=== PATIENT | male | born 1980 | race Caucasian/White ===

== ENCOUNTER → 2016-05-15 | Outpatient (CLI) | payer MEDICAID, OTHER ==
--- NOTE | 2016-05-15 17:08 | REP ---
Chest two views HISTORY: Cough Comparison: 06/27/2015 The lungs are clear. The heart is normal in size. The pulmonary vasculature is normal in appearance. The bony structure is intact. IMPRESSION: No acute disease. Signed by Bari Hogan MD 05/15/2016 04:59 P
== END ==
LOC: M WUC 16:43
PROVIDERS: ATTEND Physician Assistant Medical
DX: J06.9 Acute upper respiratory infection, unspecified (principal); E78.2 Mixed hyperlipidemia

== ENCOUNTER 2016-05-26 23:08 | Emergency (ER) | payer MEDICAID ==
[~2016-05-26] VITALS: Ht 177.8 cm; Wt 97.5 kg
[2016-05-27] MEDS ORDERED: ONDANSETRON 4MG/2ML VIAL (J2405) IV ONE (00:30)
[2016-05-27] MEDS ORDERED: NS 1,000 ML IV ONE (00:30)
[2016-05-27] MEDS: MORPHINE 4 MG/ML 1ML SYRINGE IV PRN ×2 (00:32→03:03)
[2016-05-27 00:37] LABS: BASO # 0.1 K/mm3 (0.0-0.2); BASO % 0.7 % (0.0-1.0); EOS # 0.3 K/mm3 (0.0-0.50); LARGE UNSTAINED CELL # 0.2 K/mm3 (0.0-0.4); LARGE UNSTAINED CELL % 1.1 % (0.0-4.0); LYMPH # 2.5 K/mm3 (1.5-4.5); LYMPH % 17.1 % (24.0-44.0); MEAN CORPUSCULAR HEMOGLOBIN 30.6 pg (27.0-33.0); MEAN CORPUSCULAR HGB CONC 33.4 g/dl (32.0-36.5); MEAN CORPUSCULAR VOLUME 91.5 fl (80.0-96.0); MONO # 0.7 K/mm3 (0.0-0.8); MONO % 5.1 % (0.0-5.0); NEUTROPHILS % 74.1 % (36.0-66.0); PLATELET COUNT, AUTOMATED 177 k/mm3 (150-450); RED CELL DISTRIBUTION WIDTH 12.7 % (11.5-14.5); WHITE BLOOD COUNT 13.5 K/mm3 (4.0-10.0)
[2016-05-27 00:49] LABS: ALBUMIN 3.6 GM/DL (3.2-5.2); ALBUMIN/GLOBULIN RATIO 1.16 (1.00-1.93); ALKALINE PHOSPHATASE 93 U/L (45-117); ALT/SGPT 35 U/L (12-78); ANION GAP 10 MEQ/L (8-16); AST/SGOT 17 U/L (15-37); BILIRUBIN,DIRECT 0.1 MG/DL (0.0-0.2); BILIRUBIN,TOTAL 0.7 MG/DL (0.2-1.0); BLOOD UREA NITROGEN 15 MG/DL (7-18); CALCIUM LEVEL 8.1 MG/DL (8.5-10.1); CARBON DIOXIDE LEVEL 24 MEQ/L (21-32); CHLORIDE LEVEL 108 MEQ/L (98-107); GLOMERULAR FILTRATION RATE > 60.0 (>60); GLUCOSE, FASTING 120 MG/DL (70-105); POTASSIUM SERUM 4.1 MEQ/L (3.5-5.1); SODIUM LEVEL 142 MEQ/L (136-145); TOTAL PROTEIN 6.7 GM/DL (6.4-8.2)
[2016-05-27] MEDS ORDERED: ISOVUE-370 76% 100ML VIAL (Q9967) As Ordered ONE (00:52)
[2016-05-27 03:38] VITALS: BP 131/61
--- NOTE | 2016-05-27 04:40 | REPUSA ---
CLINICAL HISTORY: Abdominal pain. TECHNIQUE: Multiple axial, sagittal and coronal CT images were obtained through the abdomen and pelvi s after administration of oral and intravenous contrast material. COMMENTS: The liver is of uniform decreased attenuation without mass or defect compatibl with fatty infiltratio n. There is no intra or extrahepatic biliary ductal dilatation. The spleen is normal. The gallbladder is within normal limits. The pancreas is of normal contour and attenuation characteristics. There is no evidence of adrenal mass. Both kidneys demonstrate prompt and equal nephrograms. The kidneys are normal in size, shape and conf iguration. There is no evidence of renal or ureteral mass. No renal or ureteral calculi are identifie d. There is no hydroureter or hydronephrosis. No evidence for appendicitis. There is diffuse descending and sigmoid diverticulosis note. Marked in flammatory stranding is seen adjacen to distal descending colon compatibl with acute divertiulitis No abscess or free air. No evidence for small or large bowel obstruction. There is no evidence of abdom inal ascites or lymphadenopathy. There is no evidence of intrinsic or extrinsic bladder mass. There is no pelvic ascites or lymphadeno liz. Images of the lung bases show no evidence of pleural or parenchymal mass. There are no pleural effusi ons. The bony structures are free of lytic or blastic lesions. IMPRESSION: Acute distal descending diverticulitis. Fatty liver. Thank you for your kind referral of this patient.
[2016-05-27] MEDS ORDERED: metroNIDAZOLE (FLAGYL) 500 MG TAB PO ONE (04:45)
[2016-05-27] MEDS ORDERED: OXYCODONE/APAP 5MG/325MG(BULK) 1 TAB TAB PO ONE (04:45)
[2016-05-27] MEDS ORDERED: CIPROFLOXACIN 500 MG TAB PO ONE (04:45)
[2016-05-27] MEDS ORDERED: FLAG500T PO ×2 (04:46→22:52)
[2016-05-27] MEDS ORDERED: PERC5TAB6 PO ×2 (04:46→22:52)
[2016-05-27] MEDS ORDERED: CIPR500T89 PO ×2 (04:46→22:52)
--- NOTE | 2016-05-27 19:47 | ECGEPIP ---
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
[2016-05-27] MEDS ORDERED: BREO1INH INH (22:56)
[2016-05-27] MEDS ORDERED: PROA1AER INH (22:56)
== END 2016-05-27 05:05 | disposition home or self-care (01) ==
LOC: M ED 05-27 01:30
DX: K57.32 Diverticulitis of large intestine without perforation or abscess without bleeding (principal); J44.9 Chronic obstructive pulmonary disease, unspecified; F17.210 Nicotine dependence, cigarettes, uncomplicated

== ENCOUNTER 2016-05-27 21:25 | Inpatient (IN) | payer MEDICAID ==
[~2016-05-27] VITALS: Ht 177.8 cm; Wt 101.5 kg
[~2016-05-27 21:25] MED LIST: CIPR500T89 PO; FLAG500T PO; PERC5TAB6 PO
[2016-05-27] MEDS ORDERED: diphenhydrAMINE INJ 50MG/ML VIAL (J1200) IV ONE (22:15)
[2016-05-27] MEDS ORDERED: methylPREDNISolone INJ 125 MG/2 ML VIAL (J2930) IV ONE (22:15)
[2016-05-27] MEDS ORDERED: PIPERACILLIN/TAZOBACTAM SOD 3.375 GM in D5W MINI-BAG PLUS 50 ML IV ONE (22:15)
[2016-05-27] MEDS ORDERED: MORPHINE 4 MG/ML 1ML SYRINGE IV PRN (22:15)
[2016-05-27] MEDS ORDERED: ONDANSETRON 4MG/2ML VIAL (J2405) IV ONE (22:15)
[2016-05-27] MEDS ORDERED: NS 1,000 ML IV ONE (22:15)
[2016-05-27 22:37] LABS: BASO # 0.1 K/mm3 (0.0-0.2); BASO % 0.5 % (0.0-1.0); EOS # 0.2 K/mm3 (0.0-0.50); LARGE UNSTAINED CELL # 0.1 K/mm3 (0.0-0.4); LARGE UNSTAINED CELL % 0.4 % (0.0-4.0); LYMPH # 1.6 K/mm3 (1.5-4.5); LYMPH % 12.5 % (24.0-44.0); MEAN CORPUSCULAR HEMOGLOBIN 31.2 pg (27.0-33.0); MEAN CORPUSCULAR HGB CONC 34.2 g/dl (32.0-36.5); MEAN CORPUSCULAR VOLUME 91.4 fl (80.0-96.0); MONO # 0.6 K/mm3 (0.0-0.8); MONO % 5.2 % (0.0-5.0); NEUTROPHILS # 9.6 K/mm3 (1.8-7.7); NEUTROPHILS % 79.4 % (36.0-66.0); PLATELET COUNT, AUTOMATED 165 k/mm3 (150-450); RED CELL DISTRIBUTION WIDTH 12.6 % (11.5-14.5); WHITE BLOOD COUNT 12.1 K/mm3 (4.0-10.0)
[2016-05-27] MEDS ORDERED: CIPR500T89 PO (22:52)
[2016-05-27] MEDS ORDERED: PERC5TAB6 PO (22:52)
[2016-05-27] MEDS ORDERED: FLAG500T PO (22:52)
[2016-05-27 22:55] LABS: ALBUMIN 3.3 GM/DL (3.2-5.2); ALBUMIN/GLOBULIN RATIO 0.94 (1.00-1.93); ALKALINE PHOSPHATASE 82 U/L (45-117); ALT/SGPT 31 U/L (12-78); ANION GAP 12 MEQ/L (8-16); AST/SGOT 10 U/L (15-37); BILIRUBIN,DIRECT 0.1 MG/DL (0.0-0.2); BILIRUBIN,TOTAL 0.7 MG/DL (0.2-1.0); BLOOD UREA NITROGEN 12 MG/DL (7-18); CALCIUM LEVEL 8.4 MG/DL (8.5-10.1); CARBON DIOXIDE LEVEL 25 MEQ/L (21-32); CHLORIDE LEVEL 104 MEQ/L (98-107); CREATININE FOR GFR 0.95 MG/DL (0.70-1.30); GLOMERULAR FILTRATION RATE > 60.0 (>60); GLUCOSE, FASTING 128 MG/DL (70-105); POTASSIUM SERUM 3.7 MEQ/L (3.5-5.1); SODIUM LEVEL 141 MEQ/L (136-145); TOTAL PROTEIN 6.8 GM/DL (6.4-8.2)
[2016-05-27] MEDS ORDERED: BREO1INH INH (22:56)
[2016-05-27] MEDS ORDERED: PROA1AER INH (22:56)
[2016-05-27] MEDS ORDERED: ONDANSETRON 4MG/2ML VIAL (J2405) IV PRN (23:00)
[2016-05-27] MEDS ORDERED: NORCO, ANEXSIA 5/325MG TABLET (HYDROcodone/ACETAMINOPHEN) PO PRN (23:00)
[2016-05-27] MEDS ORDERED: ALBUTEROL 90 MCG/ACT 8GM HFA INHALER INH PRN (23:00)
[2016-05-27] MEDS ORDERED: NICOTINE 21MG/24HR 1 EA TRANSDERMAL TD ONE (23:00)
[2016-05-27 23:55] VITALS: BP 139/83
[2016-05-28] MEDS: NS 1,000 ML IV SCH ×2 (00:36→12:51)
[2016-05-28] MEDS: PANTOPRAZOLE 40MG INJ (PROTONIX) (C9113) IV SCH ×2 (00:37→20:38)
[2016-05-28] MEDS: MORPHINE 2 MG/ML 1ML SYRINGE IV PRN ×3 (00:44→22:43)
--- NOTE | 2016-05-28 04:10 | HPE ---
DATE OF ADMISSION: 05/27/2016 PRIMARY CARE PROVIDER: NAKUL Chan CHIEF COMPLAINT: Abdominal pain. HISTORY OF PRESENT ILLNESS: The patient is a 35-year-old man who presented to the emergency room actually yesterday for the first time. At that time, he had lower quadrant abdominal pain associated with nausea and vomiting. At that time, he was diagnosed with diverticulitis by CT scan. He was discharged home on Percocet, Cipro, and Flagyl. However, the patient has had persistent nausea and vomiting, unable to keep the oral medications down as well as continued pain without any increase in pain. The patient also developed a maculopapular rash on his anterior chest and back prompting him to return the emergency room today. At the present time, the patient tells me that has been experiencing fevers and chills over the last several days. His pain is not any worse than it was yesterday. He is not able to keep any medication or food down. He tried eating mashed potatoes and gravy earlier today without any success. REVIEW OF SYSTEMS: Negative other than history of present illness (HPI). ALLERGIES: NOVOCAIN. SOCIAL HISTORY: He is an active smoker. No alcohol abuse. He lives with his . He denies any illicit substances. SURGICAL HISTORY: 1. Left elbow surgery. 2. Right wrist tendon surgery. 3. Tonsillectomy and adenoidectomy as a child. 4. Jaw fracture. 5. Numerous tattoos, some do not appear professional. PAST MEDICAL HISTORY: 1. Fatty liver. 2. Idiopathic urticaria. 3. Angioedema. 4. Chronic obstructive pulmonary disease (COPD). HOME MEDICATIONS: The patient says he uses an inhaler although very infrequently. He uses an occasional inhaler, but he does not know what it is called, other than that he denies. FAMILY HISTORY: Noncontributory. PHYSICAL EXAMINATION: Temperature 99, pulse 105, respiratory rate 16, blood pressure 164/92, oxygen saturation 98% on room air. GENERAL: He is an obese, middle-aged, man with numerous tattoos, some do not appear professional. He appears to be tired, but not in acute distress. HEENT: Cranial nerves II-XII are grossly intact. He has dry mucous membranes. CARDIOVASCULAR: S1, S2, regular. RESPIRATORY EXAM: Fairly clear. ABDOMEN: Obese, bowel sounds are present but diminished. There is tenderness to palpation. EXTREMITIES: No clubbing, cyanosis, or edema. LABORATORY STUDIES: WBC 12.1, hemoglobin 15.5, hematocrit 45.4, platelet count 165. Chemistry panel: Sodium 141, potassium 3.7, chloride 104, bicarbonate 25, BUN 12, creatinine 0.9. UA yesterday was essentially unremarkable. Blood cultures from yesterday are currently pending. Influenza swab yesterday was negative. Urine culture and blood cultures from today are currently pending. No new imaging. ASSESSMENT AND PLAN: This is a 35-year-old man with acute diverticulitis. 1. Acute diverticulitis. The patient was tried on oral antibiotics at home but did not tolerate it; had nausea and vomiting, and has returned once again. At this time, we will admit him to the medical-surgical floor to Dr. Senior's service who will continue to follow him at 7 a.m. Patient will be nothing by mouth. I will provide him with IV pain medication. We will switch his antibiotics as his maculopapular rash does appear to be a drug rash; however, it is unclear if it is secondary to his chronic history of urticaria versus true allergic reaction. He did receive Solu-Medrol and Benadryl in the emergency room. At this time, we will place him on Zosyn. Should the patient fail to improve with these measures, will consider surgical consultation. I will also provide him with Zofran IV and gentle IV fluids. 2. Urticaria. He received Solu-Medrol and Benadryl in the emergency room. We will simply monitor his maculopapular rash which is fairly diffuse on his chest and back at this time. 3. Chronic obstructive pulmonary disease (COPD). Continue with Ventolin as needed. 4. Deep vein thrombosis (DVT) prophylaxis. Patient is on Lovenox. 5. Tobacco use. Cessation counseling offered. Nicotine patch provided. DISPOSITION: The patient is admitted to the medical-surgical floor to Dr. Senior's service who will continue to follow the patient at 7 a.m.
[2016-05-28] MEDS: PIPERACILLIN/TAZOBACTAM SOD 3.375 GM in D5W MINI-BAG PLUS 50 ML IV SCH ×4 (05:34→22:43)
[2016-05-28 06:38] LABS: MEAN CORPUSCULAR HEMOGLOBIN 30.8 pg (27.0-33.0); MEAN CORPUSCULAR HGB CONC 33.4 g/dl (32.0-36.5); MEAN CORPUSCULAR VOLUME 92.1 fl (80.0-96.0); RED CELL DISTRIBUTION WIDTH 12.4 % (11.5-14.5); WHITE BLOOD COUNT 10.6 K/mm3 (4.0-10.0)
[2016-05-28 06:56] LABS: ANION GAP 6 MEQ/L (8-16); BLOOD UREA NITROGEN 11 MG/DL (7-18); CALCIUM LEVEL 8.2 MG/DL (8.5-10.1); CARBON DIOXIDE LEVEL 27 MEQ/L (21-32); CHLORIDE LEVEL 108 MEQ/L (98-107); CREATININE FOR GFR 0.91 MG/DL (0.70-1.30); GLOMERULAR FILTRATION RATE > 60.0 (>60); GLUCOSE, FASTING 177 MG/DL (70-105); POTASSIUM SERUM 4.6 MEQ/L (3.5-5.1); SODIUM LEVEL 141 MEQ/L (136-145)
[2016-05-28 08:00] VITALS: BP 143/82
[2016-05-28] MEDS: ENOXAPARIN 40 MG/0.4 ML SYRINGE (J1650) SC SCH (08:43)
[2016-05-28] MEDS: NORCO, ANEXSIA 5/325MG TABLET (HYDROcodone/ACETAMINOPHEN) PO PRN ×3 (09:24→20:38)
[2016-05-28] MEDS ORDERED: diphenhydrAMINE INJ 50MG/ML VIAL (J1200) IM PRN (12:00)
[2016-05-28] MEDS: methylPREDNISolone INJ 125 MG/2 ML VIAL (J2930) IV SCH ×2 (12:51→20:38)
[2016-05-28] MEDS: NICOTINE 14 MG/24 HR TRANSDERMAL TD SCH (13:20)
--- NOTE | 2016-05-28 15:47 | IPNPDOC ---
Text Note Date of Service The patient was seen on 05/28/16. NOTE Subjective: Pt still has LLQ pain. Still has the rash. Objective: Vitals: (see below) General: No acute distress, laying comfortably in bed. HEENT: Moist mucous membranes. Neck: No JVD or lymphadenopathy Cardiac: RRR, No murmurs Pulm: Clear to auscultation b/l. No wheezing, rhonchi Abd: TTP LLQ. No rebound/guarding/rigidity. ND + BS Ext: No edema or cyanosis Labs (see below) Images: CT abd/pelvis 05/27/16 COMMENTS: The liver is of uniform decreased attenuation without mass or defect compatibl with fatty infiltration. There is no intra or extrahepatic biliary ductal dilatation. The spleen is normal. The gallbladder is within normal limits. The pancreas is of normal contour and attenuation characteristics. There is no evidence of adrenal mass. Both kidneys demonstrate prompt and equal nephrograms. The kidneys are normal in size, shape and configuration. There is no evidence of renal or ureteral mass. No renal or ureteral calculi are identified. There is no hydroureter or hydronephrosis. No evidence for appendicitis. There is diffuse descending and sigmoid diverticulosis note. Marked inflammatory stranding is seen adjacent to distal descending colon compatibl with acute divertiulitis No abscess or free air. No evidence for small or large bowel obstruction. There is no evidence of abdominal ascites or lymphadenopathy. There is no evidence of intrinsic or extrinsic bladder mass. There is no pelvic ascites or lymphadenopathy. Images of the lung bases show no evidence of pleural or parenchymal mass. There are no pleural effusions. The bony structures are free of lytic or blastic lesions. IMPRESSION: Acute distal descending diverticulitis. Fatty liver. Assessment/Plan 1. Acute Diverticulitis - on IVF, Zosyn. NPO. Zofran PRN. Pain control. Advance diet once abd pain has resolved. 2. Urticaria - likely 2/2 oxycodone. On Benadryl and steroids. 3. ? H/o COPD - followed up with Dr. Kerr in the past. Ventolin as needed. 4. Tobacco abuse - on nicotine patch. DVT prophy- Lovenox. VS,Fishbone, I+O VS, Fishbone, I+O Laboratory Tests 05/27/16 22:21 Red Blood Count 4.97, Mean Corpuscular Volume 91.4, Mean Corpuscular Hemoglobin 31.2, Mean Corpuscular Hemoglobin Concent 34.2, Red Cell Distribution Width 12.6 , Neutrophils (%) (Auto) 79.4 H, Lymphocytes (%) (Auto) 12.5 L, Monocytes (%) ( Auto) 5.2 H, Eosinophils (%) (Auto) 2.0, Basophils (%) (Auto) 0.5, Neutrophils # (Auto) 9.6 H, Lymphocytes # (Auto) 1.6, Monocytes # (Auto) 0.6, Eosinophils # (Auto) 0.2, Basophils # (Auto) 0.1 05/28/16 06:26 Calcium Level 8.2 L 05/28/16 06:27 Red Blood Count 4.81, Mean Corpuscular Volume 92.1, Mean Corpuscular Hemoglobin 30.8, Mean Corpuscular Hemoglobin Concent 33.4, Red Cell Distribution Width 12.4 Vital Signs Date Time Temp Pulse Resp B/P Pulse Ox O2 Delivery O2 Flow Rate FiO2 05/28/16 13:21 18 05/28/16 08:00 97.0 80 143/82 92 Room Air I&O- Last 24 Hours up to 6 AM 05/28/16 06:00 Output Total 500 ml Balance -500 ml ZOYA JAMES MD May 28, 2016 15:46
[2016-05-28 16:00] VITALS: BP 143/83
[2016-05-28 20:00] VITALS: BP 131/70
[2016-05-29 04:00] VITALS: BP 163/79
[2016-05-29] MEDS: methylPREDNISolone INJ 125 MG/2 ML VIAL (J2930) IV SCH ×2 (04:59→16:31)
[2016-05-29] MEDS: NS 1,000 ML IV SCH (05:00)
[2016-05-29] MEDS: PIPERACILLIN/TAZOBACTAM SOD 3.375 GM in D5W MINI-BAG PLUS 50 ML IV SCH ×4 (05:00→23:29)
[2016-05-29 07:03] LABS: MEAN CORPUSCULAR HEMOGLOBIN 30.7 pg (27.0-33.0); MEAN CORPUSCULAR HGB CONC 33.5 g/dl (32.0-36.5); MEAN CORPUSCULAR VOLUME 91.7 fl (80.0-96.0); RED CELL DISTRIBUTION WIDTH 12.2 % (11.5-14.5); WHITE BLOOD COUNT 11.6 K/mm3 (4.0-10.0)
[2016-05-29 07:19] LABS: ANION GAP 11 MEQ/L (8-16); BLOOD UREA NITROGEN 15 MG/DL (7-18); CALCIUM LEVEL 8.5 MG/DL (8.5-10.1); CARBON DIOXIDE LEVEL 25 MEQ/L (21-32); CHLORIDE LEVEL 107 MEQ/L (98-107); CREATININE FOR GFR 0.81 MG/DL (0.70-1.30); GLOMERULAR FILTRATION RATE > 60.0 (>60); GLUCOSE, FASTING 157 MG/DL (70-105); POTASSIUM SERUM 4.4 MEQ/L (3.5-5.1); SODIUM LEVEL 143 MEQ/L (136-145)
[2016-05-29 08:00] VITALS: BP 137/83
[2016-05-29] MEDS: ENOXAPARIN 40 MG/0.4 ML SYRINGE (J1650) SC SCH (08:54)
[2016-05-29] MEDS: SENOKOT S TAB PO SCH ×2 (08:54→21:13)
[2016-05-29] MEDS: NICOTINE 14 MG/24 HR TRANSDERMAL TD SCH (08:55)
[2016-05-29] MEDS: ADVAIR DISKUS 500/50 INH PWD INH SCH ×2 (09:00→19:41)
--- NOTE | 2016-05-29 13:14 | IPN ---
DATE OF SERVICE: 05/29/2016 The patient seen and examined. No acute events overnight. Reported abdominal pain mildly improved but still present. Last bowel movement was 2 or 3 days ago. Denies any nausea or vomiting. Reported hungry. Denies any fevers, chills, chest pain, pressure, or discomfort. VITAL SIGNS: Temperature 96.9, pulse 81, respiration 18, blood pressure 163/79, pulse oximetry 92% on room air. LABORATORY: WBC 11.6, hemoglobin and hematocrit 14.4/43.1, platelets 175. Chemistry: Sodium 143, potassium 4.4, chloride 107, bicarbonate 25, BUN 15, creatinine 0.81. PHYSICAL EXAMINATION: GENERAL: The patient alert and oriented times three. No acute distress. obese. HEENT: Normocephalic, atraumatic. Moist mucous membranes. Neck supple. CARDIAC: Regular rate and rhythm, normal S1, S2. PULMONARY: Bilaterally clear to auscultation. No wheezes, rales, or rhonchi. ABDOMEN: Left lower quadrant mildly tender. No rebound. No guarding. Hypoactive bowel sounds. EXTREMITIES: No edema in bilateral lower extremities. ASSESSMENT AND PLAN: This is a 35-year-old male patient with underlying medical history of chronic obstructive pulmonary disease (COPD), smoker, presented with acute diverticulitis, failure of outpatient therapy. PROBLEMS: 1. Acute diverticulitis. Advance diet to clear-liquid diet and advance diet as tolerated. Stopping intravenous (IV) fluids. Continue Zosyn. Will continue to follow. Bowel regimen as ordered. 2 . Urticaria, possibly secondary to oxycodone. Benadryl and steroid given. Continue to follow. 3. Chronic obstructive pulmonary disease. The patient follows with Dr. Kerr. Smoking cessation. Ventolin. Breo has been substituted by Advair. Smoking cessation. Nicotine patch. Steroid dose has been decreased and will consider stopping steroids tomorrow. 4. Smoking. Nicotine patch. Counseling provided. 5. Deep vein thrombosis (DVT) prophylaxis. Lovenox subcutaneously. DISPOSITION PLANNING: Likely discharge tomorrow if the patient tolerates regular diet.
[2016-05-29 16:00] VITALS: BP 157/83
[2016-05-29] MEDS ORDERED: methylPREDNISolone INJ 125 MG/2 ML VIAL (J2930) IV SCH (16:00)
[2016-05-29 20:00] VITALS: BP 140/72
[2016-05-29] MEDS: PANTOPRAZOLE 40MG INJ (PROTONIX) (C9113) IV SCH (21:13)
[2016-05-30] VITALS: BP 121/62
[2016-05-30] MEDS: methylPREDNISolone INJ 125 MG/2 ML VIAL (J2930) IV SCH (04:59)
[2016-05-30] MEDS: PIPERACILLIN/TAZOBACTAM SOD 3.375 GM in D5W MINI-BAG PLUS 50 ML IV SCH (04:59)
[2016-05-30 07:44] LABS: MEAN CORPUSCULAR HEMOGLOBIN 29.9 pg (27.0-33.0); MEAN CORPUSCULAR HGB CONC 32.8 g/dl (32.0-36.5); MEAN CORPUSCULAR VOLUME 91.2 fl (80.0-96.0); RED CELL DISTRIBUTION WIDTH 12.4 % (11.5-14.5); WHITE BLOOD COUNT 10.6 K/mm3 (4.0-10.0)
[2016-05-30 08:00] VITALS: BP 127/69
[2016-05-30 08:03] LABS: ANION GAP 9 MEQ/L (8-16); BLOOD UREA NITROGEN 14 MG/DL (7-18); CALCIUM LEVEL 7.9 MG/DL (8.5-10.1); CARBON DIOXIDE LEVEL 26 MEQ/L (21-32); CHLORIDE LEVEL 110 MEQ/L (98-107); CREATININE FOR GFR 0.93 MG/DL (0.70-1.30); GLOMERULAR FILTRATION RATE > 60.0 (>60); GLUCOSE, FASTING 126 MG/DL (70-105); POTASSIUM SERUM 4.1 MEQ/L (3.5-5.1); SODIUM LEVEL 145 MEQ/L (136-145)
[2016-05-30] MEDS ORDERED: FLAG500T PO (08:17)
[2016-05-30] MEDS ORDERED: NICO14PA TD (08:17)
[2016-05-30] MEDS ORDERED: SENN1TAB2 PO (08:17)
[2016-05-30] MEDS ORDERED: CIPR500T89 PO (08:17)
[2016-05-30] MEDS: NICOTINE 14 MG/24 HR TRANSDERMAL TD SCH (08:19)
[2016-05-30] MEDS: ENOXAPARIN 40 MG/0.4 ML SYRINGE (J1650) SC SCH (08:20)
[2016-05-30] MEDS: SENOKOT S TAB PO SCH (08:20)
[2016-05-30] MEDS: ADVAIR DISKUS 500/50 INH PWD INH SCH (08:37)
--- NOTE | 2016-05-30 19:31 | DSES ---
DATE OF ADMISSION: 05/27/2016 DATE OF DISCHARGE: 05/30/2016 PRIMARY CARE PROVIDER: Bell Perez. FINAL DIAGNOSES: 1. Acute diverticulitis. 2. Urticaria. 3. History of chronic obstructive pulmonary disease (COPD), smoking. HISTORY OF PRESENT ILLNESS: This is a 35-year-old male patient, obese, with underlying medical history of COPD, who presented to the emergency room initially the day prior to admission for the first time with lower quadrant abdominal pain associated with nausea and vomiting. The patient was diagnosed with diverticulitis on CT scan, and was discharged home on Percocet, Cipro and Flagyl. However, the patient reported persistent nausea and vomiting, unable to take the oral medication, continued to have increased pain. Also developed maculopapular rash on the patient's anterior chest and back, likely from Percocet. The patient returned to the emergency room with subjective fevers and chills and was subsequently admitted. HOSPITAL COURSE: The patient was admitted to the hospital, initially made nothing by mouth. Antibiotics were switched to Zosyn. Steroids and Benadryl were given for urticaria which has resolved. The patient's home inhaler was given. Smoking cessation counseling was provided. Nicotine patch was provided. Intravenous (IV) fluids were provided. The patient's condition progressively improved. Diet was advanced. The patient's pain continued to improve. The patient is currently tolerating diet, comfortable, ready to be discharged. As per patient, the patient's primary care provider has already arranged for the patient to have a followup colonoscopy. VITAL SIGNS: Temperature 97.4, pulse 63, respirations 18, blood pressure 127/69, pulse oximetry 97% on room air. LABORATORY DATA: WBC 10.6, hemoglobin and hematocrit 14.2 over 43.4, platelets 194. Chemistry: Sodium 145, potassium 4.1, chloride 110, bicarbonate 28, BUN 14, creatinine 0.93. DISCHARGE MEDICATIONS: - nicotine patch 14 mg transdermal daily - senna 8.6/50 mg combination one tablet by mouth twice a day - the patient's home medication, ProAir inhalation every four hours as needed - Cipro 500 mg by mouth twice a day for five more days, along with Flagyl 500 mg by mouth every eight hours for five more days - Breo inhalation daily is continued DISCHARGE INSTRUCTIONS: The patient is instructed to followup with primary care provider in seven days. Observe a low-fat, high-fiber diet. Return to the hospital if symptoms worsen.
== END 2016-05-30 10:55 | disposition home or self-care (01) | DRG 244 ==
LOC: M ED 22:27 → M ED INP 22:54 → M PED 05-28 00:06
PROVIDERS: ADMIT Internal Medicine; ATTEND Hospitalist
DX: K57.32 Diverticulitis of large intestine without perforation or abscess without bleeding (principal); K76.0 Fatty (change of) liver, not elsewhere classified; J44.9 Chronic obstructive pulmonary disease, unspecified; E66.9 Obesity, unspecified; L50.0 Allergic urticaria; F17.210 Nicotine dependence, cigarettes, uncomplicated; T40.2X5A Adverse effect of other opioids, initial encounter

== ENCOUNTER 2016-06-01 15:47 | Observation (INO) | payer MEDICAID ==
[~2016-06-01] VITALS: Ht 177.8 cm; Wt 95.8 kg
[~2016-06-01 15:47] MED LIST changes: +BREO1INH INH; +NICO14PA TD; +PROA1AER INH; +SENN1TAB2 PO
[2016-06-01 20:30] LABS: BASO # 0.1 K/mm3 (0.0-0.2); BASO % 0.6 % (0.0-1.0); EOS # 0.4 K/mm3 (0.0-0.50); EOS % 3.8 % (0.0-3.0); LARGE UNSTAINED CELL # 0.1 K/mm3 (0.0-0.4); LARGE UNSTAINED CELL % 1.2 % (0.0-4.0); LYMPH # 2.1 K/mm3 (1.5-4.5); LYMPH % 21.6 % (24.0-44.0); MEAN CORPUSCULAR HEMOGLOBIN 30.3 pg (27.0-33.0); MEAN CORPUSCULAR HGB CONC 33.7 g/dl (32.0-36.5); MEAN CORPUSCULAR VOLUME 90.1 fl (80.0-96.0); MONO # 0.5 K/mm3 (0.0-0.8); MONO % 4.9 % (0.0-5.0); NEUTROPHILS # 6.8 K/mm3 (1.8-7.7); PLATELET COUNT, AUTOMATED 217 k/mm3 (150-450); RED CELL DISTRIBUTION WIDTH 12.5 % (11.5-14.5); WHITE BLOOD COUNT 9.9 K/mm3 (4.0-10.0)
[2016-06-01 21:02] LABS: ALBUMIN 3.4 GM/DL (3.2-5.2); ALBUMIN/GLOBULIN RATIO 1.17 (1.00-1.93); ALKALINE PHOSPHATASE 81 U/L (45-117); ALT/SGPT 59 U/L (12-78); ANION GAP 7 MEQ/L (8-16); AST/SGOT 22 U/L (15-37); BILIRUBIN,TOTAL 0.5 MG/DL (0.2-1.0); BLOOD UREA NITROGEN 15 MG/DL (7-18); CARBON DIOXIDE LEVEL 31 MEQ/L (21-32); CHLORIDE LEVEL 105 MEQ/L (98-107); GLOMERULAR FILTRATION RATE > 60.0 (>60); GLUCOSE, FASTING 94 MG/DL (70-105); POTASSIUM SERUM 4.2 MEQ/L (3.5-5.1); SODIUM LEVEL 143 MEQ/L (136-145); TOTAL PROTEIN 6.3 GM/DL (6.4-8.2)
[2016-06-01] MEDS ORDERED: ISOVUE-370 76% 100ML VIAL (Q9967) As Ordered ONE (21:11)
[2016-06-01] MEDS ORDERED: GASTROGRAFIN SOLUTION 30ML (Q9963) As Ordered ONE (21:16)
[2016-06-01] MEDS ORDERED: GASTROGRAFIN SOLUTION 30ML (Q9963) PO ONE ×2 (21:30)
--- NOTE | 2016-06-01 23:40 | REPUSA ---
CLINICAL HISTORY: Diverticulitis last week, rule out repeat. TECHNIQUE: Multiple axial CT images were obtained through the abdomen and pelvis after administratio n of oral and intravenous contrast material. COMMENTS: There is hepatic hypoattenuation compatible with fatty infiltration. Small hiatal hernia is present. There is no intra or extrahepatic biliary ductal dilatation. Multiple calcified splenic granulomas are present. The gallbladder is within normal limits. The pancreas is of normal contour and attenu ation characteristics. There is no evidence of adrenal mass. Both kidneys demonstrate prompt and equal nephrograms. The kidneys are normal in size, shape and con figuration. There is no evidence of renal or ureteral mass. No renal or ureteral calculi are identi fied. There is no hydroureter or hydronephrosis. No evidence for appendicitis. There is no bowel wall thickening. Scattered descending and sigmoid d iverticula are present. No evidence of diverticulitis. There is evidence of inflammatory stranding adjacent to the distal descending colon compatible with acute diverticulitis. No evidence for small or large bowel obstruction. There is no evidence of abdominal ascites or lymphadenopathy. There is no evidence of intrinsic or extrinsic bladder mass. There is no pelvic ascites or lymphaden opathy. Prostate gland is normal in size containing small calcifications. Images of the lung bases show no evidence of pleural or parenchymal mass. There are no pleural effus ions. The bony structures are free of lytic or blastic lesions. IMPRESSION: 1. Acute distal descending diverticulitis. 2. Fatty liver. 3. Small hiatal hernia. Thank you for your kind referral of this patient. We appreciate the opportunity to participate in th is patient's care.
[2016-06-02] MEDS ORDERED: LR 1,000 ML IV SCH (01:00)
[2016-06-02] MEDS ORDERED: ACETAMINOPHEN TAB 650MG DOSE (2X325MG) PO PRN (01:30)
[2016-06-02] MEDS ORDERED: ONDANSETRON 4MG/2ML VIAL (J2405) IV PRN (01:30)
[2016-06-02] MEDS ORDERED: CIPR500T89 PO (01:44)
[2016-06-02] MEDS ORDERED: NICO14DI TD (01:44)
[2016-06-02] MEDS ORDERED: FLAG500T PO (01:44)
[2016-06-02] MEDS ORDERED: SENN1TAB2 PO (01:45)
[2016-06-02 02:38] VITALS: BP 138/84
[2016-06-02] MEDS ORDERED: NS 1,000 ML IV SCH (02:59)
[2016-06-02] MEDS: MORPHINE 2 MG/ML 1ML SYRINGE IV PRN ×3 (03:08→18:37)
[2016-06-02] MEDS: PIPERACILLIN/TAZOBACTAM SOD 3.375 GM in D5W MINI-BAG PLUS 50 ML IV SCH ×3 (03:09→19:52)
--- NOTE | 2016-06-02 03:20 | HPEPDOC ---
General Date of Admission Jun 02, 2016 at 01:30 Chief Complaint The patient is a 35-year-old male Presented to the hospital with complaints of left lower abdominal pain. History of Present Illness Patient is a 35 year old male with a PMHx Fatty Liver, Idiopathic urticarial, Angioedema, and COPD (not on home O2) who presented to the hospital because of left lower abdominal pain. Patient was recently at the [facility] for acute diverticulitis from 05/27-05/30. He had similar symptoms upon admission then and had resolution of his white count and pain. He was subsequently discharged with Ciprofloxacin and Flagyl. He has been outside the hospital for 2-3 days and did not have any issues. He was told to have a high fiber diet and has been compliant. He noted that his pain today has recurred at the left lower quadrant. He rated it at a max of 10/10, currently a 7/10, continuous, stabbing pain, non-radiating , no alleviating factors and aggravated by movement. Patient denies any vomiting , but reports some nausea. He has had a history of diarrhea that has been present chronically. He denies any fevers at home. He denies any cough, shortness of breath, chest pain, palpitations, or dysuria. Home Medications Scheduled (Senna Plus 8.6-50 mg) 1 Tab Tab 1 TAB PO BID (Reported) Ciprofloxacin HCl (Cipro) 500 Mg Tab 500 MG PO BID (Reported) For 10 days; Started 05/30/16 Fluticasone/Vilanterol (Breo Ellipta 100-25 Mcg/INH) 1 Inh Inh 1 PUFF INH DAILY (Reported) Metronidazole (Flagyl) 500 Mg Tab 500 MG PO Q8H (Reported) For 10 days; Started 05/30/16 Nicotine (Nicotine) 14 Mg/24 Hr Dis 14 MG TD DAILY (Reported) Applied to Left Arm Scheduled PRN Albuterol Sulfate (Proair Hfa) 108 Mcg/Act Aer 1 PUFF INH Q4H PRN PRN SHORTNESS OF BREATH (Reported) Allergies Coded Allergies: Oxycodone (Verified Allergy, Intermediate, HIVES WITHOUT ITCHING, 05/28/16) Past Medical History Medical History Fatty Liver, Idiopathic urticarial, Angioedema, and COPD (not on home O2) Surgical History Left elbow surgery Right wrist tendon surgery Tonsillectomy Adenoidectomy Jaw fracture Numerous tattoos doesnt appear professionally done Family History - Mother unknown history - Father with DM2 Social History - Denies the use of illicit drugs; Social alcohol use, Smoker of 10 years at 1ppd - Denies recent travel or sick contacts - Lives with - 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; [employer]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 Other systems Constitutional: Denies weight loss, change in appetite, or recent trauma Eyes: No visual changes or eye pain Ears, Nose, Throat: Denies nose bleeds, or difficulty swallowing Cardiovascular: Denies chest pain, sweating, or orthopnea Respiratory: Denies cough, wheezing, or shortness of breath GI: Positive nausea, No vomiting, Positive abdominal pain, Positive diarrhea, No constipation : Denies pain with urination or frequency Musculoskeletal: Denies joint pain or swelling Neuro / Psych: Denies muscle weakness or sensory loss Skin: No skin rashes noted All other review of systems negative; otherwise stated in history of present illness Screening: - Colonoscopy never done Vital Signs - Vitals: BP 138/84, HR 66, RR 19, Sat 95%RA, Temp 97.9F - General: Lying in bed, No acute distress, Speaking in full sentences, AAOx3 - HEENT: NC, AT, PERRLA, EOMI - CVS: RRR, +S1S2, - Murmurs / rubs / gallops - Lungs: Fair air entry bilaterally, Clear to auscultation, No wheezing / rales / rhonchi - Abdomen: Soft, Non-distended, Tenderness at left lower quadrant, + Bowel sounds x 4, No guarding / rigidity / rebound - Extremities: + PPx4, No lower extremity edema, No calf tenderness - Neuro: No focal motor or sensory deficit - Skin: No visible rashes Laboratory Data Labs 24H Laboratory Tests 2 06/01/16 20:20: Blood Urea Nitrogen 15, Creatinine 1.00, Sodium Level 143, Potassium Level 4.2, Chloride Level 105, Carbon Dioxide Level 31, Calcium Level 8.0L, Aspartate Amino Transf (AST/SGOT) 22, Alanine Aminotransferase (ALT/SGPT) 59, Alkaline Phosphatase 81, Total Bilirubin 0.5, Total Protein 6.3L, Albumin 3.4, Albumin/ Globulin Ratio 1.17, Anion Gap 7L, White Blood Count 9.9, Red Blood Count 5.56, Hemoglobin 16.9, Hematocrit 50.1, Mean Corpuscular Volume 90.1, Mean Corpuscular Hemoglobin 30.3, Mean Corpuscular Hemoglobin Concent 33.7, Red Cell Distribution Width 12.5, Platelet Count 217, Neutrophils (%) (Auto) 68.0H, Lymphocytes (%) (Auto) 21.6L, Monocytes (%) (Auto) 4.9, Eosinophils (%) (Auto) 3.8H, Basophils (%) (Auto) 0.6, Neutrophils # (Auto) 6.8, Lymphocytes # (Auto) 2.1, Monocytes # (Auto) 0.5, Eosinophils # (Auto) 0.4, Basophils # (Auto) 0.1, Glomerular Filtration Rate > 60.0, Large Unclassified Cells # 0.1, Large Unclassified Cells % 1.2 06/02/16 01:52: Urine Amorphous Sediment , Urine Appearance CLEAR, Urine Color YELLOW, Urine pH 6.0, Urine Specific [place] 1.027, Urine Protein NEGATIVE, Urine Glucose (UA) NEGATIVE, Urine Ketones NEGATIVE, Urine Urobilinogen 0.2, Urine Bilirubin NEGATIVE, Urine Leukocyte Esterase NEGATIVE, Urine Bacteria (Auto) NEGATIVE, Urine Blood NEGATIVE, Urine Calcium Carbonate Cryst(Auto) , Urine Calcium Oxalate Cryst (Auto) , Urine Calcium Phosphate Zaira (Auto) , Urine Cellular Casts , Urine Cystine Crystals , Urine Granular Casts (Auto) , Urine Hyaline Casts (Auto) 0, Urine Leucine Crystals , Urine Mucus (Auto) SMALL, Urine Nitrite NEGATIVE, Urine Oval Fat Bodies (Auto) , Urine RBC (Auto) 2, Urine Renal Epithelial Cells , Urine Sperm (Auto) , Urine Squamous Epithelial Cells 0 , Urine Transitional Epithelial Cells , Urine Trichomonas (Auto) , Urine Triple Phosphate Cryst (Auto) , Urine Tyrosine Crystals , Urine Uric Acid Crystals ( Auto) , Urine WBC (Auto) 3, Urine Waxy Casts (Auto) , Urine Yeast-Like Cells ( Auto) 06/02/16 02:25: Lactic Acid (Sepsis) 1.2 CBC/BMP Laboratory Tests 06/01/16 20:20 Calcium Level 8.0 L, Aspartate Amino Transf (AST/SGOT) 22, Alanine Aminotransferase (ALT/SGPT) 59, Alkaline Phosphatase 81, Total Bilirubin 0.5, Total Protein 6.3 L, Albumin 3.4, Red Blood Count 5.56, Mean Corpuscular Volume 90.1, Mean Corpuscular Hemoglobin 30.3, Mean Corpuscular Hemoglobin Concent 33.7 , Red Cell Distribution Width 12.5, Neutrophils (%) (Auto) 68.0 H, Lymphocytes ( %) (Auto) 21.6 L, Monocytes (%) (Auto) 4.9, Eosinophils (%) (Auto) 3.8 H, Basophils (%) (Auto) 0.6, Neutrophils # (Auto) 6.8, Lymphocytes # (Auto) 2.1, Monocytes # (Auto) 0.5, Eosinophils # (Auto) 0.4, Basophils # (Auto) 0.1 Microbiology Microbiology 06/02/16 Blood Culture, Received Pending 06/02/16 Urine Culture, Received Pending Plan / VTE VTE Prophylaxis Ordered?: Yes Plan Plan Left lower quadrant abdominal pain likely 2/2 acute diverticulitis - Recent admission for acute diverticulitis - Failed to improve with outpatient regimen; had worsening pain - Physical reveals LLQ tenderness - No leukocytosis, fever or lactic acidosis - CT abdomen 06/01: acute diverticulitis - Will discontinue outpatient Flagyl and Ciprofloxacin and start Zosyn for broad coverage - Will give pain control with Morphine Fatty Liver Idiopathic urticarial and history of angioedema - reported that it was not secondary to medications - received solumedrol and Benadryl on prior admission - no evidence of this on physical exam today - will monitor for now COPD (not on home O2) - no evidence of exacerbation - will c/w home medications Smoking dependence - will c/w nicotine patch DVT prophylaxis - Will start Lovenox GERARDO MCCLAIN MD Jun 02, 2016 03:20
[2016-06-02] MEDS ORDERED: ALBUTEROL 90 MCG/ACT 8GM HFA INHALER INH PRN (03:30)
[2016-06-02 06:00] VITALS: BP 128/72
[2016-06-02] MEDS: ADVAIR DISKUS 250/50 INH PWD INH SCH ×2 (07:34→19:40)
[2016-06-02] MEDS: SENOKOT S TAB PO SCH ×2 (08:33→19:53)
[2016-06-02] MEDS: NICOTINE 14 MG/24 HR TRANSDERMAL TD SCH (08:33)
[2016-06-02] MEDS: ENOXAPARIN 40 MG/0.4 ML SYRINGE (J1650) SC SCH (08:34)
[2016-06-02 14:00] VITALS: BP 134/73
--- NOTE | 2016-06-02 14:12 | IPN ---
DATE: 06/02/2016 SUBJECTIVE: Patient is seen and examined in the room today. Patient stated his pain shows some improvement with pain medications. Per patient, on the last day of his hospitalization, which was 05/30/2016, patient's pain had been adequately controlled and patient did not take any pain medication that day. After discharge his left lower abdominal pain continued to get worse and Tylenol has not been helping him for the past 3 days. OBJECTIVE: VITAL SIGNS: Temperature 97.4, pulse 67, respirations 18, blood pressure 128/72, pulse oximetry 92% in room air. GENERAL: No sign of acute distress, alert and oriented times three. HEENT: Normocephalic, atraumatic. Extraocular motors grossly intact. CARDIOVASCULAR: Positive S1, S2, regular rate. LUNGS: Clear to auscultation bilaterally. ABDOMEN: Tenderness to palpation, especially in the left lower quadrant. Bowel sounds present. Abdomen is soft, nondistended. No rebound. EXTREMITIES: No edema, no cyanosis. LABORATORY DATA: Labs obtained on 06/01/2016 at 8 p.m.: WBC 9.9, hemoglobin 16.9, hematocrit 43.1, platelet count 217. Sodium 143, potassium 4.2, chloride 101, carbon dioxide 31, BUN 15, creatinine 1, GFR greater than 60, fasting glucose 94, lactic acid 1.2, calcium 8, total bilirubin 0.5, AST 22, ALT 59, alkaline phosphatase 81, total protein 6.3. ASSESSMENT AND PLAN: 1. Diverticulitis. Repeat CT of the abdomen and pelvis was reviewed, imaging evidenced diverticulitis. Before admission patient was on Cipro and Flagyl. Currently patient's antibiotic is switched back to Zosyn. Will continue with morphine for pain control. At this moment patient does not have any fever or chills and patient does not have any lactic acid elevation and there is no elevated white blood cells (WBC). Will continue to monitor patient. 2. Fatty liver. 3. Idiopathic urticaria and history of angioedema. Patient received Solu-Medrol and Benadryl. 4. Chronic obstructive pulmonary disease (COPD). Patient is not on any oxygen at home. There is no evidence of chronic obstructive pulmonary disease (COPD) exacerbation at this moment. Continue home medications. 5. History of smoking. Patient on nicotine patch. 6. Deep venous thrombosis (DVT) prophylaxis, on Lovenox.
[2016-06-02 22:00] VITALS: BP 137/79
[2016-06-03] MEDS: PIPERACILLIN/TAZOBACTAM SOD 3.375 GM in D5W MINI-BAG PLUS 50 ML IV SCH (04:06)
[2016-06-03 06:00] VITALS: BP 131/75
[2016-06-03 06:25] LABS: BASO % 0.4 % (0.0-1.0); EOS # 0.4 K/mm3 (0.0-0.50); LARGE UNSTAINED CELL # 0.1 K/mm3 (0.0-0.4); LARGE UNSTAINED CELL % 1.3 % (0.0-4.0); LYMPH # 1.8 K/mm3 (1.5-4.5); LYMPH % 20.6 % (24.0-44.0); MEAN CORPUSCULAR HEMOGLOBIN 30.6 pg (27.0-33.0); MEAN CORPUSCULAR HGB CONC 33.4 g/dl (32.0-36.5); MEAN CORPUSCULAR VOLUME 91.5 fl (80.0-96.0); MONO # 0.4 K/mm3 (0.0-0.8); MONO % 5.4 % (0.0-5.0); NEUTROPHILS # 5.4 K/mm3 (1.8-7.7); NEUTROPHILS % 67.3 % (36.0-66.0); PLATELET COUNT, AUTOMATED 199 k/mm3 (150-450); RED CELL DISTRIBUTION WIDTH 12.6 % (11.5-14.5)
[2016-06-03 06:40] LABS: ALBUMIN 2.9 GM/DL (3.2-5.2); ALBUMIN/GLOBULIN RATIO 0.97 (1.00-1.93); ALKALINE PHOSPHATASE 67 U/L (45-117); ALT/SGPT 52 U/L (12-78); ANION GAP 8 MEQ/L (8-16); AST/SGOT 19 U/L (15-37); BILIRUBIN,TOTAL 0.8 MG/DL (0.2-1.0); BLOOD UREA NITROGEN 12 MG/DL (7-18); CALCIUM LEVEL 8.2 MG/DL (8.5-10.1); CARBON DIOXIDE LEVEL 27 MEQ/L (21-32); CHLORIDE LEVEL 108 MEQ/L (98-107); CREATININE FOR GFR 0.87 MG/DL (0.70-1.30); GLOMERULAR FILTRATION RATE > 60.0 (>60); GLUCOSE, FASTING 87 MG/DL (70-105); MAGNESIUM LEVEL 2.4 MG/DL (1.8-2.4); POTASSIUM SERUM 3.7 MEQ/L (3.5-5.1); SODIUM LEVEL 143 MEQ/L (136-145); TOTAL PROTEIN 5.9 GM/DL (6.4-8.2)
[2016-06-03] MEDS: ADVAIR DISKUS 250/50 INH PWD INH SCH (08:16)
[2016-06-03] MEDS: SENOKOT S TAB PO SCH (09:22)
[2016-06-03] MEDS: ENOXAPARIN 40 MG/0.4 ML SYRINGE (J1650) SC SCH (09:22)
[2016-06-03] MEDS: NICOTINE 14 MG/24 HR TRANSDERMAL TD SCH (09:22)
--- NOTE | 2016-06-03 13:49 | DSES ---
DATE OF ADMISSION: 06/02/2016 DATE OF DISCHARGE: 06/03/2016 PRIMARY CARE PROVIDER: NAKUL Scott CONSULTANTS: None. PROCEDURE: None. COMPLICATION: None. ADMISSION/DISCHARGE DIAGNOSES: 1. Diverticulitis. 2. Fatty liver. 3. Idiopathic urticaria and history of angioedema. 4. Chronic obstructive pulmonary disease (COPD). 5. History of tobacco abuse. HOSPITALIZATION COURSE: Patient is a 35-year-old male with a recent hospitalization from 05/27/2016 through 05/30/2016 for acute diverticulitis. After patient was discharged, patient had a fatty diet resulting in worsening of his left lower abdominal pain. Then, patient came to [facility] on 06/02/2016 for severe left lower abdominal pain. After patient arrived, CT imaging was performed, which showed acute distal descending diverticulitis. Patient does not have any white count or fever. Patient was admitted, was nothing by mouth and patient started on intravenous (IV) pain medication and patient is switched to Zosyn. With observation, medical management, patient showed improvement of abdominal pain and patient was advanced to a liquid diet, and patient tolerated oral intake well. On 06/03/2016, patient determined to be medically stable for discharge with recommendation to continue with liquid diet and advance only if tolerated. Patient should continue taking Cipro and Flagyl in the outpatient setting for his diverticulitis. OBJECTIVE: VITAL SIGNS: Temperature is 98.5, pulse is 75, respirations 16, blood pressure is 131/75, pulse oximetry 94% in room air. LABORATORY DATA: WBC 8, hemoglobin 15.3, hematocrit is 91.5, platelet count is 199. Sodium is 143, potassium 3.7, chloride is 108, carbon dioxide 27, BUN 12, creatinine 0.87, GFR greater than 60, fasting glucose 87, calcium is 8.2, magnesium 2.4, total bilirubin 0.8, AST 19, ALT 52, alkaline phosphatase 67, total protein is 5.9, albumin 2.9. UA is negative. Microbiology: Urine culture is negative. Blood cultures negative. IMAGING STUDIES: CT of abdomen and pelvis with contrast show acute distending diverticulitis. Fatty liver. Small hiatal hernia. DISCHARGE MEDICATION: - ProAir one puff inhalation every 4 hours as needed - ciprofloxacin 500 mg by mouth twice a day (so far was given since last admission, recommend patient finishes the treatment) - Flagyl 500 mg by mouth every 8 hours (this antibiotic was also given in the last admission, recommend completing the oral antibiotic regimen) - Breo one puff inhalation daily - nicotine patch 14 mg transdermal daily - senna S one tablet by mouth twice a day DISCHARGE INSTRUCTION: Discharge home. Activity as tolerated. Start with a liquid diet and advance as tolerated. Recommendation is to stay with a low fat, high fiber diet. Patient should followup with primary care provider, NAKUL Scott within 1 week. Discharge condition stable. Discharge time greater than 30 minutes.
== END 2016-06-03 12:48 | disposition home or self-care (01) ==
LOC: M ED 17:27 → M ED INP 06-02 01:30 → M PED 06-02 02:45 → M MSPAV 06-02 02:45
PROVIDERS: ADMIT Internal Medicine; ATTEND Internal Medicine
DX: K57.32 Diverticulitis of large intestine without perforation or abscess without bleeding (principal); K76.0 Fatty (change of) liver, not elsewhere classified; L50.1 Idiopathic urticaria; J44.9 Chronic obstructive pulmonary disease, unspecified; Z79.899 Other long term (current) drug therapy; F17.210 Nicotine dependence, cigarettes, uncomplicated; Z88.8 Allergy status to other drugs, medicaments and biological substances
CPT/HCPCS: 36415; 74160; 80053; 81001; 83036; 83605; 83735; 85025; 87040; 87086; 94640; 94664; 96372; 96375; 96376; 99284; J1650; J2543; Q9963; Q9967

== ENCOUNTER 2016-07-11 22:26 | Emergency (ER) | payer MEDICAID ==
[~2016-07-11] VITALS: Ht 177.8 cm; Wt 113.4 kg
[~2016-07-11 22:26] MED LIST changes: +NICO14DI TD
[2016-07-12] MEDS ORDERED: NS 1,000 ML IV ONE (05:45)
[2016-07-12 06:19] LABS: BASO # 0.1 K/mm3 (0.0-0.2); BASO % 0.9 % (0.0-1.0); EOS # 0.3 K/mm3 (0.0-0.50); EOS % 4.1 % (0.0-3.0); LARGE UNSTAINED CELL # 0.2 K/mm3 (0.0-0.4); LARGE UNSTAINED CELL % 2.2 % (0.0-4.0); LYMPH # 1.8 K/mm3 (1.5-4.5); MEAN CORPUSCULAR HEMOGLOBIN 30.2 pg (27.0-33.0); MEAN CORPUSCULAR HGB CONC 33.7 g/dl (32.0-36.5); MEAN CORPUSCULAR VOLUME 89.7 fl (80.0-96.0); MONO # 0.5 K/mm3 (0.0-0.8); MONO % 6.5 % (0.0-5.0); NEUTROPHILS # 4.5 K/mm3 (1.8-7.7); NEUTROPHILS % 63.3 % (36.0-66.0); PLATELET COUNT, AUTOMATED 178 k/mm3 (150-450); RED CELL DISTRIBUTION WIDTH 12.8 % (11.5-14.5); WHITE BLOOD COUNT 7.1 K/mm3 (4.0-10.0)
[2016-07-12] MEDS ORDERED: ONDANSETRON 4MG/2ML VIAL (J2405) IV ONE (06:30)
[2016-07-12] MEDS: MORPHINE 4 MG/ML 1ML SYRINGE IV PRN ×2 (06:31→09:37)
[2016-07-12 06:40] LABS: ALBUMIN 3.8 GM/DL (3.2-5.2); ALBUMIN/GLOBULIN RATIO 1.09 (1.00-1.93); ALKALINE PHOSPHATASE 93 U/L (45-117); ALT/SGPT 71 U/L (12-78); ANION GAP 8 MEQ/L (8-16); AST/SGOT 31 U/L (15-37); BILIRUBIN,DIRECT 0.2 MG/DL (0.0-0.2); BILIRUBIN,TOTAL 0.7 MG/DL (0.2-1.0); BLOOD UREA NITROGEN 15 MG/DL (7-18); CALCIUM LEVEL 8.6 MG/DL (8.5-10.1); CARBON DIOXIDE LEVEL 29 MEQ/L (21-32); CHLORIDE LEVEL 105 MEQ/L (98-107); CREATININE FOR GFR 0.95 MG/DL (0.70-1.30); GLOMERULAR FILTRATION RATE > 60.0 (>60); GLUCOSE, FASTING 104 MG/DL (70-105); POTASSIUM SERUM 4.5 MEQ/L (3.5-5.1); SODIUM LEVEL 142 MEQ/L (136-145); TOTAL PROTEIN 7.3 GM/DL (6.4-8.2)
[2016-07-12] MEDS ORDERED: ISOVUE-370 76% 100ML VIAL (Q9967) As Ordered ONE (06:55)
--- NOTE | 2016-07-12 07:30 | REPUSA ---
CLINICAL HISTORY: Abdominal pain. TECHNIQUE: Multiple axial, sagittal and coronal CT images were obtained through the abdomen and pelvi s after administration of intravenous contrast material. COMMENTS: Comparison to the prior exam on 06/01/2016. There is acute diverticulitis at the lower aspect of the left descending colon at its junction with t he proximal sigmoid colon. Surrounding inflammatory changes are noted without perforation or abscess formation. The liver is moderately enlarged with decreased attenuation without mass or defect. There is no intra or extrahepatic biliary ductal dilatation. The spleen is normal. The gallbladder is within normal li mits. The pancreas is of normal contour and attenuation characteristics. There is no evidence of adre nal mass. Both kidneys demonstrate prompt and equal nephrograms. The kidneys are normal in size, shape and conf iguration. There is no evidence of renal or ureteral mass. No renal or ureteral calculi are identifie d. There is no hydroureter or hydronephrosis. No evidence for appendicitis. No evidence for small or large bowel obstruction. There is no evidence of abdominal ascites or lymphadenopathy. There is no evidence of intrinsic or extrinsic bladder mass. There is no pelvic ascites or lymphadeno liz. Images of the lung bases show no evidence of pleural or parenchymal mass. There are no pleural effusi ons. The bony structures are free of lytic or blastic lesions. Multilevel degenerative changes are seen in volving the thoracolumbar spine. Scattered calcifications are seen involving the aorta and major bran ches compatible with atherosclerosis. IMPRESSION: Acute diverticulitis at the lower aspect of the descending colon now with its junction of the sigmoid colon. This is a recurrent finding. No associated perforation or abscess formation. Thank you for your kind referral of this patient.
[2016-07-12] MEDS ORDERED: cefTRIAXone SOD 1 GM in D5W MINI-BAG PLUS 50 ML IV ONE (09:00)
[2016-07-12] MEDS ORDERED: metroNIDAZOLE (FLAGYL) 500 MG TAB PO ONE (09:00)
[2016-07-12] MEDS ORDERED: CIPROFLOXACIN 500 MG TAB PO ONE (09:00)
[2016-07-12] MEDS ORDERED: TRAM50TA2 PO (10:13)
[2016-07-12] MEDS ORDERED: CIPR500T89 PO (10:13)
[2016-07-12] MEDS ORDERED: FLAG500T PO (10:13)
[2016-07-12 10:27] VITALS: BP 160/98
== END 2016-07-12 10:37 | disposition home or self-care (01) ==
LOC: M ED 23:31
DX: K57.32 Diverticulitis of large intestine without perforation or abscess without bleeding (principal); Z88.5 Allergy status to narcotic agent; Z87.891 Personal history of nicotine dependence
CPT/HCPCS: 74177; 80048; 80076; 83690; 85025; 93041; 96374; 96375; 99284; J0696; J2405; Q9967

== ENCOUNTER 2016-07-23 17:29 | Emergency (ER) | payer MEDICAID ==
[~2016-07-23] VITALS: Ht 177.8 cm; Wt 113.4 kg
[~2016-07-23 17:29] MED LIST changes: +TRAM50TA2 PO
[2016-07-23] MEDS ORDERED: ONDANSETRON 4MG/2ML VIAL (J2405) IV ONE (19:30)
[2016-07-23] MEDS ORDERED: MORPHINE 4 MG/ML 1ML SYRINGE IV ONE (19:30)
[2016-07-23] MEDS ORDERED: NS 1,000 ML IV ONE (19:30)
[2016-07-23] MEDS ORDERED: GASTROGRAFIN SOLUTION 30ML (Q9963) PO ONE ×2 (19:45→20:15)
[2016-07-23 19:58] LABS: BASO # 0.1 K/mm3 (0.0-0.2); BASO % 1.2 % (0.0-1.0); EOS # 0.2 K/mm3 (0.0-0.50); EOS % 2.8 % (0.0-3.0); LARGE UNSTAINED CELL # 0.2 K/mm3 (0.0-0.4); LYMPH # 2.7 K/mm3 (1.5-4.5); LYMPH % 31.4 % (24.0-44.0); MEAN CORPUSCULAR HGB CONC 34.4 g/dl (32.0-36.5); MEAN CORPUSCULAR VOLUME 92.9 fl (80.0-96.0); MONO # 0.5 K/mm3 (0.0-0.8); NEUTROPHILS # 4.8 K/mm3 (1.8-7.7); NEUTROPHILS % 56.7 % (36.0-66.0); PLATELET COUNT, AUTOMATED 244 k/mm3 (150-450); RED CELL DISTRIBUTION WIDTH 12.8 % (11.5-14.5); WHITE BLOOD COUNT 8.5 K/mm3 (4.0-10.0)
[2016-07-23 20:20] LABS: ALBUMIN 3.9 GM/DL (3.2-5.2); ALKALINE PHOSPHATASE 87 U/L (45-117); ALT/SGPT 66 U/L (12-78); ANION GAP 5 MEQ/L (8-16); AST/SGOT 35 U/L (15-37); BILIRUBIN,DIRECT 0.1 MG/DL (0.0-0.2); BILIRUBIN,TOTAL 0.5 MG/DL (0.2-1.0); BLOOD UREA NITROGEN 15 MG/DL (7-18); CALCIUM LEVEL 8.2 MG/DL (8.5-10.1); CARBON DIOXIDE LEVEL 32 MEQ/L (21-32); CHLORIDE LEVEL 103 MEQ/L (98-107); CREATININE FOR GFR 1.04 MG/DL (0.70-1.30); GLOMERULAR FILTRATION RATE > 60.0 (>60); GLUCOSE, FASTING 102 MG/DL (70-105); POTASSIUM SERUM 4.6 MEQ/L (3.5-5.1); SODIUM LEVEL 140 MEQ/L (136-145); TOTAL PROTEIN 6.9 GM/DL (6.4-8.2)
[2016-07-23] MEDS ORDERED: ISOVUE-370 76% 100ML VIAL (Q9967) As Ordered ONE (21:29)
--- NOTE | 2016-07-23 22:10 | REPUSA ---
CT of the abdomen and pelvis with contrast Clinical statement: Pain. Technique: Multiple axial CT images were obtained from the base of the lungs through the floor of the pelvis utilizing 5 mm axial slices after administration of oral and nonionic intravenous contrast. C oronal and sagittal reconstructions were also obtained. Comparison: 07/12/2016. Findings: Chest: The visualized lung bases are clear. Abdomen: The spleen, pancreas, kidneys, gallbladder, and adrenal glands are unremarkable. There is di ffuse low attenuation of the liver. The aorta is within normal limits. There is no evidence of abdomi nal lymphadenopathy or ascites. Pelvis: The appendix is normal. Moderate sigmoid diverticulosis is noted without evidence of divertic ulitis. The bowel is otherwise unremarkable, with no obstructive or inflammatory changes. The appendi x is normal. The urinary bladder is within normal limits. The other pelvic structures appear grossly intact. There is no evidence of pelvic lymphadenopathy or ascites. Bones: There are no suspicious osseous abnormalities seen. Impression: 1. No obstructive or inflammatory bowel changes. Sigmoid diverticulosis without evidence of diverticu litis. The appendix is unremarkable. 2. No evidence of hydronephrosis or nephrolithiasis. 3. Stable fatty infiltration of the liver.
[2016-07-23 23:00] VITALS: BP 144/79
== END 2016-07-23 23:03 | disposition home or self-care (01) ==
LOC: M ED 18:43
DX: K57.90 Diverticulosis of intestine, part unspecified, without perforation or abscess without bleeding (principal); G47.33 Obstructive sleep apnea (adult) (pediatric); Z87.442 Personal history of urinary calculi; Z87.19 Personal history of other diseases of the digestive system; Z79.899 Other long term (current) drug therapy; Z88.5 Allergy status to narcotic agent; Z87.891 Personal history of nicotine dependence
CPT/HCPCS: 74177; 80048; 80076; 81001; 83690; 85025; 96374; 96375; 99282; J2405; Q9963; Q9967

== ENCOUNTER 2016-08-14 11:53 | Emergency (ER) | payer MEDICAID ==
[~2016-08-14] VITALS: Ht 177.8 cm; Wt 99.8 kg
[2016-08-14] MEDS ORDERED: CEPH500T PO (12:15)
[2016-08-14] MEDS ORDERED: NS 500 ML IV ONE (13:30)
[2016-08-14] MEDS ORDERED: KETOROLAC 30 MG/ML VIAL (J1885) IV ONE (13:30)
[2016-08-14] MEDS ORDERED: ONDANSETRON 4MG/2ML VIAL (J2405) IV ONE (13:30)
[2016-08-14] MEDS ORDERED: NS 1,000 ML IV ONE (14:15)
[2016-08-14 14:28] LABS: ALBUMIN 3.9 GM/DL (3.2-5.2); ALBUMIN/GLOBULIN RATIO 1.18 (1.00-1.93); ALKALINE PHOSPHATASE 92 U/L (45-117); ALT/SGPT 80 U/L (12-78); AMYLASE 19 U/L (25-115); ANION GAP 5 MEQ/L (8-16); AST/SGOT 35 U/L (15-37); BILIRUBIN,DIRECT 0.1 MG/DL (0.0-0.2); BILIRUBIN,TOTAL 0.8 MG/DL (0.2-1.0); BLOOD UREA NITROGEN 12 MG/DL (7-18); CALCIUM LEVEL 8.8 MG/DL (8.5-10.1); CARBON DIOXIDE LEVEL 28 MEQ/L (21-32); CHLORIDE LEVEL 106 MEQ/L (98-107); CREATININE FOR GFR 0.93 MG/DL (0.70-1.30); GLOMERULAR FILTRATION RATE > 60.0 (>60); GLUCOSE, FASTING 89 MG/DL (70-105); POTASSIUM SERUM 4.3 MEQ/L (3.5-5.1); SODIUM LEVEL 139 MEQ/L (136-145); TOTAL PROTEIN 7.2 GM/DL (6.4-8.2)
[2016-08-14 14:32] LABS: BASO # 0.1 K/mm3 (0.0-0.2); BASO % 0.9 % (0.0-1.0); EOS # 0.2 K/mm3 (0.0-0.50); EOS % 3.3 % (0.0-3.0); LARGE UNSTAINED CELL # 0.2 K/mm3 (0.0-0.4); LARGE UNSTAINED CELL % 2.3 % (0.0-4.0); LYMPH # 1.9 K/mm3 (1.5-4.5); LYMPH % 26.5 % (24.0-44.0); MEAN CORPUSCULAR HEMOGLOBIN 31.5 pg (27.0-33.0); MEAN CORPUSCULAR HGB CONC 34.9 g/dl (32.0-36.5); MEAN CORPUSCULAR VOLUME 90.3 fl (80.0-96.0); MONO # 0.4 K/mm3 (0.0-0.8); MONO % 5.6 % (0.0-5.0); NEUTROPHILS # 4.4 K/mm3 (1.8-7.7); NEUTROPHILS % 61.4 % (36.0-66.0); PLATELET COUNT, AUTOMATED 179 k/mm3 (150-450); RED CELL DISTRIBUTION WIDTH 12.8 % (11.5-14.5); WHITE BLOOD COUNT 7.2 K/mm3 (4.0-10.0)
[2016-08-14] MEDS ORDERED: ISOVUE-370 76% 100ML VIAL (Q9967) As Ordered ONE (14:43)
--- NOTE | 2016-08-14 15:29 | REP ---
CT ABDOMEN AND PELVIS WITH IV CONTRAST: TECHNIQUE: Axial contrast enhanced images from the lung bases to the pubic symphysis using 100 mL Isovue 370 intravenous contrast material with multiplanar reformations. The visualized lung bases demonstrate no infiltrate. The liver demonstrates diffuse fatty infiltration. This has been seen on prior studies. Tiny calcified granulomas are seen in the spleen. Adrenals, pancreas, and kidneys appear unremarkable. There are mild atherosclerotic calcifications of the abdominal aorta without aneurysm. There is no adenopathy. There is no free air or free fluid. The appendix is normal. There is extensive sigmoid and left colonic diverticulosis without definite acute diverticulitis. No abscess is seen. No pelvic mass is seen. The urinary bladder is mildly distended and grossly unremarkable. IMPRESSION: Diffuse fatty infiltration of the liver. Left colonic and sigmoid diverticulosis without definite acute diverticulitis. No free air, free fluid or adenopathy. Normal appendix. Signed by Anson Jaquez MD 08/16/2016 06:58 P
[2016-08-14 15:32] VITALS: BP 140/80
[2016-08-14] MEDS ORDERED: NORC1TAB4 PO (15:34)
== END 2016-08-14 15:44 | disposition home or self-care (01) ==
LOC: M ED 14:02
DX: K57.30 Diverticulosis of large intestine without perforation or abscess without bleeding (principal); Z87.442 Personal history of urinary calculi; Z79.899 Other long term (current) drug therapy; Z88.5 Allergy status to narcotic agent; Z87.891 Personal history of nicotine dependence
CPT/HCPCS: 74177; 80048; 80076; 81001; 82150; 83605; 83690; 85025; 85652; 86140; 87086; 96374; 96375; 99283; J1885; J2405; Q9967

== ENCOUNTER → 2016-08-15 | Outpatient (REF) | payer MEDICAID ==
[~2016-08-15] MED LIST changes: +CEPH500T PO; +NORC1TAB4 PO
== END ==
LOC: M LAB REF 15:30
PROVIDERS: ATTEND Student in an Organized Health Care Education/Training Program
DX: K57.92 Diverticulitis of intestine, part unspecified, without perforation or abscess without bleeding (principal)

== ENCOUNTER → 2016-08-24 | Outpatient (CLI) | payer MEDICAID ==
[~2016-08-24] MED LIST changes: +LIQUID POLIBAR PLUS 105% w/v 1900ML BTL As Ordered ONE
--- NOTE | 2016-08-24 16:46 | REP ---
BARIUM ENEMA, AIR CONTRAST: The procedure was performed under the direct supervision of Dr. Jimenez. The images were reviewed with Dr. Jimenez. The fabric worker foreman film shows no organomegaly or pathological masses. The intestinal gas pattern is nonspecific. Liquid barium and air were instilled into the colon in a retrograde flow of the barium and air mixture. The colon is normal in position and contour. Haustration is unremarkable throughout. There is free flow of contrast to the cecum. The appendix is visualized. There is reflux to the terminal ileum. There are multiple diverticula seen in the sigmoid and descending colon. There are no annular constricting lesions identified. There are a few mobile filling defects seen throughout the examination consistent with small stool particles. There is no definite polyp identified. IMPRESSION: There is diverticulosis without evidence of diverticulitis. There is adherent stool identified. There is no definite polyp identified. 2 minutes and 38 seconds of fluoroscopic time was utilized for this procedure. Reviewed by LISSET Heller 08/27/2016 05:00 PEdited and Signed by Jaziel Jimenez MD 08/27/2016 06:53 P
== END ==
LOC: M RAD 09:06
PROVIDERS: ATTEND Internal Medicine Gastroenterology
DX: K62.5 Hemorrhage of anus and rectum (principal); K57.30 Diverticulosis of large intestine without perforation or abscess without bleeding

== ENCOUNTER → 2016-09-03 | Outpatient (CLI) | payer MEDICAID ==
[~2016-09-03] MED LIST changes: +GASTROGRAFIN SOLUTION 30ML (Q9963) As Ordered ONE; +ISOVUE-370 76% 100ML VIAL (Q9967) As Ordered ONE; -LIQUID POLIBAR PLUS 105% w/v 1900ML BTL As Ordered ONE
--- NOTE | 2016-09-03 18:35 | REP ---
CT ABDOMEN AND PELVIS WITH AND WITHOUT CONTRAST: TECHNIQUE: Axial noncontrast images through the abdomen followed by contrast-enhanced images through the abdomen and pelvis using 100 mL Isovue 370 intravenous contrast material, with coronal and sagittal reformations. Calcified granuloma is again seen in the left lung base. There is diffuse fatty infiltration of the liver again noted. There are calcified granulomas in the spleen. Adrenals, pancreas and kidneys are again unremarkable. There is no hydronephrosis. There is mild atherosclerotic calcification of the abdominal aorta without aneurysm. There is no adenopathy. There is no free air or free fluid. There are scattered colonic diverticula without evidence of acute diverticulitis. The appendix is normal. There is no pelvic mass. Urinary bladder is unremarkable. IMPRESSION: Once again there is colonic diverticulosis without evidence of acute diverticulitis. Diffuse fatty infiltration of the liver. Prior granulomatous disease. Signed by Anson Jaquez MD 09/03/2016 08:23 P
== END ==
LOC: M RAD 14:40
PROVIDERS: ATTEND Internal Medicine Gastroenterology
DX: K57.32 Diverticulitis of large intestine without perforation or abscess without bleeding (principal); K76.0 Fatty (change of) liver, not elsewhere classified
CPT/HCPCS: 74178; Q9963; Q9967

== ENCOUNTER → 2016-09-27 | Outpatient (CLI) | payer MEDICAID ==
[~2016-09-27] VITALS: Ht 177.8 cm; Wt 97.5 kg
[~2016-09-27] MED LIST changes: +BACT800T5 PO; +CIPR-249 PO; -CIPR500T89 PO; -GASTROGRAFIN SOLUTION 30ML (Q9963) As Ordered ONE; -ISOVUE-370 76% 100ML VIAL (Q9967) As Ordered ONE; +LIDOCAINE 2% INJ 100 MG/5 ML SDV (FOR ANES.) As Ordered ONE; +LISI-538 PO; +NS 1,000 ML IV ONE; +PERC5TAB12 PO; -PERC5TAB6 PO; -PROA1AER INH; +PROAAER10 INH; +PROPOFOL 200 MG/20 ML VIAL As Ordered ONE
--- NOTE | 2016-09-27 16:33 | ROOR ---
Patient Name: Jeff Wilder Procedure Date: 09/27/2016 4:04 PM Date of : 1980 Age: 35 Room: TAMMS02 Gender: Male Note Status: Finalized Procedure: Colonoscopy Indications: Abdominal pain in the left lower quadrant, Follow-up of diverticulitis, Pt with persistent pain despite now negative repeat CT and Barium enema. Providers: Mello LAWTON MD Referring MD: NAKUL THEODORE Requesting Provider: Medicines: Monitored Anesthesia Care Complications: No immediate complications. Procedure: Pre-Anesthesia Assessment: - The heart rate, respiratory rate, oxygen saturations, blood pressure, adequacy of pulmonary ventilation, and response to care were monitored throughout the procedure. The Colonoscope was introduced through the anus and advanced to 5 cm into the ileum. The colonoscopy was performed without difficulty. The patient tolerated the procedure well. The quality of the bowel preparation was good. Findings: The perianal and digital rectal examinations were normal. A few small-mouthed diverticula were found in the sigmoid colon and descending colon. Two sessile polyps were found in the sigmoid colon. The polyps were diminutive in size. These polyps were removed with a cold snare. Resection and retrieval were complete. The exam was otherwise without abnormality. Impression: - Mild diverticulosis (without diverticulitis) in the sigmoid colon and in the descending colon. - Two diminutive polyps in the sigmoid colon, removed with a cold snare. Resected and retrieved. - The examination was otherwise normal. - No significant mucosal abnormalities were seen. I do not appreciate any significant spasm or any other abnormality. Recommendation: - Use fiber, for example Citrucel, Fibercon, Konsyl or Metamucil. - Miralax 1 capful (17 grams) in 8 ounces of water PO daily. - Use Bentyl (dicyclomine) 20 mg every 6-8 hrs as needed for abdominal pain - (the script was sent to your pharmacy on file) - Telephone endoscopist for pathology results in 2 weeks. Mello Lawton MD Mello LAWTON MD 09/27/2016 4:32:29 PM This report has been signed electronically. Number of Addenda: 0 Note Initiated On: 09/27/2016 4:04 PM Estimated Blood Loss: Estimated blood loss: none.
[2016-09-27 16:55] VITALS: BP 150/90
== END | disposition home or self-care (01) ==
LOC: M OPP 12:51
PROVIDERS: ATTEND Internal Medicine Gastroenterology
DX: R10.32 Left lower quadrant pain (principal); K57.92 Diverticulitis of intestine, part unspecified, without perforation or abscess without bleeding; K57.30 Diverticulosis of large intestine without perforation or abscess without bleeding; D12.5 Benign neoplasm of sigmoid colon; I10 Essential (primary) hypertension; R12 Heartburn; Z86.14 Personal history of Methicillin resistant Staphylococcus aureus infection; G47.30 Sleep apnea, unspecified; R06.83 Snoring; Z88.5 Allergy status to narcotic agent; Z88.8 Allergy status to other drugs, medicaments and biological substances; Z79.899 Other long term (current) drug therapy

== ENCOUNTER 2016-11-11 21:44 | Emergency (ER) | payer MEDICAID ==
[~2016-11-11] VITALS: Ht 177.8 cm; Wt 101.2 kg
[~2016-11-11 21:44] MED LIST changes: -BACT800T5 PO; -LIDOCAINE 2% INJ 100 MG/5 ML SDV (FOR ANES.) As Ordered ONE; -NS 1,000 ML IV ONE; -PROPOFOL 200 MG/20 ML VIAL As Ordered ONE
[2016-11-11] MEDS ORDERED: BACT800T5 PO (22:26)
[2016-11-11] MEDS ORDERED: BACTRIM 160MG/800MG DS TAB PO ONE (22:30)
[2016-11-11 22:35] VITALS: BP 156/94
[2016-11-11] MEDS ORDERED: NORCO 5/325MG TABLET (BULK FOR ED) PO ONE (22:45)
== END 2016-11-11 22:53 | disposition home or self-care (01) ==
LOC: M ED 21:44
DX: L02.214 Cutaneous abscess of groin (principal); L03.314 Cellulitis of groin; Z79.899 Other long term (current) drug therapy; Z88.5 Allergy status to narcotic agent; I10 Essential (primary) hypertension; G47.30 Sleep apnea, unspecified; Z86.14 Personal history of Methicillin resistant Staphylococcus aureus infection; Z87.19 Personal history of other diseases of the digestive system

== ENCOUNTER → 2016-11-15 | Outpatient (REF) | payer MEDICAID ==
[~2016-11-15] MED LIST changes: +BACT800T5 PO
== END ==
LOC: M LAB REF 18:30
PROVIDERS: ATTEND Physician Assistant Medical
DX: L50.1 Idiopathic urticaria (principal)

== ENCOUNTER → 2017-01-01 | Outpatient (CLI) | payer MEDICAID ==
[2017-01-01 09:48] LABS: BASO # 0.1 10^3/uL (0.0-0.2); BASO % 1.1 % (0.0-1.0); EOS # 0.2 10^3/uL (0.0-0.50); EOS % 3.2 % (0.0-3.0); IMMATURE GRANULOCYTE % 2.7 % (0-0); LYMPH # 1.9 10^3/uL (1.5-4.5); LYMPH % 28.8 % (24.0-44.0); MEAN CORPUSCULAR HEMOGLOBIN 30.3 pg (27.0-33.0); MEAN CORPUSCULAR HGB CONC 33.6 g/dl (32.0-36.5); MONO # 0.5 10^3/uL (0.0-0.8); MONO % 7.6 % (0.0-5.0); NEUTROPHILS # 3.7 10^3/uL (1.8-7.7); NEUTROPHILS % 56.6 % (36.0-66.0); RED CELL DISTRIBUTION WIDTH 12.1 % (11.5-14.5); WHITE BLOOD COUNT 6.6 10^3/uL (4.0-10.0)
[2017-01-01 10:13] LABS: ALBUMIN 3.8 GM/DL (3.2-5.2); ALBUMIN/GLOBULIN RATIO 1.15 (1.00-1.93); ALKALINE PHOSPHATASE 91 U/L (45-117); ALT/SGPT 98 U/L (12-78); ANION GAP 6 MEQ/L (8-16); AST/SGOT 47 U/L (15-37); BILIRUBIN,TOTAL 0.5 MG/DL (0.2-1.0); BLOOD UREA NITROGEN 12 MG/DL (7-18); CALCIUM LEVEL 8.7 MG/DL (8.5-10.1); CARBON DIOXIDE LEVEL 28 MEQ/L (21-32); CHLORIDE LEVEL 107 MEQ/L (98-107); CHOLESTEROL LEVEL 175 MG/DL (<200); CREATININE FOR GFR 0.89 MG/DL (0.70-1.30); GLOMERULAR FILTRATION RATE > 60.0 (>60); GLUCOSE, FASTING 109 MG/DL (70-105); POTASSIUM SERUM 4.8 MEQ/L (3.5-5.1); SODIUM LEVEL 141 MEQ/L (136-145); TOTAL PROTEIN 7.1 GM/DL (6.4-8.2); TRIGLYCERIDES LEVEL 306 MG/DL (<150)
== END ==
LOC: M WUC 08:11
PROVIDERS: ATTEND Physician Assistant Medical
DX: I10 Essential (primary) hypertension (principal)

== ENCOUNTER 2017-08-01 14:12 | Emergency (ER) | payer OTHER, MEDICAID ==
[2017-08-01] MEDS: KETOROLAC 30 MG/ML VIAL (J1885) IM (17:15)
== END 2017-08-01 18:48 | disposition short-term general hospital (02) ==
LOC: M ED 14:12
DX: S69.92XA Unspecified injury of left wrist, hand and finger(s), initial encounter (principal); X58.XXXA Exposure to other specified factors, initial encounter; Y92.9 Unspecified place or not applicable; Y93.89 Activity, other specified; Y99.9 Unspecified external cause status; F17.200 Nicotine dependence, unspecified, uncomplicated; Z88.5 Allergy status to narcotic agent
CPT/HCPCS: J1885

== ENCOUNTER → 2017-09-12 | Outpatient (REF) | payer OTHER ==
[2017-09-12 18:38] LABS: APPEARANCE, URINE CLEAR (CLEAR); BACTERIA, URINE AUTO NEGATIVE (NEGATIVE); BILIRUBIN, URINE AUTO NEGATIVE (NEGATIVE); BLOOD, URINE BLOOD 3+ (NEGATIVE); COLOR, URINE YELLOW (YELLOW); GLUCOSE, URINE (UA) AUTO NEGATIVE (NEGATIVE); KETONE, URINE AUTO NEGATIVE (NEGATIVE); LEUKOCYTE ESTERASE, URINE AUTO NEGATIVE (NEGATIVE); MUCUS, URINE SMALL (NEGATIVE); NITRITE, URINE AUTO NEGATIVE (NEGATIVE); PROTEIN, URINE AUTO NEGATIVE (NEGATIVE); RBC, URINE AUTO TNTC /HPF (0-3); SPECIFIC GRAVITY URINE AUTO 1.014 (1.002-1.035); SQUAMOUS EPITHELIAL CELL UR AU 0 /HPF (0-6); WBC, URINE AUTO 2 /HPF (0-3)
[2017-09-12 19:23] LABS: ALBUMIN 3.8 GM/DL (3.2-5.2); ALBUMIN/GLOBULIN RATIO 1.19 (1.00-1.93); ALKALINE PHOSPHATASE 107 U/L (45-117); ALT/SGPT 24 U/L (12-78); ANION GAP 6 MEQ/L (8-16); AST/SGOT 9 U/L (7-37); BILIRUBIN,TOTAL 0.8 MG/DL (0.2-1.0); BLOOD UREA NITROGEN 10 MG/DL (7-18); C REACTIVE PROTEIN QUANTITATIV 0.84 MG/DL (0.00-0.30); CALCIUM LEVEL 8.3 MG/DL (8.5-10.1); CARBON DIOXIDE LEVEL 28 MEQ/L (21-32); CHLORIDE LEVEL 109 MEQ/L (98-107); CPK CREATINE PHOSPHOKINASE 121 U/L (39-308); CREATININE FOR GFR 0.96 MG/DL (0.70-1.30); GLOMERULAR FILTRATION RATE > 60.0 (>60); GLUCOSE, FASTING 81 MG/DL (70-100); POTASSIUM SERUM 4.3 MEQ/L (3.5-5.1); SODIUM LEVEL 143 MEQ/L (136-145)
[2017-09-12 19:45] LABS: ERYTHROCYTE SEDIMENTATION RATE 1 mm/hr (0-15)
[2017-09-13 09:28] LABS: HIV 1&2 SCREEN CENTAUR NEGATIVE (NEGATIVE)
[2017-09-14 17:33] LABS: Lyme Disease IgG/IgM Antibodie <0.91 ISR (0.00-0.90); Lyme Disease IgM Ab Quantitati <0.80 index (0.00-0.79)
== END ==
LOC: M LAB REF 16:25
DX: N20.0 Calculus of kidney (principal); M25.50 Pain in unspecified joint
CPT/HCPCS: 82550

== ENCOUNTER → 2017-09-26 | Outpatient (REF) | payer OTHER ==
[2017-09-26 20:10] LABS: APPEARANCE, URINE CLEAR (CLEAR); BACTERIA, URINE AUTO NEGATIVE (NEGATIVE); BILIRUBIN, URINE AUTO NEGATIVE (NEGATIVE); BLOOD, URINE BLOOD NEGATIVE (NEGATIVE); CALCIUM OXALATE CRYSTALS SMALL; COLOR, URINE AMBER (YELLOW); GLUCOSE, URINE (UA) AUTO NEGATIVE (NEGATIVE); KETONE, URINE AUTO NEGATIVE (NEGATIVE); LEUKOCYTE ESTERASE, URINE AUTO NEGATIVE (NEGATIVE); MUCUS, URINE SMALL (NEGATIVE); NITRITE, URINE AUTO NEGATIVE (NEGATIVE); PROTEIN, URINE AUTO NEGATIVE (NEGATIVE); RBC, URINE AUTO 0 /HPF (0-3); SPECIFIC GRAVITY URINE AUTO 1.024 (1.002-1.035); SQUAMOUS EPITHELIAL CELL UR AU 0 /HPF (0-6); WBC, URINE AUTO 1 /HPF (0-3)
== END ==
LOC: M LAB REF 18:37
DX: R31.29 Other microscopic hematuria (principal)
CPT/HCPCS: 81001

== ENCOUNTER → 2017-10-04 | Outpatient (REF) | payer OTHER ==
[2017-10-04 17:55] LABS: AMORPHOUS SEDIMENT LARGE (NEGATIVE); APPEARANCE, URINE TURBID (CLEAR); BACTERIA, URINE AUTO NEGATIVE (NEGATIVE); BILIRUBIN, URINE AUTO NEGATIVE (NEGATIVE); BLOOD, URINE BLOOD NEGATIVE (NEGATIVE); CALCIUM OXALATE CRYSTALS SMALL; COLOR, URINE AMBER (YELLOW); GLUCOSE, URINE (UA) AUTO NEGATIVE (NEGATIVE); KETONE, URINE AUTO NEGATIVE (NEGATIVE); LEUKOCYTE ESTERASE, URINE AUTO NEGATIVE (NEGATIVE); MUCUS, URINE SMALL (NEGATIVE); NITRITE, URINE AUTO NEGATIVE (NEGATIVE); PROTEIN, URINE AUTO NEGATIVE (NEGATIVE); RBC, URINE AUTO 0 /HPF (0-3); SPECIFIC GRAVITY URINE AUTO 1.023 (1.002-1.035); SQUAMOUS EPITHELIAL CELL UR AU 0 /HPF (0-6); WBC, URINE AUTO 1 /HPF (0-3)
== END ==
LOC: M SMT 17:03
DX: R31.29 Other microscopic hematuria (principal)
CPT/HCPCS: 81001

== ENCOUNTER → 2017-10-04 | Outpatient (CLI) | payer OTHER | LOC: M CARPUL 09:25 | DX: R55 Syncope and collapse (principal) | CPT/HCPCS: 93306 ==

== ENCOUNTER → 2017-10-22 | Outpatient (REF) | payer OTHER, MEDICAID ==
[2017-10-22 13:44] LABS: BASO # 0.1 10^3/uL (0.0-0.2); BASO % 1.1 % (0.0-1.0); EOS # 0.2 10^3/uL (0.0-0.50); EOS % 1.9 % (0.0-3.0); HEMATOCRIT 56.4 % (42.0-52.0); HEMOGLOBIN 18.5 g/dl (13.5-17.5); IMMATURE GRANULOCYTE % 1.1 % (0-3.0); LYMPH % 20.7 % (24.0-44.0); MEAN CORPUSCULAR HEMOGLOBIN 30.1 pg (27.0-33.0); MEAN CORPUSCULAR HGB CONC 32.8 g/dl (32.0-36.5); MEAN CORPUSCULAR VOLUME 91.7 fl (80.0-96.0); MONO # 0.6 10^3/uL (0.0-0.8); MONO % 6.2 % (0.0-5.0); NEUTROPHILS # 6.5 10^3/uL (1.8-7.7); PLATELET COUNT, AUTOMATED 208 10^3/uL (150-450); RED BLOOD COUNT 6.15 10^6/uL (4.30-6.10); RED CELL DISTRIBUTION WIDTH 13.2 % (11.5-14.5); WHITE BLOOD COUNT 9.5 10^3/uL (4.0-10.0)
[2017-10-22 14:04] LABS: ALBUMIN/GLOBULIN RATIO 1.18 (1.00-1.93); ALKALINE PHOSPHATASE 108 U/L (45-117); ALT/SGPT 20 U/L (12-78); ANION GAP 4 MEQ/L (8-16); AST/SGOT 11 U/L (7-37); BILIRUBIN,TOTAL 0.5 MG/DL (0.2-1.0); BLOOD UREA NITROGEN 15 MG/DL (7-18); C REACTIVE PROTEIN QUANTITATIV 0.79 MG/DL (0.00-0.30); CALCIUM LEVEL 9.2 MG/DL (8.5-10.1); CARBON DIOXIDE LEVEL 30 MEQ/L (21-32); CHLORIDE LEVEL 106 MEQ/L (98-107); CREATININE FOR GFR 1.03 MG/DL (0.70-1.30); GLOMERULAR FILTRATION RATE > 60.0 (>60); GLUCOSE, FASTING 97 MG/DL (70-100); SODIUM LEVEL 140 MEQ/L (136-145); TOTAL PROTEIN 7.4 GM/DL (6.4-8.2)
[2017-10-22 14:38] LABS: ERYTHROCYTE SEDIMENTATION RATE 1 mm/hr (0-15)
== END ==
LOC: M LAB REF 13:15
DX: R55 Syncope and collapse (principal); M25.50 Pain in unspecified joint; L92.9 Granulomatous disorder of the skin and subcutaneous tissue, unspecified; R63.4 Abnormal weight loss

== ENCOUNTER → 2017-11-06 | Outpatient (CLI) | payer OTHER ==
[~2017-11-06] MED LIST changes: -BACT800T5 PO; -BREO1INH INH; -CEPH500T PO; -CIPR-249 PO; -FLAG500T PO; +ISOVUE-370 76% 100ML VIAL (Q9967) As Ordered; -LISI-538 PO; -NICO14DI TD; -NICO14PA TD; -NORC1TAB4 PO; -PERC5TAB12 PO; -PROAAER10 INH; -SENN1TAB2 PO; -TRAM50TA2 PO
== END ==
LOC: M RAD 16:17
DX: R63.4 Abnormal weight loss (principal)
CPT/HCPCS: Q9967

== ENCOUNTER 2018-03-12 08:10 | Observation (INO) | payer OTHER ==
[2018-03-12 08:40] LABS: BASO # 0.1 10^3/uL (0.0-0.2); BASO % 0.5 % (0.0-1.0); EOS # 0.1 10^3/uL (0.0-0.50); EOS % 1.1 % (0.0-3.0); HEMATOCRIT 53.5 % (42.0-52.0); HEMOGLOBIN 17.8 g/dl (13.5-17.5); IMMATURE GRANULOCYTE % 0.8 % (0-3.0); LYMPH # 1.9 10^3/uL (1.5-4.5); LYMPH % 16.1 % (24.0-44.0); MEAN CORPUSCULAR HEMOGLOBIN 30.5 pg (27.0-33.0); MEAN CORPUSCULAR HGB CONC 33.3 g/dl (32.0-36.5); MEAN CORPUSCULAR VOLUME 91.6 fl (80.0-96.0); MONO # 0.8 10^3/uL (0.0-0.8); MONO % 6.3 % (0.0-5.0); NEUTROPHILS % 75.2 % (36.0-66.0); PLATELET COUNT, AUTOMATED 196 10^3/uL (150-450); RED BLOOD COUNT 5.84 10^6/uL (4.30-6.10); RED CELL DISTRIBUTION WIDTH 12.9 % (11.5-14.5)
[2018-03-12] MEDS: KETOROLAC 30 MG/ML VIAL (J1885) IV (08:50)
[2018-03-12 09:03] LABS: ANION GAP 6 MEQ/L (8-16); BLOOD UREA NITROGEN 10 MG/DL (7-18); CALCIUM LEVEL 8.7 MG/DL (8.5-10.1); CARBON DIOXIDE LEVEL 29 MEQ/L (21-32); CHLORIDE LEVEL 106 MEQ/L (98-107); CREATININE FOR GFR 1.13 MG/DL (0.70-1.30); GLOMERULAR FILTRATION RATE > 60.0 (>60); GLUCOSE, FASTING 124 MG/DL (70-100); POTASSIUM SERUM 4.1 MEQ/L (3.5-5.1); SODIUM LEVEL 141 MEQ/L (136-145)
[2018-03-12 09:20] LABS: KETONE, URINE AUTO RFX NEGATIVE (NEGATIVE); LEUKOCYTE ESTERASE UR AUTO RFX NEGATIVE (NEGATIVE); MUCUS, URINE RFX SMALL (NEGATIVE); NITRITE, URINE AUTO RFX NEGATIVE (NEGATIVE); RBC, URINE AUTO RFX 0 /HPF (0-3); SPECIFIC GRAVITY UR AUTO RFX 1.025 (1.002-1.035); SQUAM EPITHELIAL CELL UR AURFX 0 /HPF (0-6); WBC, URINE AUTO RFX 1 /HPF (0-3)
[2018-03-12] MEDS: GASTROGRAFIN SOLUTION 30ML PO ×2 (11:03→11:30)
[2018-03-12] MEDS ORDERED: ISOVUE-370 76% 100ML VIAL (Q9967) As Ordered (12:08)
[2018-03-12] MEDS: ONDANSETRON 4MG/2ML VIAL (J2405) IV (13:21)
[2018-03-12] MEDS: MORPHINE 4 MG/ML 1ML VIAL/SYRINGE (J2270) IV ×2 (13:21→16:21)
[2018-03-12] MEDS: CIPROFLOXACIN 400 MG in APPROPRIATE DILUENT 1 EA IV (13:24)
[2018-03-12] MEDS: metroNIDAZOLE 500 MG in APPROPRIATE DILUENT 1 EA IV (14:22)
[2018-03-12] MEDS ORDERED: MORPHINE 4 MG/ML 1ML VIAL/SYRINGE (J2270) IV (16:00)
[2018-03-12] MEDS ORDERED: OMEPRAZOLE 20 MG CAP PO (21:00)
[2018-03-12] MEDS ORDERED: amLODIPine 5 MG TAB PO (21:00)
[2018-03-12] MEDS ORDERED: LISINOPRIL 40 MG TAB PO (21:00)
[2018-03-12] MEDS ORDERED: metroNIDAZOLE 500 MG in APPROPRIATE DILUENT 1 EA IV (22:00)
[2018-03-13] MEDS ORDERED: CIPROFLOXACIN 400 MG in APPROPRIATE DILUENT 1 EA IV
== END 2018-03-12 16:50 | disposition left against medical advice (07) ==
LOC: M ED 08:10 → M ED INP 15:54
DX: K57.32 Diverticulitis of large intestine without perforation or abscess without bleeding (principal); I10 Essential (primary) hypertension; J44.9 Chronic obstructive pulmonary disease, unspecified; K21.9 Gastro-esophageal reflux disease without esophagitis; G47.30 Sleep apnea, unspecified; Z88.8 Allergy status to other drugs, medicaments and biological substances
CPT/HCPCS: J2270

== ENCOUNTER 2018-03-13 17:33 | Emergency (ER) | payer OTHER ==
[~2018-03-13] VITALS: Ht 175.3 cm; Wt 95.5 kg
[~2018-03-13 17:33] MED LIST changes: +AMLO5TAB4 PO; +BACT800T5 PO; +BREO1INH INH; +CEPH500T PO; +CIPR-249 PO; +FLAG500T PO; -ISOVUE-370 76% 100ML VIAL (Q9967) As Ordered; +LISI-538 PO; +LISI40TAB PO; +MED REC COMMENT; +NICO14DI TD; +NICO14PA TD; +NORC1TAB4 PO; +OMEP40CA2 PO; +PERC5TAB12 PO; +PROAAER10 INH; +SENN1TAB2 PO; +TRAM50TA2 PO
[2018-03-13 17:34] VITALS: BP 142/81
[2018-03-13] MEDS ORDERED: CIPR-249 PO (18:43)
[2018-03-13] MEDS ORDERED: FLAG500T PO (18:43)
[2018-03-13] MEDS ORDERED: NORCOTAB PO (18:43)
[2018-03-14] MEDS ORDERED: PRED20TA PO (15:01)
[2018-03-14] MEDS ORDERED: BENA25CA4 PO (15:01)
== END 2018-03-13 18:59 | disposition home or self-care (01) ==
LOC: M ED 17:33
DX: K57.32 Diverticulitis of large intestine without perforation or abscess without bleeding (principal); Z87.442 Personal history of urinary calculi; F17.200 Nicotine dependence, unspecified, uncomplicated; Z88.5 Allergy status to narcotic agent; Z79.899 Other long term (current) drug therapy

== ENCOUNTER 2018-03-14 11:04 | Emergency (ER) | payer OTHER ==
[~2018-03-14] VITALS: Ht 175.3 cm; Wt 95.5 kg
[~2018-03-14 11:04] MED LIST changes: -AMLO5TAB4 PO; +AMLO5TAB6 PO; +LISI40TA PO; -LISI40TAB PO; +NORCOTAB PO
[2018-03-14] MEDS ORDERED: diphenhydrAMINE INJ 50MG/ML VIAL (J1200) IV STA (12:26)
[2018-03-14] MEDS ORDERED: NS 1,000 ML IV ONE (12:30)
[2018-03-14] MEDS ORDERED: methylPREDNISolone INJ 125 MG/2 ML VIAL (J2930) IV ONE (12:30)
[2018-03-14] MEDS ORDERED: BENA25CA4 PO (15:01)
[2018-03-14] MEDS ORDERED: PRED20TA PO (15:01)
[2018-03-14 15:26] VITALS: BP 136/75
== END 2018-03-14 15:30 | disposition home or self-care (01) ==
LOC: M ED 11:04
DX: R22.0 Localized swelling, mass and lump, head (principal); T50.995A Adverse effect of other drugs, medicaments and biological substances, initial encounter; X58.XXXA Exposure to other specified factors, initial encounter; Y92.89 Other specified places as the place of occurrence of the external cause; I10 Essential (primary) hypertension; I25.10 Atherosclerotic heart disease of native coronary artery without angina pectoris; Z79.899 Other long term (current) drug therapy; Z88.5 Allergy status to narcotic agent; F17.210 Nicotine dependence, cigarettes, uncomplicated
CPT/HCPCS: 96361; 96374; 96375; 99284; J1200; J2930

== ENCOUNTER 2018-04-02 11:45 | Emergency (ER) | payer OTHER ==
[~2018-04-02] VITALS: Ht 177.8 cm; Wt 93.2 kg
[2018-04-02 11:45] VITALS: BP 166/94
[~2018-04-02 11:45] MED LIST changes: +BENA25CA4 PO; +PRED20TA PO
[2018-04-02] MEDS ORDERED: BACT800T5 PO (12:16)
== END 2018-04-02 12:25 | disposition home or self-care (01) ==
LOC: M ED 11:45
DX: L02.214 Cutaneous abscess of groin (principal)

== ENCOUNTER → 2018-04-10 | Outpatient (REF) | payer OTHER ==
[~2018-04-10] MED LIST changes: +BENZ200C70 PO; +FLON1SPR NARES; +MUCI600T37 PO
[2018-04-10 18:20] LABS: BASO # 0.1 10^3/uL (0.0-0.2); BASO % 0.9 % (0.0-1.0); EOS # 0.3 10^3/uL (0.0-0.50); EOS % 2.8 % (0.0-3.0); HEMOGLOBIN 16.8 g/dl (13.5-17.5); LYMPH # 2.4 10^3/uL (1.5-4.5); MEAN CORPUSCULAR HEMOGLOBIN 30.3 pg (27.0-33.0); MEAN CORPUSCULAR HGB CONC 32.9 g/dl (32.0-36.5); MEAN CORPUSCULAR VOLUME 91.9 fl (80.0-96.0); MONO # 0.5 10^3/uL (0.0-0.8); MONO % 5.9 % (0.0-5.0); NEUTROPHILS # 5.5 10^3/uL (1.8-7.7); NEUTROPHILS % 62.5 % (36.0-66.0); PLATELET COUNT, AUTOMATED 206 10^3/uL (150-450); RED BLOOD COUNT 5.55 10^6/uL (4.30-6.10); WHITE BLOOD COUNT 8.9 10^3/uL (4.0-10.0)
[2018-04-10 18:26] LABS: ALBUMIN 4.2 GM/DL (3.2-5.2); ALT/SGPT 25 U/L (12-78); BILIRUBIN,TOTAL 0.6 MG/DL (0.2-1.0); BLOOD UREA NITROGEN 11 MG/DL (7-18); CALCIUM LEVEL 8.6 MG/DL (8.5-10.1); CARBON DIOXIDE LEVEL 29 MEQ/L (21-32); CHLORIDE LEVEL 105 MEQ/L (98-107); CREATININE FOR GFR 1.08 MG/DL (0.70-1.30); GLOMERULAR FILTRATION RATE > 60.0 (>60); GLUCOSE, FASTING 93 MG/DL (70-100); POTASSIUM SERUM 4.4 MEQ/L (3.5-5.1); SODIUM LEVEL 140 MEQ/L (136-145); THYROID STIMULATING HORMONE 0.398 uIU/ML (0.358-3.740); TOTAL PROTEIN 7.2 GM/DL (6.4-8.2)
== END ==
LOC: M LAB REF 16:33
PROVIDERS: ATTEND Family Medicine Addiction Medicine
DX: D86.0 Sarcoidosis of lung (principal); R63.4 Abnormal weight loss; L28.2 Other prurigo

== ENCOUNTER 2018-05-08 07:52 | Emergency (ER) | payer OTHER ==
[~2018-05-08] VITALS: Ht 177.8 cm; Wt 90.9 kg
[~2018-05-08 07:52] MED LIST changes: -BENZ200C70 PO; -FLON1SPR NARES; -MUCI600T37 PO
[2018-05-08] MEDS ORDERED: ACETAMINOPHEN 325 MG TAB PO ONE (08:15)
[2018-05-08 08:56] LABS: INFLUENZA A AMPLIFICATION NEGATIVE (NEGATIVE); INFLUENZA B AMPLIFICATION NEGATIVE (NEGATIVE)
--- NOTE | 2018-05-08 08:59 | REP ---
CHEST PA AND LATERAL: 05/08/2018. Comparison: 06/27/2015, CT chest 11/06/2017. Clinical history: Cough. Findings: The two views show the lung gonzales well inflated. There is no pleural effusion, lateral pleural thickening, visible nodule or parenchymal mass. The heart is not enlarged. There is no vascular redistribution. A few cuffed bronchi are seen in the perihilar regions on the lateral view that may reflect some bronchitis. No mediastinal or hilar mass suggested. The fabián are symmetric. The aorta is normal. Airway is intact. Bony thorax shows no focal lesion. Impression: 1. Some minor perihilar changes that may reflect bronchitis or reactive airway disease. I do not see mass, consolidation, pleural effusion or other acute finding. 2. In smokers with chronic cough, CT may be helpful for endobronchial lesion or central disease. Electronically Signed by Marco Loja MD 05/08/2018 07:23 P
[2018-05-08] MEDS ORDERED: FLON1SPR NARES (09:39)
[2018-05-08] MEDS ORDERED: BENZ200C70 PO (09:39)
[2018-05-08] MEDS ORDERED: MUCI600T37 PO (09:39)
[2018-05-08 09:46] VITALS: BP 140/82
== END 2018-05-08 09:50 | disposition home or self-care (01) ==
LOC: M ED 07:52
DX: J06.9 Acute upper respiratory infection, unspecified (principal); I10 Essential (primary) hypertension; K21.9 Gastro-esophageal reflux disease without esophagitis; Z72.0 Tobacco use; Z79.899 Other long term (current) drug therapy; Z88.5 Allergy status to narcotic agent

== ENCOUNTER 2018-07-07 10:28 | Emergency (ER) | payer OTHER ==
[~2018-07-07] VITALS: Ht 177.8 cm; Wt 80.9 kg
[~2018-07-07 10:28] MED LIST changes: +BENZ200C70 PO; +FLON1SPR NARES; +HYDR-3715 PO; +MUCI600T37 PO; -NORC1TAB4 PO; +NORC1TAB7 PO; -NORCOTAB PO; -SENN1TAB2 PO; +SENN1TAB40 PO
--- NOTE | 2018-07-07 11:20 | REP ---
CT Head without contrast HISTORY: Infarction COMPARISON: None There is no intraparenchymal hemorrhage, acute infarct, mass or midline shift. The ventricular system is normal in appearance. The cortical sulci to vertex are consistent with minimal volume loss. There is no extra cerebral collection. There is no fracture. Mucosal thickening is present in the left sphenoid sinus. IMPRESSION: Minimal volume loss. Electronically Signed by Bari Hogan MD 07/07/2018 11:11 A
[2018-07-07 11:32] LABS: BASO # 0.1 10^3/uL (0.0-0.2); BASO % 1.3 % (0.0-1.0); EOS # 0.2 10^3/uL (0.0-0.50); EOS % 2.9 % (0.0-3.0); HEMATOCRIT 48.7 % (42.0-52.0); HEMOGLOBIN 16.3 g/dl (13.5-17.5); LYMPH % 28.7 % (24.0-44.0); MEAN CORPUSCULAR HEMOGLOBIN 30.8 pg (27.0-33.0); MEAN CORPUSCULAR HGB CONC 33.5 g/dl (32.0-36.5); MEAN CORPUSCULAR VOLUME 91.9 fl (80.0-96.0); MONO # 0.5 10^3/uL (0.0-0.8); MONO % 6.6 % (0.0-5.0); NEUTROPHILS # 4.1 10^3/uL (1.8-7.7); NEUTROPHILS % 59.3 % (36.0-66.0); PLATELET COUNT, AUTOMATED 186 10^3/uL (150-450); WHITE BLOOD COUNT 6.9 10^3/uL (4.0-10.0)
--- NOTE | 2018-07-07 11:37 | REP ---
Portable chest: Single view. History: CVA. Comparison study: May 08, 2018 Findings: EKG monitoring electrodes overlie the chest. The lungs are well inflated and clear. The pleural angles are sharp. Heart size is normal. Pulmonary vasculature is not increased. No significant bony abnormality. Impression: Negative portable chest x-ray. Electronically Signed by Jaziel Jimenez MD 07/07/2018 11:29 A
[2018-07-07 11:47] LABS: INR 0.95; PROTHROMBIN TIME 12.8 SECONDS (12.1-14.4)
[2018-07-07 11:48] LABS: PARTIAL THROMBOPLASTIN TIME 30.9 SECONDS (25.4-37.6)
[2018-07-07 12:03] LABS: BLOOD UREA NITROGEN 10 MG/DL (7-18); CALCIUM LEVEL 8.7 MG/DL (8.5-10.1); CARBON DIOXIDE LEVEL 30 MEQ/L (21-32); CHLORIDE LEVEL 107 MEQ/L (98-107); CK-MB VALUE MASS < 1.0 NG/ML (<3.6); CPK CREATINE PHOSPHOKINASE 83 U/L (39-308); CREATININE FOR GFR 0.87 MG/DL (0.70-1.30); GLOMERULAR FILTRATION RATE > 60.0 (>60); GLUCOSE, FASTING 90 MG/DL (70-100); POTASSIUM SERUM 4.6 MEQ/L (3.5-5.1); SODIUM LEVEL 141 MEQ/L (136-145); TROPONIN I < 0.02 NG/ML (< 0.10)
[2018-07-07] MEDS ORDERED: levETIRAcetam INJection 1,000 MG in D5W 100 ML IV ONE (13:00)
[2018-07-07] MEDS ORDERED: ISOVUE-370 76% 100ML VIAL (Q9967) As Ordered ONE (13:21)
--- NOTE | 2018-07-07 13:50 | REP ---
MRA BRAIN WITHOUT CONTRAST: HISTORY: Syncope. 3D [id number] MR angiography was performed at the level of the [place]. There is no aneurysm, arteriovenous malformation, or atherosclerotic lesion. Major intracranial vessels are patent. The vertebral arteries are equal in size. IMPRESSION: Normal MRA brain. Electronically Signed by Bari Hogan MD 07/07/2018 01:51 P
--- NOTE | 2018-07-07 13:52 | REP ---
MR BRAIN WITHOUT CONTRAST: HISTORY: Syncope. COMPARISON: CT 07/07/2018. There are no areas of abnormal signal intensity in the brain. There is no intraparenchymal hemorrhage, infarct, mass, or midline shift. The ventricular system is normal in appearance. The cortical sulci at the vertex are dilated, consistent with minimal volume loss. There is no extracerebral collection. Mucosal thickening is present in the maxillary and left sphenoid sinuses. IMPRESSION: Minimal volume loss. Electronically Signed by Bari Hogan MD 07/07/2018 01:54 P
[2018-07-07] MEDS ORDERED: CIPR-249 PO (14:22)
[2018-07-07] MEDS ORDERED: FLAG500T PO (14:23)
[2018-07-07] MEDS ORDERED: KEPP1TAB2 PO (14:23)
[2018-07-07] MEDS ORDERED: metroNIDAZOLE (FLAGYL) 500 MG TAB PO ONE (14:30)
[2018-07-07] MEDS ORDERED: CIPROFLOXACIN 500 MG TAB PO ONE (14:30)
--- NOTE | 2018-07-07 14:32 | REP ---
CT ABDOMEN PELVIS WITH IV BUT WITHOUT ORAL CONTRAST: HISTORY: Rule out obstruction. CT CONTRAST DOSE: 100 mL of intravenous Isovue 370. Comparison CT study March 12, 2018 and August 14, 2016. CT FINDINGS: Digital preliminary sustainability analyst radiograph is unremarkable. There is no evidence of pleural effusion. The lung bases are clear. There is fatty infiltration of the liver. There is a small focal low density liver lesion 1.1 cm in the left lobe and another in the right lobe measuring 0.7 cm. These are unchanged from June 04, [address] studies and are compatible with small cysts. No new focal liver lesion is seen. The gallbladder is unremarkable. There are two to three granulomatous calcifications in the spleen, which is otherwise normal. No adrenal lesion is seen. No pancreatic abnormality is observed. The kidneys enhance symmetrically and are morphologically intact. No retroperitoneal mass or adenopathy is observed. Normal appendix is seen in the right lower quadrant. Small and large bowel loops are normal in caliber. No obstructive lesion is seen. Urinary bladder is unremarkable. There are one or two dystrophic calcifications in the prostate. Seminal vesicles are normal in appearance. There is left colonic diverticulosis. There is mural thickening along the superior wall of the sigmoid colon with some pericolonic streaking consistent with mild diverticulitis of the sigmoid colon. Previous studies have shown similar findings. IMPRESSION: 1. Findings consistent with acute diverticulitis of the sigmoid colon. No abscess or free air. 2. Fatty infiltration of the liver. 3. Granulomatous calcifications in the spleen. And some dystrophic calcifications in the prostate. Electronically Signed by Jaziel Jimenez MD 07/07/2018 03:18 P
[2018-07-07 14:36] VITALS: BP 129/76
--- NOTE | 2018-07-08 01:11 | ECGEPIP ---
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
== END 2018-07-07 14:45 | disposition home or self-care (01) ==
LOC: M ED 10:28
DX: G40.209 Localization-related (focal) (partial) symptomatic epilepsy and epileptic syndromes with complex partial seizures, not intractable, without status epilepticus (principal); K57.32 Diverticulitis of large intestine without perforation or abscess without bleeding; I10 Essential (primary) hypertension; J44.9 Chronic obstructive pulmonary disease, unspecified; G47.30 Sleep apnea, unspecified; K21.9 Gastro-esophageal reflux disease without esophagitis; Z86.14 Personal history of Methicillin resistant Staphylococcus aureus infection; Z87.442 Personal history of urinary calculi; F17.200 Nicotine dependence, unspecified, uncomplicated; Z88.5 Allergy status to narcotic agent; Z79.899 Other long term (current) drug therapy
CPT/HCPCS: 70450; 70544; 70551; 71045; 74177; 80048; 82550; 82553; 85025; 85610; 85730; 86850; 86900; 86901; 93005; 93041; 94760; 96365; 99285; J1953; Q9967

== ENCOUNTER 2018-08-18 12:45 | Inpatient (IN) | payer OTHER ==
[~2018-08-18] VITALS: Ht 175.3 cm; Wt 74.7 kg
[~2018-08-18 12:45] MED LIST changes: +KEPP1TAB2 PO; -OMEP40CA2 PO; +OMEP40CA97 PO; +SENN-53 PO; -SENN1TAB40 PO
[2018-11-25] MEDS ORDERED: CIPR-249 PO (03:10)
[2018-11-25] MEDS ORDERED: FLAG500T PO (03:10)
[2018-11-30] MEDS ORDERED: METR-265 PO (22:06)
[2018-11-30] MEDS ORDERED: CIPR-249 PO (22:06)
[2019-01-08] MEDS ORDERED: DICY1CAP8 PO (07:50)
[2019-01-08] MEDS ORDERED: TIZA2CAP PO (07:50)
[2019-01-08] MEDS ORDERED: SENN-50 PO (07:50)
--- NOTE | 2019-01-15 14:37 | HPE ---
DATE OF ANTICIPATED ADMISSION: 01/19/2019 CHIEF COMPLAINT: Abdominal pain. HISTORY OF PRESENT ILLNESS: The patient is a 38-year-old male, known to me. He is scheduled for robotic sigmoidectomy on 01/19/2019. All of his questions were answered in the office. He was IV antibiotics the last time I saw him because he had another episode around 12/02/2018. Since then, he has not had any new issues. PAST MEDICAL HISTORY: Syncope. Chronic obstructive pulmonary disease (COPD). Diverticulosis. Diverticulitis. Fibromyalgia. PAST SURGICAL HISTORY: Loop recorder placement. SOCIAL HISTORY: Smokes a pack a day. Denies drug or alcohol abuse. ALLERGIES: OXYCODONE, DULOXETINE. HOME MEDICATIONS: Please see med rec. REVIEW OF SYSTEMS: Pertinent positives and negatives as stated in the HPI. PHYSICAL EXAMINATION: General: Alert and oriented times three. No acute stress. Vitals were stable, afebrile. HEENT: Pupils equal, round, regular and react to light and accommodation. Heart: S1, S2, regular rate and rhythm. Lungs: Clear to auscultation bilaterally. Abdomen: Soft, tender to palpation in the left lower quadrant, localized. No guarding or rigidity. No peritonitis. Extremities: No clubbing, cyanosis or edema. ASSESSMENT/PLAN: The patient is a 38-year-old male with chronic diverticulitis. Recommendation was to proceed with robotic sigmoid resection. Risks and benefits of the procedure not limited to but including bleeding, infection, hernia formation, damage to surrounding structure, need for further surgery, and an anastomotic leak were discussed in detail with the patient. Informed consent was obtained and procedure is planned for this coming Saturday.
[2019-01-19] VITALS (8 sets, daily range): BP systolic 130–141; BP diastolic 65–83; O2SAT 99
[2019-01-19] MEDS ORDERED: LIDOCAINE 1% MDV 20ML VIAL SQ PRN (06:00)
[2019-01-19] MEDS ORDERED: ERTAPENEM SODIUM 1 GM in NS MINI-BAG PLUS 50 ML IV ONE (07:00)
[2019-01-19] MEDS ORDERED: LR 1,000 ML IV ONE (07:00)
[2019-01-19] MEDS ORDERED: fentaNYL 100 MCG/2 ML INJECTION (J3010) As Ordered ONE ×3 (07:08→11:01)
[2019-01-19] MEDS ORDERED: ROCURONIUM BROMIDE 50 MG/5 ML VIAL As Ordered ONE ×2 (07:09→08:38)
[2019-01-19] MEDS ORDERED: LIDOCAINE 2% INJ 100 MG/5 ML SDV (FOR ANES.) As Ordered ONE ×2 (07:09→09:05)
[2019-01-19] MEDS ORDERED: PROPOFOL 200 MG/20 ML VIAL As Ordered ONE (07:09)
[2019-01-19] MEDS ORDERED: ONDANSETRON 4MG/2ML VIAL (J2405) As Ordered ONE (07:09)
[2019-01-19] MEDS ORDERED: MIDAZOLAM INJ 2 MG/2 ML VIAL (J2250) As Ordered ONE (07:09)
[2019-01-19] MEDS ORDERED: BUPIVACAINE/EPIN 0.25% 30 ML VIAL As Ordered ONE (07:11)
[2019-01-19] MEDS ORDERED: KETOROLAC 60 MG/2 ML VIAL (J1885) As Ordered ONE (07:13)
[2019-01-19] MEDS ORDERED: dexameTHASONE 4 MG/ML 1ML VIAL (J1100) As Ordered ONE (07:15)
[2019-01-19] MEDS ORDERED: KETAMINE HCL 200 MG/20 ML VIAL As Ordered ONE (07:17)
[2019-01-19] MEDS ORDERED: ACETAMINOPHEN 1000MG 100ML IV BTL (OFIRMEV) (J0131 PER 10MG) As Ordered ONE (08:42)
[2019-01-19] MEDS ORDERED: SUGAMMADEX SODIUM 500 MG/5 ML VIAL (BRIDION) As Ordered ONE (09:06)
[2019-01-19] MEDS ORDERED: GLUCAGON FOR INJ 1 MG VIAL (J1610) As Ordered ONE (09:17)
[2019-01-19] MEDS: LR 1,000 ML IV SCH ×2 (10:33→16:26)
[2019-01-19] MEDS ORDERED: ONDANSETRON 4MG/2ML VIAL (J2405) IV PRN ×2 (10:45→11:00)
[2019-01-19] MEDS ORDERED: ACETAMINOPHEN TAB 650MG DOSE (2X325MG) PO PRN (10:45)
[2019-01-19] MEDS ORDERED: LR 1,000 ML IV SCH (11:00)
[2019-01-19] MEDS ORDERED: NORCO, ANEXSIA 5/325MG TABLET (HYDROcodone/ACETAMINOPHEN) PO PRN (11:00)
[2019-01-19] MEDS ORDERED: LACRILUBE (AKWA TEARS) OPHTH OINT 3.5 GM As Ordered ONE (11:02)
[2019-01-19] MEDS: fentaNYL 100 MCG/2 ML INJECTION (J3010) IV PRN ×2 (11:02→11:07)
[2019-01-19] MEDS: MORPHINE 2 MG/ML 1ML VIAL (J2270) IV PRN (11:33)
[2019-01-19] MEDS: PANTOPRAZOLE 40MG TAB (PROTONIX) PO SCH (11:49)
[2019-01-19] MEDS: KETOROLAC 30 MG/ML VIAL (J1885) IV PRN ×2 (12:56→21:11)
--- NOTE | 2019-01-19 13:40 | RO ---
DATE OF PROCEDURE: 01/19/2019 PREOPERATIVE DIAGNOSIS: Diverticulitis. POSTOPERATIVE DIAGNOSIS: Diverticulitis. PROCEDURE: Robotic sigmoidectomy. SURGEON: Dr. Anson Burnette BLOCK SAWYER: Dr. Johnston (assisted with mobilization and creation of the anastomosis). ANESTHESIA: ESTIMATED BLOOD LOSS: 10. COMPLICATIONS: None. INDICATIONS FOR PROCEDURE: The patient is a 38-year-old male who presents with multiple episodes of sigmoid diverticulitis in the past 3 years. Recommendation was to proceed with robotic sigmoidectomy. Risks and benefits of the procedure not limited to, but including bleeding, infection, hernia formation, damage to surrounding structures, anastomotic leak and need for further surgery were discussed in detail with the patient. Informed consent was obtained and the procedure was planned. OPERATIVE PROCEDURE: The patient was brought back to operating room seven. After sufficient sedation the abdomen was sterilely prepped and draped. Next a time out was done to confirm proper patient and proper procedure. Following that, an 8 mm incision was made in the left lower quadrant, Veress needle inserted and the abdomen was insufflated to 15 mmHg. Next, the Veress needle was removed and an 8 mm OptiVu robotic port was placed. Once inside, three more robotic ports were placed, one in left upper abdomen and two in the right lower quadrant spaced evenly apart. The right lower port was a 12 mm port. Once these ports were placed, the robot was docked and the patient was placed in Trendelenburg position. Next, from the console the sigmoid colon was carefully taken down from the adhesions to the left lower quadrant. Very minimal scarring and adhesions in that area. Once that was completed, the small bowel loops that were adhered down into the pelvis were carefully dissected free and the small bowel was reduced up towards the right upper quadrant. Once that was completed, the sigmoid was mobilized medial and superiorly and the lateral peritoneal reflection was carefully taken down from the rectosigmoid junction proximally all way up to descending colon. Once that was completed, the colon was elevated up towards the abdominal wall and at the rectosigmoid junction starting on the medial side the peritoneum was incised. The mesocolon was carefully dissected through using sharp dissection. Once it was completed, I was able to circumferentially get around the rectosigmoid junction and then staple across that using a 45 mm stapler and a green load. Once that was completed, the dissection was carried proximally for about 20 cm. After doing so, I replaced the colon back down inside the pelvis and made sure that I had enough length to reach without it being under any tension. Once I figured out the point where the anastomosis was going to be recreated, I dissected through the mesentery up towards the bowel wall proximally. Once that was completed, the robot was undocked. A 5 cm incision was made inferior to the umbilicus in the midline. The colon was brought out through the skin protector. The anastomosis site was identified. A small colotomy was made. A 25 mm sizer was then used and was unable to pass inside of the colon, it was too small, so then we took an EEA 21 stapler and passed the anvil inside, stapled across the colon using a YVES 75 blue load stapler, and then brought out the anvil through the staple line. Once that was completed, I used a couple #3-0 Vicryl sutures to approximate the colon around the end of the anvil and placed the colon back inside of the abdomen. The fascia was closed with #1 PDS interrupted sutures. The abdomen was reinsufflated. The robot was redocked. The anastomosis was created distally using the EEA stapler. Once that was completed, it was pressure tested and there were no signs of any air leak. The pelvis was then irrigated out. A 19-Jamaican Taurus drain was placed in the pelvis next to the anastomosis and brought out through the right lower quadrant port site. The abdomen was then desufflated. The skin incisions were closed with nate. The drain was sutured place with a #2-0 silk suture. The abdomen was cleaned and dried and 4x4s and tape were applied thus ending the procedure.
[2019-01-19] MEDS: DICYCLOMINE 10 MG CAP PO SCH ×2 (16:25→21:07)
[2019-01-19] MEDS: tiZANidine 4 MG TAB PO SCH ×2 (16:26→21:08)
[2019-01-19] MEDS: NORCO, ANEXSIA 5/325MG TABLET (HYDROcodone/ACETAMINOPHEN) PO PRN (16:26)
[2019-01-19] MEDS: SENOKOT S TAB PO SCH (21:10)
[2019-01-20] MEDS: LR 1,000 ML IV SCH ×2 (00:27→10:44)
[2019-01-20 02:00] VITALS: BP 134/72
[2019-01-20] MEDS: MORPHINE 2 MG/ML 1ML VIAL (J2270) IV PRN (02:04)
[2019-01-20 06:00] VITALS: BP 120/76
[2019-01-20 07:06] LABS: HEMATOCRIT 45.3 % (42.0-52.0); HEMOGLOBIN 14.7 g/dl (13.5-17.5); MEAN CORPUSCULAR HEMOGLOBIN 30.6 pg (27.0-33.0); MEAN CORPUSCULAR HGB CONC 32.5 g/dl (32.0-36.5); MEAN CORPUSCULAR VOLUME 94.4 fl (80.0-96.0); PLATELET COUNT, AUTOMATED 136 10^3/uL (150-450); WHITE BLOOD COUNT 12.3 10^3/uL (4.0-10.0)
[2019-01-20 07:35] LABS: BLOOD UREA NITROGEN 9 MG/DL (7-18); CALCIUM LEVEL 8.8 MG/DL (8.5-10.1); CARBON DIOXIDE LEVEL 28 MEQ/L (21-32); CHLORIDE LEVEL 107 MEQ/L (98-107); CREATININE FOR GFR 0.72 MG/DL (0.70-1.30); GLOMERULAR FILTRATION RATE > 60.0 (>60); GLUCOSE, FASTING 83 MG/DL (70-100); POTASSIUM SERUM 4.2 MEQ/L (3.5-5.1); SODIUM LEVEL 140 MEQ/L (136-145)
[2019-01-20] MEDS ORDERED: ERTAPENEM SODIUM 1 GM in NS MINI-BAG PLUS 50 ML IV SCH ×4 (08:00)
[2019-01-20] MEDS: PANTOPRAZOLE 40MG TAB (PROTONIX) PO SCH (08:16)
[2019-01-20] MEDS: DICYCLOMINE 10 MG CAP PO SCH ×4 (08:16→20:25)
[2019-01-20] MEDS: SENOKOT S TAB PO SCH ×2 (08:16→20:24)
[2019-01-20] MEDS: tiZANidine 4 MG TAB PO SCH ×3 (08:17→20:25)
[2019-01-20] MEDS: ENOXAPARIN 40 MG/0.4 ML SYRINGE (J1650) SC SCH (08:17)
[2019-01-20] MEDS: NORCO, ANEXSIA 5/325MG TABLET (HYDROcodone/ACETAMINOPHEN) PO PRN ×2 (08:32→17:03)
[2019-01-20 09:00] VITALS: O2SAT 98
[2019-01-20] MEDS: KETOROLAC 30 MG/ML VIAL (J1885) IV PRN (10:45)
--- NOTE | 2019-01-20 13:06 | IPNPDOC ---
Text Note Date of Service The patient was seen on 01/20/19. NOTE No acute events overnight. Tolerating clq diet and ambulating in the halls wi thout any problems. Pain is controlled, and he is passing flatus. VSSAF NAD abd - soft, TTP diffuse appropriate, non distended, drain is serosanguinous labs - below A) 38y/o male POD#1 s/p RA sigmoidectomy P) flq diet PO and IV pain control ambulate dc IVF monitor labs wean pain meds amb in interiano Navid Burnette DO VS,Fishbone, I+O VS, Fishbone, I+O Laboratory Tests 01/20/19 05:44 Vital Signs Date Time Temp Pulse Resp B/P (MAP) Pulse Ox O2 Delivery O2 Flow Rate FiO2 01/20/19 09:02 19 Room Air 01/20/19 09:00 98 01/20/19 06:00 97.8 53 120/76 (91) 1.0 I&O- Last 24 Hours up to 6 AM 01/20/19 06:00 Intake Total 5380 ml Output Total 815 ml Balance 4565 ml NATALIO BURNETTE DO Jan 20, 2019 13:06
[2019-01-20 14:00] VITALS: BP 137/69
[2019-01-20 21:00] VITALS: O2SAT 97
[2019-01-20 22:00] VITALS: BP 120/70
[2019-01-21 01:12] VITALS: BP 139/85
[2019-01-21] MEDS: MORPHINE 2 MG/ML 1ML VIAL (J2270) IV PRN (01:12)
[2019-01-21 05:26] VITALS: BP 138/76
[2019-01-21 07:44] LABS: HEMATOCRIT 48.8 % (42.0-52.0); HEMOGLOBIN 15.8 g/dl (13.5-17.5); MEAN CORPUSCULAR HEMOGLOBIN 30.9 pg (27.0-33.0); MEAN CORPUSCULAR HGB CONC 32.4 g/dl (32.0-36.5); MEAN CORPUSCULAR VOLUME 95.5 fl (80.0-96.0); PLATELET COUNT, AUTOMATED 155 10^3/uL (150-450); RED BLOOD COUNT 5.11 10^6/uL (4.30-6.10); WHITE BLOOD COUNT 9.6 10^3/uL (4.0-10.0)
[2019-01-21 08:08] LABS: BLOOD UREA NITROGEN 7 MG/DL (7-18); CALCIUM LEVEL 9.1 MG/DL (8.5-10.1); CARBON DIOXIDE LEVEL 31 MEQ/L (21-32); CHLORIDE LEVEL 106 MEQ/L (98-107); CREATININE FOR GFR 0.87 MG/DL (0.70-1.30); GLOMERULAR FILTRATION RATE > 60.0 (>60); GLUCOSE, FASTING 85 MG/DL (70-100); POTASSIUM SERUM 3.8 MEQ/L (3.5-5.1); SODIUM LEVEL 142 MEQ/L (136-145)
[2019-01-21] MEDS: tiZANidine 4 MG TAB PO SCH (08:11)
[2019-01-21] MEDS: DICYCLOMINE 10 MG CAP PO SCH (08:11)
[2019-01-21] MEDS: SENOKOT S TAB PO SCH (08:11)
[2019-01-21] MEDS: PANTOPRAZOLE 40MG TAB (PROTONIX) PO SCH (08:11)
[2019-01-21] MEDS ORDERED: HYDR-4571 PO (08:13)
[2019-01-21] MEDS: ENOXAPARIN 40 MG/0.4 ML SYRINGE (J1650) SC SCH (08:13)
--- NOTE | 2019-01-21 09:40 | DSES ---
DATE OF ADMISSION: 01/19/2019 DATE OF DISCHARGE: 01/21/2019 ADMISSION DIAGNOSIS: Diverticulitis. DISCHARGE DIAGNOSIS: Diverticulitis. HOSPITAL COURSE: The patient is a 38-year-old male who came in for elective sigmoidectomy due to recurrent diverticulitis. He underwent robotic sigmoidectomy on 01/22/2019. Postoperatively he did well. By postop day #1 he was already ambulating multiple times in the interiano, urinating appropriately. Labs were good. Pain was minimal and he was already passing flatus. His diet was advanced to full liquid diet. This morning postop day #2, he is continuing to do well. His abdomen is soft, minimal tenderness. No even using any pain medications and he is ambulating, tolerating diet and he has had a couple small bowel movements. PLAN: Plan is to discharge home this morning. He can shower. No baths for 5 days. No lifting more 20 pounds for 2 weeks and he will followup with me in the office in 2 weeks to get his nate out. All of his questions are answered and he will followup in the office.
== END 2019-01-21 10:18 | disposition home or self-care (01) | DRG 221 ==
LOC: M OR 01-19 05:53 → EEVIPCON 01-19 07:30 → M MSPAV 01-19 11:16 → M MS4PR 01-21 00:30
PROVIDERS: ADMIT Surgery; ATTEND Surgery
PROC: 8E0W4CZ Robotic Assisted Procedure of Trunk Region, Percutaneous Endoscopic Approach (ICD-10-PCS; 2019-01-19)
PROC: 0DTN4ZZ Resection of Sigmoid Colon, Percutaneous Endoscopic Approach (ICD-10-PCS; principal; 2019-01-19 07:30)
DX: K57.32 Diverticulitis of large intestine without perforation or abscess without bleeding (principal); J44.9 Chronic obstructive pulmonary disease, unspecified; M79.7 Fibromyalgia; F17.210 Nicotine dependence, cigarettes, uncomplicated; I11.9 Hypertensive heart disease without heart failure; F32.9 Major depressive disorder, single episode, unspecified; K21.9 Gastro-esophageal reflux disease without esophagitis; J32.9 Chronic sinusitis, unspecified; G47.33 Obstructive sleep apnea (adult) (pediatric); Z88.8 Allergy status to other drugs, medicaments and biological substances; Z88.5 Allergy status to narcotic agent; Z79.899 Other long term (current) drug therapy; Z87.442 Personal history of urinary calculi

== ENCOUNTER 2018-10-22 12:53 | Day surgery (SDC) | payer OTHER ==
[~2018-10-22] VITALS: Ht 175.3 cm; Wt 77.9 kg
[~2018-10-22 12:53] MED LIST changes: +LR 1,000 ML IV ONE; +OMEP40CA2 PO; -OMEP40CA97 PO; -SENN-53 PO; +SENN1TAB40 PO; +ceFAZolin SOD 1 GM in D5W MINI-BAG PLUS 50 ML IV ONE
[2018-10-22] MEDS ORDERED: PROPOFOL 200 MG/20 ML VIAL As Ordered ONE ×2 (14:33→15:07)
[2018-10-22] MEDS ORDERED: dexameTHASONE 4 MG/ML 1ML VIAL (J1100) As Ordered ONE (14:34)
[2018-10-22] MEDS ORDERED: ONDANSETRON 4MG/2ML VIAL (J2405) As Ordered ONE (14:34)
[2018-10-22] MEDS ORDERED: MIDAZOLAM INJ 2 MG/2 ML VIAL (J2250) As Ordered ONE (14:34)
[2018-10-22] MEDS ORDERED: LIDOCAINE 2% INJ 100 MG/5 ML SDV (FOR ANES.) As Ordered ONE (14:34)
[2018-10-22] MEDS ORDERED: LIDOCAINE 1% SDV INJ 30 ML VIAL As Ordered ONE (14:35)
[2018-10-22] MEDS ORDERED: fentaNYL 100 MCG/2 ML INJECTION (J3010) As Ordered ONE (14:35)
[2018-10-22 16:00] VITALS: BP 117/78
[2018-10-22] MEDS ORDERED: ONDANSETRON 4MG/2ML VIAL (J2405) IV PRN (16:00)
[2018-10-22] MEDS ORDERED: LR 1,000 ML IV SCH (16:00)
[2018-10-22] MEDS ORDERED: PERCOCET 5MG/325MG TAB PO PRN (16:00)
--- NOTE | 2018-10-23 06:44 | RO ---
DATE OF PROCEDURE: 10/22/2018 PREOPERATIVE DIAGNOSIS: Unexplained syncope. POSTOPERATIVE DIAGNOSIS: Unexplained syncope. FINDINGS: Same. PROCEDURE PERFORMED: Implantation of a [employer] implantable loop recorder. SURGEON: Mello Bernal MD BASEBALL UMPIRE FOR LITTLE LEAGUE: None. ANESTHESIA: Lidocaine 1% local, monitored anesthetic care. SPECIMENS: None. ESTIMATED BLOOD LOSS: Less than 2 mL. BLOOD PRODUCTS: None. DRAINS: None. COMPLICATIONS: None. PROCEDURE DESCRIPTION: The patient was prepped and draped over the left anterior chest and sternum. Lidocaine 1% was used for local anesthetic. An incision approximately 1 cm in length was made with a #15 blade through the skin at the fourth interspace one inch lateral to the left parasternal border. The guide on the insertion tool was placed into the incision and directed in subcutaneous fat parallel to the skin and chest wall in a caudal direction. The insertion tool was rotated 180 degees. The production pattern maker was then used to advance the implantable recorder into the subcutaneous fat. The punch was removed and then the loop recorder was removed. The initial R wave amplitude was 0.89 mV. The incision was then approximated temporarily with the assistance of a subcuticular placed Biosyn #4-0 suture with the free ends protruding one inch lateral to the ends of the incision on either side. Next, layers of Dermabond was applied. The Biosyn suture was then pulled through the skin and removed entirely. The patient tolerated the procedure well without any immediate complications. The implantable recorder implanted was a [employer] Reveal LINQ, Model LNQ11 with Serial number [id number].
== END 2018-10-22 16:16 | disposition home or self-care (01) ==
LOC: M SDC 12:53
PROVIDERS: ATTEND Internal Medicine Cardiovascular Disease
DX: R55 Syncope and collapse (principal); R00.2 Palpitations; K21.9 Gastro-esophageal reflux disease without esophagitis; M79.7 Fibromyalgia; G40.919 Epilepsy, unspecified, intractable, without status epilepticus; Z79.899 Other long term (current) drug therapy; G47.30 Sleep apnea, unspecified
CPT/HCPCS: 33285; C1764; J0690; J1100; J2250; J2405; J3010

== ENCOUNTER → 2018-11-11 | Outpatient (CLI) | payer OTHER ==
[~2018-11-11] MED LIST changes: -LR 1,000 ML IV ONE; -ceFAZolin SOD 1 GM in D5W MINI-BAG PLUS 50 ML IV ONE
--- NOTE | 2018-11-21 15:08 | SLEEPHOME ---
DATE OF PROCEDURE: 11/11/2018 INTERPRETATION Diagnostic home sleep testing was performed due to concern for sleep apnea syndrome symptoms in this patient who previously had obstructive sleep apnea, who has lost significant weight. This is for reevaluation of sleep apnea. Portable home monitoring was performed using NOX-T3 respiratory monitoring device. Continuous record was made of impulse, oxygen saturation, airflow, chest and abdominal strain. There were 394.9 minutes of data analyzed of presumed sleep. During this sleep interval, there were 59 events identified of 10 seconds in duration or longer for a respiratory event index of 9.0. The events were predominantly obstructive or mixed apneic events so there were some central events present. There was a significant period of time when pulse and SPO2 monitoring was not captured. The patient's baseline saturation was 93% with a minimum recorded value of likely in the high 80s. 75% is listed on the record but that is clearly artifact. The patient's average pulse was 56 beats per minute. Testing was performed both supine and lateral position with a majority of time spent in the lateral position. IMPRESSION Abnormal home sleep test with repetitive respiratory events. Respiratory event index of at least 9 his consistent with mild obstructive sleep apnea. Many events were likely not seen because a loss of pulse and SPO2 monitoring meaning that no hypopneas could be scored and the index is likely higher. RECOMMENDATIONS Recommend the patient be sent to the sleep disorder center for formal determination of pressure therapy. MTDD
== END ==
LOC: M SLEEP HO 12:15
PROVIDERS: ATTEND Internal Medicine Pulmonary Disease
DX: G47.33 Obstructive sleep apnea (adult) (pediatric) (principal)

== ENCOUNTER 2018-11-24 22:18 | Emergency (ER) | payer OTHER ==
[~2018-11-24] VITALS: Ht 175.3 cm; Wt 76.8 kg
[2018-11-24 22:39] LABS: BASO # 0.1 10^3/uL (0.0-0.2); BASO % 0.8 % (0.0-1.0); EOS # 0.2 10^3/uL (0.0-0.5); HEMOGLOBIN 16.7 g/dl (13.5-17.5); LYMPH # 2.7 10^3/uL (1.5-5.0); LYMPH % 27.2 % (24.0-44.0); MEAN CORPUSCULAR HEMOGLOBIN 31.6 pg (27.0-33.0); MEAN CORPUSCULAR HGB CONC 33.4 g/dl (32.0-36.5); MEAN CORPUSCULAR VOLUME 94.7 fl (80.0-96.0); MONO # 0.6 10^3/uL (0.0-0.8); MONO % 5.7 % (0.0-5.0); NEUTROPHILS # 6.3 10^3/uL (1.5-8.5); PLATELET COUNT, AUTOMATED 169 10^3/uL (150-450); RED BLOOD COUNT 5.28 10^6/uL (4.30-6.10); WHITE BLOOD COUNT 9.9 10^3/uL (4.0-10.0)
[2018-11-24 23:07] LABS: ALBUMIN 3.8 GM/DL (3.2-5.2); ALT/SGPT 16 U/L (12-78); BILIRUBIN,DIRECT 0.2 MG/DL (0.0-0.2); BILIRUBIN,TOTAL 0.7 MG/DL (0.2-1.0); BLOOD UREA NITROGEN 14 MG/DL (7-18); CALCIUM LEVEL 8.6 MG/DL (8.5-10.1); CARBON DIOXIDE LEVEL 30 MEQ/L (21-32); CHLORIDE LEVEL 107 MEQ/L (98-107); CREATININE FOR GFR 1.08 MG/DL (0.70-1.30); GLOMERULAR FILTRATION RATE > 60.0 (>60); GLUCOSE, FASTING 102 MG/DL (70-100); LIPASE 60 U/L (73-393); POTASSIUM SERUM 3.9 MEQ/L (3.5-5.1); SODIUM LEVEL 143 MEQ/L (136-145); TOTAL PROTEIN 6.7 GM/DL (6.4-8.2)
[2018-11-24] MEDS ORDERED: MORPHINE 4 MG/ML 1ML VIAL/SYRINGE (J2270) IV ONE (23:15)
[2018-11-25] MEDS ORDERED: CIPROFLOXACIN 400 MG in IV 1 EA IV ONE (01:00)
[2018-11-25] MEDS ORDERED: metroNIDAZOLE 500 MG in IV 1 EA IV ONE (01:00)
[2018-11-25 02:00] VITALS: BP 98/54
[2018-11-25] MEDS ORDERED: FLAG500T PO (03:10)
[2018-11-25] MEDS ORDERED: CIPR-249 PO (03:10)
[2018-11-25] MEDS ORDERED: MORPHINE 10 MG/ML 1ML VIAL (J2270) IV ONE (03:15)
[2018-11-25] MEDS ORDERED: NORCO 5/325MG TABLET (BULK FOR ED) PO ONE (03:15)
--- NOTE | 2018-11-25 09:04 | REP ---
ABDOMEN SERIES: THREE VIEWS. HISTORY: Evaluate for perforation. COMPARISON CHEST X-RAY: July 07, 2018 FINDINGS: Upright chest radiograph is normal other than for the presence of a loop recorder superimposed on the heart. Pleural angles are sharp. There is no evidence of infiltrate or free subdiaphragmatic air. The heart size is normal. Supine and erect views of the abdomen demonstrate a normal bowel gas pattern with air and stool in a nondistended colon. Flank stripes and psoas margins are intact and symmetric. No mass, organomegaly, or pathologic calcification is seen. No air-fluid level is seen. There is no evidence of obstruction. IMPRESSION: Negative abdominal series. Electronically Signed by Jaziel Jimenez MD 11/25/2018 09:13 A
== END 2018-11-25 03:26 | disposition home or self-care (01) ==
LOC: M ED 22:18
DX: K57.32 Diverticulitis of large intestine without perforation or abscess without bleeding (principal); K21.9 Gastro-esophageal reflux disease without esophagitis; Z79.899 Other long term (current) drug therapy; Z88.5 Allergy status to narcotic agent; Z88.8 Allergy status to other drugs, medicaments and biological substances
CPT/HCPCS: 74021; 80048; 80076; 81001; 83690; 85025; 96365; 96366; 96367; 96375; 96376; 99284; J0744; J2270

== ENCOUNTER 2018-11-30 18:32 | Inpatient (IN) | payer OTHER ==
[~2018-11-30] VITALS: Ht 175.3 cm; Wt 77.2 kg
[2018-11-30 19:13] LABS: BASO # 0.1 10^3/uL (0.0-0.2); BASO % 0.9 % (0.0-1.0); EOS # 0.3 10^3/uL (0.0-0.5); EOS % 2.6 % (0.0-3.0); HEMATOCRIT 48.3 % (42.0-52.0); HEMOGLOBIN 16.1 g/dl (13.5-17.5); LYMPH # 1.4 10^3/uL (1.5-5.0); LYMPH % 14.3 % (24.0-44.0); MEAN CORPUSCULAR HGB CONC 33.3 g/dl (32.0-36.5); MEAN CORPUSCULAR VOLUME 93.1 fl (80.0-96.0); MONO # 0.7 10^3/uL (0.0-0.8); MONO % 6.5 % (0.0-5.0); NEUTROPHILS # 7.5 10^3/uL (1.5-8.5); NEUTROPHILS % 75.3 % (36.0-66.0); PLATELET COUNT, AUTOMATED 174 10^3/uL (150-450); RED BLOOD COUNT 5.19 10^6/uL (4.30-6.10)
[2018-11-30 19:37] LABS: ALBUMIN 3.6 GM/DL (3.2-5.2); ALT/SGPT 14 U/L (12-78); BILIRUBIN,TOTAL 0.5 MG/DL (0.2-1.0); BLOOD UREA NITROGEN 10 MG/DL (7-18); CALCIUM LEVEL 8.8 MG/DL (8.5-10.1); CARBON DIOXIDE LEVEL 28 MEQ/L (21-32); CHLORIDE LEVEL 108 MEQ/L (98-107); CREATININE FOR GFR 0.95 MG/DL (0.70-1.30); GLOMERULAR FILTRATION RATE > 60.0 (>60); GLUCOSE, FASTING 101 MG/DL (70-100); POTASSIUM SERUM 3.9 MEQ/L (3.5-5.1); SODIUM LEVEL 143 MEQ/L (136-145); TOTAL PROTEIN 6.3 GM/DL (6.4-8.2)
[2018-11-30] MEDS ORDERED: ISOVUE-370 76% 100ML VIAL (Q9967) As Ordered ONE (19:44)
[2018-11-30] MEDS ORDERED: ONDANSETRON 4MG/2ML VIAL (J2405) IV ONE (19:45)
[2018-11-30] MEDS ORDERED: MORPHINE 4 MG/ML 1ML VIAL/SYRINGE (J2270) IV PRN ×2 (19:45→22:30)
--- NOTE | 2018-11-30 21:25 | REPVR ---
EXAM: CT Abdomen and Pelvis With Contrast EXAM DATE/TIME: 11/30/2018 8:09 PM CLINICAL HISTORY: 38 years old, male; Abdominal pain; Localized; Left lower quadrant (llq); Additional info: Llq pain TECHNIQUE: Imaging protocol: Computed tomography of the abdomen and pelvis with intravenous contrast. Radiation optimization: All CT scans at this facility use at least one of these dose optimization techniques: automated exposure control; mA and/or kV adjustment per patient size (includes targeted exams where dose is matched to clinical indication); or iterative reconstruction. Contrast material: ISOVUE 370; Contrast volume: 100 ml; Contrast route: IV; COMPARISON: CT ABD/PEL W/IV CONTRAST ONLY 07/07/2018 1:18 PM FINDINGS: Liver: The liver attenuation is 76 Hounsfield units and the spleen is 115 Hounsfield units. Gallbladder and bile ducts: Normal. No calcified stones. No ductal dilation. Pancreas: Normal. No ductal dilation. Spleen: Splenic calcifications. Adrenals: Normal. No mass. Kidneys and ureters: There are bilateral renal cysts measuring up to 16 mm on the left. Stomach and bowel: There is colonic diverticulosis, greatest in the sigmoid with decreased stranding of the supplying mesentery since the prior study. There is some wall thickening which may reflect muscle hypertrophy or minimal chronic inflammation. Appendix: A normal appendix is seen. Intraperitoneal space: Unremarkable. No free air. No significant fluid collection. Vasculature: There is minimal atherosclerotic calcification of the abdominal aorta. Lymph nodes: Unremarkable. No enlarged lymph nodes. Bladder: Unremarkable as visualized. Reproductive: Unremarkable as visualized. Bones/joints: Unremarkable. No acute fracture. IMPRESSION: 1. Resolution of focal diverticulitis or inflammation of a singular sigmoid diverticulum since 07/07/2018 with decreased induration of the supplying mesentery to the proximal to mid sigmoid. There is slight residual mesenteric stranding and slight wall thickening which may reflect muscular hypertrophy or minimal chronic residual inflammation which persists 2. Old granulomatous disease of the spleen. 3. Mild fatty infiltration of the liver. Electronically signed by: Naveed Bowie On 11/30/2018 21:24:30 PM
[2018-11-30] MEDS ORDERED: PIPERACILLIN/TAZOBACTAM SOD 3.375 GM in D5W MINI-BAG PLUS 50 ML IV ONE (22:00)
[2018-11-30] MEDS ORDERED: METR-265 PO (22:06)
[2018-11-30] MEDS ORDERED: CIPR-249 PO (22:06)
[2018-11-30] MEDS: NS 1,000 ML IV SCH (22:37)
--- NOTE | 2018-11-30 22:47 | HPEPDOC ---
General Date of Admission 11/30/18 Date of Service: Nov 30, 2018 Attending Physician: GENE NEGRO DO Chief Complaint The patient is a 38-year-old male admitted with a reason for visit of Abdominal Pain. Source: Patient Exam Limitations: No limitations Timing/Duration: Day(s) (7-8 days), Constant Severity: Moderate Associated Symptoms: Loss of appetite History of Present Illness Patient is 38 years old male with past medical history of syncope, diverticuliti s, diverticulosis, COPD presents to the emergency room with left lower quadrant abdominal pain that started around 10 days ago and has been persistent. 6 days ago patient came to emergency room, he was prescribed Cipro and Flagyl by mouth. Patient took antibiotics but antibiotic therapy did not alleviate his pain. No associated diarrhea or nausea or vomiting. No subjective feeling of fever, ache s, or chills. Came to the emergency room (ER). CT scan of the abdomen and pelvis showed Resolution of focal diverticulitis or inflammation of a singular sigmoid diverticulum since 07/07/2018 with decreased induration of the supplying mesentery to the proximal to mid sigmoid. There is slight residual mesenteric stranding and slight wall thickening which may reflect muscular hypertrophy or minimal chronic residual inflammation which persists. He will be admitted for further management. Dr. Lawton his GI doctor Home Medications Scheduled Ciprofloxacin HCl (Cipro) 500 Mg Tablet, 500 MG PO BID, (Reported) PRESCRIBED 11/25/18 FOR 7 DAYS Metronidazole (Metronidazole) 500 Mg Tablet, 500 MG PO TID, (Reported) PRESCRIBED 11/25/18 FOR 10 DAYS Allergies Coded Allergies: oxycodone (Verified Allergy, Intermediate, HIVES WITHOUT ITCHING, 10/22/18) duloxetine (Verified Adverse Reaction, Intermediate, anxiety, severe depression, 10/22/18) Past Medical History Medical History Syncope, patient has implanted loop recorder, COPD, diverticulosis and diverticulitis, fibromyalgia Surgical History Implanted loop recorder Family History Mother has diverticulosis and diverticulitis Social History * Smoker: current smoker Alcohol: Denies Drugs: marijuana A-FIB/CHADSVASC A-FIB History Current/History of A-Fib/PAF?: No Current PO Anticoag Therapy: No Review of Systems Constitutional: Denies: Chills, Fever Eyes: Denies: Pain, Vision change ENT: Denies: Head Aches, Ear Pain Skin: Denies: Rash, Lesions Pulmonary: Denies: Dyspnea, Cough Cardiovascular: Denies: Chest Pain, Palpitations Gastrointestinal: Reports: Abdominal Pain (left lower quadrant); Denies: Nausea, Vomiting Genitourinary: Denies: Dysuria, Frequency Hematologic: Denies: Bruising, Bleeding Excessively Endocrine: Denies: Polydipsia, Polyphagia Musculoskeletal: Denies: Neck Pain, Back Pain Neurological: Denies: Weakness, Numbness Psych: Reports: Mood Normal Physical Examination General Exam: Positive: Alert Eye Exam: Positive: PERRLA, Conjunctiva & lids normal Neck Exam: Positive: Supple; Negative: JVD Chest Exam: Positive: Clear to auscultation Heart Exam: Positive: Rate Normal Telemetry: Positive: No significant arrhythmia Abdomen Exam: Positive: BS Hypoactive, Tenderness (left lower quadrant) Extremity Exam: Negative: Clubbing, Cyanosis Skin Exam: Positive: Nl turgor and temperature Neuro Exam: Positive: Strength at 5/5 X4 ext, Cranial Nerves 3-12 NL Psych Exam: Positive: Mental status NL Vital Signs Vital Signs Date Time Temp Pulse Resp B/P (MAP) Pulse Ox O2 Delivery O2 Flow Rate FiO2 11/30/18 22:15 69 20 143/73 (96) 98 Room Air 11/30/18 18:33 98.6 Laboratory Data Labs 24H Laboratory Tests 2 11/30/18 18:55: Immature Granulocyte % (Auto) 0.4, White Blood Count 10.0, Red Blood Count 5.19, Hemoglobin 16.1, Hematocrit 48.3, Mean Corpuscular Volume 93.1, Mean Corpuscular Hemoglobin 31.0, Mean Corpuscular Hemoglobin Concent 33.3, Red Cell Distribution Width 13.1, Platelet Count 174, Neutrophils (%) (Auto) 75.3H, Lymphocytes (%) (Auto) 14.3L, Monocytes (%) (Auto) 6.5H, Eosinophils (%) (Auto) 2.6, Basophils (%) (Auto) 0.9, Neutrophils # (Auto) 7.5, Lymphocytes # (Auto) 1.4L, Monocytes # (Auto) 0.7, Eosinophils # (Auto) 0.3, Basophils # (Auto) 0.1, Nucleated Red Blood Cells % (auto) 0.0, Anion Gap 7L, Glomerular Filtration Rate > 60.0, Blood Urea Nitrogen 10, Creatinine 0.95, Sodium Level 143, Potassium Level 3.9, Chloride Level 108H, Carbon Dioxide Level 28, Calcium Level 8.8, Aspartate Amino Transf (AST/SGOT) 13, Alanine Aminotransferase (ALT/SGPT) 14, Alkaline Phosp hatase 78, Total Bilirubin 0.5, Total Protein 6.3L, Albumin 3.6, Albumin/Globulin Ratio 1.33 CBC/BMP Laboratory Tests 11/30/18 18:55 Red Blood Count 5.19, Mean Corpuscular Volume 93.1, Mean Corpuscular Hemoglobin 31.0, Mean Corpuscular Hemoglobin Concent 33.3, Red Cell Distribution Width 13.1, Neutrophils (%) (Auto) 75.3 H, Lymphocytes (%) (Auto) 14.3 L, Monocytes (%) (Auto) 6.5 H, Eosinophils (%) (Auto) 2.6, Basophils (%) (Auto) 0.9, Neutrophils # (Auto) 7.5, Lymphocytes # (Auto) 1.4 L, Monocytes # (Auto) 0.7, Eosinophils # (Auto) 0.3, Basophils # (Auto) 0.1, Calcium Level 8.8, Aspartate Amino Transf (AST/SGOT) 13, Alanine Aminotransferase (ALT/SGPT) 14, Alkaline Phosphatase 78, Total Bilirubin 0.5, Total Protein 6.3 L, Albumin 3.6 Microbiology Microbiology 11/30/18 Blood Culture, Received Pending 11/30/18 Blood Culture, Received Pending Assessment/Plan 38-year-old male with past medical history of hypertension, non-oxygen dependent chronic obstructive pulmonary disease (COPD), and also history of diverticulosis with diverticulitis presents to the emergency room with left lower quadrant abdominal pain Problems (1) Acute diverticulitis Status: Acute Problem Text: Clear liquid diet for now Patient failed outpatient treatment with Flagyl and Cipro by mouth Zosyn IV IV fluid Pain management (2) LLQ abdominal pain Status: Acute Problem Text: see above Plan / VTE VTE Prophylaxis Ordered?: Yes GENE NEGRO DO Nov 30, 2018 22:47
[2018-11-30] MEDS: KETOROLAC 30 MG/ML VIAL (J1885) IV PRN (23:24)
[2018-12-01 00:30] VITALS: BP 135/81
[2018-12-01] MEDS ORDERED: NS 500 ML IV ONE (04:15)
[2018-12-01 04:16] VITALS: BP 116/79
[2018-12-01 04:37] LABS: BASO # 0.1 10^3/uL (0.0-0.2); BASO % 0.8 % (0.0-1.0); EOS # 0.3 10^3/uL (0.0-0.5); HEMATOCRIT 48.1 % (42.0-52.0); HEMOGLOBIN 15.6 g/dl (13.5-17.5); LYMPH # 1.8 10^3/uL (1.5-5.0); LYMPH % 25.6 % (24.0-44.0); MEAN CORPUSCULAR HEMOGLOBIN 30.8 pg (27.0-33.0); MEAN CORPUSCULAR HGB CONC 32.4 g/dl (32.0-36.5); MEAN CORPUSCULAR VOLUME 94.9 fl (80.0-96.0); MONO # 0.6 10^3/uL (0.0-0.8); MONO % 7.8 % (0.0-5.0); NEUTROPHILS # 4.4 10^3/uL (1.5-8.5); NEUTROPHILS % 61.5 % (36.0-66.0); PLATELET COUNT, AUTOMATED 148 10^3/uL (150-450); RED BLOOD COUNT 5.07 10^6/uL (4.30-6.10); WHITE BLOOD COUNT 7.1 10^3/uL (4.0-10.0)
[2018-12-01 04:49] LABS: APPEARANCE, URINE CLEAR (CLEAR); BACTERIA, URINE AUTO NEGATIVE (NEGATIVE); BILIRUBIN, URINE AUTO NEGATIVE (NEGATIVE); BLOOD, URINE BLOOD NEGATIVE (NEGATIVE); COLOR, URINE YELLOW (YELLOW); GLUCOSE, URINE (UA) AUTO NEGATIVE (NEGATIVE); KETONE, URINE AUTO NEGATIVE (NEGATIVE); LEUKOCYTE ESTERASE, URINE AUTO NEGATIVE (NEGATIVE); NITRITE, URINE AUTO NEGATIVE (NEGATIVE); PROTEIN, URINE AUTO NEGATIVE (NEGATIVE); RBC, URINE AUTO 2 /HPF (0-3); SQUAMOUS EPITHELIAL CELL UR AU 0 /HPF (0-6); UROBILINOGEN, URINE AUTO 0.2 mg/dL (0.0-2.0); WBC, URINE AUTO 2 /HPF (0-3)
[2018-12-01 04:54] LABS: SPECIFIC GRAVITY URINE AUTO >1.060 (1.002-1.035)
[2018-12-01 05:04] LABS: ALT/SGPT 13 U/L (12-78); BILIRUBIN,TOTAL 0.6 MG/DL (0.2-1.0); BLOOD UREA NITROGEN 9 MG/DL (7-18); CALCIUM LEVEL 8.1 MG/DL (8.5-10.1); CARBON DIOXIDE LEVEL 27 MEQ/L (21-32); CHLORIDE LEVEL 111 MEQ/L (98-107); CK-MB VALUE MASS < 1.0 NG/ML (<3.6); CPK CREATINE PHOSPHOKINASE 42 U/L (39-308); CREATININE FOR GFR 0.83 MG/DL (0.70-1.30); GLOMERULAR FILTRATION RATE > 60.0 (>60); GLUCOSE, FASTING 87 MG/DL (70-100); MAGNESIUM LEVEL 1.8 MG/DL (1.8-2.4); MB/CK RELATIVE INDEX 2.38 (< OR =4); PHOSPHORUS LEVEL 3.7 MG/DL (2.5-4.9); POTASSIUM SERUM 4.1 MEQ/L (3.5-5.1); SODIUM LEVEL 140 MEQ/L (136-145); TOTAL PROTEIN 5.9 GM/DL (6.4-8.2); TROPONIN I < 0.02 NG/ML (< 0.10)
[2018-12-01] MEDS: PIPERACILLIN/TAZOBACTAM SOD 4.5 GM in D5W MINI-BAG PLUS 50 ML IV SCH ×3 (05:27→21:51)
[2018-12-01] MEDS ORDERED: MORPHINE 4 MG/ML 1ML VIAL/SYRINGE (J2270) IV PRN (05:45)
[2018-12-01 06:00] VITALS: BP 117/64
[2018-12-01] MEDS: NS 1,000 ML IV SCH ×3 (06:30→20:56)
[2018-12-01] MEDS ORDERED: ONDANSETRON 4MG/2ML VIAL (J2405) IV PRN (08:15)
[2018-12-01] MEDS: ENOXAPARIN 30 MG/0.3 ML SYR (J1650) SC SCH (08:43)
[2018-12-01] MEDS: KETOROLAC 30 MG/ML VIAL (J1885) IV PRN ×2 (08:44→16:48)
[2018-12-01 14:00] VITALS: BP 120/63
--- NOTE | 2018-12-01 14:06 | IPNPDOC ---
Subjective Date Seen The patient was seen on 12/01/18. Subjective Chief Complaint/HPI continues to have left lower quadrant pain , no nausea or vomiting , no diarrhea. Has not had bowel movement for 2 days. Objective Physical Examination General Exam: Positive: Alert, Cooperative, No Acute Distress Eye Exam: Positive: PERRLA, Conjunctiva & lids normal; Negative: Sclera icteric ENT Exam: Positive: Atraumatic, Mucous membr. moist/pink, Pharynx Normal Neck Exam: Positive: Supple; Negative: JVD Chest Exam: Positive: Clear to auscultation Heart Exam: Positive: Rate Normal, Regular Rhythm, Normal S1, Normal S2; Negative: Murmurs, Rubs Telemetry: Positive: No significant arrhythmia Abdomen Exam: Positive: BS Hypoactive, Tenderness (left lower quadrant) Extremity Exam: Negative: Clubbing, Cyanosis, Edema Skin Exam: Positive: Nl turgor and temperature; Negative: Rash, Breakdown Neuro Exam: Positive: Strength at 5/5 X4 ext, Cranial Nerves 3-12 NL Psych Exam: Positive: Mental status NL Assessment /Plan Assessment Patient is 38 years old male with past medical history of syncope, , hypertension, diverticulitis, diverticulosis, COPD presents to the emergency room with left lower quadrant abdominal pain that started around 10 days ago and has been persistent. 6 days ago patient came to emergency room, he was prescribed Cipro and Flagyl by mouth. Patient took antibiotics but antibiotic therapy did not alleviate his pain. No associated diarrhea or nausea or vomiting. No subjective feeling of fever, aches, or chills. Came to the emergency room (ER). CT scan of the abdomen and pelvis showed Resolution of focal diverticulitis or inflammation of a singular sigmoid diverticulum since 07/07/2018 with decreased induration of the supplying mesentery to the proximal to mid sigmoid. There is slight residual mesenteric stranding and slight wall thickening which may reflect muscular hypertrophy or minimal chronic residual inflammation which persists. He was admitted for Acute on chronic diverticulitis. Acute on chronic diverticulitis Clear liquid diet Patient failed outpatient treatment with Flagyl and Cipro by mouth Zosyn IV IV fluid Pain management consulted Vas[facility] . He had been planned for outpatient surgery on 12/08/[address] looks better than before. COPD not on any meds will give albutrol prn Plan/VTE VTE Prophylaxis Ordered?: Yes VS, I&O, 24H, Fishbone Vital Signs/I&O Vital Signs Date Time Temp Pulse Resp B/P (MAP) Pulse Ox O2 Delivery O2 Flow Rate FiO2 12/01/18 06:00 96.6 64 18 117/64 (81) 100 11/30/18 23:24 Room Air I&O- Last 24 Hours up to 6 AM 12/01/18 06:00 Intake Total 1848 ml Output Total 275 ml Balance 1573 ml Laboratory Data 24H LABS Laboratory Tests 2 11/30/18 18:55: Immature Granulocyte % (Auto) 0.4, White Blood Count 10.0, Red Blood Count 5.19, Hemoglobin 16.1, Hematocrit 48.3, Mean Corpuscular Volume 93.1, Mean Corpuscular Hemoglobin 31.0, Mean Corpuscular Hemoglobin Concent 33.3, Red Cell Distribution Width 13.1, Platelet Count 174, Neutrophils (%) (Auto) 75.3H, Lymphocytes (%) (Auto) 14.3L, Monocytes (%) (Auto) 6.5H, Eosinophils (%) (Auto) 2.6, Basophils (%) (Auto) 0.9, Neutrophils # (Auto) 7.5, Lymphocytes # (Auto) 1.4L, Monocytes # (Auto) 0.7, Eosinophils # (Auto) 0.3, Basophils # (Auto) 0.1, Nucleated Red Blood Cells % (auto) 0.0, Anion Gap 7L, Glomerular Filtration Rate > 60.0, Blood Urea Nitrogen 10, Creatinine 0.95, Sodium Level 143, Potassium Level 3.9, Chloride Level 108H, Carbon Dioxide Level 28, Calcium Level 8.8, Aspartate Amino Transf (AST/SGOT) 13, Alanine Aminotransferase (ALT/SGPT) 14, Alkaline Phosph atase 78, Total Bilirubin 0.5, Total Protein 6.3L, Albumin 3.6, Albumin/Globulin Ratio 1.33 12/01/18 04:31: Immature Granulocyte % (Auto) 0.3, White Blood Count 7.1, Red Blood Count 5.07, Hemoglobin 15.6, Hematocrit 48.1, Mean Corpuscular Volume 94.9, Mean Corpuscular Hemoglobin 30.8, Mean Corpuscular Hemoglobin Concent 32.4, Red Cell Distribution Width 13.2, Platelet Count 148L, Neutrophils (%) (Auto) 61.5, Lymphocytes (%) (Auto) 25.6, Monocytes (%) (Auto) 7.8H, Eosinophils (%) (Auto) 4.0H, Basophils (%) (Auto) 0.8, Neutrophils # (Auto) 4.4, Lymphocytes # (Auto) 1.8, Monocytes # (Auto) 0.6, Eosinophils # (Auto) 0.3, Basophils # (Auto) 0.1, Nucleated Red Blood Cells % (auto) 0.0, Anion Gap 2L, Glomerular Filtration Rate > 60.0, Blood Urea Nitrogen 9, Creatinine 0.83, Sodium Level 140, Potassium Level 4.1, Chloride Level 111H, Carbon Dioxide Level 27, Calcium Level 8.1L, Aspartate Amino Transf (AST/SGOT) 10, Alanine Aminotransferase (ALT/SGPT) 13, Alkaline Phosphatase 68, Total Bilirubin 0.6, Total Protein 5.9L, Albumin 3.0L, Albumin/Globulin Ratio 1.03, Lactic Acid Level 0.9, Phosphorus Level 3.7, Total Creatine Kinase 42, Magnesium Level 1.8, Creatine Kinase MB < 1.0, Creatine Kinase MB Relative Index 2.38, Troponin I < 0.02 12/01/18 04:37: Urine Appearance CLEAR, Urine Color YELLOW, Urine pH 6.0, Urine Specific Banks >1.060H, Urine Protein NEGATIVE, Urine Glucose (UA) NEGATIVE, Urine Ketones NEGATIVE, Urine Urobilinogen 0.2, Urine Bilirubin NEGATIVE, Urine Leukocyte Esterase NEGATIVE, Urine Blood NEGATIVE, Urine Nitrite NEGATIVE, Urine WBC (Auto) 2, Urine RBC (Auto) 2, Urine Hyaline Casts (Auto) 0, Urine Bacteria (Auto) NEGATIVE, Urine Squamous Epithelial Cells 0, Urine Sperm (Auto) CBC/BMP Laboratory Tests 11/30/18 18:55 Red Blood Count 5.19, Mean Corpuscular Volume 93.1, Mean Corpuscular Hemoglobin 31.0, Mean Corpuscular Hemoglobin Concent 33.3, Red Cell Distribution Width 13.1, Neutrophils (%) (Auto) 75.3 H, Lymphocytes (%) (Auto) 14.3 L, Monocytes (%) (Auto) 6.5 H, Eosinophils (%) (Auto) 2.6, Basophils (%) (Auto) 0.9, Neutrophils # (Auto) 7.5, Lymphocytes # (Auto) 1.4 L, Monocytes # (Auto) 0.7, Eosinophils # (Auto) 0.3, Basophils # (Auto) 0.1, Calcium Level 8.8, Aspartate Amino Transf (AST/SGOT) 13, Alanine Aminotransferase (ALT/SGPT) 14, Alkaline Phosphatase 78, Total Bilirubin 0.5, Total Protein 6.3 L, Albumin 3.6 12/01/18 04:31 Red Blood Count 5.07, Mean Corpuscular Volume 94.9, Mean Corpuscular Hemoglobin 30.8, Mean Corpuscular Hemoglobin Concent 32.4, Red Cell Distribution Width 13.2, Neutrophils (%) (Auto) 61.5, Lymphocytes (%) (Auto) 25.6, Monocytes (%) (Auto) 7.8 H, Eosinophils (%) (Auto) 4.0 H, Basophils (%) (Auto) 0.8, Neutrophils # (Auto) 4.4, Lymphocytes # (Auto) 1.8, Monocytes # (Auto) 0.6, Eosinophils # (Auto) 0.3, Basophils # (Auto) 0.1, Calcium Level 8.1 L, Aspartate Amino Transf (AST/SGOT) 10, Alanine Aminotransferase (ALT/SGPT) 13, Alkaline Phosphatase 68, Total Bilirubin 0.6, Total Protein 5.9 L, Albumin 3.0 L, Phosphorus Level 3.7, Total Creatine Kinase 42 Microbiology Microbiology 11/30/18 Blood Culture, Received Pending 11/30/18 Blood Culture, Received Pending VERONICA NAYLOR MD Dec 01, 2018 08:06
[2018-12-01] MEDS ORDERED: diphenhydrAMINE INJ 50MG/ML VIAL (J1200) IV ONE (17:15)
[2018-12-01 22:00] VITALS: BP 132/69
[2018-12-02] MEDS: PIPERACILLIN/TAZOBACTAM SOD 4.5 GM in D5W MINI-BAG PLUS 50 ML IV SCH (05:10)
[2018-12-02 06:00] VITALS: BP 137/85
[2018-12-02 06:46] LABS: BASO # 0.1 10^3/uL (0.0-0.2); BASO % 0.7 % (0.0-1.0); EOS # 0.2 10^3/uL (0.0-0.5); EOS % 2.7 % (0.0-3.0); HEMOGLOBIN 15.8 g/dl (13.5-17.5); LYMPH # 1.2 10^3/uL (1.5-5.0); LYMPH % 16.5 % (24.0-44.0); MEAN CORPUSCULAR HEMOGLOBIN 30.4 pg (27.0-33.0); MEAN CORPUSCULAR HGB CONC 32.9 g/dl (32.0-36.5); MEAN CORPUSCULAR VOLUME 92.3 fl (80.0-96.0); MONO # 0.5 10^3/uL (0.0-0.8); MONO % 6.2 % (0.0-5.0); NEUTROPHILS # 5.5 10^3/uL (1.5-8.5); NEUTROPHILS % 73.5 % (36.0-66.0); PLATELET COUNT, AUTOMATED 152 10^3/uL (150-450); WHITE BLOOD COUNT 7.5 10^3/uL (4.0-10.0)
[2018-12-02 07:05] LABS: BLOOD UREA NITROGEN 7 MG/DL (7-18); CALCIUM LEVEL 8.4 MG/DL (8.5-10.1); CARBON DIOXIDE LEVEL 26 MEQ/L (21-32); CHLORIDE LEVEL 108 MEQ/L (98-107); CREATININE FOR GFR 0.82 MG/DL (0.70-1.30); GLOMERULAR FILTRATION RATE > 60.0 (>60); GLUCOSE, FASTING 76 MG/DL (70-100); POTASSIUM SERUM 3.9 MEQ/L (3.5-5.1); SODIUM LEVEL 141 MEQ/L (136-145)
[2018-12-02] MEDS: ENOXAPARIN 30 MG/0.3 ML SYR (J1650) SC SCH (08:01)
--- NOTE | 2018-12-02 08:33 | ECGEPIP ---
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
--- NOTE | 2018-12-02 19:56 | DS.PDOC ---
Discharge Summary General Date of Admission Nov 30, 2018 at 22:30 Date of Discharge 12/02/18 Discharge Summary PATIENT LEFT AMA PROCEDURES PERFORMED DURING STAY: [None]. ADMITTING DIAGNOSES: 1. Diverticulitis 2. Diverticulosis 3. COPD DISCHARGE DIAGNOSES: 1. Diverticulitis 2. Diverticulosis 3. COPD COMPLICATIONS/CHIEF COMPLAINT: Abdominal Pain,Acute Diverticulitis. HISTORY OF PRESENT ILLNESS: "Patient is 38 years old male with past medical history of syncope, diverticulitis, diverticulosis, COPD presents to the emergency room with left lower quadrant abdominal pain that started around 10 days ago and has been persistent. 6 days ago patient came to emergency room, he was prescribed Cipro and Flagyl by mouth. Patient took antibiotics but antibiotic therapy did not alleviate his pain. No associated diarrhea or nausea or vomiting. No subjective feeling of fever, aches, or chills. Came to the emergency room (ER). CT scan of the abdomen and pelvis showed Resolution of focal diverticulitis or inflammation of a singular sigmoid diverticulum since 07/07/2018 with decreased induration of the supplying mesentery to the proximal to mid sigmoid. There is slight residual mesenteric stranding and slight wall thickening which may reflect muscular hypertrophy or minimal chronic residual inflammation which persists. He will be admitted for further management. Dr. Lawton his GI doctor" HOSPITAL COURSE: Patient symptoms improved after treatment. Patient initially scheduled for librado roxana on Saturday, but was cancelled after evaluated by surgery due to persistent pain. Surgery initially recommended staying one more night for IV abx as patient's symptoms improved on it. Patient stated that he always has the pain and is back to his baseline for the past several weeks and does not want to stay anymore as he has antibiotics at home he can continue to take and does not think that he will benefit from staying in the hospital if surgery does not occur. He noted that he will leave regardless of whether we recommend staying overnight or not. Patient notified that he left AMA. DISCHARGE MEDICATIONS: Please see below. ALLERGIES: Please see below. PHYSICAL EXAMINATION ON DISCHARGE: VITAL SIGNS: Please see below. General: No acute distress unless abdomen is palpated, Alert Eyes: Normal sclera, EOMI, GAGAN HENT: Atraumatic, neck supple, moist mucous membranes Cardiovascular: Normal rate, normal rhythm. No murmurs appreciated. Pulmonary: Clear to auscultation b/l, no wheezing GI: Soft, mild to moderate generalized tenderness worst over the RLQ. Skin: Warm and dry Neuro: CN grossly intact. No focal deficits. Strengths equal b/l. Psych: oriented x 3 LABORATORY DATA, IMAGING STUDIES, MICROBIOLOGY: Please see below. IMAGING: CT Abdomen/pelvis- IMPRESSION: 1. Resolution of focal diverticulitis or inflammation of a singular sigmoid diverticulum since 07/07/2018 with decreased induration of the supplying mesentery to the proximal to mid sigmoid. There is slight residual mesenteric stranding and slight wall thickening which may reflect muscular hypertrophy or minimal chronic residual inflammation which persists 2. Old granulomatous disease of the spleen. 3. Mild fatty infiltration of the liver. ACTIVITY: [As tolerated]. DIET: Regular DISCHARGE PLAN: need to f/u with surgery to reschedule procedure f/u PMD (Patient left AMA before anything is arranged or discussed) DISPOSITION: 07 Against Medical Advice. DISCHARGE INSTRUCTIONS: need to f/u with surgery to reschedule procedure f/u PMD (Patient left AMA before anything is arranged or discussed) ITEMS TO FOLLOWUP ON ON OUTPATIENT: None DISCHARGE CONDITION: [Stable]. Vital Signs/I&Os Vital Signs Date Time Temp Pulse Resp B/P (MAP) Pulse Ox O2 Delivery O2 Flow Rate FiO2 12/02/18 06:00 97.5 78 18 137/85 (102) 99 11/30/18 23:24 Room Air I&O- Last 24 Hours up to 6 AM 12/02/18 06:00 Intake Total 2140 ml Output Total 950 ml Balance 1190 ml Laboratory Data Labs 24H Laboratory Tests 2 12/02/18 05:47: Immature Granulocyte % (Auto) 0.4, White Blood Count 7.5, Red Blood Count 5.20, Hemoglobin 15.8, Hematocrit 48.0, Mean Corpuscular Volume 92.3, Mean Corpuscular Hemoglobin 30.4, Mean Corpuscular Hemoglobin Concent 32.9, Red Cell Distribution Width 12.9, Platelet Count 152, Neutrophils (%) (Auto) 73.5H, Lymphocytes (%) (Auto) 16.5L, Monocytes (%) (Auto) 6.2H, Eosinophils (%) (Auto) 2.7, Basophils (%) (Auto) 0.7, Neutrophils # (Auto) 5.5, Lymphocytes # (Auto) 1.2L, Monocytes # (Auto) 0.5, Eosinophils # (Auto) 0.2, Basophils # (Auto) 0.1, Nucleated Red Blood Cells % (auto) 0.0, Anion Gap 7L, Glomerular Filtration Rate > 60.0, Blood Urea Nitrogen 7, Creatinine 0.82, Sodium Level 141, Potassium Level 3.9, Chloride Level 108H, Carbon Dioxide Level 26, Calcium Level 8.4L 12/02/18 08:00: Methicillin-Resist S.aureus DNA PCR NOT DETECTED CBC/BMP Laboratory Tests 12/02/18 05:47 Red Blood Count 5.20, Mean Corpuscular Volume 92.3, Mean Corpuscular Hemoglobin 30.4, Mean Corpuscular Hemoglobin Concent 32.9, Red Cell Distribution Width 12.9, Neutrophils (%) (Auto) 73.5 H, Lymphocytes (%) (Auto) 16.5 L, Monocytes (%) (Auto) 6.2 H, Eosinophils (%) (Auto) 2.7, Basophils (%) (Auto) 0.7, Neutrophils # (Auto) 5.5, Lymphocytes # (Auto) 1.2 L, Monocytes # (Auto) 0.5, Eosinophils # (Auto) 0.2, Basophils # (Auto) 0.1, Calcium Level 8.4 L Microbiology Microbiology 11/30/18 Blood Culture - Preliminary, Resulted No growth after 24 hours . All specim... 11/30/18 Blood Culture - Preliminary, Resulted No growth after 24 hours . All specim... Discharge Medications Scheduled Ciprofloxacin HCl (Cipro) 500 Mg Tablet, 500 MG PO BID, (Reported) PRESCRIBED 11/25/18 FOR 7 DAYS Metronidazole (Metronidazole) 500 Mg Tablet, 500 MG PO TID, (Reported) PRESCRIBED 11/25/18 FOR 10 DAYS Allergies Coded Allergies: oxycodone (Verified Allergy, Intermediate, HIVES WITHOUT ITCHING, 10/22/18) duloxetine (Verified Adverse Reaction, Intermediate, anxiety, severe depression, 10/22/18) ROSALEE MOFFETT MD Dec 02, 2018 19:56
--- NOTE | 2018-12-03 02:31 | CR ---
DATE OF CONSULTATION: 12/02/2018 REASON FOR CONSULTATION: Diverticulitis. HISTORY OF PRESENT ILLNESS: Patient is a 38-year-old male, well-known to me, who is scheduled for a sigmoid resection for recurrent diverticulitis this coming Saturday. I was called a week ago by the emergency room (ER) complaining about abdominal pain. Labs were relatively normal and he had a known history of diverticulitis, so I had them avoid the CT and just put him on Cipro and Flagyl. He was then scheduled to see me in the office today. However, over this weekend, he had persistent pains that were not being controlled by the oral Cipro and Flagyl, so he came back into emergency room to be started on some IV antibiotics. In the ER, his white count was only 10. CT showed no signs of diverticulitis, just some persistent thickening in a small section of the sigmoid colon. He was admitted to medicine service for pain control and IV antibiotics, and I was asked to see him today since he was going to be missing his appointment. He denies any other symptoms. No fevers or chills. No diarrhea. He had some constipation for a couple of days that has now resolved. His pain is improving with the IV antibiotics, but it is still present. He is tolerating clear liquid diet, and his white count is continuing to improve as well. PAST MEDICAL HISTORY: Syncope, chronic obstructive pulmonary disease (COPD), diverticulosis, diverticulitis, fibromyalgia. PAST SURGICAL HISTORY: A loop recorder. ALLERGIES: OXYCODONE, DULOXETINE. HOME MEDICATIONS: Please see medical record. SOCIAL HISTORY: Smokes a pack a day. Denies drug or alcohol abuse. FAMILY HISTORY: Noncontributory. REVIEW OF SYSTEMS: Pertinent positives and negative as stated in the history of present illness (HPI). PHYSICAL EXAMINATION: GENERAL: Alert and oriented times three, in no acute distress. VITAL SIGNS: Temperature 97.5, pulse 78, respirations 18, blood pressure 137/85, pulse oximetry 99% on room air. HEENT: Pupils equally round and reactive to light and accommodation. HEART: S1, S2, regular rate and rhythm. LUNGS: Clear to auscultation bilaterally. ABDOMEN: Soft. Tender to palpation in left lower quadrant, localized. There is slight guarding. No signs of peritonitis. EXTREMITIES: No clubbing, cyanosis, or edema. LABS: White count 7.5, hemoglobin 15.8, platelets 152. Potassium 3.9. IMAGING: CT abdomen and pelvis from 11/30/2018 shows resolution of focal diverticulitis from 07/07/2018 with decreased induration of the mesentery. There is slight residual mesenteric stranding and slight wall thickening, which may reflect hypertrophy or minimal chronic inflammation. ASSESSMENT AND PLAN: Patient is a 38-year-old male with chronic diverticulitis in left lower quadrant. Recommendation is to proceed with his robotic resection in the future. At this point, we will keep him on IV fluids, clear liquid diet, and IV antibiotics for at least one more day until his pain is improving. He can then be discharged on a clear liquid diet and hold off on advancing his diet until his pain has completely subsided. I will see him in the office next week to reschedule his surgery. We will plan for another 4-6 weeks from now as long as he remains feeling better.
== END 2018-12-02 11:57 | disposition left against medical advice (07) | DRG 244 ==
LOC: M ED 18:32 → M ED INP 22:30 → M MSPAV 12-01 00:32
PROVIDERS: ADMIT Internal Medicine; ATTEND Student in an Organized Health Care Education/Training Program
DX: K57.92 Diverticulitis of intestine, part unspecified, without perforation or abscess without bleeding (principal); J44.9 Chronic obstructive pulmonary disease, unspecified; Z88.5 Allergy status to narcotic agent; Z88.8 Allergy status to other drugs, medicaments and biological substances

== ENCOUNTER → 2018-12-24 | Outpatient (CLI) | payer OTHER ==
[~2018-12-24] MED LIST changes: +METR-265 PO; -OMEP40CA2 PO; +OMEP40CA97 PO; +SENN-53 PO; -SENN1TAB40 PO
--- NOTE | 2018-12-24 13:43 | REP ---
THORACIC SPINE, AP AND LATERAL: Three AP and lateral views of the thoracic spine performed. There is no compression fracture. There is normal alignment and thoracic kyphosis. There is mild diffuse spurring of the thoracic vertebral bodies. Disc spaces are relatively well preserved. The posterior elements are intact. There is mild curvature toward the right. IMPRESSION: Mild diffuse spurring. Mild curvature toward the right. Otherwise unremarkable. No compression fracture. Electronically Signed by Anson Jaquez MD 12/24/2018 06:29 P
--- NOTE | 2018-12-24 13:45 | REP ---
CERVICAL SPINE SERIES: Full cervical spine series performed including flexion, extension, and oblique views. There is no fracture or dislocation. Vertebral bodies are normal in height and are well aligned with normal cervical lordosis. There is no prevertebral soft tissue swelling. There is very mild disc space narrowing and subchondral sclerosis at C5-6. There is no radiographic evidence of neural foraminal narrowing. IMPRESSION: Mild degenerative changes at C5-6 without evidence of fracture or dislocation. Electronically Signed by Anson Jaquez MD 12/24/2018 06:29 P
--- NOTE | 2018-12-30 11:13 | REP ---
LUMBOSACRAL SPINE: Five views of the lumbosacral spine are performed. There is no compression fracture or malalignment. There is no spondylolysis or spondylolisthesis. There is minor spurring of L4. Disc spaces are well preserved. There is mild sclerosis of the facets of L5-S1. IMPRESSION: No fracture or dislocation. Tiny spur of L4 and mild sclerosis of the facets of L5-S1. Unreviewed
== END ==
LOC: M RAD 11:45
PROVIDERS: ATTEND Family Medicine
DX: M54.9 Dorsalgia, unspecified (principal)

== ENCOUNTER 2019-01-26 08:41 | Inpatient (IN) | payer OTHER ==
[~2019-01-26] VITALS: Ht 175.3 cm; Wt 70.3 kg
[2019-01-26] VITALS (7 sets, daily range): BP systolic 133–146; BP diastolic 80–89
[~2019-01-26 08:41] MED LIST changes: +DICY1CAP8 PO; +HYDR-4571 PO; +SENN-50 PO; +TIZA2CAP PO
[2019-01-26] MEDS ORDERED: NS 1,000 ML IV SCH (08:49)
[2019-01-26 09:05] LABS: BASO # 0.1 10^3/uL (0.0-0.2); BASO % 0.3 % (0.0-1.0); EOS # 0.1 10^3/uL (0.0-0.5); EOS % 0.7 % (0.0-3.0); HEMATOCRIT 54.8 % (42.0-52.0); HEMOGLOBIN 17.7 g/dl (13.5-17.5); LYMPH # 1.1 10^3/uL (1.5-5.0); LYMPH % 7.1 % (24.0-44.0); MEAN CORPUSCULAR HEMOGLOBIN 30.8 pg (27.0-33.0); MEAN CORPUSCULAR HGB CONC 32.3 g/dl (32.0-36.5); MEAN CORPUSCULAR VOLUME 95.5 fl (80.0-96.0); MONO # 0.5 10^3/uL (0.0-0.8); MONO % 3.5 % (0.0-5.0); PLATELET COUNT, AUTOMATED 202 10^3/uL (150-450); RED BLOOD COUNT 5.74 10^6/uL (4.30-6.10); WHITE BLOOD COUNT 14.7 10^3/uL (4.0-10.0)
[2019-01-26 09:26] LABS: ALBUMIN 3.8 GM/DL (3.2-5.2); ALT/SGPT 18 U/L (12-78); BILIRUBIN,DIRECT 0.2 MG/DL (0.0-0.2); BILIRUBIN,TOTAL 0.6 MG/DL (0.2-1.0); LIPASE 61 U/L (73-393); TOTAL PROTEIN 6.9 GM/DL (6.4-8.2)
[2019-01-26] MEDS ORDERED: ONDANSETRON 4MG/2ML VIAL (J2405) IV ONE (09:30)
[2019-01-26] MEDS: MORPHINE 4 MG/ML 1ML VIAL/SYRINGE (J2270) IV PRN ×2 (09:31→10:08)
[2019-01-26 10:24] LABS: BLOOD UREA NITROGEN 7 MG/DL (7-18); CARBON DIOXIDE LEVEL 28 MEQ/L (21-32); CHLORIDE LEVEL 109 MEQ/L (98-107); GLOMERULAR FILTRATION RATE > 60.0 (>60); GLUCOSE, FASTING 100 MG/DL (70-100); POTASSIUM SERUM 4.1 MEQ/L (3.5-5.1); SODIUM LEVEL 143 MEQ/L (136-145)
[2019-01-26] MEDS ORDERED: ISOVUE-370 76% 100ML VIAL (Q9967) As Ordered ONE (10:38)
[2019-01-26 11:00] LABS: INR 1.22; PROTHROMBIN TIME 15.1 SECONDS (11.8-14.0)
--- NOTE | 2019-01-26 11:21 | REP ---
CT abdomen and pelvis with IV but without oral contrast: History: Abdomen pain. Seventh postoperative day status post left colectomy and reanastomosis. Comparison study: November 30, 2018. CT contrast dose: 100 mL of intravenous Isovue 370. CT findings: In the interval since November 30, 2018, the patient has undergone left colectomy and reanastomosis for diverticulitis. There is stranding and edema in the pericolonic fat in the region of the left colonic anastomosis. There are two or three small bubbles of extraluminal gas in the pericolonic fat just proximal to the anastomosis. There is mild pelvic fluid in the pelvic recesses. There is some diverticulosis of the left colon just above the anastomosis as well. There is no visible abscess cavity. There are scattered bubbles of free intraperitoneal air throughout the anterior abdomen and pelvis and there are one or two air bubbles of abdominal wall gas adjacent to skin nate. These may be expected postoperative findings with residual postoperative gas. Normal appendix is seen. Study is otherwise unremarkable. Impression: There is some inflammation and some extraluminal gas adjacent to the left colonic anastomosis. There is a fluid in the pelvic reflections. No zackary abscess. There is scattered amounts of residual postoperative free intraperitoneal air. Some left colonic diverticulosis persists. Electronically Signed by Jaziel Jimenez MD 01/26/2019 01:46 P
[2019-01-26] MEDS ORDERED: PIPERACILLIN/TAZOBACTAM SOD 4.5 GM in D5W MINI-BAG PLUS 50 ML IV ONE (11:45)
[2019-01-26] MEDS ORDERED: TIZA2TAB4 PO (12:13)
[2019-01-26] MEDS ORDERED: MORPHINE 4 MG/ML 1ML VIAL/SYRINGE (J2270) IV PRN (13:15)
[2019-01-26] MEDS ORDERED: LIDOCAINE 2% INJ 100 MG/5 ML SDV (FOR ANES.) As Ordered ONE (13:28)
[2019-01-26] MEDS ORDERED: PROPOFOL 200 MG/20 ML VIAL As Ordered ONE (13:28)
[2019-01-26] MEDS ORDERED: ROCURONIUM BROMIDE 50 MG/5 ML VIAL As Ordered ONE ×2 (13:28→15:28)
[2019-01-26] MEDS ORDERED: fentaNYL 250 MCG/5 ML INJECTION (J3010) As Ordered ONE (13:29)
[2019-01-26] MEDS ORDERED: MIDAZOLAM INJ 2 MG/2 ML VIAL (J2250) As Ordered ONE (13:29)
[2019-01-26] MEDS ORDERED: tiZANidine 4 MG TAB PO PRN (13:45)
[2019-01-26] MEDS ORDERED: ONDANSETRON 4MG/2ML VIAL (J2405) IV PRN ×2 (13:45→16:45)
[2019-01-26] MEDS ORDERED: ACETAMINOPHEN TAB 650MG DOSE (2X325MG) PO PRN (13:45)
[2019-01-26] MEDS ORDERED: BUPIVACAINE/EPIN 0.25% 30 ML VIAL As Ordered ONE (14:00)
[2019-01-26] MEDS ORDERED: PILL CUTTER 1 EACH XX PRN (14:30)
[2019-01-26] MEDS ORDERED: HYDROmorphone HCL 2 MG/ML 1ML VIAL (J1170) As Ordered ONE (14:52)
[2019-01-26] MEDS ORDERED: ACETAMINOPHEN 1000MG 100ML IV BTL (OFIRMEV) (J0131 PER 10MG) As Ordered ONE (15:28)
[2019-01-26] MEDS ORDERED: KETOROLAC 60 MG/2 ML VIAL (J1885) As Ordered ONE (15:28)
[2019-01-26] MEDS ORDERED: ONDANSETRON 4MG/2ML VIAL (J2405) As Ordered ONE (15:28)
[2019-01-26] MEDS ORDERED: dexameTHASONE 4 MG/ML 1ML VIAL (J1100) As Ordered ONE (15:28)
[2019-01-26] MEDS ORDERED: SUGAMMADEX SODIUM 500 MG/5 ML VIAL (BRIDION) As Ordered ONE (15:54)
[2019-01-26] MEDS ORDERED: HYDROMORPHONE HCL 0.5 MG/ 0.5 ML SYRINGE (J1170 PER 1) As Ordered ONE ×2 (16:42→17:06)
[2019-01-26] MEDS ORDERED: METOCLOPRAMIDE INJ 10MG/2ML VIAL (J2765) IV PRN (16:45)
[2019-01-26] MEDS ORDERED: KETOROLAC 30 MG/ML VIAL (J1885) IV PRN (16:45)
[2019-01-26] MEDS ORDERED: LR 1,000 ML IV SCH (16:45)
[2019-01-26] MEDS ORDERED: NORCO, ANEXSIA 5/325MG TABLET (HYDROcodone/ACETAMINOPHEN) PO PRN (16:45)
[2019-01-26] MEDS ORDERED: fentaNYL 100 MCG/2 ML INJECTION (J3010) IV PRN (16:45)
[2019-01-26] MEDS ORDERED: HYDROMORPHONE HCL 0.5 MG/ 0.5 ML SYRINGE (J1170 PER 1) IV PRN ×2 (16:45→17:10)
[2019-01-26] MEDS ORDERED: LABETALOL HCL 100 MG/20 ML VIAL As Ordered ONE (16:53)
[2019-01-26] MEDS: LABETALOL HCL 100 MG/20 ML VIAL IV SCH ×5 (17:00→17:20)
[2019-01-26] MEDS: NORCO, ANEXSIA 5/325MG TABLET (HYDROcodone/ACETAMINOPHEN) PO PRN (18:14)
[2019-01-26] MEDS: KCL 20MEQ IN D5/0.45NS 1000ML 1,000 ML IV SCH (18:14)
[2019-01-26] MEDS: PIPERACILLIN/TAZOBACTAM SOD 3.375 GM in D5W MINI-BAG PLUS 50 ML IV SCH (18:15)
[2019-01-26] MEDS: KETOROLAC 30 MG/ML VIAL (J1885) IV PRN (19:49)
[2019-01-26] MEDS: SENOKOT S TAB PO SCH (20:50)
[2019-01-27] MEDS: PIPERACILLIN/TAZOBACTAM SOD 3.375 GM in D5W MINI-BAG PLUS 50 ML IV SCH ×4 (00:10→17:15)
[2019-01-27] MEDS: MORPHINE 2 MG/ML 1ML VIAL (J2270) IV PRN ×3 (00:10→17:27)
[2019-01-27 02:00] VITALS: BP 129/79
[2019-01-27 02:06] VITALS: O2SAT 99
[2019-01-27] MEDS: KCL 20MEQ IN D5/0.45NS 1000ML 1,000 ML IV SCH ×2 (05:39→06:13)
[2019-01-27 06:00] VITALS: BP 134/78
[2019-01-27] MEDS: KETOROLAC 30 MG/ML VIAL (J1885) IV PRN ×2 (06:18→18:33)
[2019-01-27 06:57] LABS: HEMATOCRIT 44.7 % (42.0-52.0); MEAN CORPUSCULAR HEMOGLOBIN 30.2 pg (27.0-33.0); MEAN CORPUSCULAR HGB CONC 31.5 g/dl (32.0-36.5); MEAN CORPUSCULAR VOLUME 95.7 fl (80.0-96.0); PLATELET COUNT, AUTOMATED 154 10^3/uL (150-450); RED BLOOD COUNT 4.67 10^6/uL (4.30-6.10); WHITE BLOOD COUNT 11.1 10^3/uL (4.0-10.0)
[2019-01-27 06:58] LABS: HEMOGLOBIN 14.1 g/dl (13.5-17.5)
[2019-01-27 07:19] LABS: BLOOD UREA NITROGEN 8 MG/DL (7-18); CALCIUM LEVEL 8.7 MG/DL (8.5-10.1); CARBON DIOXIDE LEVEL 29 MEQ/L (21-32); CHLORIDE LEVEL 107 MEQ/L (98-107); CREATININE FOR GFR 0.81 MG/DL (0.70-1.30); GLOMERULAR FILTRATION RATE > 60.0 (>60); GLUCOSE, FASTING 129 MG/DL (70-100); POTASSIUM SERUM 4.5 MEQ/L (3.5-5.1); SODIUM LEVEL 139 MEQ/L (136-145)
[2019-01-27] MEDS: PANTOPRAZOLE 40MG TAB (PROTONIX) PO SCH (08:50)
[2019-01-27] MEDS: SENOKOT S TAB PO SCH ×2 (08:50→21:35)
[2019-01-27] MEDS: ENOXAPARIN 40 MG/0.4 ML SYRINGE (J1650) SC SCH (08:50)
--- NOTE | 2019-01-27 10:17 | RO ---
DATE OF PROCEDURE: 01/26/2019 PREOPERATIVE DIAGNOSIS: Anastomotic leak. POSTOPERATIVE DIAGNOSIS: Anastomotic leak. PROCEDURE: Exploration with oversewing of rectosigmoid anastomosis, abdominal washout, drain placement and diverting ileostomy. SURGEON: Dr. Burnette ASSIST: Dr. Salazar who assisted with visualization of the anastomosis and creation of the ileostomy. ANESTHESIA: General. ESTIMATED BLOOD LOSS: 5 mL. COMPLICATIONS: None. INDICATIONS FOR PROCEDURE: The patient is a 38-year-old male one week postop from a robotic sigmoidectomy who presented with signs of a potential sigmoid anastomotic leak. Recommendation was to proceed with diagnostic robotic surgery with possible diverting ileostomy. Risks and benefits of the procedure not limited to but including bleeding, infection, hernia formation, damage to surrounding structures, need for further surgery were discussed in detail with the patient. Informed consent was obtained and procedure was planned. PROCEDURE: Patient brought back to operating room 7. After sufficient sedation the abdomen was sterilely prepped and draped and a Loyd catheter was placed. Next, a time out was done to confirm proper patient and proper procedure. Following that, an 8 mm port was placed in left upper quadrant through his previous robotic port site. The camera was inserted and the abdomen was insufflated to 50 mmHg. All of his previous port sites were examined from the inside. No signs of any herniation or irritation of any kind. There was no obvious signs of any leak inside the abdomen at this point. Three more 8 mm ports were placed through the previous incision sites. The robot was then docked. The patient was placed in Trendelenburg position and the pelvis was examined. There was fluid in the pelvis but it was all serosanguineous. This was aspirated out. There was no signs of any purulent fluid or fecal material of any kind. The anastomosis was then examined. There was no signs of any obvious holes or leaks. The fat that was laying on top of the anastomotic line was gently peeled away, again revealing no obvious leaks of any kind. Next, a rigid sigmoidoscope was placed in through the rectum and air was insufflated while saline was placed inside the pelvis. Once air was insufflated it did reveal that there was a small hole on the lateral side of the anastomosis. After doing so I took a #2-0 Vicryl suture and robotically and placed two interrupted sutures over this area to help reapproximate it and then placed some TISSEEL over top of the anastomosis. A 19-Greek Taurus drain was then placed inside the pelvis and brought out through the right lower quadrant port site, and sutured in place with #2-0 silk suture. The terminal ileum was then identified. The small bowel was traced backwards approximately 20 cm, brought up to the skin through the third port site through a grasper. The robot was then undocked, this port site was widened and the small bowel was brought out through a fascial defect. A diverting loop ileostomy was then created, matured in place using interrupted #2-0 silk sutures. Once that was completed, the abdomen was cleaned and dried, an ostomy appliance was applied. The rest of the skin incisions were closed with nate. The dressings were then placed, thus ending procedure.
--- NOTE | 2019-01-27 10:17 | HPE ---
DATE OF ADMISSION: 01/26/2019 CHIEF COMPLAINT: Abdominal pain. HISTORY OF PRESENT ILLNESS: The patient is 38-year-old male well-known to me. He had a recent robotic sigmoidectomy done on 01/19/2019. He went home postop day #2 with minimal pain, normal bowel movements, no complaints. Over the past week, he has been doing well up until early the morning on the . He started to have sudden onset left lower side of pain. This occurred after having a hard bowel movement. No fevers or chills. No nausea or vomiting. No blood in the stool but because of the sudden onset and increasing pain that would not go away, he came into the ER for evaluation. In the emergency room, he had an elevated white count, as well as CT findings that were suspicious for potential perforation and because of that, I was called to evaluate. After further review of his CT, there are some small pockets of air next to the anastomosis and behind the sigmoid colon, as well as in the anterior abdominal wall. This could potentially be postoperative; however, since we cannot rule out of leak, I recommended to him that we proceed with diagnostic surgery at minimal. PAST MEDICAL HISTORY: Syncope, chronic obstructive pulmonary disease (COPD), diverticulosis, diverticulitis, fibromyalgia. PAST SURGICAL HISTORY: Loop recorder placement and a robotic sigmoidectomy. SOCIAL HISTORY: He smokes pack a day. Denies drug or alcohol abuse. ALLERGIES: OXYCODONE, DULOXETINE. HOME MEDICATIONS: Please see medical record. REVIEW OF SYSTEMS: Pertinent positives and negatives as stated in the history of present illness. PHYSICAL EXAMINATION: GENERAL: Alert and oriented times three. No acute distress. Vitals: Temperature was 97.6, pulse 80, respirations 18, blood pressure 128/75, pulse ox 97% room air. HEENT: Pupils equal, round and react to light and accommodation. Heart: S1, S2 regular rhythm. Lungs: Clear to auscultation bilaterally. Abdomen: Soft, slight tenderness to palpation infraumbilically in the midline. There is a slight bulge underneath his midline incision, likely secondary to small seroma or hematoma. No signs of erythema or fluctuance. There is also some pain in the left lower quadrant, light guarding. No rebounding or rigidity. Extremities: No clubbing, cyanosis or edema. LABORATORY DATA: White count 14.7, hemoglobin 17.7, platelets 202, potassium 4.1, creatinine 0.9, albumin 3.8. IMAGING STUDIES: CT abdomen and pelvis shows inflammation with some extraluminal gas adjacent to the left colonic anastomosis. There fluid in the pelvic reflections. No zackary abscess. Scattered amounts of residual postoperative free intraperitoneal air. Some left colonic diverticulosis persists. ASSESSMENT/PLAN: The patient is a 38-year-old male with signs and symptoms suspicious for small perforation near the rectosigmoid anastomosis versus postoperative changes. At this point, recommendation is to proceed with robotic evaluation of the anastomosis, possible washout, possible diverting ileostomy. Risks and benefits of procedure, not limited to but including bleeding, infection, hernia formation, damage to surrounding structures, need for further surgery were discussed in detail with the patient, informed consent was obtained and the procedure was planned.
[2019-01-27] MEDS: NORCO, ANEXSIA 5/325MG TABLET (HYDROcodone/ACETAMINOPHEN) PO PRN ×2 (14:06→21:35)
[2019-01-27 18:23] VITALS: BP 144/90
[2019-01-27 22:30] VITALS: BP 143/90
[2019-01-28] VITALS: BP 138/83
[2019-01-28] MEDS: PIPERACILLIN/TAZOBACTAM SOD 3.375 GM in D5W MINI-BAG PLUS 50 ML IV SCH ×4 (00:34→17:29)
[2019-01-28 06:00] VITALS: BP 160/86
[2019-01-28] MEDS: MORPHINE 2 MG/ML 1ML VIAL (J2270) IV PRN (06:22)
[2019-01-28 06:33] LABS: MEAN CORPUSCULAR HEMOGLOBIN 30.4 pg (27.0-33.0); MEAN CORPUSCULAR HGB CONC 32.6 g/dl (32.0-36.5); MEAN CORPUSCULAR VOLUME 93.3 fl (80.0-96.0); PLATELET COUNT, AUTOMATED 152 10^3/uL (150-450); RED BLOOD COUNT 4.93 10^6/uL (4.30-6.10)
[2019-01-28 06:55] LABS: BLOOD UREA NITROGEN 9 MG/DL (7-18); CALCIUM LEVEL 8.6 MG/DL (8.5-10.1); CARBON DIOXIDE LEVEL 29 MEQ/L (21-32); CHLORIDE LEVEL 108 MEQ/L (98-107); CREATININE FOR GFR 0.86 MG/DL (0.70-1.30); GLOMERULAR FILTRATION RATE > 60.0 (>60); GLUCOSE, FASTING 96 MG/DL (70-100); SODIUM LEVEL 141 MEQ/L (136-145)
[2019-01-28] MEDS: SENOKOT S TAB PO SCH (08:35)
[2019-01-28] MEDS: ENOXAPARIN 40 MG/0.4 ML SYRINGE (J1650) SC SCH (08:35)
[2019-01-28] MEDS: PANTOPRAZOLE 40MG TAB (PROTONIX) PO SCH (08:35)
[2019-01-28] MEDS: KETOROLAC 30 MG/ML VIAL (J1885) IV PRN (08:49)
[2019-01-28] MEDS: NORCO, ANEXSIA 5/325MG TABLET (HYDROcodone/ACETAMINOPHEN) PO PRN (13:17)
--- NOTE | 2019-01-29 11:37 | DSES ---
DATE OF ADMISSION: 01/26/2019 DATE OF DISCHARGE: 01/28/2019 ADMISSION DIAGNOSIS: Leaking anastomosis. DISCHARGE DIAGNOSIS: Leaking anastomosis. HOSPITAL COURSE: The patient 38-year-old male who on January 19 underwent robotic sigmoidectomy. One week postop on January 26 he came into the hospital with sudden onset of pain in the left lower quadrant. After evaluation of laboratory data, physical exam and CT scan, there was high suspicion for possible anastomotic leak. He was brought back to operating room for robotic diagnostic procedure to evaluate anastomosis. He did have a tiny leak. This was oversewn and repaired and diverting ileostomy was created. Postop day #1 on the he was tolerating clear liquid diet. Ostomy was already working. Pain was improved. No nausea, vomiting or fevers and his white count had returned down to almost normal. Advance to a regular diet and stopped IV fluids, waited another 24 hours. Today he is doing significantly better. He is not having any pain. He is already changing the ostomy bag himself. The plan is to have him get training on changing the entire appliance today and then he will be able to be discharged home. He go home and follow up me in the office in about a week to get his drain pulled.
== END 2019-01-28 19:45 | disposition left against medical advice (07) | DRG 221 ==
LOC: M ED 08:41 → M SDC 08:42 → M ED INP 13:39 → M MS5PR 17:30
PROVIDERS: ADMIT Surgery; ATTEND Surgery
PROC: 0DQP4ZZ Repair Rectum, Percutaneous Endoscopic Approach (ICD-10-PCS; 2019-01-26)
PROC: 8E0W4CZ Robotic Assisted Procedure of Trunk Region, Percutaneous Endoscopic Approach (ICD-10-PCS; 2019-01-26)
PROC: 0D1B4Z4 Bypass Ileum to Cutaneous, Percutaneous Endoscopic Approach (ICD-10-PCS; principal; 2019-01-26 13:30)
DX: K91.89 Other postprocedural complications and disorders of digestive system (principal); J44.9 Chronic obstructive pulmonary disease, unspecified; Y83.6 Removal of other organ (partial) (total) as the cause of abnormal reaction of the patient, or of later complication, without mention of misadventure at the time of the procedure; M79.7 Fibromyalgia; F17.200 Nicotine dependence, unspecified, uncomplicated

== ENCOUNTER → 2019-03-19 | Outpatient (CLI) | payer OTHER ==
[~2019-03-19] MED LIST changes: +LIQUID POLIBAR PLUS 105% w/v 1900ML BTL As Ordered ONE; +TIZA2TAB4 PO
--- NOTE | 2019-03-19 18:20 | REP ---
Examination Requested: Barium and Air contrast Reason For Exam: Ileostomy, diverticulosis, question anastomotic leak The procedure was performed by LISSET Joseph, under the direct supervision of Dr. Jimenez. The images were reviewed with Dr. Jimenez. The sales ledger clerk film shows no organomegaly, or pathological masses. The intestinal gas pattern is unremarkable. This is a limited single contrast barium enema to visualize for anastomotic leak. Liquid barium was instilled into the colon and retrograde flow. There is diverticulosis. No extravasation of contrast is visualized. Postradiation bulla is unremarkable throughout. Impression: 1. Diverticulosis. 2. No extravasation of contrast. 0.2 minutes of fluoroscopy time was utilized for this procedure. Some fluoroscopic images are performed with last image hold technology. These images require no additional radiation. Reviewed by LISSET Olea 03/19/2019 04:43 P Electronically Signed by Jaziel Jimenez MD 03/19/2019 06:12 P
== END ==
LOC: M RAD 08:30
PROVIDERS: ATTEND Surgery
DX: K57.32 Diverticulitis of large intestine without perforation or abscess without bleeding (principal); Z48.815 Encounter for surgical aftercare following surgery on the digestive system

== ENCOUNTER → 2019-03-26 | Outpatient (CLI) | payer OTHER ==
[~2019-03-26] MED LIST changes: -LIQUID POLIBAR PLUS 105% w/v 1900ML BTL As Ordered ONE
--- NOTE | 2019-03-26 19:44 | REP ---
Chest x-ray: Two views. History: Nicotine dependence. Comparison chest x-ray: November 24, 2018. Findings: A loop recorder is visualized in the left precordial soft tissues. The lungs are well inflated and clear. The heart is not enlarged. Pulmonary vasculature is not increased. The pleural angles are sharp. No bony abnormality is appreciated. Impression: Loop recorder visible. Otherwise no acute disease. Electronically Signed by Jaziel Jimenez MD 03/26/2019 07:37 P
== END ==
LOC: M LAB 10:06
PROVIDERS: ATTEND Family Medicine
DX: F17.210 Nicotine dependence, cigarettes, uncomplicated (principal); Z95.818 Presence of other cardiac implants and grafts

== ENCOUNTER → 2019-03-27 | Outpatient (CLI) | payer OTHER ==
[~2019-03-27] MED LIST changes: +GASTROGRAFIN SOLUTION 30ML (Q9963) As Ordered ONE; +ISOVUE-370 76% 100ML VIAL (Q9967) As Ordered ONE
--- NOTE | 2019-03-27 14:29 | REP ---
CT ABDOMEN/PELVIS WITH IV AND ORAL CONTRAST: HISTORY: Abnormal weight loss. COMPARISON: CT study January 26, 2019. CT CONTRAST DOSE: 100 mL of intravenous Isovue-370. CT FINDINGS: Preliminary digital mobile therapist radiograph demonstrates an enterostomy ring in the right lower abdomen and some retained colonic barium in the right mid abdomen. The bowel gas pattern is otherwise unremarkable. The lung bases are clear on axial CT images. The liver and the spleen are normal in size, homogeneous in texture. 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 There is a tiny cyst in the right lobe as well, unchanged. No abnormalities noted in the gallbladder or the pancreas. No adrenal abnormality is observed on either side. Kidneys enhance symmetrically and are morphologically intact. The patient is status post left colon resection and reanastomosis. There is a right lower quadrant ileostomy. A normal appendix is seen in the right lower quadrant. Seminal vesicles, prostate, and urinary bladder are unremarkable. No abdominal wall defect is appreciated other than the enterostomy. No bony destructive lesion is seen. IMPRESSION: Status post right lower quadrant enterostomy and left colonic resection and reanastomosis. Somewhat prominent size prostate. Small cyst in the left lobe of the liver. Granulomatous calcifications are seen in the spleen. Normal appendix. No acute intra-abdominal abnormality. Electronically Signed by Jaziel Jimenez MD 03/28/2019 05:18 A
== END ==
LOC: M RAD 11:31
PROVIDERS: ATTEND Family Medicine
DX: R63.4 Abnormal weight loss (principal); Z90.49 Acquired absence of other specified parts of digestive tract; Z98.0 Intestinal bypass and anastomosis status; K76.89 Other specified diseases of liver; Z93.4 Other artificial openings of gastrointestinal tract status; D73.89 Other diseases of spleen
CPT/HCPCS: 74177; Q9963; Q9967

== ENCOUNTER 2019-04-05 20:04 | Emergency (ER) | payer OTHER ==
[~2019-04-05] VITALS: Ht 177.8 cm; Wt 68.2 kg
[~2019-04-05 20:04] MED LIST changes: -GASTROGRAFIN SOLUTION 30ML (Q9963) As Ordered ONE; -ISOVUE-370 76% 100ML VIAL (Q9967) As Ordered ONE
[2019-04-05] MEDS ORDERED: TIZA2TA (20:11)
[2019-04-05] MEDS ORDERED: OMEP-221 (20:11)
[2019-04-05 22:48] VITALS: BP 149/88
== END 2019-04-05 22:51 | disposition home or self-care (01) ==
LOC: M ED 20:04
DX: K94.09 Other complications of colostomy (principal); M79.7 Fibromyalgia; F17.200 Nicotine dependence, unspecified, uncomplicated; Z79.899 Other long term (current) drug therapy; Z87.19 Personal history of other diseases of the digestive system; Z88.8 Allergy status to other drugs, medicaments and biological substances; Z88.5 Allergy status to narcotic agent

== ENCOUNTER 2019-04-22 08:17 | Inpatient (IN) | payer OTHER ==
[~2019-04-22] VITALS: Ht 170.2 cm; Wt 68.5 kg
[2019-04-22] VITALS (8 sets, daily range): BP systolic 117–135; BP diastolic 71–97; O2SAT 95
[~2019-04-22 08:17] MED LIST changes: +ERTAPENEM SODIUM 1 GM in NS MINI-BAG PLUS 50 ML IV ONE; +LR 1,000 ML IV ONE; +OMEP-221; +TIZA2TA
[2019-04-22] MEDS ORDERED: ERTAPENEM 1 GM INJ (INVanz) (J1335) As Ordered ONE (08:40)
[2019-04-22] MEDS ORDERED: DEPA1TAB3 PO (08:56)
[2019-04-22] MEDS ORDERED: HYDR-3363 PO (08:58)
[2019-04-22] MEDS ORDERED: FLUO10CA15 PO (08:58)
[2019-04-22] MEDS ORDERED: ACETAMINOPHEN TAB 650MG DOSE (2X325MG) PO PRN (09:30)
[2019-04-22] MEDS ORDERED: ONDANSETRON 4MG/2ML VIAL (J2405) IV PRN ×2 (09:30→12:00)
[2019-04-22] MEDS ORDERED: BUPIVACAINE/EPIN 0.25% 30 ML VIAL As Ordered ONE (09:39)
[2019-04-22] MEDS ORDERED: fentaNYL 100 MCG/2 ML INJECTION (J3010) IV PRN (12:00)
[2019-04-22] MEDS ORDERED: LR 1,000 ML IV SCH (12:00)
[2019-04-22] MEDS ORDERED: NORCO, ANEXSIA 5/325MG TABLET (HYDROcodone/ACETAMINOPHEN) PO PRN (12:00)
[2019-04-22] MEDS: LR 1,000 ML IV SCH ×2 (12:13→20:43)
[2019-04-22] MEDS: HYDROMORPHONE HCL 0.5 MG/ 0.5 ML SYRINGE (J1170 PER 1) IV PRN ×4 (12:33→12:48)
[2019-04-22] MEDS: NORCO, ANEXSIA 5/325MG TABLET (HYDROcodone/ACETAMINOPHEN) PO PRN ×2 (13:29→20:41)
--- NOTE | 2019-04-22 13:59 | RO ---
DATE OF PROCEDURE: 04/22/2019 PREOPERATIVE DIAGNOSIS: Diverticulitis status post diverting ileostomy. POSTOPERATIVE DIAGNOSIS: Diverticulitis status post diverting ileostomy. PROCEDURE: Ileostomy reversal. SURGEON: Dr. Burnette BALLOON SELLER: Dr. Johnston who assisted with mobilization of the ostomy, as well as creation the anastomosis. ESTIMATED BLOOD LOSS: 50. ANESTHESIA: General. COMPLICATIONS: None. INDICATION FOR PROCEDURE: The patient 38-year-old male who is had multiple episodes diverticulitis. He was here for elective robotic sigmoidectomy. Eleven days postoperatively, he developed an anastomotic leak. He was brought back to the operating room for a diverting ileostomy. Since then, he has been doing well, healing appropriately. No problems or questions. Barium enema has also shown that the leak has sealed itself off and there are no signs of any fistulas or recurrent leak. Recommendation was to proceed with reversal of the loop ileostomy. Risks and benefits of the procedure not limited but including bleeding, infection, hernia formation, damage to surrounding structures, need for further surgery were discussed in detail with the patient, informed consent was obtained, and procedure was planned. DESCRIPTION OF PROCEDURE: The patient was brought back to operating room 7. After sufficient sedation, the ostomy was closed with a silk suture. The abdomen was then sterilely prepped and draped with Betadine. Following that, a time out was done to confirm proper patient and proper procedure. Following that, an elliptical incision made around the ostomy using a 15 blade scalpel. Incision was then carried down circumferentially to the level of the fascia adhesions were taken down around the fascia onto the small intestine. Once that was completed, the proximal and distal loops of small bowel were gently pulled out enough to create an anastomosis, [id number] anastomosis was then done using a YVES 75 blue load stapler. Once that was completed, the mesentery was transected using an Enseal. The hold in the mesentery was then closed with 0 Vicryl suture. Tisseel was placed over top of the incision. The anastomoses placed back inside of the abdomen. The anterior and posterior fascial layers were closed with 0 Vicryl sutures. Subcutaneous tissues were reapproximated also with 0 Vicryl sutures. The wound bed was irrigated with saline. Skin was closed with nate. The area was then cleaned and dried, 4x4 and tape were applied, thus ending procedure.
[2019-04-22] MEDS: MORPHINE 2 MG/ML 1ML VIAL (J2270) IV PRN ×2 (14:48→23:58)
[2019-04-22] MEDS: KETOROLAC 30 MG/ML VIAL (J1885) IV PRN (16:23)
[2019-04-22] MEDS: SENOKOT S TAB PO SCH (20:41)
[2019-04-23] VITALS (7 sets, daily range): BP systolic 114–150; BP diastolic 70–90; O2SAT 96
[2019-04-23] MEDS: LR 1,000 ML IV SCH ×2 (04:32→07:59)
[2019-04-23 06:45] LABS: HEMATOCRIT 43.2 % (42.0-52.0); HEMOGLOBIN 13.5 g/dl (13.5-17.5); MEAN CORPUSCULAR HEMOGLOBIN 30.1 pg (27.0-33.0); MEAN CORPUSCULAR HGB CONC 31.3 g/dl (32.0-36.5); MEAN CORPUSCULAR VOLUME 96.2 fl (80.0-96.0); PLATELET COUNT, AUTOMATED 171 10^3/uL (150-450); RED BLOOD COUNT 4.49 10^6/uL (4.30-6.10); WHITE BLOOD COUNT 12.4 10^3/uL (4.0-10.0)
[2019-04-23 07:17] LABS: BLOOD UREA NITROGEN 10 MG/DL (7-18); CALCIUM LEVEL 8.8 MG/DL (8.5-10.1); CARBON DIOXIDE LEVEL 30 MEQ/L (21-32); CHLORIDE LEVEL 106 MEQ/L (98-107); GLOMERULAR FILTRATION RATE > 60.0 (>60); GLUCOSE, FASTING 107 MG/DL (70-100); POTASSIUM SERUM 4.6 MEQ/L (3.5-5.1); SODIUM LEVEL 140 MEQ/L (136-145)
[2019-04-23] MEDS: SENOKOT S TAB PO SCH ×2 (07:57→20:58)
[2019-04-23] MEDS: PANTOPRAZOLE 40MG TAB (PROTONIX) PO SCH (07:58)
[2019-04-23] MEDS: NORCO, ANEXSIA 5/325MG TABLET (HYDROcodone/ACETAMINOPHEN) PO PRN ×2 (07:58→16:41)
[2019-04-23] MEDS: MORPHINE 2 MG/ML 1ML VIAL (J2270) IV PRN ×3 (07:58→20:59)
[2019-04-23] MEDS: ENOXAPARIN 40 MG/0.4 ML SYRINGE (J1650) SC SCH (07:59)
[2019-04-23] MEDS: KETOROLAC 30 MG/ML VIAL (J1885) IV PRN ×2 (07:59→16:41)
--- NOTE | 2019-04-23 11:59 | IPNPDOC ---
Text Note Date of Service The patient was seen on 04/23/19. NOTE No acute events overnight. Tolerating the clq diet without any nausea or emesis. He did have one bloody BM this am, but no more since. No problems or complaints. VSSAF NAD abd - soft, slight TTP RLQ only, no rebound or guarding, dressing c/d/i labs - below A) 38y/o male POD#1 s/p ileostomy reversal P) reg diet ambulate in halls d/c IVF monitor labs IS lovenox for DVT prophylaxis wait on return of bowel function. Navid Burnette DO VS,Fishsaee, I+O VS, Fishbone, I+O Laboratory Tests 04/23/19 06:20 Vital Signs Date Time Temp Pulse Resp B/P (MAP) Pulse Ox O2 Delivery O2 Flow Rate FiO2 04/23/19 10:00 98.5 70 20 114/71 (85) 94 Room Air 04/22/19 12:30 2 I&O- Last 24 Hours up to 6 AM 04/23/19 06:00 Intake Total 5175 ml Output Total 800 ml Balance 4375 ml NATALIO BURNETTE DO Apr 23, 2019 11:59
[2019-04-24] MEDS: KETOROLAC 30 MG/ML VIAL (J1885) IV PRN ×2 (01:14→08:28)
[2019-04-24 02:00] VITALS: BP 127/75
[2019-04-24 06:00] VITALS: BP 129/89
[2019-04-24 06:59] LABS: HEMATOCRIT 40.5 % (42.0-52.0); HEMOGLOBIN 12.9 g/dl (13.5-17.5); MEAN CORPUSCULAR HEMOGLOBIN 30.8 pg (27.0-33.0); MEAN CORPUSCULAR HGB CONC 31.9 g/dl (32.0-36.5); MEAN CORPUSCULAR VOLUME 96.7 fl (80.0-96.0); PLATELET COUNT, AUTOMATED 154 10^3/uL (150-450); RED BLOOD COUNT 4.19 10^6/uL (4.30-6.10); WHITE BLOOD COUNT 8.8 10^3/uL (4.0-10.0)
[2019-04-24 07:26] LABS: BLOOD UREA NITROGEN 12 MG/DL (7-18); CARBON DIOXIDE LEVEL 31 MEQ/L (21-32); CHLORIDE LEVEL 107 MEQ/L (98-107); CREATININE FOR GFR 0.74 MG/DL (0.70-1.30); GLOMERULAR FILTRATION RATE > 60.0 (>60); GLUCOSE, FASTING 89 MG/DL (70-100); SODIUM LEVEL 142 MEQ/L (136-145)
[2019-04-24] MEDS ORDERED: HYDR-3715 PO (07:37)
[2019-04-24] MEDS: SENOKOT S TAB PO SCH (08:26)
[2019-04-24] MEDS: PANTOPRAZOLE 40MG TAB (PROTONIX) PO SCH (08:26)
[2019-04-24] MEDS: NORCO, ANEXSIA 5/325MG TABLET (HYDROcodone/ACETAMINOPHEN) PO PRN (08:27)
[2019-04-24] MEDS: ENOXAPARIN 40 MG/0.4 ML SYRINGE (J1650) SC SCH (08:28)
[2019-04-24] MEDS ORDERED: FLUoxetine 10 MG CAP PO SCH (09:00)
[2019-04-24 10:00] VITALS: BP 136/78
--- NOTE | 2019-04-24 10:54 | DSES ---
DATE OF ADMISSION: 04/22/2019 DATE OF DISCHARGE: 04/24/2019 ADMISSION DIAGNOSIS: Diverticulitis and history diverting ileostomy. DISCHARGE DIAGNOSIS: Diverticulitis and history diverting ileostomy. HOSPITAL COURSE: The patient is a 38-year-old male who presented for elective reversal of diverting loop ileostomy. Postoperatively he did well. He was tolerating clear liquid diet, ambulating and had one bloody bowel movement overnight the first day. Labs were all stable. He was advanced to regular diet and recommended he continue ambulation in the halls. During the second day he had four more bowel movements with less blood in each one. Labs today postop day 2 were continuing to be stable, white count is 8.8, hemoglobin is 12.9 and platelets 154. He is tolerating diet. No nausea or vomiting. No fevers or chills. He has already had a shower and his incision looks good. PLAN: Is discharge home today. He will followup with me in the office in 2 weeks. He can shower. No baths for 5 days. No lifting more than 20 pounds for 2 weeks. All of his questions are answered and a pain pill was sent to his pharmacy. He will call me with any questions.
== END 2019-04-24 12:40 | disposition home or self-care (01) | DRG 223 ==
LOC: M OR 08:17 → M MS5PR 13:10
PROVIDERS: ADMIT Surgery; ATTEND Surgery
PROC: 0DBB0ZZ Excision of Ileum, Open Approach (ICD-10-PCS; principal; 2019-04-22 10:40)
DX: Z43.2 Encounter for attention to ileostomy (principal); I10 Essential (primary) hypertension; F17.200 Nicotine dependence, unspecified, uncomplicated; F12.90 Cannabis use, unspecified, uncomplicated; K21.9 Gastro-esophageal reflux disease without esophagitis; G47.33 Obstructive sleep apnea (adult) (pediatric); F32.9 Major depressive disorder, single episode, unspecified; J44.9 Chronic obstructive pulmonary disease, unspecified; Z87.442 Personal history of urinary calculi; Z79.899 Other long term (current) drug therapy; Z88.5 Allergy status to narcotic agent; Z88.8 Allergy status to other drugs, medicaments and biological substances

== ENCOUNTER → 2019-11-06 | Outpatient (CLI) | payer OTHER ==
[~2019-11-06] MED LIST changes: +AMLO1TAB24 PO; -AMLO5TAB6 PO; +DEPA1TAB3 PO; -ERTAPENEM SODIUM 1 GM in NS MINI-BAG PLUS 50 ML IV ONE; +FLUO10CA16 PO; +HYDR-3363 PO; -LR 1,000 ML IV ONE; -TIZA2TAB4 PO; +TIZA2TAB6 PO
--- NOTE | 2019-12-10 11:44 | REP ---
ABDOMINAL WALL ULTRASOUND Delay in reporting results from [employer] system malfunction from malware/ ransomware. REASON FOR EXAM: Hernia. Patient has a history of multiple surgeries, the last being on 04/2019 and now complains of abdominal pain. The study is performed to evaluate for anterior abdominal wall hernia. FINDINGS: There is a surgical scar in the right lower quadrant in the location of a previous colostomy. Ultrasonography is performed without and with Valsalva. There is no hernia. There is focal thinning of the abdominal wall musculature compatible with surgical scarring. There is a similar area inferior to the umbilicus. There is again focal thinning of the abdominal wall musculature compatible with surgical scarring. There is no hernia on images performed without and with Valsalva. IMPRESSION: No anterior abdominal wall hernias are identified. There are focal areas of abdominal wall muscle scarring as described. [facility]
== END ==
LOC: M RAD 11:04
PROVIDERS: ATTEND Surgery
DX: K43.9 Ventral hernia without obstruction or gangrene (principal)

== ENCOUNTER → 2020-05-04 | Outpatient (CLI) | payer OTHER ==
[~2020-05-04] MED LIST changes: +GLUCAGON INJ 1MG VIAL As Ordered ONE; +ISOVUE-370 76% 100ML VIAL As Ordered ONE; -LISI-538 PO; +LISI20TA33 PO; -LISI40TA PO; +LISI40TA4 PO; +MILKSUS3; +PEGPOW; +TIZA1TAB12 PO; -TIZA2TAB6 PO; +VoLumen 0.1% SUSPENSION 450ML BOTTLE As Ordered ONE
--- NOTE | 2020-05-05 07:44 | REP ---
INDICATION: ABN WT LOSS W/ PARTIAL INSTINAL OBST COMPARISON: 03/27/2019 TECHNIQUE: Axial contrast-enhanced images from the lung bases to the pubic symphysis with images obtained in arterial and portal venous phases of enhancement. Low-dose oral contrast material was administered prior to imaging. Coronal and sagittal reformations were obtained. FINDINGS: Patient appears to be status post resection and anastomosis in the right lower quadrant and the level of the mid sigmoid colon without adjacent acute inflammatory stranding or abnormality. The visualized small and large bowel including terminal ileum, cecum and appendix appear normal. There is no evidence for bowel obstruction or acute/chronic inflammatory process. No obvious stricture/stenosis or enteric fistula. Few scattered sigmoid diverticula noted without acute diverticulitis. Liver, spleen, pancreas, gallbladder, bilateral adrenal glands and kidneys are essentially stable and within normal limits. Subcentimeter hepatic hypodensities and bilateral renal hypodensities are again noted and compatible with benign cystic changes. Splenic calcifications consistent with prior granulomatous disease. Pelvis demonstrates normal bladder and relatively age-appropriate prostate/seminal vesicles. No ascites. No free air. No obvious adenopathy. Abdominal aorta without aneurysm or dissection. Surrounding musculoskeletal structures are intact. Lung bases are clear. IMPRESSION: 1. Evidence for prior resection and anastomosis in the right lower quadrant and mid sigmoid colon. No acute enteric process identified. No chronic enteric process appreciated. 2. Stable hepatic and renal hypodensities compatible with benign cystic changes. 3. No acute abdominopelvic pathology appreciated. <Electronically signed by Pascual Bains > 05/05/20 0741
== END ==
LOC: M RAD 13:43
PROVIDERS: ATTEND Internal Medicine Gastroenterology
DX: R63.4 Abnormal weight loss (principal); K56.690 Other partial intestinal obstruction; Z98.0 Intestinal bypass and anastomosis status; K76.89 Other specified diseases of liver
CPT/HCPCS: 74177; J1610; Q9967

== ENCOUNTER 2020-05-05 18:24 | Emergency (ER) | payer OTHER ==
[~2020-05-05] VITALS: Ht 175.3 cm; Wt 74.4 kg
[~2020-05-05 18:24] MED LIST changes: -GLUCAGON INJ 1MG VIAL As Ordered ONE; -ISOVUE-370 76% 100ML VIAL As Ordered ONE; -MILKSUS3; -PEGPOW; -VoLumen 0.1% SUSPENSION 450ML BOTTLE As Ordered ONE
[2020-05-05] MEDS ORDERED: PEGPOW (18:32)
[2020-05-05] MEDS ORDERED: MILKSUS3 (18:32)
--- OUTSIDE RECORDS SUMMARY | 2020-05-05 18:32 | CCD | Continuity of Care Document ---
Author Organization Unknown Address Unknown Phone Unavailable Care Team Providers Care Ceo And President Name Role Phone Oksana Espinoza MARIBETH AUTM [phone] Enoc Lew MD [facility] [phone] Anson Burnette DO [facility] [phone] Brian Gutierrez MD [facility] [phone] Problems Active Problems Provider Date Presence of other cardiac implants and grafts NAKUL Segundo Onset: 10/27/2018 Essential hypertension NAKUL Jones Onset: 9 Tobacco user NAKUL Jones Onset: 03/13/2019 Social History Type Date Description Comments Sex Unknown ETOH Use Rarely consumes alcohol Tobacco Use Start: Unknown Patient is a current smoker, smo kes every day started at age 14, at most 1/5 ppd Recreational Drug Use 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 [place] [facility] 07/2018, uses multiple times daily Smoking Status Reviewed: 03/13/19 Patient is a current smoker, smokes every day started at age 14, at most 1/5 ppd Exercise Type/Frequency Walks daily Exercise Type/Frequency Does housework sporadica lly Exercise Type/Frequency Does yardwork twice a we ek Exercise Limitations None Allergies, Adverse Reactions, Alerts Active Allergies Reaction Severity Comments Date Oxycodone Hives 10/03/2018 Cymbalta Mental status changes 2018 Medications Description No Active Medications Immunizations Description No Information Available Vital Signs Date Vital Result Comment 03/13/2019 8:43am Weight 152.00 lb Home Weight 154lb Height 69 inches 5'9" BMI (Body Mass Index) 22.4 kg/m2 Heart Rate 82 /min BP Systolic Sitting 110 mmHg adult cuff, Ra BP Diastolic Sitting 70 mmHg adult cuff, Ra 10/03/2018 10:41am Weight 172.00 lb Home Weight 173lb home weight Height 69 inches 5'9" BMI (Body Mass Index) 25.4 kg/m2 Heart Rate 78 /min BP Systolic Sitting 121 mmHg Omron, adult cuff/Ra BP Diastolic Sitting 82 mmHg Omron, adult cuff/R a Results Test Acquired Date Facility Test Result H/L Range Note CBC without Differential 02/01/2020 [facility] - White Blood Count 9.8 4.2-11.0 Red Blood Count 5.30 4.50-6.30 Platelets 204 150-450 Hemoglobin 16.5 High 14.0-16.0 Hematocrit 48.3 41.0-51.0 CMP 02/01/2020 [facility] ([facility])- - Albumin Serum/Plasma 4.6 Alt - SGPT 8 Calcium Ser/Plasma Mass/Vol 9.3 Carbon Dioxide Ser/Plasm 30 Chloride Serum/Plasma 103 Alkaline Phosphatase 79 Potassium 3.9 Protein Total 6.4 Sodium 142 Ast - Sgot 12 BUN - Urea Nitrogen 6 Glucose 97 65-110 Creatinine For GFR 0.4 Procedures Date Code Description Status 01/11/2020 08588 Implantable Loop Recorder System , Review And Report Completed 12/10/2019 42285 Implantable Loop Recorder System , Review And Report Completed 11/09/2019 52543 Implantable Loop Recorder System , Review And Report Completed 10/07/2019 91490 Implantable Loop Recorder System , Review And Report Completed Medical Devices Description No Information Available Encounters Description No Information Available Assessments Date Code Description Provider 01/11/2020 Z95.818 Presence of other cardiac implan ts and grafts [facility] 12/10/2019 Z95.818 Presence of other cardiac implan ts and grafts [facility] 11/09/2019 Z95.818 Presence of other cardiac implan ts and grafts [facility] 10/07/2019 Z95.818 Presence of other cardiac implan ts and grafts [facility] Plan of Treatment 03/13/2019 - NAKUL Jones* Z95.818 Presence of other cardiac implants and grafts* Recommendations:* We will be in touch regarding ILR reports. * I10 Essential (primary) hypertension* Recommendations:* No medication changes were made today. * F17.210 Nicotine dependence, cigarettes, uncomplicated* Recommendations:* Educated the patient on the importance of complete cessation of tobacco use for optimal cardiovascular health. Patient demonstrated understanding. * All * Follow up:* Follow up in 12 months. Functional Status Functional Condition Comment Date Status Independent with all ADL's Activ e Mental Status Description No Information Available Referrals Description No Information Available
--- OUTSIDE RECORDS SUMMARY | 2020-05-05 18:32 | CCD | Continuity of Care Document ---
Author Author Jeff GUTIERREZ M.D. Organization Unknown Address [address] [place] [address] Phone [phone] Care Team Providers Care Yardage Tufting Machine Operator Name Role Phone Brian Gutierrez M.D. AUTM [phone] Mello Bernal AUTM [phone] Enoc Lew MD AUTM Unavailable Christina Kerr AUTM Unavailable G[facility]ology [facility] Hepat[facility] AUTM Anson Burnette AUTM Unavailable [facility] Behavioral Health AUTM [phone] [facility] AUTM [employer] AUTM [phone] [facility] AUTM [phone] [facility] Gastroenterology AUTM [phone] Problems Active Problems Provider Date Anxiety state Selene Husaindhruv [facility] Onset: 03/30/2019 Cannabis abuse Selene Husaindhruv [facility] Onset: 03/30/2019 Major depression, single episode Selene Husaindhruv [facility] Onset: 03/30/2019 Borderline personality disorder Selene Husaindhruv [facility] Onset: 07/28/2019 Social History Type Date Description Comments Sex Unknown Tobacco Use Start: Unknown Heavy tobacco smoker (more than 10 cigarettes/day) Tobacco Use Start: Unknown Never Smoked Cigars Tobacco Use Start: Unknown Never Smoked A Pipe Tobacco Use Start: Unknown Never Used Smokeless Tobacco ETOH Use Rarely consumes alcohol Tobacco Use Start: Unknown Heavy tobacco smoker (more than 10 cigarettes/day) Recreational Drug Use Current Drug User rare or occasionally Allergies, Adverse Reactions, Alerts Active Allergies Reaction Severity Comments Date Oxycodone Hives Moderate 11/19/2018 Cymbalta Anxiety, mood changes Moderate 2018 NKFA 11/19/2018 [employer]A 11/19/2018 Keppra Anger/Rage 12/15/2018 Medications Active Medications SIG Qnty Indications Ordering Provide r Date Omeprazole 40mg Capsules DR 1 tab by mouth twice a day 60caps K21.9 Brian Gutierrez MD 02/02/2020 Naproxen Sodium 220mg Tablets 2 tabs by mouth twice daily as needed for pain 120tabs Gloria galaviz MD 01/26/2020 History Medications Naproxen Sodium 550mg Tablets 1 by mouth twice daily as needed for pain 60tabs Gloria Rowland MD 01/22/2020 - 01/26/2020 No Active Medications Unknown - 01/22/2020 Medications Administered in Office Medication SIG Qnty Indications Ordering Provider Date Ketorolac (Toradol) Inj 30MG/ML Injection Brian Gutierrez MD 12/30/19 19 Immunizations Description No Information Available Vital Signs Date Vital Result Comment 03/30/2020 8:10am BP Systolic 132 mmHg BP Diastolic 70 mmHg Heart Rate 88 /min Body Temperature 97.1 F Respiratory Rate 16 /min O2 % BldC Oximetry 97 % Weight 168.00 lb Weight 76.205 kg Height 70 inches 5'10" BMI (Body Mass Index) 24.1 kg/m2 BSA (Body Surface Area) 1.94 m2 02/08/2020 9:14am BP Systolic 132 mmHg BP Diastolic 80 mmHg Heart Rate 78 /min Body Temperature 97.3 F Respiratory Rate 18 /min O2 % BldC Oximetry 96 % Weight 162.00 lb Weight 73.483 kg Height 70 inches 5'10" BMI (Body Mass Index) 23.2 kg/m2 BSA (Body Surface Area) 1.91 m2 Results Test Acquired Date Facility Test Result H/L Range Note Laboratory test finding 02/08/[facility] Hgba1c <pending> Laboratory test finding 02/08/2020 [facility] PSA - Diagnostic 1.35 ng/mL 0.00 - 4.00 1 Hgba1c 5.7 % 4.4 - 6.1 2 HCV Fibrosure 02/08/2020 [facility] Fibrosis Score 0.09 NA 0.00-0.21 Fibrosis Stage COMMENT 3 Necroinflammat ActivityScore 0.02 NA 0.00-0.17 Necroinflammat ActivityGrade A0-No activity Alpha 2-Macroglobulins,Qn 184 mg/dL 110-276 Haptoglobin 221 mg/dL 23-355 Apolipoprotein A-1 125 mg/dL 101-178 Bilirubin, Total 0.3 mg/dL 0.0-1.2 GGT 19 IU/L 0-65 Alt (SGPT) P5P 9 IU/L 0-55 Interpretations: COMMENT 4 Fibrosis Scoring: COMMENT 5 Necroinflamm ActivityScoring: COMMENT 6 Limitations: COMMENT 7 Comment: WILL FOLLOW HIV Panel 02/08/2020 [facility] HIV Screen 4thGeneration wRfx Non Reactive Non Reacti ve Urine Pain Willie 13 Drug 02/08/2020 [facility] Amphetamines Screen,Urine Negative ng/mL Jiwrvp=2060 Barbiturates Screen,Urine Negative ng/mL Ynthcn=117 Benzodiazepines Screen,Urine Negative ng/mL Cffhja=019 Cannabinoid Screen, Urine See Final Result <SEE NOTE> ng/mL Cutoff=20 8 Cocaine (Metab.) Screen,Urine Negative ng/mL Cutoff=30 0 Opiate Screen, Urine Negative ng/mL Lxycsc=414 9 Oxycodone/Oxymorphone,Urine Negative ng/mL Cbwkjs=996 10 Phencyclidine Screen,Urine Negative ng/mL Cutoff=25 Methadone Screen, Urine Negative ng/mL Byvczk=055 Propoxyphene Screen,Urine Negative ng/mL Yltjkx=654 Meperidine Screen, Urine Negative ng/mL Bpwoaa=749 1 1 Fentanyl, Urine Negative pg/mL Sefado=1274 12 Tramadol Screen, Urine Negative ng/mL Vkatym=669 Creatinine, Urine 210.7 mg/dL 20.0-300.0 Specific [place] 1.017 NA Please Note: COMMENT 13 pH, Urine 7.2 NA 4.5-8.9 Cannabinoid Positive Abnormal Cutoff=20 Carboxy THC (GC/MS) >300 ng/mL Cutoff=10 CBC W/Automated Diff 02/01/2020 [facility] CBC W/Automated Diff (SEE NOTE) 14, 15 WBC 9.8 10^3/uL 4.2 - 11.0 RBC 5.30 10^6/uL 4.50 - 6.30 Hemoglobin 16.5 g/dL High 14.0 - 16.0 Hematocrit 48.3 % 41.0 - 51.0 MCV 91.1 fL 80.0 - 94.0 MCH 31.1 pg 27.0 - 34.0 MCHC 34.2 g/dL 31.0 - 36.0 RDW 13.3 % 11.5 - 14.8 Platelets 204 10^3/uL 150 - 450 MPV 10.6 fL High 7.4 - 10.4 Neut 73.2 % 37.0 - 80.0 Lymph 19.1 % Low 25.0 - 40.0 [place] 5.3 % 3.0 - 8.0 Eos 1.2 % 0.0 - 7.0 Baso 0.9 % 0.0 - 2.0 %Ig 0.3 % High 0.0 - 0.0 %NRBC 0.0 % 0.0 - 0.0 #Neut 7.18 10^3/uL High 2.00 - 6.90 #Lymph 1.87 10^3/uL 0.60 - 3.40 #[place] 0.52 10^3/uL 0.00 - 0.90 #Eos 0.12 10^3/uL 0.00 - 0.70 #Baso 0.09 10^3/uL 0.00 - 0.20 #Ig 0.03 10^3/uL 0.00 - 0.10 #NRBC 0.00 10^3/uL 0.00 - 0.00 Manual Diff NOT INDICATED RBC Morph NOT INDICATED Comprehensive Metabolic Panel 02/01/2020 [facility] Comprehensive Metabo (SEE NOTE) 16 Sodium 142 mEq/L 134 - 153 Potassium 3.9 mEq/L 3.6 - 5.0 Chloride 103 mEq/L 98 - 107 Co2 30 mEq/L 22 - 30 Glucose 97 mg/dL 65 - 110 BUN 6 mg/dL Low 7 - 21 Creatinine 0.4 mg/dL Low 0.7 - 1.5 BUN/Creat 15 8 - 27 Total Protein 6.4 g/dL 6.3 - 8.2 Albumin 4.6 g/dL 3.9 - 5.0 Globulin 1.8 GM/DL Low 2.4 - 3.2 A/G Ratio 2.6 High 0.8 - 2.0 Calcium 9.3 mg/dL 8.4 - 10.2 Total Bili 0.8 mg/dL 0.2 - 1.3 Alkaline Phos 79 U/L 38 - 126 Sgot/Ast 12 U/L 5 - 40 SGPT/Alt 8 U/L 7 - 56 Anion Gap 9.0 mmol/L 8.0 - 16.0 Age 39 yrs Non-Aa GFR >60 mL/min Afr Amer GFR >60 mL/min 17 Laboratory test finding 02/01/2020 [facility] l Helicobacter Pyl Breath Test Negative Negative Urinalysis 02/01/2020 [facility] Urinalysis (SEE NOTE) 18 Source R Color Yellow Normal: Yellow Clarity Hazy Normal: Clear Spec [place] 1.015 1.001 - 1.030 pH 7 5 - 9 Glucose NORM Normal: Negative Bilirubin NEG Normal: Negative Ketone 5 Abnormal Normal: Negative Protein NEG Normal: Negative Nitrite NEG Normal: Negative Blood NEG Normal: Negative Leuk Est 25 Normal: Negative Urobilinogen 4 less than 1.0 mg/dL Microscopic See Below WBC 1 - 3 Normal: None Seen RBC 1 - 3 Normal: None Seen Bacteria 2+ MOD Abnormal Normal: None Seen Amorph Sed 3+ Normal: None Seen Cuture Urine 02/01/2020 [facility] Culture Urine (SEE NOTE) 19 Order 01/06/2020 In Office Inhouse Visual Acuity Lt20/30RT20/50 w/o n 1 \\BLDo\\PSA INTERPRETATION\\BLD x\\ The PSA assay should not be used alone for a screening test or diagnosis for presence or absence of malignant disease. Predictions of disease recurrence should not be based solely on values obtained from serial patient serum values. The PSA result was determined by "[employer]", on the [employer] CARLITOS 6000. Values obtained with different assay methods or kits cannot be used interchangeably. 2 {A1] {HB] 3 F0 - No fibrosis 4 Quantitative results of 6 bi ochemical tests are analyzed using a computational algorithm to provide a quantitative surrogate marker (0.0-1.0) for liver fibrosis (METAVIR F0-F4) and for necroinflammatory activity (METAVIR A0-A3). 5 <0.21 = Stage F0 - No fibros is 0.21 - 0.27 = Stage F0 - F1 0.27 - 0.31 = Stage F1 - Portal fibrosis 0.31 - 0.48 = Stage F1 - F2 0.48 - 0.58 = Stage F2 - Bridging fibros is with few septa 0.58 - 0.72 = Stage F3 - Bridging fibros is with many septa 0.72 - 0.74 = Stage F3 - F4 >0.74 = Stage F4 - Cirrhosis 6 <0.17 = Grade A0 - No Activi ty 0.17 - 0.29 = Grade A0 - A1 0.29 - 0.36 = Grade A1 - Minimal activit y 0.36 - 0.52 = Grade A1 - A2 0.52 - 0.60 = Grade A2 - Moderate activi ty 0.60 - 0.62 = Grade A2 - A3 >0.62 = Grade A3 - Severe activity 7 The negative predictive valu e of a Fibrotest score <0.31 (absence of clinically significant fibrosis) was 85% when compared to liver biopsy in 1,270 HCV infected patients with a 38% prevalence of significant liver fibrosis (F2, 3 or 4). The positive predictive value of a Fibro- test score >0.48 (F2, 3, 4) was 61% in that same patient cohort. HCV FibroSURE is not recommended in patients with Gilbert Disease, acute hemolysis (e.g. HCV ribavirin therapy mediated hemolysis) acute hepa- titis of the liver, extra-hepatic cholestasis, transplant patients, and/or renal insufficiency patients. Any of these clinical situations may lead to inaccurate quantitative predictions of fibrosis and necroinflammatory activity in the liver. 8 See Final Results 9 Opiate test includes Codeine , Morphine, Hydromorphone, Hydrocodone. 10 Test includes Oxycodone and Oxymorphone 11 This test was developed and its performance characteristics determined by [employer]. It has not been cleared or approved by the Food and Drug Administration. 12 Test includes Fentanyl and N orfentanyl This test was developed and its performance characteristics determined by [employer]. It has not been cleared or approved by the Food and Drug Administration. 13 Drug-test results should be interpreted in the context of clinical information. Patient metabolic variables, specific drug chemistry, and specimen characteristics can affect test outcome. Technical consultation is available if a test result is inconsistent with an expected outcome. (email-[email or web address] or call toll-free [phone]) Drug brands, if listed herein, are trademarks of their respective owners. 14 {SOURCE: Random Void~NURSE COLLECTED? N Is patient fasting? N 15 COMPLETE BLOOD COUNT 16 COMPREHENSIVE METABOLIC PANE L 17 Male GFR Interprentation 20-49 yrs >60 mL/min Normal 50-59 yrs >56 mL/min Normal 60-69 yrs >49 mL/min Normal 70-79yrs >42 mL/min Normal 80 and above >35 mL/min Normal Female GFR Interpretation 20-39 yrs >60 mL/min Normal 40-49 yrs >58 mL/min Normal 50-59 yrs >51 mL/min Normal 60-69 yrs >45 mL/min Normal 70-79 yrs >39 mL/min Normal 80 and above >32 mL/min Normal 18 URINALYSIS 19 _CULTURE URINE_ ^$[id number] ^^[id number] $$767346 ^^906588 $$933562 $$699225 $$484603 $$755025 $$509073 $$795823 $$284587 $$624596 $$924354 $$716281 $$423975 $$859442 $$611310 $$550300 $$836329 $$075796 $$755147 $$536636 $$898407 $$733732 $$207798 $$726882 $$852532 ^^960383 $$510795 $$949858 $$045513 -- Continued on next page -- Patient: ROBERTDhruv WOODS C Order: Page 2 Culture: CULTURE URINE Status: Final -- Continued on next page -- Patient: JAKOB WOODS C Order: [id number] Page 2 Culture: CULTURE URINE Status: Prelim $$[id number] $$[id number] REPORTED DATE/TIME: 02/05/2020 14:07 Culture: CULTURE URINE Status: Final Urine Culture,Comprehensive: P1 No growth in 36 - 48 hours. Previous result entered on 02/04/2020 01:58 ET Specimen has been received and testing has been initiated. P1 Test performed by: [facility] CLIA #: [id number] [address] [id number] [facility] [address] Tool Grinder Operator : Dedrick Purdy MD NPI #: Thermite Welder : 02/04/[email or web address].SENT REF 02/05/[id number].XMT.SENT REF Procedures Date Code Description Status 01/06/2020 50515 Visual Screening Elaine t Of Visual Acuity, Quantitative, Bilateral Completed 01/06/2020 85837 Admin Patient Focused Health Ris k Assessment Instrument Completed 01/06/2020 20066 Brief Emotional/Beha v Assessment W/ Scoring Doc Per Standard Inst Completed Medical Devices Description No Information Available Encounters Type Date Location Provider Dx Diagnosis Office Visit 03/30/2020 8:00a Family Practice Brian Gutierrez MD R6 3.4 Abnormal weight loss M54.9 Dorsalgia, unspecified F17.210 Nicotine dependence, cigaret elaine, uncomplicated Assessments Date Code Description Provider 03/30/2020 R63.4 Abnormal weight loss Brian benson MD 03/30/2020 M54.9 Dorsalgia, unspecified Brian Gutierrez MD 03/30/2020 F17.210 Nicotine dependence, cigarettes, uncomplicated Brian Gutierrez MD 02/08/2020 F60.3 Borderline personality disorder Brian Gutierrez MD 02/08/2020 F32.9 Major depressive disorder, singl e episode, unspecified Brian Gutierrez MD 02/08/2020 R10.9 Unspecified abdominal pain Viky Gutierrez MD 02/08/2020 R63.4 Abnormal weight loss Brian benson MD 02/08/2020 F17.210 Nicotine dependence, cigarettes, uncomplicated Brian Gutierrez MD 02/01/2020 R10.816 Epigastric abdominal tenderness Brian Gutierrez MD 02/01/2020 G40.89 Other seizures Brian Gutierrez MD 02/01/2020 M54.9 Dorsalgia, unspecified Brian Gutierrez MD 01/06/2020 H53.8 Other visual disturbances Gloria allen MD 01/06/2020 F41.9 Anxiety disorder, unspecified An zita Rowland MD 01/06/2020 F32.9 Major depressive disorder, singl e episode, unspecified Gloria Rowland MD Plan of Treatment Future Appointment(s):* 04/27/2020 10:00 am - Brian Gutierrez MD at [facility] 03/30/2020 - Brian Gutierrez MD* R63.4 Abnormal weight loss* Follow up:* 4weeks * M54.9 Dorsalgia, unspecified* New Xrays:* CT Cerv Spine W/O Contras, Ordered: 03/30/20 * CT Thoracic SP W/O Contr, Ordered: 03/30/20 * F17.210 Nicotine dependence, cigarettes, uncomplicated Functional Status Description No Information Available Mental Status Description No Information Available Referrals Refer to Reason for Referral Status Appt Date [facility] Behavioral Health 39 y/o M with hx of borderli ne personality disorder and major depression. Pls eval and treat. Sent [address] [place] [address] [phone] [facility] Gastroenterology 39 y/o M with hx of divertic ulitis and chronic abdominal pain, pls eval and treat. Sent [address] [place] [address] [phone] Enoc Lew MD 39 y/o M with hx of seizure and upper back pain, pls eval and treat. Sent [address] [place] [address] [phone] [place] [facility] [place] 39-year-old male with diminished vision and feeling of blood clot/mass in his right eye. On examination, no mass noted externally. Please evaluate and treat. Thank you. Sent [address] [place] [address] [phone]
--- OUTSIDE RECORDS SUMMARY | 2020-05-05 18:32 | CCD | Continuity of Care Document ---
Author Organization Unknown Address Unknown Phone Unavailable Care Team Providers Care Assistant Offset Press Operator Name Role Phone Oksana Espinoza MARIBETH AUTM [phone] Enoc Lew MD AUTM [phone] Anson Burnette DO AUTM [phone] Brian Gutierrez MD AUTM [phone] Problems Active Problems Provider Date Presence of [...] Date Facility Test Result H/L Range Note Hemoglobin A1c 02/08/2020 [facility])- - Hemoglobin A1c 5.7 CBC without Differential 02/01/2020 [facility] [...] 0.4 Procedures Date Code Description Status 01/11/2020 65265 Implantable Loop Recorder System , Review And Report Completed 12/10/2019 28686 Implantable Loop Recorder System , Review And Report Completed 11/09/2019 55501 Implantable Loop Recorder System , Review And [...] and grafts [facility] Plan of Treatment Future Appointment(s):* 04/15/2020 8:15 am - NAKUL Gibson at Main Office 03/13/2019 - NAKUL Jones* Z95.818 Presence of [...]
--- OUTSIDE RECORDS SUMMARY | 2020-05-05 18:32 | CCD | Continuity of Care Document ---
Author Author Jeff LAWTON MD Organization Unknown Address [address] [place] [address] Phone [phone] Care Team Providers Care Veneer Drier Feeder Name Role Phone Wade Díaz M.D. AUTM [phone] Enoc Lew MD AUTM [phone] Brian Gutierrez M.D. AUTM [phone] Problems Active Problems Provider Date Obstructive sleep apnea syndrome Dre Corrales Onset: 04/26/2010 Pulmonary function studies abnormal Christina Kerr M.D. Onset: 04/26/2010 Tobacco user Christina Kerr M.D. Onset: 11/2010 Disturbance of consciousness Christina Kerr M.D. O nset: 04/26/2010 Chronic sinusitis Christina Kerr M.D. Onset: 11/2010 Gastroesophageal reflux disease Debora Corrales Onset: 04/26/2010 Essential hypertension Christina Kerr M.D. Onset: 04/26/2010 Social History Type Date Description Comments Sex Unknown ETOH Use Occasionally consumes alcohol Tobacco Use Start: 03/18/94 Patient is a current smoker, smo kes every day 1 ppd x 20 years Recreational Drug Use Current Drug User MARIJUAN A 3-4 TIMES A DAY Smoking Status Reviewed: 11/24/18 Patient is a current smoker, smokes every day 1 ppd x 20 years Allergies, Adverse Reactions, Alerts Active Allergies Reaction Severity Comments Date Oxycodone 05/13/2017 Cymbalta ALTERED STATE 07/10/2018 Keppra MOOD CHANGES 02/26/2019 Medications Active Medications SIG Qnty Indications Ordering Provide r Date Miralax 17GM/Scoop Powder 17 gm once a day 510gm R10.11 Mello Lawton MD 04/26/2020 Milk Of Magnesia 7.75% Suspension take 60 milliliters by mouth about 2-3 days before colonoscopy prep 355ml R10.11 Mello Lawton MD 04/26/2020 Trilyte 420gm Solution Rec use as directed on dr boateng prep 4000units R10.11 Mello Lawton MD 04/26/2020 Dicyclomine HCL 10mg Capsules 1 to 2 by mouth every 6 hours as needed abdominal cramping 90caps R10.11 Mello Lawton MD 04/26/2020 History Medications No Active Medications Unknown 11/2020 - 04/26/2020 Immunizations Description No Information Available Vital Signs Date Vital Result Comment 04/26/2020 3:24pm BP Systolic 139 mmHg BP Diastolic 82 mmHg Height 70 inches 5'10" Weight 164.00 lb BMI (Body Mass Index) 23.5 kg/m2 North Powder Body Weight 166 lb Weight 74.390 kg BSA (Body Surface Area) 1.92 m2 11/26/2019 11:17am BP Systolic 150 mmHg BP Diastolic 88 mmHg Height 70 inches 5'10" Weight 162.12 lb BMI (Body Mass Index) 23.3 kg/m2 [place] Powder Body Weight 166 lb Weight 73.540 kg BSA (Body Surface Area) 1.91 m2 Results Description No Information Available Procedures Description No Information Available Medical Devices Description No Information Available Encounters Type Date Location Provider Dx Diagnosis Office Visit 04/26/2020 3:30p [facility] Mello cam MD R10.11 Right upper quadrant pain R63.4 Abnormal weight loss K57.30 Dvrtclos of lg int w/o perfo ration or abscess w/o bleeding K59.00 Constipation, unspecified K66.0 Peritoneal adhesions (postpr ocedural) (postinfection) Office Visit 11/26/2019 11:30a [facility] Surgery [facility] Anson uBrnette DO R10.31 Right lower quadrant pain Assessments Date Code Description Provider 04/26/2020 R10.11 Right upper quadrant pain Mello Lawton MD 04/26/2020 R63.4 Abnormal weight loss Mello duque MD 04/26/2020 K57.30 Diverticulosis of la rge intestine without perforation or abscess without bleeding Mello Lawton MD 04/26/2020 K59.00 Constipation, unspecified Mello Lawton MD 04/26/2020 K66.0 Peritoneal adhesions (postproced ural) (postinfection) Mello Lawton MD 11/26/2019 R10.31 Right lower quadrant pain Anson Burnette, DO Plan of Treatment 04/26/2020 - Mello Lawton MD* R10.11 Right upper quadrant pain * R63.4 Abnormal weight loss * K57.30 Diverticulosis of large intestine without perforation or abscess without bleeding * K59.00 Constipation, unspecified * K66.0 Peritoneal adhesions (postprocedural) (postinfection) * * New Medication:* Miralax 17 GM/Scoop * Milk Of Magnesia 7.75 % * Trilyte 420 gm * Dicyclomine HCL 10 mg * New Orders:* EGD, Ordered: 04/26/20 * Colonoscopy, Ordered: 04/26/20 * Comments:* abdominal pain/previous ileostomy scar pain/paresthesias: ddx includes local neuropathy/nerve entrqapment and possibly adhesions. he is also constipated at times worsening the discomfort.His weight loss seems to go along with his complicated post op course, bujt he has not been able to regain. * Recommendations:* Miralax 17 gm daily for constipation/decompression PRN Dicyclomine Colonoscopy (Will do EGD also due to weight loss) Ct enterography (unfortunately his CT at [place] was without contrast) --will repoeat as enterography protocol. Consider trial on amitriptyline 25 mg q HS--dep on results of above Functional Status Description No Information Available Mental Status Description No Information Available Referrals Description No Information Available
--- OUTSIDE RECORDS SUMMARY | 2020-05-05 18:32 | CCD | Continuity of Care Document ---
Author Author Jeff GUTIERREZ M.D. Organization Unknown Address [address] [place] [address] Phone [phone] Care Team Providers Care International Student Advisor Name Role Phone Brian Gutierrez M.D. AUTM [phone] Mello Bernal AUTM [phone] Enoc Lew MD AUTM Unavailable Christina Kerr AUTM Unavailable Gastroenterology & Hepatology [facility] AUTM Anson Burnette AUTM Unavailable [facility] Behavioral Health AUTM [phone] [facility] AUTM [employer] AUTM [phone] [facility] AUTM [phone] [facility] Gastroenterology AUTM [phone] Problems Active Problems Provider Date Anxiety state Selene Tejada [facility] Onset: 03/30/2019 Cannabis abuse Selene Tejada [facility] Onset: 03/30/2019 Major depression, single episode Selene Tejada [facility] Onset: 03/30/2019 Borderline personality disorder Selene Tejada [facility] Onset: 07/28/2019 Social History Type Date Description [...] Available Vital Signs Date Vital Result Comment 02/08/2020 9:14am BP Systolic 132 mmHg BP Diastolic 80 mmHg Heart Rate 78 /min Body Temperature 97.3 F Respiratory Rate 18 /min O2 % BldC Oximetry 96 % Weight 162.00 lb Weight 73.483 kg Height 70 inches 5'10" BMI (Body Mass Index) 23.2 kg/m2 BSA (Body Surface Area) 1.91 m2 02/01/2020 8:19am BP Systolic 156 mmHg states due to pain BP Diastolic 80 mmHg states due to pain BP Systolic Recheck 132 mmHg recheck after 15 min BP Diastolic Recheck 89 mmHg recheck after 15 mi n Heart Rate 100 /min Body Temperature 97.7 F Respiratory Rate 18 /min O2 % BldC Oximetry 98 % Weight 163.00 lb Weight 73.937 kg Height 70 inches 5'10" BMI (Body Mass Index) 23.4 kg/m2 BSA (Body Surface Area) 1.91 m2 Results Test Acquired Date Facility Test Result H/L Range Note Laboratory test finding 02/08/2020 [facility] Hgba1c <pending> Laboratory test finding 02/08/2020 [facility] PSA - Diagnostic 1.35 ng/mL 0.00 - 4.00 1 Hgba1c 5.7 % 4.4 - 6.1 2 HCV Fibrosure 02/08/2020 [facility] Fibrosis Score 0.09 NA 0.00-0.21 Fibrosis Stage [...] 7 Comment: WILL FOLLOW HIV Panel 02/08/2020 [facility] HIV Screen 4thGeneration wRfx Non Reactive Non Reacti ve Urine Pain Willie 13 Drug 02/08/2020 [facility] Amphetamines Screen,Urine Negative ng/mL Dqsqpt=9710 Barbiturates Screen,Urine Negative ng/mL Myxcwv=382 Benzodiazepines Screen,Urine Negative ng/mL Utknxj=851 Cannabinoid Screen, Urine See Final Result <SEE NOTE> ng/mL Cutoff=20 8 Cocaine (Metab.) Screen,Urine Negative ng/mL Cutoff=30 0 Opiate Screen, Urine Negative ng/mL Jxrkcq=235 9 Oxycodone/Oxymorphone,Urine Negative ng/mL Aacfud=293 10 Phencyclidine Screen,Urine Negative ng/mL Cutoff=25 Methadone Screen, Urine Negative ng/mL Aobjhg=279 Propoxyphene Screen,Urine Negative ng/mL Ahgwgc=859 Meperidine Screen, Urine Negative ng/mL Ayllfg=569 1 1 Fentanyl, Urine Negative pg/mL Ucvmip=8150 12 Tramadol Screen, Urine Negative ng/mL Ysfnit=573 Creatinine, Urine 210.7 mg/dL 20.0-300.0 Specific [place] 1.017 NA Please Note: COMMENT 13 pH, Urine 7.2 NA 4.5-8.9 Cannabinoid Positive Abnormal Cutoff=20 Carboxy THC (GC/MS) >300 ng/mL Cutoff=10 Xray 02/08/2020 [facility] [address] [place] [address] [phone] Chest Xray 2 Views <pending> CT Abd & Pelv W/O Oral W/O IV <pending> CBC W/Automated Diff 02/01/2020 [facility] CBC W/Automated Diff (SEE NOTE) 14, 15 [...] Lymph 19.1 % Low 25.0 - 40.0 [place] 5.3 % 3.0 - 8.0 Eos 1.2 % 0.0 - 7.0 Baso 0.9 % 0.0 - 2.0 %Ig 0.3 % High 0.0 - 0.0 %NRBC 0.0 % 0.0 - 0.0 #Neut 7.18 10^3/uL High 2.00 - 6.90 #Lymph 1.87 10^3/uL 0.60 - 3.40 #Harmon 0.52 10^3/uL 0.00 - 0.90 #Eos 0.12 10^3/uL 0.00 - 0.70 #Baso 0.09 10^3/uL 0.00 - 0.20 #Ig 0.03 10^3/uL 0.00 - 0.10 #NRBC 0.00 10^3/uL 0.00 - 0.00 Manual Diff NOT INDICATED RBC Morph NOT INDICATED Comprehensive Metabolic Panel 02/01/2020 [facility] Comprehensive Metabo (SEE NOTE) 16 Sodium 142 [...] >60 mL/min 17 Laboratory test finding 02/01/2020 [facility] Helicobacter Pyl Breath Test Negative Negative Urinalysis 02/01/2020 [facility] Urinalysis (SEE NOTE) 18 Source R Color Yellow Normal: Yellow Clarity Hazy Normal: Clear Spec [place] 1.015 1.001 - 1.030 pH 7 5 [...] 3+ Normal: None Seen Cuture Urine 02/01/2020 [facility] Culture Urine (SEE NOTE) 19 Order 01/06/2020 [...] developed and its performance characteristics determined by [facility]. It has not been cleared or approved by the Food and Drug Administration. 12 Test includes Fentanyl and N orfentanyl This test was developed and its performance characteristics determined by [facility]. It has not been cleared or approved by the Food and Drug Administration. 13 Drug-test results should be interpreted in the context of clinical information. Patient metabolic variables, specific drug chemistry, and specimen characteristics can affect test outcome. Technical consultation is available if a test result is inconsistent with an expected outcome. ([email or web address] or call toll-free [phone]) Drug brands, if listed herein, are trademarks [...] mL/min Normal 18 URINALYSIS 19 _CULTURE URINE_ ^$003509 ^^555882 $$878975 ^^347169 $$172633 $$683499 $$207533 $$581154 $$087320 $$625055 $$997656 $$312439 $$754727 $$255524 $$909501 $$913647 $$523093 $$715312 $$350442 $$242484 $$359768 $$439117 $$120012 $$358219 $$796985 $$103581 $$297612 ^^596865 $$260161 $$451087 $$035683 -- Continued on next page -- Patient: JAKOB Mcdonald Order: Page 2 Culture: CULTURE URINE Status: Final -- Continued on next page -- Patient: JAKOB Mcdonald Order: Page 2 Culture: CULTURE URINE Status: Prelim $$[id number] $$[id number] REPORTED DATE/TIME: 02/05/2020 14:07 Culture: CULTURE URINE Status: Final Urine Culture,Comprehensive: P1 No growth in 36 - 48 hours. Previous result entered on 02/04/2020 01:58 ET Specimen has been received and testing has been initiated. P1 Test performed [id number] [address] [id number] [facility] [address] Specification Writer : Dedrick Purdy MD NPI #: Rn Clinical Coordinator : 02/04/20.0706.XMT.SENT REF 02/05/20.1435.XMT.SENT REF Procedures Date Code Description Status 01/06/2020 87947 Visual Screening Dina t Of Visual Acuity, Quantitative, Bilateral Completed 01/06/2020 40724 Admin Patient Focused Health Ris k Assessment Instrument Completed 01/06/2020 26851 Brief Emotional/Beha v Assessment W/ Scoring Doc Per Standard Inst Completed Medical Devices Description No Information Available Encounters Description No Information Available Assessments Date Code Description Provider 02/08/2020 F60.3 Borderline personality disorder Brian Gutierrez [...] Gutierrez MD 01/06/2020 H53.8 Other visual disturbances lGoria allen MD 01/06/2020 F41.9 Anxiety disorder, unspecified An zita Rowland MD 01/06/2020 F32.9 Major depressive disorder, singl e episode, unspecified Gloria MD Kashif 08/25/2019 F41.9 Anxiety disorder, unspecified Me tello Tejada, [facility] 08/25/2019 F41.9 Anxiety disorder, unspecified Ca erika Damon PA-C 08/25/2019 F60.3 Borderline personality disorder Selene Tejada, [facility] 08/25/2019 F60.3 Borderline personality disorder Tk Damon PA-C 08/25/2019 F32.9 Major depressive disorder, singl e episode, unspecified Selene Tejada, [facility] 08/25/2019 F12.90 Cannabis use, unspecified, uncom plicated Tk Damon PA-C 08/25/2019 F12.90 Cannabis use, unspecified, uncom plicated Selene Jamesaftab, [facility] Plan of Treatment Future Appointment(s):* 03/02/2020 11:00 am - Brian [facility] at [facility] 02/08/2020 - Brian Gutierrez MD* F60.3 Borderline personality disorder* Comments:* We will refer him back to Behavioral Health. * Referral:* [facility] Behavioral Health, * Follow up:* 2-4 weeks. * F32.9 Major depressive disorder, single episode, unspecified* Comments:* Treatment plan as above. * R10.9 Unspecified abdominal pain* Comments:* He was advised to follow up with GI for further evaluation of his diverticulitis and chronic pain. We will refer him to GI. He was seen by Dr. Roland in the past for same issues. * Referral:* [facility] Gastroenterology, * R63.4 Abnormal weight loss* New Xrays:* CT Thorax W/O Contrast, Ordered: 02/08/20 * Comments:* He claims to be eating more but states he is loosing weight. His weight fluctuates between 150's to 160's. Repeat CT scan of the abdomen and pelvis. We will order HbA1c due to family history of diabetes in his father. * F17.210 Nicotine dependence, cigarettes, uncomplicated* Comments:* Discussed and encouraged smoking cessation. Education provided. Patient knows the detrimental effects of smoking on one's health with possibility of . C ardiovascular, peripheral, pulmonary, cancer, and stroke risks were discussed. Discussed smoking cessation for 2-3 minutes today. We will order chest x-ray to evaluate for sarcoidosis. Functional Status Description No Information Available Mental Status Description No Information Available Referrals Refer to Reason for Referral Status Appt Date [facility] Behavioral Health 39 y/o M with hx of borderli ne personality disorder and major depression. Pls eval and treat. Sent [address] [place] [address] [phone] [facility] Gastroenterology 39 y/o M with hx of divertic ulitis and chronic abdominal pain, pls eval and treat. Sent [address] [place] [address] [phone] Enoc Lew MD 39 y/o M with hx of seizure and upper back pain, pls eval and treat. Sent [address] [place] [phone] [facility] 39-year-old male with diminished vision and feeling of blood clot/mass in his right eye. On examination, no mass noted externally. Please evaluate and treat. Thank you. Sent [address] [place] [address] [phone]
--- OUTSIDE RECORDS SUMMARY | 2020-05-05 18:33 | CCD | Continuity of Care Document ---
Author Author Jeff GUTIERREZ M.D. Organization Unknown Address [address] [place] [address] Phone [phone] Care Team Providers Care Rice Drier Operator Name Role Phone Brian Gutierrez M.D. AUTM [phone] Mello Bernal AUTM [phone] Enoc Lew MD AUTM Unavailable Christina Kerr AUTM Unavailable Gastroenterology & Hepatology [facility] AUTM Anson Burnette AUTM Unavailable [facility] Behavioral Health AUTM [phone] [facility] AUTM [phone] [employer] AUTM [phone] [facility] AUTM [phone] [facility] Gastroenterology AUTM [phone] Problems Active Problems Provider Date Anxiety state Selene Tejada [facility] Onset: 03/30/2019 Cannabis abuse Selene Tejada [facility] Onset: 03/30/2019 Major depression, single episode Selene Tejada [facility] Onset: 03/30/2019 Borderline personality disorder Selene Tejada [facility] Onset: 07/28/2019 Social History Type Date Description [...] H/L Range Note Laboratory test finding 02/08/2020 [facility] Hgba1c <pending> Laboratory test finding 02/08/2020 [facility] PSA - Diagnostic 1.35 ng/mL 0.00 - 4.00 1 Xray 02/08/2020 [facility] [address] [place] [address] [phone] Chest Xray 2 Views <pending> CT Abd & Pelv W/O Oral W/O IV <pending> CBC W/Automated Diff 02/01/2020 [facility] CBC W/Automated Diff (SEE NOTE) 2, 3 WBC 9.8 10^3/uL 4.2 - 11.0 RBC [...] Lymph 19.1 % Low 25.0 - 40.0 [place] 5.3 % 3.0 - 8.0 Eos 1.2 % 0.0 - 7.0 Baso 0.9 % 0.0 - 2.0 %Ig 0.3 % High 0.0 - 0.0 %NRBC 0.0 % 0.0 - 0.0 #Neut 7.18 10^3/uL High 2.00 - 6.90 #Lymph 1.87 10^3/uL 0.60 - 3.40 #[place] 0.52 10^3/uL 0.00 - 0.90 #Eos 0.12 10^3/uL 0.00 - 0.70 #Baso 0.09 10^3/uL 0.00 - 0.20 #Ig 0.03 10^3/uL 0.00 - 0.10 #NRBC 0.00 10^3/uL 0.00 - 0.00 Manual Diff NOT INDICATED RBC Morph NOT INDICATED Comprehensive Metabolic Panel 02/01/2020 [facility] Comprehensive Metabo (SEE NOTE) 4 Sodium 142 mEq/L 134 - 153 Potassium [...] >60 mL/min Afr Amer GFR >60 mL/min 5 Laboratory test finding 02/01/2020 [facility] Helicobacter Pyl Breath Test Negative Negative Urinalysis 02/01/2020 [facility] Urinalysis (SEE NOTE) 6 Source R Color Yellow Normal: Yellow Clarity Hazy Normal: Clear Spec [place] 1.015 1.001 - 1.030 pH 7 5 [...] 3+ Normal: None Seen Cuture Urine 02/01/2020 [facility] Culture Urine (SEE NOTE) 7 Order 01/06/2020 In Office Inhouse Visual Acuity [...] or kits cannot be used interchangeably. 2 {SOURCE: Random Void~NURSE COLLECTED? N Is patient fasting? N 3 COMPLETE BLOOD COUNT 4 COMPREHENSIVE METABOLIC PANE L 5 Male GFR Interprentation 20-49 yrs >60 mL/min Normal 50-59 yrs >56 mL/min Normal 60-69 yrs >49 mL/min Normal 70-79yrs >42 mL/min Normal 80 and above >35 mL/min Normal Female GFR Interpretation 20-39 yrs >60 mL/min Normal 40-49 yrs >58 mL/min Normal 50-59 yrs >51 mL/min Normal 60-69 yrs >45 mL/min Normal 70-79 yrs >39 mL/min Normal 80 and above >32 mL/min Normal 6 URINALYSIS 7 _CULTURE URINE_ ^$996055 ^^439756 $$303902 ^^637935 $$356351 $$949474 $$902591 $$397565 $$031872 $$377419 $$991929 $$340158 $$333079 $$678492 $$369893 $$278145 $$576187 $$884944 $$239810 $$967468 $$144575 $$390521 $$741933 $$206880 $$864246 $$769467 $$275993 ^^912880 $$472901 $$406489 $$878799 -- Continued on next page -- Patient: JAKOB Mcdonald Order: Page 2 Culture: CULTURE URINE Status: Final -- Continued on next page -- Patient: JAKOB Mcdonald Order: Page 2 Culture: CULTURE URINE Status: Prelim $$[id number] $$[id number] REPORTED DATE/TIME: 02/05/2020 14:07 Culture: CULTURE URINE Status: Final Urine Culture,Comprehensive: P1 No growth in 36 - 48 hours. Previous result entered on 02/04/2020 01:58 ET Specimen has been received and testing has been initiated. P1 Test performed by: [id number] [address] [id number] [facility] [address] Painter And Body Mechanic Apprentice : Dedrick Purdy MD NPI #: Pearl Glue Drier : 02/04/20.0706.XMT.SENT REF 02/05/20.1435.XMT.SENT REF Procedures Date Code Description Status 01/06/2020 47325 Visual Screening Elaine t Of Visual Acuity, Quantitative, Bilateral Completed 01/06/2020 69464 Admin Patient Focused Health Ris k Assessment Instrument Completed 01/06/2020 87701 Brief Emotional/Beha v Assessment W/ Scoring Doc Per Standard Inst Completed Medical Devices Description No Information Available Encounters Type Date Location Provider Dx Diagnosis Office Visit 02/08/2020 9:20a Family Practice Brian Gutierrez MD F6 0.3 Borderline personality disorder F32.9 Major depressive disorder, s katya episode, unspecified R10.9 Unspecified abdominal pain R63.4 Abnormal weight loss F17.210 Nicotine dependence, cigaret elaine, uncomplicated Assessments Date Code Description Provider 02/08/2020 F60.3 [...] MD 01/06/2020 H53.8 Other visual disturbances Gloria K unnumpurath, MD 01/06/2020 F41.9 Anxiety disorder, unspecified An zita Rowland MD 01/06/2020 F32.9 Major depressive disorder, singl e episode, unspecified Gloria Rowland MD 08/25/2019 F41.9 Anxiety disorder, unspecified Me tello Tejada, [facility] 08/25/2019 F41.9 Anxiety disorder, unspecified Ca erika Damon PA-C 08/25/2019 F60.3 Borderline personality disorder Selene Tejada, [facility] 08/25/2019 F60.3 Borderline personality disorder Tk Damon PA-C 08/25/2019 F32.9 Major depressive disorder, singl e episode, unspecified Selene Tejada, [facility] 08/25/2019 F12.90 Cannabis use, unspecified, uncom plicated Tk Damon PA-C 08/25/2019 F12.90 Cannabis use, unspecified, uncom plicated Selene Ramirezcheriedhruv, [facility] Plan of Treatment Future Appointment(s):* 03/02/2020 11:00 am - Brian Gutierrez MD at [facility] 02/08/2020 - Brian Gutierrez MD* F60.3 Borderline personality disorder* Comments:* We will refer him back to Behavioral Health. * Referral:* [facility] Behavioral Health, * Follow up:* 2-4 weeks. * F32.9 Major depressive disorder, single episode, unspecified* Comments:* Treatment plan as above. * R10.9 Unspecified abdominal pain* Comments:* He was advised to see his surgeon for further evaluation of his diverticulitis. We will refer him to GI. * Referral:* [facility] Gastroenterology, * R63.4 Abnormal weight loss* New Xrays:* CT Thorax W/O Contrast, Scheduled: 02/10/20 * Comments:* Repeat CT scan of the abdomen and [...] to Reason for Referral Status Appt Date [facility] Behavioral Health 39 y/o M with hx of borderli ne personality disorder and major depression. Pls eval and treat. Sent [address] [place] [address] [phone] [facility] Gastroenterology 39 y/o M with hx of divertic ulitis and chronic abdominal pain, pls eval and treat. Sent [address] [place] [address] [phone] Enoc Lew MD 39 y/o M with hx of seizure and upper back pain, pls eval and treat. Sent [address] [place] [phone] [place] For Count Includes [facility] 39-year-old male with diminished vision and feeling of blood clot/mass in his right eye. On examination, no mass noted externally. Please evaluate and treat. Thank you. Sent [address] [place] [address] [phone]
--- OUTSIDE RECORDS SUMMARY | 2020-05-05 18:33 | CCD | Continuity of Care Document ---
Author Author Jeff GUTIERREZ M.D. Organization Unknown Address [address] [place] [address] Phone [phone] Care Team Providers Care Geology Associate Name Role Phone Brian Gutierrez M.D. AUTM [phone] Mello Bernal AUTM [phone] Enoc Lew MD AUTM Unavailable Christina Kerr AUTM Unavailable Gastroenterology & Hepatology [facility] AUTM [phone] Anson Burnette AUTM Unavailable [facility] Behavioral Health AUTM [phone] [facility] AUTM [phone] [employer] AUTM [phone] [place] [facility] AUTM [phone] Problems Active Problems Provider Date Anxiety state Selene Tejada [facility] Onset: 03/30/2019 Cannabis abuse Selene Tejada [facility] Onset: 03/30/2019 Major depression, single episode Selene Tejada [facility] Onset: 03/30/2019 Borderline personality disorder Selene Tejada [facility] Onset: 07/28/2019 Social History Type [...] Available Vital Signs Date Vital Result Comment 02/01/2020 8:19am BP Systolic 156 mmHg states [...] kg/m2 BSA (Body Surface Area) 1.91 m2 01/06/2020 2:33pm BP Systolic 144 mmHg BP Diastolic 82 mmHg Heart Rate 102 /min Body Temperature 98.2 F Respiratory Rate 16 /min O2 % BldC Oximetry 98 % Weight 166.25 lb Weight 75.411 kg Height 70 inches 5'10" BMI (Body Mass Index) 23.9 kg/m2 BSA (Body Surface Area) 1.93 m2 Results Test Acquired Date Facility Test Result H/L Range Note CBC W/Automated Diff 02/01/2020 [facility] CBC W/Automated Diff (SEE NOTE) 1, 2 WBC 9.8 10^3/uL 4.2 - 11.0 RBC [...] Lymph 19.1 % Low 25.0 - 40.0 [place] 5.3 % 3.0 - 8.0 Eos 1.2 % 0.0 - 7.0 Baso 0.9 % 0.0 - 2.0 %Ig 0.3 % High 0.0 - 0.0 %NRBC 0.0 % 0.0 - 0.0 #Neut 7.18 10^3/uL High 2.00 - 6.90 #Lymph 1.87 10^3/uL 0.60 - 3.40 #[place] 0.52 10^3/uL 0.00 - 0.90 #Eos 0.12 10^3/uL 0.00 - 0.70 #Baso 0.09 10^3/uL 0.00 - 0.20 #Ig 0.03 10^3/uL 0.00 - 0.10 #NRBC 0.00 10^3/uL 0.00 - 0.00 Manual Diff NOT INDICATED RBC Morph NOT INDICATED Comprehensive Metabolic Panel 02/01/2020 [facility] Comprehensive Metabo (SEE NOTE) 3 Sodium 142 mEq/L 134 - 153 Potassium [...] >60 mL/min Afr Amer GFR >60 mL/min 4 Laboratory test finding 02/01/2020 [facility] Helicobacter Pyl Breath Test Negative Negative Urinalysis 02/01/2020 [facility] Urinalysis (SEE NOTE) 5 Source R Color Yellow Normal: Yellow Clarity Hazy Normal: Clear Spec [place] 1.015 1.001 - 1.030 pH 7 5 [...] 3+ Normal: None Seen Cuture Urine 02/01/2020 [facility] Culture Urine (SEE NOTE) 6 Order 01/06/2020 In Office Inhouse Visual Acuity Lt20/30RT20/50 w/o n 1 {SOURCE: Random Void~NURSE COLLECTED? N Is patient fasting? N 2 COMPLETE BLOOD COUNT 3 COMPREHENSIVE METABOLIC PANE L 4 Male GFR Interprentation 20-49 yrs >60 mL/min Normal 50-59 yrs >56 mL/min Normal 60-69 yrs >49 mL/min Normal 70-79yrs >42 mL/min Normal 80 and above >35 mL/min Normal Female GFR Interpretation 20-39 yrs >60 mL/min Normal 40-49 yrs >58 mL/min Normal 50-59 yrs >51 mL/min Normal 60-69 yrs >45 mL/min Normal 70-79 yrs >39 mL/min Normal 80 and above >32 mL/min Normal 5 URINALYSIS 6 _CULTURE URINE_ ^$449666 ^^162475 $$864129 ^^528865 $$754586 $$111914 $$439850 $$305915 $$255492 $$011200 $$497487 $$123933 $$671512 $$129168 $$130489 $$930546 $$337485 $$865956 $$565249 $$149253 $$525230 $$157520 $$052163 $$517036 $$088510 $$870185 $$274840 ^^732089 $$689395 $$581025 $$266333 -- Continued on next page -- Patient: JAKOB Mcdonald Order: Page 2 Culture: CULTURE URINE Status: Final -- Continued on next page -- Patient: JAKOB Mcdonald Order: Page 2 Culture: CULTURE URINE Status: Prelim $$[id number] $$[id number] REPORTED DATE/TIME: 02/05/2020 14:07 Culture: CULTURE URINE Status: Final Urine Culture,Comprehensive: P1 No growth in 36 - 48 hours. Previous result entered on 02/04/2020 01:58 ET Specimen has been received and testing has been initiated. P1 Test performed by: [facility] VALENTÍN #: [id number] [address] [place] [phone] [facility] [address] Precision Dancer : Dedrick Purdy MD NPI #: [employer] T[employer] Buffer : 02/04/20.0706.XMT.SENT REF 02/05/20.1435.XMT.SENT REF Procedures Date Code Description Status 01/06/2020 67106 Visual Screening Dina t Of Visual Acuity, Quantitative, Bilateral Completed 01/06/2020 84823 Admin Patient Focused Health Ris k Assessment Instrument Completed 01/06/2020 75801 Brief Emotional/Beha v Assessment W/ Scoring Doc Per Standard Inst Completed Medical Devices Description No Information Available Encounters Description No Information Available Assessments Date Code Description Provider 02/01/2020 R10.816 Epigastric abdominal tenderness Brian Gutierrez MD 02/01/2020 G40.89 Other seizures Brian Gutierrez MD 02/01/2020 M54.9 Dorsalgia, unspecified Brian Gutierrez MD 01/06/2020 H53.8 Other visual disturbances Gloria allen MD 01/06/2020 F41.9 Anxiety disorder, unspecified An zita Rowland MD 01/06/2020 F32.9 Major depressive disorder, singl e episode, unspecified Gloria Rowland MD 08/25/2019 F41.9 Anxiety disorder, unspecified Me tello Beagle, [facility] 08/25/2019 F41.9 Anxiety disorder, unspecified Ca erika Damon PA-C 08/25/2019 F60.3 Borderline personality disorder Selene Ramirezaftab, [facility] 08/25/2019 F60.3 Borderline personality disorder Tk Damon PA-C 08/25/2019 F32.9 Major depressive disorder, singl e episode, unspecified Selene Beagle, [facility] 08/25/2019 F12.90 Cannabis use, unspecified, uncom plicated Tk Damon PA-C 08/25/2019 F12.90 Cannabis use, unspecified, uncom plicated Selene Tejada, [facility] Plan of Treatment Future Appointment(s):* 02/08/2020 9:20 am - Brian Gutierrez MD at [facility] 02/01/2020 - Brian Gutierrez MD* R10.816 Epigastric abdominal tenderness* Comments:* Possible Peptic dz vs H. pylori. Need to r/o gallbladder dz. Ordered ultrasound of the abdomen for further evaluation. He will return for follow-up in one week. * Follow up:* 1 week. * G40.89 Other seizures* Comments:* Referred him to Dr. Lew for history of seizures and upper back pain. * Referral:* Enoc Lew MD, Neurology * M54.9 Dorsalgia, unspecified* Comments:* Ordered x-ray of the cervical and thoracic spine. Functional Status Description No Information Available Mental Status Description No Information Available Referrals Refer to Dr Reason for Referral Status Appt Date Enoc Lew MD 39 y/o M with hx of seizure and upper back pain, pls eval and treat. Sent [address] [place] [address] [phone] [place] [facility] 39-year-old male with diminished vision and feeling of blood clot/mass in his right eye. On examination, no mass noted externally. Please evaluate and treat. Thank you. Sent [address] [place], [place] [address] [phone]
--- OUTSIDE RECORDS SUMMARY | 2020-05-05 18:33 | CCD | Continuity of Care Document ---
Author Author Jeff GUTIERREZ M.D. Organization Unknown Address [address] [place] [address] Phone [phone] Care Team Providers Care Rn Chemical Dependency Name Role Phone Brian Gutierrez M.D. AUTM [phone] Mello Bernal AUTM [phone] Enoc Lew MD AUTM Unavailable Christina Kerr AUTM Unavailable Gastroenterology & Hepatology [facility] AUTM [phone] Anson Burnette AUTM Unavailable [facility] Behavioral Health AUTM [phone] [facility] AUTM [employer] AUTM [phone] [facility] AUTM [phone] [facility] Gastroenterology AUTM [phone] Problems Active Problems Provider Date Anxiety state Selene Tejada [facility] Onset: 03/30/2019 Cannabis abuse Selene Tejada [facility] Onset: 03/30/2019 Major depression, single episode Selene Tejada [facility] Onset: 03/30/2019 Borderline personality disorder Selene Tejada [facility] Onset: 07/28/2019 Social History Type Date Description [...] H/L Range Note Laboratory test finding 02/08/2020 [facility] Hgba1c <pending> Laboratory test finding 02/08/2020 [facility] PSA - Diagnostic 1.35 ng/mL 0.00 - 4.00 1 Hgba1c 5.7 % 4.4 - 6.1 2 Xray 02/08/2020 [facility] [address] [place] [address] [phone] Chest Xray 2 Views <pending> CT Abd & Pelv W/O Oral W/O IV <pending> CBC W/Automated Diff 02/01/2020 [facility] CBC W/Automated Diff (SEE NOTE) 3, 4 WBC 9.8 10^3/uL 4.2 - 11.0 RBC [...] Lymph 19.1 % Low 25.0 - 40.0 [place] 5.3 % 3.0 - 8.0 Eos 1.2 % 0.0 - 7.0 Baso 0.9 % 0.0 - 2.0 %Ig 0.3 % High 0.0 - 0.0 %NRBC 0.0 % 0.0 - 0.0 #Neut 7.18 10^3/uL High 2.00 - 6.90 #Lymph 1.87 10^3/uL 0.60 - 3.40 #[place] 0.52 10^3/uL 0.00 - 0.90 #Eos 0.12 10^3/uL 0.00 - 0.70 #Baso 0.09 10^3/uL 0.00 - 0.20 #Ig 0.03 10^3/uL 0.00 - 0.10 #NRBC 0.00 10^3/uL 0.00 - 0.00 Manual Diff NOT INDICATED RBC Morph NOT INDICATED Comprehensive Metabolic Panel 02/01/2020 [facility] Comprehensive Metabo (SEE NOTE) 5 Sodium 142 mEq/L 134 - 153 Potassium [...] >60 mL/min Afr Amer GFR >60 mL/min 6 Laboratory test finding 02/01/2020 [facility] Helicobacter Pyl Breath Test Negative Negative Urinalysis 02/01/2020 [facility] Urinalysis (SEE NOTE) 7 Source R Color Yellow Normal: Yellow Clarity Hazy Normal: Clear Spec [place] 1.015 1.001 - 1.030 pH 7 5 [...] 3+ Normal: None Seen Cuture Urine 02/01/2020 [facility] Culture Urine (SEE NOTE) 8 Order 01/06/2020 In Office Inhouse Visual Acuity [...] be used interchangeably. 2 {A1] {HB] 3 {SOURCE: Random Void~NURSE COLLECTED? N Is patient fasting? N 4 COMPLETE BLOOD COUNT 5 COMPREHENSIVE METABOLIC PANE L 6 Male GFR Interprentation 20-49 yrs >60 mL/min Normal 50-59 yrs >56 mL/min Normal 60-69 yrs >49 mL/min Normal 70-79yrs >42 mL/min Normal 80 and above >35 mL/min Normal Female GFR Interpretation 20-39 yrs >60 mL/min Normal 40-49 yrs >58 mL/min Normal 50-59 yrs >51 mL/min Normal 60-69 yrs >45 mL/min Normal 70-79 yrs >39 mL/min Normal 80 and above >32 mL/min Normal 7 URINALYSIS 8 _CULTURE URINE_ ^$493571 ^^885110 $$324124 ^^748057 $$628696 $$095735 $$363191 $$905005 $$083829 $$735085 $$882629 $$713774 $$807077 $$275801 $$205847 $$144210 $$030975 $$837983 $$376971 $$742801 $$526477 $$723010 $$902903 $$463510 $$785204 $$077937 $$541587 ^^795080 $$049930 $$111586 $$580219 -- Continued on next page -- Patient: JAKOB Mcdonald Order: Page 2 Culture: CULTURE URINE Status: Final -- Continued on next page -- Patient: JAKOB Mcdonald Order: Page 2 Culture: CULTURE URINE Status: Prelim $$[id number] $$[id number] REPORTED DATE/TIME: 02/05/2020 14:07 Culture: CULTURE URINE Status: Final Urine Culture,Comprehensive: P1 No growth in 36 - 48 hours. Previous result entered on 02/04/2020 01:58 ET Specimen has been received and testing has been initiated. P1 [facility]: [facility] CLIA #: [id number] [address] [id number] [facility] [address] Hand Tire Trimmer : Dedrick Purdy MD NPI #: Wrapping Checker : 02/04/20.0706.XMT.SENT REF 02/05/20.1435.XMT.SENT REF Procedures Date Code Description Status 01/06/2020 27044 Visual Screening Elaine t Of Visual Acuity, Quantitative, Bilateral Completed 01/06/2020 66833 Admin Patient Focused Health Ris k Assessment Instrument Completed 01/06/2020 02838 Brief Emotional/Beha v Assessment W/ Scoring Doc [...] 08/25/2019 F41.9 Anxiety disorder, unspecified Me tello Beagldhruv, [facility] 08/25/2019 F41.9 Anxiety disorder, unspecified Ca erika Damon PA-C 08/25/2019 F60.3 Borderline personality disorder Selene Ramirezcheriedhruv, [facility] 08/25/2019 F60.3 Borderline personality disorder Tk Damon PA-C 08/25/2019 F32.9 Major depressive disorder, singl e episode, unspecified Selene Husaine, [facility] 08/25/2019 F12.90 Cannabis use, unspecified, uncom plicated Tk Damon PA-C 08/25/2019 F12.90 Cannabis use, unspecified, uncom plicated Selene Husaine, [facility] Plan of Treatment Future Appointment(s):* 03/02/2020 11:00 am - Brian Gutierrez MD at [facility] 02/08/2020 - Brian Gutierrez MD* F60.3 Borderline personality disorder* Comments:* We will refer him back to Behavioral Health. * Referral:* [facility] Behavioral Health, * Follow up:* 2-4 weeks. * F32.9 Major depressive disorder, single episode, unspecified* Comments:* Treatment plan as above. * R10.9 Unspecified abdominal pain* Comments:* He was advised to follow up with GI for further evaluation of his diverticulitis and chronic pain. We will refer him to GI. He was seen by Dr. Roland in the past for same issues. * Referral:* [facility] Gastroenterology, * R63.4 Abnormal weight loss* New Xrays:* CT Thorax W/O Contrast, Scheduled: 02/10/20 * Comments:* He claims to be eating [...] to Reason for Referral Status Appt Date [facility] Behavioral Health 39 y/o M with hx of borderli ne personality disorder and major depression. Pls eval and treat. Sent [address] [place] [address] [phone] [facility] Gastroenterology 39 y/o M with hx of divertic ulitis and chronic abdominal pain, pls eval and treat. Sent [address] [place] [address] [phone] Enoc Lew MD 39 y/o M with hx of seizure and upper back pain, pls eval and treat. Sent [address] [place] [phone] [place] [facility] [place] 39-year-old male with diminished vision and feeling of blood clot/mass in his right eye. On examination, no mass noted externally. Please evaluate and treat. Thank you. Sent [address] [place] [address] [phone]
--- OUTSIDE RECORDS SUMMARY | 2020-05-05 18:33 | CCD | Continuity of Care Document ---
Author Author Jeff GUTIERREZ M.D. Organization Unknown Address [address] [place] [address] Phone [phone] Care Team Providers Care Telephonic Nurse Case Manager Name Role Phone Brian Gutierrez M.D. AUTM [phone] Mello Bernal AUTM [phone] Enoc Lew MD AUTM Unavailable Christina Kerr AUTM Unavailable Gastroenterology & Hepatology [facility] AUTM Anson Burnette AUTM Unavailable [facility] Behavioral Health AUTM [phone] [facility] AUTM [employer] AUTM [phone] [place] [facility] AUTM [phone] Problems Active Problems Provider Date Anxiety state Selene Tejada [facility] Onset: 03/30/2019 Cannabis abuse Selene Tejada [facility] Onset: 03/30/2019 Major depression, single episode Selene Tejada [facility] Onset: 03/30/2019 Borderline personality disorder Selene Tejada [facility] Onset: 07/28/2019 Social History Type Date Description [...] H/L Range Note Laboratory test finding 02/08/2020 [facility] Hgba1c <pending> CBC W/Automated Diff 02/01/2020 [facility] CBC W/Automated Diff (SEE NOTE) 1, 2 [...] Lymph 19.1 % Low 25.0 - 40.0 [place] 5.3 % 3.0 - 8.0 Eos 1.2 % 0.0 - 7.0 Baso 0.9 % 0.0 - 2.0 %Ig 0.3 % High 0.0 - 0.0 %NRBC 0.0 % 0.0 - 0.0 #Neut 7.18 10^3/uL High 2.00 - 6.90 #Lymph 1.87 10^3/uL 0.60 - 3.40 #[place] 0.52 10^3/uL 0.00 - 0.90 #Eos 0.12 10^3/uL 0.00 - 0.70 #Baso 0.09 10^3/uL 0.00 - 0.20 #Ig 0.03 10^3/uL 0.00 - 0.10 #NRBC 0.00 10^3/uL 0.00 - 0.00 Manual Diff NOT INDICATED RBC Morph NOT INDICATED Comprehensive Metabolic Panel 02/01/2020 [facility] Comprehensive Metabo (SEE NOTE) 3 [...] >60 mL/min 4 Laboratory test finding 02/01/2020 [facility] Helicobacter Pyl Breath Test Negative Negative Urinalysis 02/01/2020 [facility] Urinalysis (SEE NOTE) 5 Source R Color Yellow Normal: Yellow Clarity Hazy Normal: Clear Spec [place] 1.015 1.001 - 1.030 pH 7 5 [...] 3+ Normal: None Seen Cuture Urine 02/01/2020 [facility] Culture Urine (SEE NOTE) 6 Order 01/06/2020 [...] mL/min Normal 5 URINALYSIS 6 _CULTURE URINE_ ^$505930 ^^515275 $$857763 ^^016065 $$371131 $$734921 $$412083 $$867081 $$715956 $$484946 $$514935 $$761311 $$507646 $$049097 $$419170 $$673023 $$591541 $$006907 $$321455 $$584272 $$923238 $$086487 $$309729 $$875822 $$782317 $$768521 $$740692 ^^860519 $$171751 $$840006 $$413500 -- Continued on next page -- Patient: JAKOB Mcdonald Order: Page 2 Culture: CULTURE URINE Status: Final -- Continued on next page -- Patient: JAKOB Mcdonald Order: Page 2 Culture: CULTURE URINE Status: Prelim $$[id number] $$[id number] REPORTED DATE/TIME: 02/05/2020 14:07 Culture: CULTURE URINE Status: Final Urine Culture,Comprehensive: P1 No growth in 36 - 48 hours. Previous result entered on 02/04/2020 01:58 ET Specimen has been received and testing has been initiated. P1 [facility] [id number] [address] [place] [address] Avenue [id number] [facility] [address] Plumber Cub : Dedrick Purdy MD NPI #: Senior Biostatistician/Group Leader : 02/04/20.0706.XMT.SENT REF 02/05/20.1435.XMT.SENT REF Procedures Date Code Description Status 01/06/2020 25241 Visual Screening Elaine t Of Visual Acuity, Quantitative, Bilateral Completed 01/06/2020 64020 Admin Patient Focused Health Ris k Assessment Instrument Completed 01/06/2020 56838 Brief Emotional/Beha v Assessment W/ Scoring Doc Per Standard Inst Completed Medical Devices Description No Information Available Encounters Type Date Location Provider Dx Diagnosis Office Visit 02/08/2020 9:20a [facility] Brian Gutierrez MD F6 0.3 Borderline [...] 08/25/2019 F41.9 Anxiety disorder, unspecified Me tello Terrell, [facility] 08/25/2019 F41.9 Anxiety disorder, unspecified Ca erika Damon PA-C 08/25/2019 F60.3 Borderline personality disorder Selene Tejada, [facility] 08/25/2019 F60.3 Borderline personality disorder Tk Damon PA-C 08/25/2019 F32.9 Major depressive disorder, singl e episode, unspecified Selene Tejada, [facility] 08/25/2019 F12.90 Cannabis use, unspecified, uncom plicated Tk Damon PA-C 08/25/2019 F12.90 Cannabis use, unspecified, uncom plicated Selene Tejada [facility] Plan of Treatment Future Appointment(s):* 03/02/2020 11:00 am - Brian Gutierrez MD at [facility] 02/08/2020 - Brian Gutierrez MD* F60.3 Borderline personality disorder* Follow up:* 2-4 weeks. * F32.9 Major depressive disorder, single episode, unspecified * R10.9 Unspecified abdominal pain * R63.4 Abnormal weight loss* New Xrays:* CT Thorax W/O Contrast, Ordered: 02/08/20 * CT Abd & Pelv W/O Oral W/O IV, Ordered: 02/08/20 * F17.210 Nicotine dependence, cigarettes, uncomplicated Functional Status Description No Information Available Mental Status Description No Information Available Referrals Refer to Dr Reason for Referral Status Appt Date Enoc Lew MD 39 y/o M with hx of seizure and upper back pain, pls eval and treat. Sent [address] [place] [address] [phone] [place] [facility] [place] 39-year-old male with diminished vision and feeling of blood clot/mass in his right eye. On examination, no mass noted externally. Please evaluate and treat. Thank you. Sent [address] [place] [address] [phone]
--- OUTSIDE RECORDS SUMMARY | 2020-05-05 18:34 | CCD ---
Author Author [facility] Address Unknown Phone Unavailable Care Team Providers Care [employer] Supervisor Name Role Phone SPIKE GALE Unavailable Unavailable Wade Mcdonald MD Unavailable Unavailable Wade Mcdonald MD Unavailable Unavailable Wade Mcdonald MD Unavailable Unavailable Wade Mcdonald MD Unavailable Unavailable Wade Mcdonald MD Unavailable Unavailable Wade Mcdonald MD Unavailable Unavailable Wade Mcdonald MD Unavailable Unavailable Wade Mcdonald MD Unavailable Unavailable Wade Mcdonald MD Unavailable Unavailable Wade Mcdonald MD Unavailable Unavailable Wade Mcdonald MD Unavailable Unavailable Wade Mcdonald MD Unavailable Unavailable Wade Mcdonald MD Unavailable Unavailable Wade Mcdonald MD Unavailable Unavailable Wade Mcdonald MD Unavailable Unavailable Wade Mcdonald MD Unavailable Unavailable Wade Mcdonald MD Unavailable Unavailable Wade Mcdonald MD Unavailable Unavailable Wade Mcdonald MD Unavailable Unavailable Wade Mcdonald MD Unavailable Unavailable Wade Mcdonald MD Unavailable Unavailable Wade Mcdonald MD Unavailable Unavailable Wade Mcdonald MD Unavailable Unavailable Wade Mcdonald MD Unavailable Unavailable Wade Mcdonald MD Unavailable Unavailable Wade Mcdonald MD Unavailable Unavailable Wade Mcdonald MD Unavailable Unavailable Gera, L Binta PA Unavailable Unavailable Gera, L Binta PA Unavailable Unavailable Gera, L Binta PA Unavailable Unavailable Gera, L Binta PA Unavailable Unavailable Gera, L Binta PA Unavailable Unavailable Gera, L Binta PA Unavailable Unavailable Gera, L Binta PA Unavailable Unavailable Gera, L Binta PA Unavailable Unavailable Gera, L Binta PA Unavailable Unavailable Gera, L Binta PA Unavailable Unavailable Gera, L Binta PA Unavailable Unavailable Gera, L Binta PA Unavailable Unavailable Gera, L Binta PA Unavailable Unavailable Gera, L Binta PA Unavailable Unavailable Gera, L Binta PA Unavailable Unavailable Gera, L Binta PA Unavailable Unavailable Gera, L Binta PA Unavailable Unavailable Gera, L Binta PA Unavailable Unavailable Gera, L Binta PA Unavailable Unavailable Gera, L Binta PA Unavailable Unavailable Gera, L Binta PA Unavailable Unavailable Gera, L Binta PA Unavailable Unavailable Gera, L Binta PA Unavailable Unavailable Jesu Vyas MD Unavailable Unavailable Jesu Vyas MD Unavailable Unavailable Jesu Vyas MD Unavailable Unavailable Jesu Vyas MD Unavailable Unavailable Jesu Vyas MD Unavailable Unavailable Ferenchak, Jesu Chery MD Unavailable Unavailable Ferenchak, Jesu Chery MD Unavailable Unavailable Ferenchak, Jesu Chery MD Unavailable Unavailable Ferenchak, Jesu Chery MD Unavailable Unavailable Ferenchak, Jesu Chery MD Unavailable Unavailable Ferenchak, Jesu Chery MD Unavailable Unavailable Ferenchak, Jesu Chery MD Unavailable Unavailable Ferenchak, Jesu Chery MD Unavailable Unavailable Ferenchak, Jesu Chery MD Unavailable Unavailable Ferenchak, Jesu Chery MD Unavailable Unavailable Ferenchak, Jesu Chery MD Unavailable Unavailable Ferenchak, Jesu Chery MD Unavailable Unavailable Ferenchak, Jesu Chery MD Unavailable Unavailable Ferenchak, Jesu Chery MD Unavailable Unavailable Ferenchak, Jesu Chery MD Unavailable Unavailable Ferenchak, Jesu Chery MD Unavailable Unavailable Ferenchak, Jesu Chery MD Unavailable Unavailable Ferenchak, Jesu Chery MD Unavailable Unavailable Ferenchak, Jesu Chery MD Unavailable Unavailable Ferenchak, Jesu Chery MD Unavailable Unavailable Ferenchak, Jesu Chery MD Unavailable Unavailable Ferenchak, Jesu Chery MD Unavailable Unavailable Ferenchak, Jesu Chery MD Unavailable Unavailable Ferenchak, Jesu Chery MD Unavailable Unavailable Ferenchak, Jesu Chery MD Unavailable Unavailable Ferenchak, Jesu Chery MD Unavailable Unavailable Ferenchak, Jesu Chery MD Unavailable Unavailable Ferenchak, Jesu Chery MD Unavailable Unavailable Ferenchak, Jesu Chery MD Unavailable Unavailable Ferenchak, Jesu Chery MD Unavailable Unavailable Ferenchak, Jesu Chery MD Unavailable Unavailable Ferenchak, Jesu Chery MD Unavailable Unavailable Ferenchak, Jesu Chery MD Unavailable Unavailable Ferenchak, Jesu Chery MD Unavailable Unavailable Ferenchak, Jesu Chery MD Unavailable Unavailable Ferenchak, Jesu Chery MD Unavailable Unavailable Kunnumpurath, F Gloria MD Unavailable Unavailable Kunnumpurath, F Gloria MD Unavailable Unavailable Kunnumpurath, F Gloria MD Unavailable Unavailable Kunnumpurath, F Gloria MD Unavailable Unavailable Kunnumpurath, F Gloria MD Unavailable Unavailable Kunnumpurath, F Gloria MD Unavailable Unavailable Kunnumpurath, F Gloria MD Unavailable Unavailable Kunnumpurath, F Gloria MD Unavailable Unavailable Kunnumpurath, F Gloria MD Unavailable Unavailable Kunnumpurath, F Gloria MD Unavailable Unavailable Kunnumpurath, F Gloria MD Unavailable Unavailable Kunnumpurath, F Gloria MD Unavailable Unavailable Kunnumpurath, F Gloria MD Unavailable Unavailable Kunnumpurath, F Gloria MD Unavailable Unavailable Kunnumpurath, F Gloria MD Unavailable Unavailable Kunnumpurath, F Gloria MD Unavailable Unavailable Kunnumpurath, F Gloria MD Unavailable Unavailable Kunnumpurath, F Gloria MD Unavailable Unavailable Kunnumpurath, F Gloria MD Unavailable Unavailable Kunnumpurath, F Gloria MD Unavailable Unavailable Kunnumpurath, F Gloria MD Unavailable Unavailable Kunnumpurath, F Gloria MD Unavailable Unavailable Kunnumpurath, F Gloria MD Unavailable Unavailable Kunnumpurath, F Gloria MD Unavailable Unavailable Kunnumpurath, F Gloria MD Unavailable Unavailable Kunnumpurath, F Gloria MD Unavailable Unavailable Kunnumpurath, F Gloria MD Unavailable Unavailable Kunnumpurath, F Gloria MD Unavailable Unavailable Kunnumpurath, F Gloria MD Unavailable Unavailable Kunnumpurath, F Gloria MD Unavailable Unavailable Kunnumpurath, F Gloria MD Unavailable Unavailable Kunnumpurath, F Gloria MD Unavailable Unavailable Kunnumpurath, F Gloria MD Unavailable Unavailable Kunnumpurath, F Gloria MD Unavailable Unavailable Kunnumpurath, F Gloria MD Unavailable Unavailable Kunnumpurath, F Gloria MD Unavailable Unavailable Kunnumpurath, F Gloria MD Unavailable Unavailable Kunnumpurath, F Gloria MD Unavailable Unavailable Nori Ralph MD Unavailable Unavailable Nori Ralph MD Unavailable Unavailable Nori Ralph MD Unavailable Unavailable Nori Ralph MD Unavailable Unavailable Nori Ralph MD Unavailable Unavailable Nori Ralph MD Unavailable Unavailable Nori Ralph MD Unavailable Unavailable Nori Ralph MD Unavailable Unavailable Nori Ralph MD Unavailable Unavailable Nori Ralph MD Unavailable Unavailable Nori Ralph MD Unavailable Unavailable Nori Ralph MD Unavailable Unavailable Nori Ralph MD Unavailable Unavailable Nori Ralph MD Unavailable Unavailable Nori Ralph MD Unavailable Unavailable Nori Ralph MD Unavailable Unavailable SAMANTHA GARCIA MD Unavailable Unavailable SAMANTHA GARCIA MD Unavailable Unavailable SAMANTHA GARCIA MD Unavailable Unavailable REINDL, SAMANTHA WILLSON Unavailable Unavailable REINDL, SAMANTHA WILLSON Unavailable Unavailable REINDL, SAMANTHA WILLSON Unavailable Unavailable REINDL, SAMANTHA WILLSON Unavailable Unavailable REINDL, SAMANTHA WILLSON Unavailable Unavailable REINDL, SAMANTHA WILLSON Unavailable Unavailable REINDL, SAMANTHA WILLSON Unavailable Unavailable REINDL, SAMANTHA WILLSON Unavailable Unavailable REINDL, SAMANTHA WILLSON Unavailable Unavailable REINDL, SAMANTHA WILLSON Unavailable Unavailable REINDL, SAMANTHA WILLSON Unavailable Unavailable REINDL, SAMANTHA WILLSON Unavailable Unavailable REINDL, SAMANTHA WILLSON Unavailable Unavailable REINDL, SAMANTHA WILLSON Unavailable Unavailable REINDL, SAMANTHA WILLSON Unavailable Unavailable REINDL, SAMANTHA WILLSON Unavailable Unavailable REINDL, SAMANTHA WILLSON Unavailable Unavailable REINDL, SAMANTHA WILLSON Unavailable Unavailable REINDL, SAMANTHA WILLSON Unavailable Unavailable REINDL, SAMANTHA WILLSON Unavailable Unavailable REINDL, SAMANTHA WILLSON Unavailable Unavailable REINDL, SAMANTHA WILLSON Unavailable Unavailable REINDL, SAMANTHA WILLSON Unavailable Unavailable REINDL, SAMANTHA WILLSON Unavailable Unavailable REINDL, SAMANTHA WILLSON Unavailable Unavailable REINDL, SAMANTHA WILLSON Unavailable Unavailable REINDL, SAMANTHA WILLSON Unavailable Unavailable REINDL, SAMANTHA WILLSON Unavailable Unavailable REINDL, SAMANTHA WILLSON Unavailable Unavailable REINDL, SAMANTHA WILLSON Unavailable Unavailable REINDL, SAMANTHA WILLSON Unavailable Unavailable REINDL, SAMANTHA WILLSON Unavailable Unavailable REINDL, SAMANTHA WILLSON Unavailable Unavailable REINDL, SAMANTHA WILLSON Unavailable Unavailable REINDL, SAMANTHA WILLSON Unavailable Unavailable REINDL, SAMANTHA WILLSON Unavailable Unavailable REINDL, SAMANTHA WILLSON Unavailable Unavailable REINDL, SAMANTHA WILLSON Unavailable Unavailable REINDL, SAMANTHA WILLSON Unavailable Unavailable REINDL, SAMANTHA WILLSON Unavailable Unavailable REINDL, SAMANTHA WILLSON Unavailable Unavailable Kashif F Gloria WILLSON Unavailable Unavailable Sarmadumpmirtha F Gloria WILLSON Unavailable Unavailable Sarmadumpmirtha F Gloria WILLSON Unavailable Unavailable Reinaldonumpurarossi F Gloria WILLSON Unavailable Unavailable Sarmadumpurarossi F Gloria WILLSON Unavailable Unavailable Reinaldonumpurarossi F Gloria WILLSON Unavailable Unavailable Reinaldonumpurarossi F Gloria WILLSON Unavailable Unavailable Reinaldonumpurarossi F Gloria MD Unavailable Unavailable Reinaldonumpurarossi F Gloria MD Unavailable Unavailable Reinaldonumpurarossi F Gloria MD Unavailable Unavailable Reinaldonumpurarossi F Gloria MD Unavailable Unavailable Reinaldonumpurarossi F Gloria MD Unavailable Unavailable Kunnumpurarossi F Gloria MD Unavailable Unavailable Kunnumpurarossi F Gloria MD Unavailable Unavailable Reinaldonumpurarossi F Gloria MD Unavailable Unavailable Reinaldonumpurarossi F Gloria MD Unavailable Unavailable Kunnumpurarossi F Gloria MD Unavailable Unavailable Kunnumpurath, F Gloria MD Unavailable Unavailable Kunnumpurath, F Gloria MD Unavailable Unavailable Kunnumpurath, F Gloria MD Unavailable Unavailable Kunnumpurath, F Gloria MD Unavailable Unavailable Kunnumpurath, F Gloria MD Unavailable Unavailable Kunnumpurath, F Gloria MD Unavailable Unavailable Kunnumpurath, F Gloria MD Unavailable Unavailable Kunnumpurath, F Gloria MD Unavailable Unavailable Kunnumpurath, F Gloria MD Unavailable Unavailable Kunnumpurath, F Gloria MD Unavailable Unavailable Kunnumpurath, F Gloria MD Unavailable Unavailable Kunnumpurath, F Gloria MD Unavailable Unavailable Kunnumpurath, F Gloria MD Unavailable Unavailable Kunnumpurath, F Gloria MD Unavailable Unavailable Kunnumpurath, F Gloria MD Unavailable Unavailable Kunnumpurath, F Gloria MD Unavailable Unavailable Kunnumpurath, F Gloria MD Unavailable Unavailable Kunnumpurath, F Gloria MD Unavailable Unavailable Kunnumpurath, F Gloria MD Unavailable Unavailable Kunnumpurath, F Gloria MD Unavailable Unavailable Kunnumpurath, F Gloria MD Unavailable Unavailable ABAD, J BRAD PA Unavailable Unavailable ABAD, J BRAD PA Unavailable Unavailable ABAD, J BRAD PA Unavailable Unavailable ABAD, J BRAD PA Unavailable Unavailable ABAD, J BRAD PA Unavailable Unavailable ABAD, J BRAD PA Unavailable Unavailable ABAD, J BRAD PA Unavailable Unavailable ABAD, J BRAD PA Unavailable Unavailable ABAD, J BRAD PA Unavailable Unavailable ABAD, J BRAD PA Unavailable Unavailable ABAD, J BRAD PA Unavailable Unavailable ABAD, J BRAD PA Unavailable Unavailable ABAD, J BRAD PA Unavailable Unavailable ABAD, J BRAD PA Unavailable Unavailable ABAD, J BRAD PA Unavailable Unavailable ABAD, J BRAD PA Unavailable Unavailable ABAD, J BRAD PA Unavailable Unavailable ABAD, J BRAD PA Unavailable Unavailable ABAD, J BRAD PA Unavailable Unavailable ABAD, J BRAD PA Unavailable Unavailable ABAD, J BRAD PA Unavailable Unavailable ABAD, J BRAD PA Unavailable Unavailable ABAD, J BRAD PA Unavailable Unavailable ABAD, J BRAD PA Unavailable Unavailable ABAD, J BRAD PA Unavailable Unavailable ABAD, J BRAD PA Unavailable Unavailable ABAD, J BRAD PA Unavailable Unavailable ABAD, J BRAD PA Unavailable Unavailable ABAD, J BRAD PA Unavailable Unavailable ABAD, J BRAD PA Unavailable Unavailable ABAD, J BRAD PA Unavailable Unavailable ABAD, J BRAD PA Unavailable Unavailable ABAD, J BRAD PA Unavailable Unavailable ABAD, J BRAD PA Unavailable Unavailable ABAD, J BRAD PA Unavailable Unavailable ABAD, J BRAD PA Unavailable Unavailable ABAD, J BRAD PA Unavailable Unavailable ABAD, J BRAD PA Unavailable Unavailable ABAD, J BRAD PA Unavailable Unavailable ABAD, J BARD PA Unavailable Unavailable ABAD, J BRAD PA Unavailable Unavailable ABAD, J BRAD PA Unavailable Unavailable ABAD, J BRAD PA Unavailable Unavailable ABAD, J BRAD PA Unavailable Unavailable ABAD, J BRAD PA Unavailable Unavailable ABAD, J BRAD PA Unavailable Unavailable ABAD, J BRAD PA Unavailable Unavailable ABAD, J BRAD PA Unavailable Unavailable ABAD, J BRAD PA Unavailable Unavailable ABAD, J BRAD PA Unavailable Unavailable ABAD, J BRAD PA Unavailable Unavailable ABAD, J BRAD PA Unavailable Unavailable ABAD, J BRAD PA Unavailable Unavailable ABAD, J BRAD PA Unavailable Unavailable JESSIE MCCLAIN MD Unavailable Unavailable MCCLAINJESSIE JONES MD Unavailable Unavailable MCCLAINJESSIE JONES MD Unavailable Unavailable MCCLAINJESSIE JONES MD Unavailable Unavailable MCCLAINJESSIE JONES MD Unavailable Unavailable MCCLAINJESSIE JONES MD Unavailable Unavailable MCCLAINJESSIE JONES MD Unavailable Unavailable MCCLAINJESSIE JONES MD Unavailable Unavailable MCCLAINJESSIE JONES MD Unavailable Unavailable MCCLAINJESSIE JONES MD Unavailable Unavailable MCCLAINJESSIE JONES MD Unavailable Unavailable MCCLAINJESSIE JONES MD Unavailable Unavailable MCCLAINJESSIE JONES MD Unavailable Unavailable MCCLAINJESSIE JONES MD Unavailable Unavailable MCCLAINJESSIE JONES MD Unavailable Unavailable MCCLAINJESSIE JONES MD Unavailable Unavailable MCCLAINJESSIE JONES MD Unavailable Unavailable MCCLAINJESSIE JONES MD Unavailable Unavailable MCCLAINJESSIE JONES MD Unavailable Unavailable MCCLAINJESSIE JONES MD Unavailable Unavailable MCCLAINJESSIE JONES MD Unavailable Unavailable MCCLAINJESSIE JONES MD Unavailable Unavailable JESSIE MCCLAIN MD Unavailable Unavailable MCCLAINJESSIE JONES MD Unavailable Unavailable MCCLAINJESSIE JONES MD Unavailable Unavailable MCCLAINJESSIE JONES MD Unavailable Unavailable MCCLAINJESSIE JONES MD Unavailable Unavailable MCCLAINJESSIE JONES MD Unavailable Unavailable MCCLAINJESSIE JONES MD Unavailable Unavailable MCCLAINJESSIE JONES MD Unavailable Unavailable MCCLAINJESSIE JONES MD Unavailable Unavailable MCCLAINJESSIE JONES MD Unavailable Unavailable MCCLAINJESSIE JONES MD Unavailable Unavailable MCCLAINJESSIE JONES MD Unavailable Unavailable MCCLAINJESSIE JONES MD Unavailable Unavailable MCCLAINJESSIE JONES MD Unavailable Unavailable MCCLAIN, JESSIE MD Unavailable Unavailable MCCLAINJESSIE JONES MD Unavailable Unavailable MCCLAINJESSIE JONES MD Unavailable Unavailable MCCLAINJESSIE JONES MD Unavailable Unavailable MCCLAINJESSIE JONES MD Unavailable Unavailable MCCLAINJESSIE JONES MD Unavailable Unavailable MCCLAIN, JESSIE MD Unavailable Unavailable MCCLAINJESSIE JONES MD Unavailable Unavailable MCCLAIN, JESSIE MD Unavailable Unavailable MCCLAIN, JESSIE MD Unavailable Unavailable MCCLAIN, JESSIE MD Unavailable Unavailable MCCLAIN, JESSIE MD Unavailable Unavailable MCCLAINJESSIE JONES MD Unavailable Unavailable MCCLAIN, JESSIE MD Unavailable Unavailable MCCLAIN, JESSIE MD Unavailable Unavailable MCCLAIN, JESSIE MD Unavailable Unavailable MCCLAIN, JESSIE MD Unavailable Unavailable MCCLAINJESSIE JONES MD Unavailable Unavailable MCCLAINJESSIE JONES MD Unavailable Unavailable MCCLAINJESSIE JONES MD Unavailable Unavailable MCCLAINJESSIE JONES MD Unavailable Unavailable MCCLAINJESSIE JONES MD Unavailable Unavailable MCCLAINJESSIE JONES MD Unavailable Unavailable MCCLAINJESSIE JONES MD Unavailable Unavailable MCCLAINJESSIE JONES MD Unavailable Unavailable JESSIE MCCLAIN MD Unavailable Unavailable JESSIE MCCLAIN MD Unavailable Unavailable JESSIE MCCLAIN MD Unavailable Unavailable JESSIE MCCLAIN MD Unavailable Unavailable JESSIE MCCLAIN MD Unavailable Unavailable JESSIE MCCLAIN MD Unavailable Unavailable JESSIE MCCLAIN MD Unavailable Unavailable JESSIE MCCLAIN MD Unavailable Unavailable Brice Oliveira MD Unavailable Unavailable Brice Oliveira MD Unavailable Unavailable Brice Oliveira MD Unavailable Unavailable Brice Oliveira MD Unavailable Unavailable Brice Oliveira MD Unavailable Unavailable Brice Oliveira MD Unavailable Unavailable Brice Oliveira MD Unavailable Unavailable Brice Oliveira MD Unavailable Unavailable Brice Oliveira MD Unavailable Unavailable Boljavier S Elian WILLSON Unavailable Unavailable Boljavier S Elian WILLSON Unavailable Unavailable Boljavier S Elian WILLSON Unavailable Unavailable Roxanne S Elian WILLSON Unavailable Unavailable Brice Oliveira MD Unavailable Unavailable Roxanne S Elian WILLSON Unavailable Unavailable Brice Oliveira MD Unavailable Unavailable Boljavier S Elian WILLSON Unavailable Unavailable Brice Oliveira MD Unavailable Unavailable Roxanne S Elian WILLSON Unavailable Unavailable Brice Oliveira MD Unavailable Unavailable Brice Oliveira MD Unavailable Unavailable Roxanne Brice Plummer MD Unavailable Unavailable BolBrice herrera MD Unavailable Unavailable BolBrice herrera MD Unavailable Unavailable BolBrice herrera MD Unavailable Unavailable BolBrice herrera MD Unavailable Unavailable BolBrice herrera MD Unavailable Unavailable BolBrice herrera MD Unavailable Unavailable BolBrice herrera MD Unavailable Unavailable BolBrice herrera MD Unavailable Unavailable BollaBrice MD Unavailable Unavailable BolBrice herrera MD Unavailable Unavailable Bolla, Brice Plummer MD Unavailable Unavailable Boljavier, Brice Plummer MD Unavailable Unavailable BollaBrice MD Unavailable Unavailable BolBrice herrera MD Unavailable Unavailable Bolla, Brice Plummer MD Unavailable Unavailable Boljavier, Brice Plummer MD Unavailable Unavailable BollaBrice MD Unavailable Unavailable BolBrice herrera MD Unavailable Unavailable BolBrice herrera MD Unavailable Unavailable BolBrice herrera MD Unavailable Unavailable BolBrice herrera MD Unavailable Unavailable BolBrice herrera MD Unavailable Unavailable BolBrice herrera MD Unavailable Unavailable Brice Oliveira MD Unavailable Unavailable BolBrice herrera MD Unavailable Unavailable Brice Oliveira MD Unavailable Unavailable Virginia Lew MD Unavailable Unavailable Virginia Lew MD Unavailable Unavailable Virginia Lew MD Unavailable Unavailable Virginia Lew MD Unavailable Unavailable Virginia Lew MD Unavailable Unavailable Virginia Lew MD Unavailable Unavailable Virginia Lew MD Unavailable Unavailable Virginia Lew MD Unavailable Unavailable Virginia Lew MD Unavailable Unavailable Virginia Lew MD Unavailable Unavailable Virginia Lew MD Unavailable Unavailable Virginia Lew MD Unavailable Unavailable Virginia Lew MD Unavailable Unavailable Virginia Lew MD Unavailable Unavailable Virginia Lew MD Unavailable Unavailable Virginia Lew MD Unavailable Unavailable Virginia Lew MD Unavailable Unavailable Virginia Lew MD Unavailable Unavailable Virginia Lew MD Unavailable Unavailable Virginia Lew MD Unavailable Unavailable Virginia Lew MD Unavailable Unavailable Virginia Lew MD Unavailable Unavailable Virginia Lew MD Unavailable Unavailable Virginia Lew MD Unavailable Unavailable Virginia Lew MD Unavailable Unavailable Virginia Lew MD Unavailable Unavailable Virginia Lew MD Unavailable Unavailable Virginia Lew MD Unavailable Unavailable Virginia Lew MD Unavailable Unavailable Virginia Lew MD Unavailable Unavailable Virginia Lew MD Unavailable Unavailable Virginia Lew MD Unavailable Unavailable Virginia Lew MD Unavailable Unavailable Virginia Lew MD Unavailable Unavailable Virginia Lew MD Unavailable Unavailable Virginia Lew MD Unavailable Unavailable Virginia Lew MD Unavailable Unavailable Virginia Lew MD Unavailable Unavailable Virginia Lew MD Unavailable Unavailable Virginia Lew MD Unavailable Unavailable Virginia Lew MD Unavailable Unavailable Virginia Lew MD Unavailable Unavailable Virginia Lew MD Unavailable Unavailable Virginia Lew MD Unavailable Unavailable Virginia Lew MD Unavailable Unavailable Virginia Lew MD Unavailable Unavailable Virginia Lew MD Unavailable Unavailable Virginia Lew MD Unavailable Unavailable Virginia Lew MD Unavailable Unavailable Virginia Lew MD Unavailable Unavailable Virginia Lew MD Unavailable Unavailable Virginia Lew MD Unavailable Unavailable Virginia Lew MD Unavailable Unavailable Virginia Lew MD Unavailable Unavailable Virginia Lew MD Unavailable Unavailable Virginia Lew MD Unavailable Unavailable Virginia Lew MD Unavailable Unavailable Virginia Lew MD Unavailable Unavailable Virginia Lew MD Unavailable Unavailable Virginia Lew MD Unavailable Unavailable Virginia Lew MD Unavailable Unavailable Virginia Lew MD Unavailable Unavailable Virginia Lew MD Unavailable Unavailable Virginia Lew MD Unavailable Unavailable Virginia Lew MD Unavailable Unavailable Virginia Lew MD Unavailable Unavailable Vipin, O Samah MD Unavailable Unavailable Vipin, O Samah MD Unavailable Unavailable Vipin, O Samah MD Unavailable Unavailable Vipin, O Samah MD Unavailable Unavailable Vipin, O Samah MD Unavailable Unavailable Vipni, O Samah MD Unavailable Unavailable Vipin, O Samah MD Unavailable Unavailable Vipin, O Samah MD Unavailable Unavailable Vipin, O Samah MD Unavailable Unavailable Vipin, O Samah MD Unavailable Unavailable [facility] Unavailable Unavailable BRYDEN, A NATALIO DO Unavailable Unavailable BRYDEN, A NATALIO DO Unavailable Unavailable BRYDEN, A NATALIO DO Unavailable Unavailable BRYDEN, A NATALIO DO Unavailable Unavailable BRYDEN, A NATALIO DO Unavailable Unavailable BRYDEN, A NATALIO DO Unavailable Unavailable BRYDEN, A NATALIO DO Unavailable Unavailable BRYDEN, A NATALIO DO Unavailable Unavailable BRYDEN, A NATALIO DO Unavailable Unavailable BRYDEN, A NATALIO DO Unavailable Unavailable BRYDEN, A NATALIO DO Unavailable Unavailable BRYDEN, A NATALIO DO Unavailable Unavailable BRYDEN, A NATALIO DO Unavailable Unavailable BRYDEN, A NATALIO DO Unavailable Unavailable BRYDEN, A NATALIO DO Unavailable Unavailable BRYDEN, A NATALIO DO Unavailable Unavailable BRYDEN, A NATALIO DO Unavailable Unavailable BRYDEN, A NATALIO DO Unavailable Unavailable BRYDEN, A NATALIO DO Unavailable Unavailable BRYDEN, A NATALIO DO Unavailable Unavailable BRYDEN, A NATALIO DO Unavailable Unavailable BRYDEN, A NATALIO DO Unavailable Unavailable BRYDEN, A NATALIO DO Unavailable Unavailable BRYDEN, A NATALIO DO Unavailable Unavailable BRYDEN, A NATALIO DO Unavailable Unavailable BRYDEN, A NATALIO DO Unavailable Unavailable BRYDEN, A NATALIO DO Unavailable Unavailable BRYDEN, A NATALIO DO Unavailable Unavailable Re-disclosure Warning The records that you are about to access may contain information from federally-assisted alcohol or drug abuse programs. If such information is present, then the following federally mandated warning applies: This information has been disclosed to you from records protected by federal confidentiality rules (42 CFR part 2). The federal rules prohibit you from making any further disclosure of this information unless further disclosure is expressly permitted by the written consent of the person to whom it pertains or as otherwise permitted by 42 CFR part 2. A general authorization for the release of medical or other information is NOT sufficient for this purpose. The Federal rules restrict any use of the information to criminally investigate or prosecute any alcohol or drug abuse patient.The records that you are about to access may contain highly sensitive health information, the redisclosure of which is protected by Article 27-F of the [facility] Public Health law. If you continue you may have access to information: Regarding HIV / AIDS; Provided by facilities licensed or operated by the [facility] Office of Mental Health; or Provided by the [facility] [facility]. If such information is present, then the following [facility] mandated warning applies: This information has been disclosed to you from confidential records which are protected by state law. State law prohibits you from making any further disclosure of this information without the specific written consent of the person to whom it pertains, or as otherwise permitted by law. Any unauthorized further disclosure in violation of state law may result in a fine or alf sentence or both. A general authorization for the release of medical or other information is NOT sufficient authorization for further disc losure. Allergies and Adverse Reactions Type Description Substance Reaction Status Data Source(s ) No Known Allergies No Known Allergies [facility] Family History Family Member Name Family Member Gender Family Member Status Date o f Status Description Data Source(s) Unknown Male Problem [facility] ([facility]) Unknown Male Problem MEDENT ([facility] ) Encounters Encounter Providers Location Date Indications Data Source(s ) Outpatient Attender: SAMANTHA Us/Osiel/Gera/Brandon cam 04/26/2020 02:30:00 PM EST MEDENT ([facility] Outpatient Attender: JESSIE MCCLAIN MDConsultant: Vik odell MD 04/11/2020 12:59:00 PM RUST - 04/11/2020 01:59:00 PM [facility] Outpatient Attender: JESSIE MCCLAIN MDConsultant: Vik odell MD 04/01/2020 02:14:07 PM RUST - 04/04/2020 01:18:00 PM [facility] Patient discharged. Outpatient Attender: JESSIE MCCLAIN MDConsultant: Vik odell MD 03/30/2020 07:52:00 AM [facility] - 03/30/2020 07:52:00 AM [facility] Outpatient Attender: JESSIE MCCLAIN MD Family Practice 03/30/2020 0 7:00:00 AM EST MEDENT ([facility]) Outpatient Attender: JESSIE MCCLAIN MDConsultant: Vik odell MD 03/23/2020 09:58:00 AM EST - 03/23/2020 10:58:00 AM [facility] Outpatient Attender: JESSIE MCCLAIN MDConsultant: Vik odell MD 03/15/2020 02:20:36 PM EST - 03/16/2020 12:11:00 PM [facility] Patient discharged. Outpatient Attender: JESSIE MCCLAIN MDConsultant: Vik odell MD 03/01/2020 02:08:48 PM EST - 03/02/2020 01:14:00 PM [facility] Patient discharged. Outpatient Attender: JESSIE MCCLAIN MDConsultant: Vik odell MD 02/18/2020 10:28:10 AM EST - 02/19/2020 02:19:00 PM [facility] Patient discharged. Outpatient Attender: JESSIE MCCLAIN MDConsultant: Vik odell MD 02/10/2020 10:37:00 AM EST - 02/10/2020 11:37:00 AM [facility] Patient discharged. Outpatient Attender: JESSIE MCCLAIN MDConsultant: Vik odell MD 02/08/2020 09:03:00 AM EST - 02/08/2020 09:03:00 AM [facility] Outpatient Attender: JESSIE MCCLAIN MD Family Practice 02/08/2020 0 8:20:00 AM EST MEDENT ([facility]) Outpatient Attender: JESSIE MCCLAIN MDConsultant: Vik odell MD 02/01/2020 08:06:00 AM EST - 02/01/2020 08:06:00 AM [facility] Outpatient Attender: JESSIE MCCLAIN MD Family Practice 02/01/2020 0 7:20:00 AM EST MEDENT ([facility]) Outpatient Attender: Gloria Rowland MD Family Practice 1 02:40:00 PM EDT [facility] ([facility] Outpatient Attender: Gloria Bañuelosumpurarossi MDConsultant: Vik Vyas MD 01/06/2020 02:12:00 PM EDT - 01/06/2020 02:12:00 PM EDT [facility] Outpatient Attender: NATALIO TAYLOR DO Us/Zortman/Gera/Cosme ndl 11/26/2019 11:30:00 AM EDT MEDENT ([facility] Outpatient Attender: NATALIO TAYLOR DO Us/Zortman/Gera/Cosme nd 10/20/2019 08:50:00 AM EDT MEDENT ([facility] Outpatient Attender: CHAZ Vincent nder: BRAD Perdomoerrer: Jaziel Mcdonald MDConsultant: Vik Vyas MD 08/25/2019 02:22:00 PM EDT - 08/25/2019 02:22:00 PM EDT [facility] Outpatient Attender: BRAD Piedra simon: Jaziel Mcdonald MDConsultant: Vik Vyas MD 08/25/2019 12:05:00 PM EDT - 08/25/2019 12:05 :00 PM EDT [facility] Outpatient Attender: BRAD MOTA [facility] 08/24 11:40:00 AM EDT [facility] Outpatient Attender: CHAZ Zaman rrer: Jaziel Mcdonald MDConsultant: Vik Vyas MD 08/03/2019 10:52:00 AM EDT - 08/03/2019 10:52 :00 AM EDT [facility] Outpatient Attender: BRAD Piedra simon: Jaziel Mcdonald MDConsultant: Vik Vyas MD 07/29/2019 09:24:00 AM EDT - 07/29/2019 09:24 :00 AM EDT [facility] Outpatient Attender: BRAD MOTA [facility] 07/28 09:20:00 AM EDT [facility] ([facility] Outpatient Attender: CHAZ Zaman rrer: Jaziel Mcdonald MDConsultant: Vik Vyas MD 07/28/2019 10:08:00 AM EDT - 07/28/2019 10:08 :00 AM EDT [facility] Outpatient Attender: MARIBETH ALVARADO 07/23/2019 09:52:00 A M EDT [facility] Outpatient Attender: CHAZ Zaman rrer: Jaziel Mcdonald MDConsultant: Vik Vyas MD 07/14/2019 10:23:00 AM EDT - 07/14/2019 10:23 :00 AM EDT [facility] Outpatient Attender: CHAZ Zaman rrer: Jaziel Mcdonald MDConsultant: Vik Vyas MD 07/08/2019 10:03:00 AM EDT - 07/08/2019 10:03 :00 AM EDT [facility] Outpatient Attender: BRAD Piedra simon: Jaziel Mcdonald MDConsultant: Vik Vyas MD 07/01/2019 08:24:00 AM EDT - 07/01/2019 08:24 :00 AM EDT [facility] Outpatient Attender: BRAD ABAD AK [facility] 06/30 08:20:00 AM [facility] Outpatient Attender: CHAZ Zaman rrer: Jaziel Mcdonald MDConsultant: Vik Vyas MD 06/30/2019 02:07:00 PM EDT - 06/30/2019 02:07 :00 PM EDT [facility] Elian Oliveira MD: [id number] [address], [place] [address], Ph. Attender: Elian Oliveira MD CT - [facility] - Main Office 06/22/2019 12:00:00 AM EDT BERNIE ([facility]) Outpatient Attender: CHAZ Mcculloughultant: iVk pearl MD 06/18/2019 01:20:00 PM EDT - 06/18/2019 01:20:00 PM EDT [facility] Outpatient Attender: CHAZ Zaman rrer: Jaziel Mcdonald MDConsultant: Vik Vyas MD 05/07/2019 09:58:00 AM EST - 05/07/2019 09:58 :00 AM [facility] Outpatient Attender: BRAD ABAD PAConsultant: Vik sahu MD 04/13/2019 11:11:00 AM RUST - 04/13/2019 11:11:00 AM [facility] Outpatient Attender: CHAZ KASPERonsultant: Vik pearl MD 04/09/2019 10:58:00 AM RUST - 04/09/2019 10:58:00 AM [facility] Outpatient Attender: Enoc Lew MD Main office [facility] 04/06/2019 10:30:00 AM EST MEDENT ([facility], ) Outpatient Referrer: Nori Ralph MD 04/03/2019 06:07:00 AM EST [facility] Outpatient Attender: CHAZ Zaman rrer: Jaziel Mcdonald MDConsultant: Vik Vyas MD 03/30/2019 08:55:00 AM RUST - 03/30/2019 08:55 :00 AM [facility] Outpatient Referrer: Nori Ralph MD 03/27/2019 10:56:00 AM EST [facility] Outpatient Attender: JESSIE MCCLAIN MDConsultant: Vik odell MD 03/26/2019 07:56:00 AM RUST - 03/26/2019 07:56:00 AM [facility] Outpatient Attender: JESSIE MCCLAIN MD Family Practice 03/26/2019 0 7:00:00 AM EST MEDENT ([facility]) Outpatient Attender: Binta MOTA Main Office 03/13/2019 07:45:0 0 AM EST MED[facility] ([facility]) Outpatient Attender: MARIBETH ALVARADO 03/11/2019 09:01:05 P M EST [facility] Outpatient Attender: CHAZ Zaman rrer: Jaziel Mcdonald MDConsultant: Vik Vyas MD 03/09/2019 08:48:00 AM EST - 03/09/2019 08:48 :00 AM [facility] Outpatient Attender: CHAZ Austyn rrer: Jaziel Mcdonald MDConsultant: Vik Vyas MD 02/24/2019 09:44:00 AM EST - 02/24/2019 09:44 :00 AM [facility] Outpatient Attender: CHAZ KHANMabel rrer: Jaziel Mcdonald MDConsultant: Vik Vyas MD 02/05/2019 04:27:00 PM EST - 02/05/2019 04:27 :00 PM [facility] Medications Medication Brand Name Start Date Product Form Dose Route Admi nistrative Instructions Pharmacy Instructions Status Indications Reaction Description Data Source(s) No Active Medications 04/26/2020 12:00:00 AM EST completed MEDENT ([facility], ) POLYETHYLENE GLYCOL 3350 105 MG/ML / Pot assium Chloride 0.89522 MEQ/ML / Sodium Bicarbonate 0.017 MEQ/ML / Sodium Chloride 0.0479 MEQ/ML Oral Solution [TriLyte] Trilyte 04/26/2020 12:00:00 AM EST active MEDENT ([facility], ) Dicyclomine Hydrochloride 10 MG Oral Capsule Dicyclomine HCL 04/26/2020 12:00:00 AM EST ORAL active MEDENT ([facility], ) Magnesium Hydroxide 80 MG/ML Oral Suspension Milk Of Magnesi a 04/26/2020 12:00:00 AM EST ORAL active M EDENT ([facility], ) POLYETHYLENE GLYCOL 3350 142 MG/ML Oral Solution [Miralax] M iralax 04/26/2020 12:00:00 AM EST active M EDENT ([facility], ) 40 mg 02/03/2020 12:00:00 AM EST capsule,delayed release (DR/EC) 60 TAKE ONE CAPSULE BY MOUTH TWICE A DAY TAKE ONE CAPSULE BY MOUTH TWICE A DAY SOLD: 02/05/2020 [facility] Omeprazole 40 MG Delayed Release Oral Capsule Omeprazole 02/02/2020 12:00:00 AM EST ORAL active MEDENT ([facility]) 220 mg 01/26/2020 12:00:00 AM EST tablet 120 TAKE TWO TABLETS BY MOUTH TWICE A DAY NEEDED FOR PAIN TAKE TWO TABLETS BY MOUTH TWICE A DAY NEEDED FOR PAIN SOLD: 01/29/2020 [facility] Naproxen sodium 220 MG Oral Tablet Naproxen Sodium 01/26/2020 12:00 :00 AM EST ORAL active MEDENT ([facility]) Naproxen sodium 550 MG Oral Tablet Naproxen Sodium 01/22/2020 12:00 :00 AM EST ORAL completed MEDENT ([facility]) No Active Medications 01/06/2020 12:00:00 AM EDT completed MEDENT ([facility]) buspirone hydrochloride 10 MG Oral Tablet BUSPIRONE HCL 08/26/2019 12:00:00 AM EDT tablet 60 TAKE ONE TABLET BY MOUTH TWI CE A DAY TAKE ONE TABLET BY MOUTH TWICE A DAY SOLD: 08/31/2019 [facility] buspirone hydrochloride 10 MG Oral Tablet Buspirone HCL 07/29/2019 12:00:00 AM EDT ORAL completed MEDENT ([facility]) buspirone hydrochloride 10 MG Oral Tablet BUSPIRONE HCL 07/29/2019 12:00:00 AM EDT tablet 60 TAKE ONE TABLET BY MOUTH TWI CE A DAY TAKE ONE TABLET BY MOUTH TWICE A DAY SOLD: 07/30/2019 [facility] buspirone hydrochloride 5 MG Oral Tablet Buspirone HCL 07/01/2019 12:00:00 AM EDT ORAL completed MEDENT ([facility]) buspirone hydrochloride 5 MG Oral Tablet BUSPIRONE HCL 07/01/2019 12:00:00 AM EDT tablet 60 TAKE ONE TABLET BY MOUTH TWI CE A DAY TAKE ONE TABLET BY MOUTH TWICE A DAY SOLD: 07/04/2019 [facility] 5-325 mg 04/24/2019 12:00:00 AM EST tablet 20 TAKE ONE TABLET BY MOUTH EVERY 6 HOURS NEEDED FOR MILD/MODERATE PAIN MAXIMUM DAILY DOSE = FOUR TABLETS TAKE ONE TABLET BY MOUTH EVERY 6 HOURS NEEDED FOR MILD/MODERATE PAIN MAXIMUM DAILY DOSE = FOUR TABLETS SOLD: 04/25/2019 [facility] 500 mg 04/21/2019 12:00:00 AM EST tablet 3 TAKE ONE TABLET BY MOUTH AT 2P.M. AND 10P.M THE DAY BEFORE SURGERY AND 1 TABLET AT 6A.M. THE MORNING OF SURGERY TAKE ONE TABLET BY MOUTH AT 2P.M. AND 10P.M THE DAY BEFORE SURGERY AND 1 TABLET AT 6A.M. THE MORNING OF SURGERY SOLD: 04/21/2019 [facility] 500 mg 04/21/2019 12:00:00 AM EST tablet 6 TAKE TWO TABLETS BY MOUTH AT 2P.M. AND 10P.M THE DAY BEFORE SURGERY, AND 2 TABLETS BY MOUTH AT 6A.M. THE MORNING OF SURGERY TAKE TWO TABLETS BY MOUTH AT 2P.M. AND 1 0P.M THE DAY BEFORE SURGERY, AND 2 TABLETS BY MOUTH AT 6A.M. THE MORNING OF SURGERY SOLD: 04/21/2019 [facility] 10 mg 04/13/2019 12:00:00 AM EST capsule 30 TAKE ONE CAPSULE BY MOUTH EVERY DAY TAKE ONE CAPSULE BY MOUTH EVERY DAY SOLD: 04/14/2019 [facility] Hydroxyzine Hydrochloride 25 MG Oral Tablet Hydroxyzine HCL 04/13/2019 12:00:00 AM EST ORAL completed MEDENT ([facility]) Fluoxetine 10 MG Oral Capsule Fluoxetine HCL 04/13/2019 12:00:[address] ORAL completed [facility]ENT ([facility]) 25 mg 04/13/2019 12:00:00 AM EST tablet 120 TAKE ONE TABLET BY MOUTH EVERY 6 HOURS NEEDED FOR ANXIETY TAKE ONE TABLET BY MOUTH EVERY 6 HOURS A S NEEDED FOR ANXIETY SOLD: 04/14/2019 [facility] 500 mg 04/09/2019 12:00:00 AM EST tablet 3 TAKE ONE TABLET BY MOUTH AT 2:00PM AND 10PM THE DAY BEFORE SURGERY AND AT 6AM THE MORNING OF SURGERY TAKE ONE TABLET BY MOUTH AT 2:00PM AND 10PM THE DAY BEFORE SURGERY AND AT 6AM THE MORNING OF SURGERY SOLD: 04/10/2019 [facility] 500 mg 04/09/2019 12:00:00 AM EST tablet 6 TAKE TWO TABLETS BY MOUTH AT 2:00PM AND 10PM THE DAY BEFORE SURGERY AND AT 6AM THE MORNING OF SURGERY TAKE TWO TABLETS BY MOUTH AT 2:00PM AND 10PM THE DAY BEFORE SURGERY AND AT 6AM THE MORNING OF SURGERY SOLD: 04/10/2019 [facility] Metronidazole 500 MG Oral Tablet [Flagyl] Flagyl 04/08/2019 12:00 :00 AM EST ORAL completed MEDENT ([facility], ) Neomycin Sulfate 500 MG Oral Tablet Neomycin Sulfate 04/08/2019 12:00:00 AM EST ORAL completed MEDENT ([facility], ) 500 mg 04/06/2019 12:00:00 AM EST tablet,delayed release (DR/EC) 60 TAKE 1/2 TABLET BY MOUTH TWO TIMES A DAY FOR 1 WEEK THEN INCREASE TO 1 TABLET TWO TIMES A DAY TAKE 1/2 TABLET BY MOUTH TWO TIMES A DAY FOR 1 WEEK THEN INCREASE TO 1 TABLET TWO TIMES A DAY SOLD: 04/06/2019 [facility] Divalproex Sodium 500 MG Delayed Release Oral Tablet Divalpr oex Sodium 04/06/2019 12:00:00 AM EST active MEDENT ([facility]) Paper Tape 1"X12yd 01/30/2019 12:00:00 AM EST completed MEDENT ([facility], ) Gauze Sponge 01/30/2019 12:00:00 AM EST compl eted MEDENT ([facility], ) 2 mg 01/06/2019 12:00:00 AM EDT tablet 90 TAKE 1/2 TO 1 TABLET UP TO THREE TIMES A DAY NEEDED FOR BACK PAIN. DO NOT DRIVE OR OPERATE HEAVY MACHINERY AFTER TAKING TAKE 1/2 TO 1 TABLET UP TO THREE TIMES A DAY NEEDED FOR BACK PAIN. DO NOT DRIVE OR OPERATE HEAVY MACHINERY AFTER TAKING SOLD: 04/06/2019 [facility] 2 mg 01/06/2019 12:00:00 AM EDT tablet 90 TAKE 1/2 TO 1 TABLET UP TO THREE TIMES A DAY NEEDED FOR BACK PAIN. DO NOT DRIVE OR OPERATE HEAVY MACHINERY AFTER TAKING TAKE 1/2 TO 1 TABLET UP TO THREE TIMES A DAY NEEDED FOR BACK PAIN. DO NOT DRIVE OR OPERATE HEAVY MACHINERY AFTER TAKING SOLD: 06/18/2019 [facility] 40 mg 04/17/2018 12:00:00 AM EST capsule,delayed release (DR/EC) 30 TAKE ONE CAPSULE BY MOUTH EVERY DAY TAKE ONE CAPSULE BY MOUTH EVERY DAY SOLD: 04/06/2019 [facility] 12 HR Guaifenesin 600 MG Extended Releas e Oral Tablet Mucus Relief ER 600 mg tablet, extended release Mucus Relief ER 600 mg tablet, extended release completed 12 HR Guaifenesin 60 0 MG Extended Release Oral Tablet [facility]ERNIE ([facility]) Fluoxetine 10 MG Oral Capsule fluoxetine 10 mg capsule fluox etine 10 mg capsule completed Fluoxetine 10 MG Oral Capsule [facility] ([facility]) Acetaminophen 325 MG / Hydrocodone Teresita trate 5 MG Oral Tablet hydrocodone 5 mg- acetaminophen 325 mg tablet hydrocodone 5 mg-acetaminophen 325 mg tablet completed Acetaminophen 325 MG / Hydrocodone Bitartrate 5 MG Oral Tablet [facility]IE ([facility]) Amlodipine 5 MG Oral Tablet amlodipine 5 mg tablet amlodipine 5 mg ta blet completed Amlodipine 5 MG Oral Tablet [facility] ([facility]) Ciprofloxacin 500 MG Oral Tablet ciprofloxacin 500 mg tablet ciprofloxacin 500 mg tablet completed Ciprofloxaci n 500 MG Oral Tablet [facility] ([facility]) Amoxicillin 875 MG / Clavulanate 125 MG Oral Tablet amoxicillin 875 mg-potassium clavulanate 125 mg tablet amoxicillin 875 mg-potassium clavulanate 125 mg tablet completed Amoxici llin 875 MG / Clavulanate 125 MG Oral Tablet [facility] ([facility]) Hydroxyzine Hydrochloride 25 MG Oral Tablet hydroxyzin e HCl 25 mg tablet hydroxyzine HCl 25 mg tablet completed Hydroxyzine Hydrochloride 25 MG Oral Tablet [facility] ([facility]) duloxetine 30 MG Delayed Release Oral Ca psule duloxetine 30 mg capsule,delayed release duloxetine 30 mg capsule,delayed release completed duloxetine 30 MG Delayed Release Oral Capsule [facility] ([facility]) Levetiracetam 750 MG Oral Tablet levetiracetam 750 mg tablet levetiracetam 750 mg tablet completed Levetiraceta m 750 MG Oral Tablet [facility] ([facility]) fluticasone propionate 50 mcg/actuation nasal spray,suspension 768200 completed Fluticasone propionate 0.05 MG/ACTUAT Metered Dose Nasal [place] [facility] ([facility]) Lisinopril 40 MG Oral Tablet lisinopril 40 mg tablet lisinopril 40 mg tablet completed Lisinopril 40 MG Oral Tablet [facility] ([facility]) methylprednisolone 4 mg tablets in a dose pack 194414 completed methylprednisolone 4 mg tablets in a dose pack [facility]ERNIE ([facility]) Ondansetron 8 MG Disintegrating Oral Tab let ondansetron 8 mg disintegrating tablet ondansetron 8 mg disintegrating tablet completed Ondansetron 8 MG Disintegrating Oral Tablet [facility]IE ([facility]) Divalproex Sodium 500 MG Delayed Release Oral Tablet divalproex 500 mg tablet,delayed release divalproex 500 mg tablet,delayed release completed Divalproex Sodium 500 MG Delayed Release Oral Tablet [facility] ([facility]) Dicyclomine Hydrochloride 10 MG Oral Capsule dicyclomi ne 10 mg capsule dicyclomine 10 mg capsule completed Dicyclomine Hydrochloride 10 MG Oral Capsule [facility] ([facility]) Docusate Sodium 50 MG / sennosides, DETENTION 8.6 MG Oral Tablet Stool Softener- Laxative 8.6 mg-50 mg tablet Stool Softener-Laxative 8.6 mg-50 mg tablet completed Docusate Sodium 50 M G / sennosides, DETENTION 8.6 MG Oral Tablet [facility]IE ([facility]) benzonatate 200 MG Oral Capsule benzonatate 200 mg cap geraldine benzonatate 200 mg capsule completed benzonatate 20 0 MG Oral Capsule [facility]IE ([facility]) Omeprazole 40 MG Delayed Release Oral Ca psule omeprazole 40 mg capsule,delayed release omeprazole 40 mg capsule,delayed release completed Omeprazole 40 MG Delayed Release Oral Capsule [facility]IE ([facility]) Neomycin Sulfate 500 MG Oral Tablet neomycin 500 mg ta blet neomycin 500 mg tablet completed Neomycin Sulfat e 500 MG Oral Tablet [facility] ([facility]) Metronidazole 500 MG Oral Tablet metronidazole 500 mg tablet metronidazole 500 mg tablet completed Metronidazol e 500 MG Oral Tablet [facility] ([facility]) Insurance Providers Payer name Policy type / Coverage type Policy ID Covered constitution party ID Covered constitution party's relationship to urbano Policy Urbano Plan Information SHAD [id number] SP [id number] [place] [id number] 18 [id number] SHAD CARE [id number] XIX [place] [id number] [id number] XIX [place] -PHYSICIAN [place] [id number] 18 [id number] [place]ARE [place] O [id number] S [id number] Managed Care Shad P [id number] S [id number] Medicaid S [id number] SHAD I [id number] Self [id number] [facility] I [id number] Self [id number] [place] - Medicaid Hmo Health Maintenance Organization (HMO) [id number] Self [id number] Shad - Medicaid [facility] Health Maintenance Organization (HMO) [id number] Self [id number] [place] Medigap Part B [id number] Self [id number] [place] Care [place] Medicaid [id number] Self [id number] [facility] Medigap Part B [id number] Self [id number] [facility] Health Maintenance Organization (O) [id number] Self [id number] [place] Medigap Part B [id number] Self [id number] Sh[place] Care [place] Medicaid [id number] Self [id number] Managed Care - Community Plan [facility] P [id number] S [id number] [facility] [id number] SP [id number] Medicaid S [id number] S [id number] Managed Care - Community Plan [facility] P [id number] S [id number] [facility] O [id number] S [id number] [facility] [id number] SP [id number] MEDICAID [id number] SP [id number] [facility] COMMUNITY PLAN [facility] [id number] SP [id number] [facility]) O [id number] S [id number] Managed Care - Community Plan [facility] P [id number] S [id number] Medicaid [place] Medigap Part [place] [id number] Self [id number] [facility] Health Maintenance Organization (O) [id number] Self [id number] 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 [id number] SP [id number] 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 [id number] SP [id number] OTHER WORKERS COMPENSATION [id number] SP [id number] O UNAVAILABLE UNAVAILA BLE MEDICAID M [id number] Self [id number] EXCELLUS H [id number] Self [id number] [place] Medigap Part [place] [id number] Self [id number] [place] Medigap Part B [id number] Self [id number] [facility] Care [facility]g [facility] Commercial [id number] Self [id number] [facility] Health Care Commercial [id number] Self [id number] [facility] HEALTH CARE [id number] SP [id number] MEDICAID M [id number] Medicaid [place] [id number] Self [id number] [facility] Health Maintenance Organization (HMO) [id number] Self [id number] [place] [id number] Self [id number] [place] [id number] Self [id number] [place] [id number] Self [id number] [place]ig[place] Part B [id number] Self [id number] Care Commercial [id number] Self [id number] Medicaid P [id number] S [id number] [place] Medigap Part B Self [facility] Health Care Commercial Self [place] [facility] P [id number] S [id number] Medicaid S [id number] S [id number] P HEALTH CARE O [id number] S [id number] [facility] Physicians P [id number] S [id number] [facility] PHY [id number] SP [id number] [place] [id number] SP [id number] [employer] [place] [id number] SP [id number] [employer]BS [place] PPO 302/307 [id number] SP [id number] [employer] P [id number] S [id number] Medicaid S [id number] S [id number] [place] PHY [id number] SP [id number] BCBS [place] PPO 302/307 [id number] SP [id number] [employer] BCYO P [id number] S [id number] Managed Care - Community Plan [facility] P UNAVAILABLE S UNAVAILABLE Medicaid S UNAVAILABLE S UNAVAILA BLE [facility] [id number] Problems, Conditions, and Diagnoses Code Display Name Description Problem Type Effective Dates Data Source(s) Borderline personality disorder Borderline perso nality disorder Problem 07/28/2019 12:00:00 AM EDT [facility] ([facility]) Major depression, single episode Major depression, sin gle episode Problem 03/30/2019 12:00:00 AM EST [facility] ([facility]) [id number] Cannabis abuse Cannabis abuse Problem 03/30/2019 12:00: 00 AM EST [facility] ([facility]) [id number] Anxiety state Anxiety state Problem 03/30/2019 12:00:00 AM EST [facility] ([facility]) [id number] Tobacco user Tobacco user Problem 03/13/2019 12:00:00 A M EST [facility] ([facility]) [id number] Essential hypertension Essential hypertension Problem 03/13/2019 12:00:00 AM EST [facility] ([facility]) 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, thoracic region Spondylosis without myelopathy or radiculopathy, thoracic region Diagnosis 04/11/2020 12:59:00 PM [facility] [id number] Other cervical disc degeneration at C5-C 6 level Other cervical disc degeneration at C5-C6 level Diagnosis 04/11/2020 12:59:00 PM [facility] M549 Dorsalgia, unspecified Dorsalgia, unspecified Diagnosi s 04/11/2020 12:59:00 PM [facility] R99 Ill-defined and unknown cause of mortali ty Ill-defined and unknown cause of mortality Diagnosis 04/04/2020 01:18:00 PM [facility] [id number] Nicotine dependence, cigarettes, uncompl icated Nicotine dependence, cigarettes, uncomplicated Diagnosis 03/30/2020 07:52:00 AM [facility] R634 Abnormal weight loss Abnormal weight loss Diagnosis 03/30/2020 07:52:00 AM [facility] R918 Other nonspecific abnormal finding of melchor ng field Other nonspecific abnormal finding of lung field Diagnosis 03/23/2020 09:58:00 AM [facility] N209 Urinary calculus, unspecified Urinary calculus, unspec ified Diagnosis 02/10/2020 10:37:00 AM [facility] F329 Major depressive disorder, single episod e, unspecified Major depressive disorder, single episode, unspecified Diagnosis 02/08/2020 09:03:00 AM [facility] F603 Borderline personality disorder Borderline personality disorder Diagnosis 02/08/2020 09:03:00 AM [facility] R109 Unspecified abdominal pain Unspecified abdominal pain Diagnosis 02/08/2020 09:03:00 AM [facility] G4089 Other seizures Other seizures Diagnosis 02/01/2020 08:06: 00 AM [facility] [id number] Epigastric abdominal tenderness Epigastric abdom inal tenderness Diagnosis 02/01/2020 08:06:00 AM [facility] F419 Anxiety disorder, unspecified Anxiety disorder, unspec ified Diagnosis 01/06/2020 02:12:00 PM EDT [facility] H538 Other visual disturbances Other visual disturbances Di agnosis 01/06/2020 02:12:00 PM EDT [facility] F1290 Cannabis use, unspecified, uncomplicated Cannabis use, unspecified, uncomplicated Diagnosis 08/25/2019 12:05:00 PM EDT [facility] G4737 Central sleep apnea in conditions classi fied elsewhere Central sleep apnea in conditions classified elsewhere Diagnosis 03/26/2019 07:56:00 AM E [facility] K219 Gastro-esophageal reflux disease without esophagitis Gastro-esophageal reflux disease without esophagitis Diagnosis 03/26/2019 07:56:00 AM [facility] [id number] Encounter for other preprocedural examin ation Encounter for other preprocedural examination Diagnosis 03/26/2019 07:56:00 AM [facility] Surgeries/Procedures Procedure Description Date Indications Data Source(s) Implantable Loop Recorder System, Review And Report 01/11/2020 12:00:00 AM EDT [facility] ([facility] [place] Brief Emotional/Behav Assessment W/ Scoring Doc Per Standard Inst 01/06/2020 12:00:00 AM EDT [facility] ([facility]) Admin Patient Focused Health Risk Assessment Instrument 01/06/2020 12:00:00 AM EDT [facility] ([facility]) Visual Screening Test Of Visual Acuity, Quantitative, Bilate ral 01/06/2020 12:00:00 AM EDT [facility] ([facility]) Implantable Loop Recorder System, Review And Report 12/10/2019 12:00:00 AM EDT [facility] ([facility] [place]) Implantable Loop Recorder System, Review And Report 11/09/2019 12:00:00 AM EDT [facility] ([facility]) Implantable Loop Recorder System, Review And Report 10/07/2019 12:00:00 AM EDT [facility] ([facility]) Closure Colostomy W/ Resection 04/22/2019 12:00:00 AM EST [facility] ([facility], ) Closure Colostomy W/ Resection 04/22/2019 12:00:00 AM EST [facility] ([facility], ) Electrocardiogram Complete 03/26/2019 12:00:00 AM EST [facility] ([facility]) ECG ROUTINE ECG W/LEAST 12 LDS W/I&R 03/13/2019 12:00: 00 AM EST [facility] ([facility]) Results ID Date Data Source [id number] 04/13/2020 09:27:00 AM EST [facility] [address] [place] [address] PHONE: [phone] FAX: [phone] Name .................. : JAKOB Mcdonald Acct Number.................. : [id number] ROOM. ................. : Number ................... : [id number] Stay type ............. : O/P Discharge Date......... ... : 04/11/20 Admit Date ......... : 04/11/20 Admit Phys .................... : SARAHI RAMSAY Date of ....... : 1980 Family Phys ................... : SILVANA Phone .................. : [phone] Age ................................ : 39 Film# .................. .:[id number] Sex ................................. : M Unsigned transcriptions are preliminary reports and do not represent a medical or legal document CT CERV SPINE W/O JOSUE [id number] COMPLETE:04/11/20 14:25 [facility] 2939 (SPINE PROC REASON: dorsalgia CT CERVICAL SPINE WITHOUT IV CONTRAST, 04/11/20: INDICATION: Neck pain. FINDINGS: Mild disc space narrowing is present at C5-6. No significant disc bulge is identified. No central canal stenosis is identified. Neural foramen appear patent. Soft tissues appear unremarkable. No evidence of an acute fracture or subluxation is identified. IMPRESSION: Degenerative changes, most prominent at C5-6. Diffuse facet joint hypertrophy. No acute findings. While performing the above CT examination, radiation dose reduction was accomplished utilizing automated exposure control, adjusting of the mA and kV based on the patient's body size and/or the use of imperative reconstructive techniques. CT dose 179.6 mGycm. Examination dictated by NAKUL Moses. Examination was reviewed with Pankaj Garvey MD, radiologist at the time of this dictation. Electronically Reviewed and Signed By Pankaj Garvey MD , 04/12/20 09:16, [facility] Transcribe Initials: Pamela LOPEZscribe Date: 04/11/20 14:35, Dictation Date: ADDENDUM: Page 1 of 2 [place] [address] PHONE: [phone] FAX: [phone] Name .................. : JAKOB WOODS Harry Acct Number.................. : [id number] ROOM. ................. : MR Number ................... : [id number] Stay type ............. : O/P Discharge Date......... ... : 04/11/20 Admit Date ......... : 04/11/20 Admit Phys .................... : SARAHI RAMSAY Date of ....... : 1980 Family Phys ................... : SILVANA Phone .................. : [phone] Age ................................ : 39 Film# .................. .:[id number] Sex ................................. : M Unsigned transcriptions are preliminary reports and do not represent a medical or legal document CT CERV SPINE W/O CONTRAS [id number] COMPLETE:04/11/20 14:25 [facility] [place] 2939 (SPINE PROC REASON: dorsalgia The report indicates that there is no significant disc bulge identified at the C5-6 level. However, there is a mild to moderate protrusion at the C4-5 level. This measures approximately 5 mm. No significant central cord stenosis is identified. MRI may helpful for further evaluation. Electronically Reviewed and Signed By Pankaj Garvey MD , 04/13/20 09:27, [facility] Transcribe Initials: SSR, Transcribe Date: 04/12/20 12:48, Dictation Date: Copy for: 710 MED REC Copy for: 710 MED REC Page 2 of 2 Name Value Range Interpretation Code Description Data Alexandrea rce(s) Supporting Document(s) ID Date Data Source [id number] 04/12/2020 09:16:00 AM EST [facility] [address] [place] [address] PHONE: [phone] FAX: [phone] Name .................. : JAKOB Mcdonald Acct Number.................. : [id number] ROOM. ................. : MR Number ................... : [id number] Stay type ............. : O/P Discharge Date......... ... : 04/11/20 Admit Date ......... : 04/11/20 Admit Phys .................... : MCCLAIN HARD Date of ....... : 1980 Family Phys ................... : [place] Phone .................. : [phone] Age ................................ : 39 Film# .................. .:[id number] Sex ................................. : M Unsigned transcriptions are preliminary reports and do not represent a medical or legal document CT THORACIC SP W/O CONTR [id number] COMPLETE:04/11/20 14:25 [facility] [place] 2940 (SPINE PROC REASON: DORSALGIA CT THORACIC SPINE WITHOUT IV CONTRAST, 04/11/20: INDICATION: Back pain. FINDINGS: Mild arthritic changes are identified in the thoracic spine, most predominant at the T8-9 level with minimal anterior osteophyte formation. No significant disc bulge is identified. No evidence of an acute fracture is noted. The visualized lung gonzales are clear. IMPRESSION: Mild osteoarthritic changes. No acute findings. While performing the above CT examination, radiation dose reduction was accomplished utilizing automated exposure control, adjusting of the mA and kV based on the patient's body size and/or the use of imperative reconstructive techniques. CT dose 614.5 mGycm. Examination dictated by NAKUL Moses. Examination was reviewed with Pankaj Garvey MD, radiologist at the time of this dictation. Electronically Reviewed and Signed By Pankaj Garvey MD , 04/12/20 09:16, [facility] Transcribe Initials: SSR, Transcribe Date: 04/11/20 14:38, Dictation Date: Copy for: 710 [facility] REC Page 1 of 1 Name Value Range Interpretation Code Description Data Alexandrea rce(s) Supporting Document(s) ID Date Data Source [id number] 03/25/2020 11:04:00 AM EST [facility] [address] [place] [address] PHONE: [phone] FAX: [phone] Name .................. : JAKOB Mcdonald Acct Number.................. : [id number] ROOM. ................. : MR Number ................... : [id number] Stay type ............. : O/P Discharge Date......... ... : 03/23/20 Admit Date ......... : 03/23/20 Admit Phys .................... : MCCLAIN HARD Date of ....... : 1980 Family Phys ................... : SILVANA Phone .................. : [phone] Age ................................ : 39 Film# .................. .:[id number] Sex ................................. : M Unsigned transcriptions are preliminary reports and do not represent a medical or legal document CT THORAX W/O CONTRAST [id number] COMPLETE:03/23/20 10:02 1557 (REASON FOR CHEST: ABN WT LOSS CT THORAX WITHOUT IV CONTRAST, 03/23/20: INDICATION: Abnormal weight loss. FINDINGS: The exam is performed without IV contrast. There are two small subcentimeter densities located in the minor fissure, images 53 and 54, compatible with small intrapulmonary lymph nodes. Lung gonzales are otherwise clear. Heart and mediastinum are normal. Bony structures are intact. IMPRESSION: Two small nodules in the minor fissure compatible with small benign intrapulmonary lymph nodes. Lung RADS 2. While performing the above CT examination, radiation dose reduction was accomplished utilizing automated exposure control, adjusting of the mA and kV based on the patient's body size and/or the use of imperative reconstructive techniques. CT dose 354.5 mGycm. Electronically Reviewed and Signed By Peggy Jimenez MD , 03/25/20 11:04, [facility] Transcribe Initials: SSR, Transcribe Date: 03/23/20 13:51, Dictation Date: Copy for: [address] [place] [address] REC Page 1 of 1 Name Value Range Interpretation Code Description Data Alexandrea rce(s) Supporting Document(s) ID Date Data Source [id number] 02/15/2020 09:55:00 AM EST [facility] [address] [place] [address] PHONE: [phone] FAX: [phone] Name .................. : JAKOB Mcdonald Acct Number.................. : [id number] ROOM. ................. : MR Number ................... : [id number] Stay type ............. : O/P Discharge Date......... ... : 02/10/20 Admit Date ......... : 02/10/20 Admit Phys .................... : MCCLAIN HARD Date of ....... : 1980 Family Phys ................... : Zeuss Phone .................. : [phone] Age ................................ : 39 Film# .................. .:[id number] Sex ................................. : M Unsigned transcriptions are preliminary reports and do not represent a medical or legal document CT ABD & PELV W/O ORAL W/O IV [id number] COMPLETE:02/10/20 12:13 [place] [address] (REASON FOR ABDOMEN: ABNORMAL WEIGHT LOSS CT OF THE ABDOMEN AND PELVIS WITHOUT CONTRAST ENHANCEMENT: HISTORY: Abnormal weight loss. FINDINGS: The lung bases are clear. The liver is within normal limits. The spleen contains some calcified granulomata within it. The adrenals appear normal. The right kidney demonstrate a small cyst measuring 7 mm in its mid-portion. The left kidney demonstrates an area of calcification measuring 9 m m within it. The kidneys are otherwise normal. Some atherosclerotic changes are noted within the aorta. The pancreas and the gallbladder show no definite abnormalities. The bladder appears normal. The appendix is visualized and found to be normal. The colon demonstrates some diverticulosis scattered throughout the colon most notable in the descending colon. Post surgical changes to the sigmoid colon noted. The bladder is within normal limits. No mesenteric adenopathy noted. One small nonspecific retroperitoneal node identified measuring 8 mm in the left periaortic location. As stated, that is nonspecific. No signs of any ascites. No signs of any osseous lesions noted. IMPRESSION: Area of cortical calcification in the left kidney. One small nonspecific retroperitoneal node which can be seen normally. No signs of any acute pathology otherwise identified. Some diverticulosis of the sigmoid colon noted. While performing the above CT examination, radiation dose reduction was accomplished utilizing automated exposure control, adjusting of the mA and kV based on the patient's body size and/or the use of imperative reconstructive techniques. Page 1 of [address] [place] [address] PHONE: [phone] FAX: [phone] Name .................. : JAKOB Mcdonald Acct Number.................. : [id number] ROOM. ................. : Number ................... : [id number] Stay type ............. : O/P Discharge Date......... ... : 02/10/20 Admit Date ......... : 02/10/20 [facility] ....... : 1980 Family Phys ................... : SILVANA Phone .................. : [phone] Age ................................ : 39 Film# .................. .:[id number] Sex ................................. : M Unsigned transcriptions are preliminary reports and do not represent a medical or legal document CT ABD & PELV W/O ORAL W/O IV [id number] COMPLETE:02/10/20 12:13 [place] [address] (REASON FOR ABDOMEN: ABNORMAL WEIGHT LOSS CT dose: 617 mGycm Electronically Reviewed and Signed By BERLIN SAEED MD , 02/15/20 09:55, [facility] Transcribe Initials: DZ , Transcribe Date: 02/10/20 22:55, Dictation Date: Copy for: [address] [place] [address] REC Page 2 of 2 Name Value Range Interpretation Code Description Data Alexandrea rce(s) Supporting Document(s) ID Date Data Source [id number] 02/15/2020 09:54:00 AM EST [facility] [address] [place] [address] PHONE: [phone] FAX: [phone] Name .................. : JAKOB Mcdonald Acct Number.................. : [id number] ROOM. ................. : Number ................... : [id number] Stay type ............. : O/P Discharge Date......... ... : 02/10/20 Admit Date ......... : 02/10/20 Admit Phys .................... : MCCLAIN HARD Date of ....... : 1980 Family Phys ................... : SILVANA Phone .................. : [phone] Age ................................ : 39 Film# .................. .:[id number] Sex ................................. : M Unsigned transcriptions are preliminary reports and do not represent a medical or legal document CHEST 2 VIEWS [id number] COMPLETE:02/10/20 12:13 [place] 27048 (REASON FOR CHEST: NICOTINE DEPENDENCE CHEST X-RAY: 2-VIEWS IMPRESSION: Nicotine dependence. FINDINGS: Loops recorder identified over the left ventricle. 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 The heart and mediastinum are within normal limits with no signs of any acute disease. IMPRESSION: No acute disease identified. Electronically Reviewed and Signed By BERLIN SAEED MD , 02/15/20 09:54, [facility] Transcribe Initials: NATALIA , Transcribe Date: 02/10/20 22:43, Dictation Date: Copy for: [address] [place] [address] REC Page 1 of 1 Name Value Range Interpretation Code Description Data Alexandrea rce(s) Supporting Document(s) ID Date Data Source [id number] 02/08/2020 12:25:00 PM EST [facility] ([facility]) Name Value Range Interpretation Code Description Data Alexandrea rce(s) Supporting Document(s) CT Abd & Pelv W/O Oral W/O IV Laboratory test result [facility] ([facility]) Chest Xray 2 Views Laboratory test result [facility] ([facility]) ID Date Data Source [id number] 02/08/2020 09:52:00 AM EST [facility] ([facility]) Name Value Range Interpretation Code Description Data Alexandrea rce(s) Supporting Document(s) Amphetamines Screen,Urine Laboratory test result [facility] ([facility]) Barbiturates Screen,Urine Laboratory test result [facility] ([facility]) Benzodiazepines Screen,Urine Laboratory test result [facility] ([facility]) Cannabinoid Screen, Urine Laboratory test result [facility] ([facility]) See Final Results Cocaine (Metab.) Screen,Urine Laboratory test result [facility] ([facility]) Oxycodone/Oxymorphone,Urine Laboratory test result [facility] ([facility]) Test includes Oxycodone and Oxymorphone Opiate Screen, Urine Laboratory test result [facility] ([facility]) Opiate test includes Codeine, Morphine, Hydromorphone, Hydrocodone. Phencyclidine Screen,Urine Laboratory test result [facility] ([facility]) Methadone Screen, Urine Laboratory test result [facility] ([facility]) Propoxyphene Screen,Urine Laboratory test result [facility] ([facility]) Fentanyl, Urine Laboratory test result [facility] ([facility]) Test includes Fentanyl and Norfentanyl This test was developed and its performance characteristics determined by [facility]. It has not been cleared or approved by the Food and Drug Administration. Tramadol Screen, Urine Laboratory test result [facility] ([facility]) Meperidine Screen, Urine Laboratory test result [facility] ([facility]) This test was developed and its performa nce characteristics determined by [facility]. It has not been cleared or approved by the Food and Drug Administration. Creatinine, Urine 210.7 mg/dL 20.0-300.0 [facility] ([facility]) Please Note: Laboratory test result [facility] ([facility]) Drug-test results should be interpreted in the context of clinical information. Patient metabolic variables, specific drug chemistry, and specimen characteristics can affect test outcome. Technical consultation is available if a test result is inconsistent with an expected outcome. ([email or web address] or call toll-free [phone]) Drug brands, if listed herein, are trademarks of their respective owners. Specific [place] 1.017 NA [facility] ([facility]) Cannabinoid Laboratory test result Abnormal (applies to non-numeric results) [facility] ([facility]) pH, Urine 7.2 NA 4.5-8.9 [facility] ([facility]) Carboxy THC (GC/MS) Laboratory test result [facility] ([facility]) ID Date Data Source [id number] 02/08/2020 09:52:00 AM EST [facility] ([facility]) Name Value Range Interpretation Code Description Data Alexandrea rce(s) Supporting Document(s) HIV Screen 4thGeneration wRfx Laboratory test result [facility] ([facility]) ID Date Data Source [id number] 02/08/2020 09:52:00 AM EST [facility] ([facility]) Name Value Range Interpretation Code Description Data Alexandrea rce(s) Supporting Document(s) Fibrosis Score 0.09 NA 0.00-0.21 [facility] ([facility]) Necroinflammat ActivityScore 0.02 NA 0.00-0.17 [facility] ([facility]) Fibrosis Stage Laboratory test result [facility] ([facility]) F0 - No fibrosis Alpha 2-Macroglobulins,Qn 184 mg/dL 110-276 [facility] ([facility]) Necroinflammat ActivityGrade Laboratory test result [facility] ([facility]) Haptoglobin 221 mg/dL 23-355 [facility] ([facility]) Apolipoprotein A-1 125 mg/dL 101-178 [facility] ([facility]) Bilirubin, Total 0.3 mg/dL 0.0-1.2 [facility] ([facility]) GGT 19 IU/L 0-65 [facility] ([facility]) Alt (SGPT) P5P 9 IU/L 0-55 [facility] ([facility]) Laboratory test finding (navigational concept) Laboratory test result [facility] ([facility]) Quantitative results of 6 biochemical te sts are analyzed using a computational algorithm to provide a quantitative surrogate marker (0.0-1.0) for liver fibrosis (METAVIR F0-F4) and for necroinflammatory activity (METAVIR A0-A3). Laboratory test finding (navigational concept) Laboratory test result [facility] ([facility]) <content><0.21 = Stage F0 - No fibrosis< /content>
<content>0.21 - 0.27 = Stage F0 - F1</content>
<content>0.27 - 0.31 = Stage F1 - Portal fibrosis</content>
<content>0.31 - 0.48 = Stage F1 - F2</content>
<content>0.48 - 0.58 = Stage F2 - Bridging fibrosis with few septa</content>
<content>0.58 - 0.72 = Stage F3 - Bridging fibrosis with many septa</content>
<content>0.72 - 0.74 = Stage F3 - F4</content>
<content>>0.74 = Stage F4 - Cirrhosis</content>
<content></content> Laboratory test finding (navigational concept) Laboratory test result [facility] ([facility]) <content><0.17 = Grade A0 - No Activity< /content>
<content>0.17 - 0.29 = Grade A0 - A1</content>
<content>0.29 - 0.36 = Grade A1 - Minimal activity</content>
<content>0.36 - 0.52 = Grade A1 - A2</content>
<content>0.52 - 0.60 = Grade A2 - Moderate activity</content>
<content>0.60 - 0.62 = Grade A2 - A3</content>
<content>>0.62 = Grade A3 - Severe activity</content>
<content></content> Laboratory test finding (navigational concept) Laboratory test result [facility] ([facility]) <content>The negative predictive value o f a Fibrotest score <0.31 (absence of</content>
<content>clinically significant fibrosis) was 85% when compared to liver biopsy</content>
<content>in 1,270 HCV infected patients with a 38% prevalence of significant</content>
<content>liver fibrosis (F2, 3 or 4). The positive predictive value of a Fibro-</content>
<content>test score >0.48 (F2, 3, 4) was 61% in that same patient cohort. HCV</content>
<content>FibroSURE is not recommended in patients with Gilbert Disease, acute</content>
<content>hemolysis (e.g. HCV ribavirin therapy mediated hemolysis) acute hepa-</content>
<content>titis of the liver, extra-hepatic cholestasis, transplant patients,</content>
<content>and/or renal insufficiency patients. Any of these clinical situations</content>
<content>may lead to inaccurate quantitative predictions of fibrosis and</content>
<content>necroinflammatory activity in the liver.</content>
<content></content> Comment: Laboratory test result [facility] ([facility]) ID Date Data Source [id number] 02/08/2020 09:52:00 AM EST [facility] ([facility]) Name Value Range Interpretation Code Description Data Alexandrea rce(s) Supporting Document(s) Hemoglobin A1c/Hemoglobin.total in Blood 5.7 % 4.4-6.1 [facility] ([facility]) {A1] {HB] Prostate specific Ag [Mass/volume] in Serum or Plasma 1.35 ng/mL 0.00 -4.00 [facility] ([facility]) \\BLDo\\PSA INTERPRETATION\\BLDx\\ The PSA assay should not be used alone for a screening test or diagnosis for presence or absence of malignant disease. Predictions of disease recurrence should not be based solely on values obtained from serial patient serum values. The PSA result was determined by "[employer]", on the [employer] CARLITOS 6000. Values obtained with different assay methods or kits cannot be used interchangeably. ID Date Data Source [id number] 02/08/2020 09:52:00 AM EST [facility] ([facility]) Name Value Range Interpretation Code Description Data Alexandrea rce(s) Supporting Document(s) Hemoglobin A1c/Hemoglobin.total in Blood Laboratory test result [facility] ([facility]) ID Date Data Source [id number] 02/09/2020 01:13:00 PM [facility] Name Value Range Interpretation Code Description Data Alexandrea rce(s) Supporting Document(s) Hemoglobin A1c/Hemoglobin.total in Blood 5.7 % 4.4 - 6.1 [facility] {A1]{HB] ID Date Data Source [id number] 02/08/2020 01:55:00 PM [facility] Name Value Range Interpretation Code Description Data Alexandrea rce(s) Supporting Document(s) Prostate specific Ag [Mass/volume] in Serum or Plasma 1.35 ng/mL 0.00 - 4.00 [facility] \\BLDo\\PSA INTERPRETA TION\\BLDx\\ The PSA assay should not be used alone for a screening test or diagnosis for presence or absence of malignant disease. Predictions of disease recurrence should not be based solely on values obtained from serial patient serum values. The PSA result was determined by "[employer]", on the [employer] CARLITOS 6000. Values obtained with different assay methods or kits cannot be used interchangeably. ID Date Data Source [id number] 02/13/2020 12:42:00 PM EST [facility] Name Value Range Interpretation Code Description Data Alexandrea e(s) Supporting Document(s) Amphetamines [Presence] in Urine by Screen method Negative ng/mL Cu myjf=7503 [facility] Barbiturates [Presence] in Urine by Screen method Negative ng/mL Cuto ok=364 [facility] Benzodiazepines [Presence] in Urine by Screen method Negative ng /mL Mvckhi=347 [facility] Cannabinoids [Presence] in Urine by Screen method See Final Results ng/mL Cutoff=20 [facility] Benzoylecgonine [Presence] in Urine by Screen method Negative ng /mL Zudjqp=352 [facility] Opiates [Presence] in Urine by Screen method Negative ng/mL Cutoff=30 0 [facility] Opiate test includes Codeine, Morphine, Hydromorphone, Hydrocodone. Oxycodone+Oxymorphone [Presence] in Urine by Screen method N egative ng/mL Hwaelu=268 [facility] Test includes Oxycodone and Oxymorphone Phencyclidine [Presence] in Urine Negative ng/mL Cutoff=25 [facility] Methadone [Presence] in Urine by Screen method Negative ng/mL Cutoff= 300 [facility] Propoxyphene [Presence] in Urine by Screen method Negative ng/mL Cuto qx=983 [facility] Meperidine [Presence] in Urine Negative ng/mL Ffowlx=726 [facility] This test was developed and its performa nce characteristicsdetermined by [facility]. It has not been cleared or approvedby the Food and Drug Administration. Fentanyl [Mass/volume] in Urine Negative pg/mL Tinyvg=7532 [facility] Test includes Fentanyl and NorfentanylTh is test was developed and its performance characteristicsdetermined by [facility]. It has not been cleared or approvedby the Food and Drug Administration. Tramadol [Presence] in Urine by Screen method Negative ng/mL Cutoff=2 00 [facility] Creatinine [Mass/volume] in Urine 210.7 mg/dL 20.0-300.0 [facility] Specific gravity of Urine 1.017 NA [facility] Laboratory comment [Text] in Report Narrative COMMENT [facility] Drug-test results should be interpreted in the context of clinicalinformation. Patient metabolic variables, specific drug chemistry, andspecimen characteristics can affect test outcome. Technicalconsultation is available if a test result is inconsistent with anexpected outcome. (email- [email or web address])Drug brands, if listed herein, are trademarks of their respectiveowners. pH of Urine 7.2 NA 4.5-8.9 [facility] ital Cannabinoids [Presence] in Urine by Confirmatory method Positive Cu toff=20 A [facility] Tetrahydrocannabinol [Mass/volume] in Urine by Confirmatory method >300 ng/mL Cutoff=10 [facility] ID Date Data Source [id number] 02/11/2020 06:34:00 AM EST [facility] Name Value Range Interpretation Code Description Data Alexandrea rce(s) Supporting Document(s) HIV 1+2 Ab+HIV1 p24 Ag [Presence] in Serum or Plasma b y Immunoassay Non Reactive Non Reactive [facility] ID Date Data Source [id number] 02/11/2020 06:34:00 AM [facility] Name Value Range Interpretation Code Description Data Alexandrea rce(s) Supporting Document(s) Fibrosis score 0.09 NA 0.00-0.21 [facility] ospital Fibrosis stage COMMENT [facility] ospital F0 - No fibrosis Necroinflammatory activity score 0.02 NA 0.00-0.17 [facility] Necroinflammatory activity grade A0-No activity [facility] Odcdi-5-Lwvnrrdsxsqxd [Mass/volume] in Serum or Plasma 184 mg/dL 110 -276 [facility] Haptoglobin [Mass/volume] in Serum or Plasma 221 mg/dL 23-355 [facility] Apolipoprotein A-I [Mass/volume] in Serum or Plasma 125 mg/dL 101-17 8 [facility] Bilirubin.total [Mass/volume] in Serum or Plasma 0.3 mg/dL 0.0-1.2 [facility] Gamma glutamyl transferase [Enzymatic activity/volume] in Serum or Plasma 19 IU/L 0-65 [facility] Alanine aminotransferase [Enzymatic acti vity/volume] in Serum or Plasma by With P-5'-P 9 IU/L 0-55 [facility] Interpretations: COMMENT [facility] Quantitative results of 6 biochemical te sts are analyzed usinga computational algorithm to provide a quantitative surrogatemarker (0.0-1.0) for liver fibrosis (METAVIR F0-F4) and fornecroinflammatory activity (METAVIR A0-A3). Fibrosis Scoring: COMMENT [facility] <0.21 = Stage F0 - No fibrosis0.21 - 0.27 = Stage F0 - F10.27 - 0.31 = Stage F1 - Portal fibrosis0.31 - 0.48 = Stage F1 - F20.48 - 0.58 = Stage F2 - Bridging fibrosis with few septa0.58 - 0.72 = Stage F3 - Bridging fibrosis with many septa0.72 - 0.74 = Stage F3 - F4 >0.74 = Stage F4 - Cirrhosis Necroinflamm ActivityScoring: COMMENT [facility] <0.17 = Grade A0 - No Activity0.17 - 0.29 = Grade A0 - A10.29 - 0.36 = Grade A1 - Minimal activity0.36 - 0.52 = Grade A1 - A20.52 - 0.60 = Grade A2 - Moderate activity0.60 - 0.62 = Grade A2 - A3 >0.62 = Grade A3 - Severe activity Service comment COMMENT [facility] The negative predictive value of a Fibro test score <0.31 (absence ofclinically significant fibrosis) was 85% when compared to liver biopsyin 1,270 HCV infected patients with a 38% prevalence of significantliver fibrosis (F2, 3 or 4). The positive predictive value of a Fibro-test score >0.48 (F2, 3, 4) was 61% in that same patient cohort. HCVFibroSURE is not recommended in patients with Gilbert Disease, acutehemolysis (e.g. HCV ribavirin therapy mediated hemolysis) acute hepa-titis of the liver, extra-hepatic cholestasis, transplant patients,and/or renal insufficiency patients. Any of these clinical situationsmay lead to inaccurate quantitative predictions of fibrosis andnecroinflammatory activity in the liver. Laboratory comment [Text] in Report Narrative WILL FOLLOW [facility] ID Date Data Source [id number] 02/08/2020 08:24:00 AM EST [facility] ([facility]) Name Value Range Interpretation Code Description Data Alexandrea rce(s) Supporting Document(s) Hemoglobin A1c/Hemoglobin.total in Blood 5.7 [facility] ID Date Data Source [id number] 02/02/2020 03:59:00 [place] [address] PHONE: [phone] FAX: [phone] Name .................. : JAKOB Mcdonald Acct Number.................. : [id number] ROOM. ................. : Number ................... : [id number] Stay type ............. : CLINIC Discharge Date......... ... : 02/01/20 Admit Date ......... : 02/01/20 Admit Phys .................... : SARAHI RAMSAY Date of ....... : 1980 Family Phys ................... : SILVANA Phone .................. : [phone] Age ................................ : 39 Film# .................. .:[id number] Sex ................................. : M Unsigned transcriptions are preliminary reports and do not represent a medical or legal document SPINE THORACIC [id number] COMPLETE:02/01/20 15:25 [facility] [place] [address] (SPINE PROC REASON: dorsalgia THORACIC SPINE SERIES: INDICATION: Dorsalgia. FINDINGS: Mild diffuse disc space narrowing is identified with small anterior osteophytes at the thoracic spine. No clear evidence of an acute fracture or dislocation is identified. IMPRESSION: Mild arthritic changes. No acute findings. Examination dictated by NAKUL Moses. Examination was reviewed with Kishan Giron MD, radiologist at the time of this dictation. I agree with the findings and impression. Electronically Reviewed and Signed By Kishan Giron MD , 02/02/20 15:59, DAVON Transcribe Initials: NATALIA , Transcribe Date: 02/01/20 20:58, Dictation Date: Page 1 of 1 Name Value Range Interpretation Code Description Data Alexandrea rce(s) Supporting Document(s) ID Date Data Source [id number] 02/02/2020 03:59:00 [place] [address] PHONE: [phone] FAX: [phone] Name .................. : JAKOB Mcdonald Acct Number.................. : [id number] ROOM. ................. : Number ................... : [id number] Stay type ............. : CLINIC Discharge Date......... ... : 02/01/20 Admit Date ......... : 02/01/20 Admit Phys .................... : SARAHI RAMSAY Date of ....... : 1980 Family Phys ................... : SILVANA Phone .................. : [phone] Age ................................ : 39 Film# .................. .:[id number] Sex ................................. : M Unsigned transcriptions are preliminary reports and do not represent a medical or legal document SPINE CERV COMP-5 OR MORE VIE [id number] COMPLETE:02/01/20 15:25 [facility] [place] [address] (SPINE PROC REASON: dorsalgia C ERVICAL SPINE SERIES: INDICATION: Dorsalgia. FINDINGS: Routine views show no evidence of fracture or dislocation. The vertebral bodies and disc spaces are well maintained. The pedicles and posterior elements are intact. Oblique views show no encroachment on the neural foramen. The paraspinal soft tissues appear normal. IMPRESSION: Negative cervical spine. Examination dictated by NAKUL Moses. Examination was reviewed with Kishan Giron MD, radiologist at the time of this dictation. I agree with the findings and impression. Electronically Reviewed and Signed By Kishan Giron MD , 02/02/20 15:59, DAVON Transcribe Initials: NATALIA , Transcribe Date: 02/01/20 20:57, Dictation Date: Page 1 of 1 Name Value Range Interpretation Code Description Data Alexandrea rce(s) Supporting Document(s) ID Date Data Source [id number] 02/02/2020 03:46:00 PM EST [facility] [address] [place] [address] PHONE: [phone] FAX: [phone] Name .................. : JAKOB Mcdonald Acct Number.................. : [id number] ROOM. ................. : MR Number ................... : [id number] Stay type ............. : CLINIC Discharge Date......... ... : 02/01/20 Admit Date ......... : 02/01/20 Admit Phys .................... : MCCLAIN HARD Date of ....... : 1980 Family Phys ................... : Zeuss Phone .................. : [phone] Age ................................ : 39 Film# .................. .:[id number] Sex ................................. : M Unsigned transcriptions are preliminary reports and do not represent a medical or legal document US ABD LIMITED [id number] COMPLETE:02/01/20 14:59 [facility] [id number] AUTH #: [id number] EXPIRES: 05/01/20 SCHEDULED FOR : 1 04/02/19 @ 2:15PM. LIMITED ABDOMINAL ULTRASOUND: INDICATION: Pain. FINDINGS: Transabdominal imaging of the right upper quadrant was performed. The visualized portion of the pancreas is unremarkable. No aneurysmal dilatation to the aorta. No focal liver lesions. No intrahepatic ductal dilatation. There is a less than 1 cm cyst in the right lobe of the liver. No gallstones. CBD is normal measuring 3 mm. Negative sonographic Hastings's sign. There is a lower pole right renal cyst with peripheral calcification measuring 1.4 cm. No hydronephrosis. No ascites. IMPRESSION: No gallstones. CBD normal. Small liver cyst. Right renal cyst. No hydronephrosis. Electronically Reviewed and Signed By Kishan Giron MD , 02/02/20 15:46, DAVON Transcribe Initials: NATALIA , Transcribe Date: 02/01/20 18:46, Dictation Date: Page 1 of 1 Name Value Range Interpretation Code Description Data Alexandrea rce(s) Supporting Document(s) ID Date Data Source [id number] 02/01/2020 02:11:00 PM EST [facility] ([facility]) Name Value Range Interpretation Code Description Data Alexandrea rce(s) Supporting Document(s) Culture Urine Laboratory test result [facility] ([facility]) {SOURCE: Random Void~NURSE COLLECTED? N Is patient fasting? N ID Date Data Source [id number] 02/01/2020 02:11:00 PM EST [facility] ([facility]) Name Value Range Interpretation Code Description Data Alexandrea rce(s) Supporting Document(s) Urinalysis Laboratory test result [facility] ([facility]) {SOURCE: Random Void~NURSE COLLECTED? N Is patient fasting? N Clarity Laboratory test result [facility] ([facility]) {SOURCE: Random Void~NURSE COLLECTED? N Is patient fasting? N Source Laboratory test result [facility] ([facility]) {SOURCE: Random Void~NURSE COLLECTED? N Is patient fasting? N Color Laboratory test result [facility] ([facility]) {SOURCE: Random Void~NURSE COLLECTED? N Is patient fasting? N Glucose Laboratory test result [facility] ([facility]) {SOURCE: Random Void~NURSE COLLECTED? N Is patient fasting? N Spec [place] 1.015 1.001-1.030 [facility] ([facility]) {SOURCE: Random Void~NURSE COLLECTED? N Is patient fasting? N pH 7 5-9 [facility] ([facility]) {SOURCE: Random Void~NURSE COLLECTED? N Is patient fasting? N Ketone 5 Abnormal (applies to non-numeric res ults) [facility] ([facility]) {SOURCE: Random Void~NURSE COLLECTED? N Is patient fasting? N Bilirubin Laboratory test result [facility] ([facility]) {SOURCE: Random Void~NURSE COLLECTED? N Is patient fasting? N Nitrite Laboratory test result [facility] ([facility]) {SOURCE: Random Void~NURSE COLLECTED? N Is patient fasting? N Protein Laboratory test result [facility] ([facility]) {SOURCE: Random Void~NURSE COLLECTED? N Is patient fasting? N Blood Laboratory test result [facility] ([facility]) {SOURCE: Random Void~NURSE COLLECTED? N Is patient fasting? N Urobilinogen 4 [facility] ([facility]) {SOURCE: Random Void~NURSE COLLECTED? N Is patient fasting? N Microscopic Laboratory test result [facility] ([facility]) {SOURCE: Random Void~NURSE COLLECTED? N Is patient fasting? N Leuk Est 25 [facility] ([facility]) {SOURCE: Random Void~NURSE COLLECTED? N Is patient fasting? N RBC Laboratory test result [facility] ([facility]) {SOURCE: Random Void~NURSE COLLECTED? N Is patient fasting? N Bacteria Laboratory test result Abnormal (applies to non -numeric results) [facility] ([facility]) {SOURCE: Random Void~NURSE COLLECTED? N Is patient fasting? N WBC Laboratory test result [facility] ([facility]) {SOURCE: Random Void~NURSE COLLECTED? N Is patient fasting? N Amorph Sed Laboratory test result [facility] ([facility]) {SOURCE: Random Void~NURSE COLLECTED? N Is patient fasting? N ID Date Data Source [id number] 02/01/2020 02:11:00 PM EST [facility] ([facility]) Name Value Range Interpretation Code Description Data Alexandrea rce(s) Supporting Document(s) Helicobacter pylori [Presence] in Stomach by urea torin th test Laboratory test result [facility] ([facility]) {SOURCE: Random Void~NURSE COLLECTED? N Is patient fasting? N ID Date Data Source [id number] 02/01/2020 02:11:00 PM EST [facility] ([facility]) Name Value Range Interpretation Code Description Data Alexandrea rce(s) Supporting Document(s) Comprehensive Metabo Laboratory test result [facility] ([facility]) {SOURCE: Random Void~NURSE COLLECTED? N Is patient fasting? N Potassium 3.9 meq/L 3.6-5.0 [facility] ([facility]) {SOURCE: Random Void~NURSE COLLECTED? N Is patient fasting? N Sodium 142 meq/L 134-153 [facility] ([facility]) {SOURCE: Random Void~NURSE COLLECTED? N Is patient fasting? N Co2 30 meq/L 22-30 [facility] ([facility]) {SOURCE: Random Void~NURSE COLLECTED? N Is patient fasting? N Glucose 97 mg/dL 65-110 [facility] ([facility]) {SOURCE: Random Void~NURSE COLLECTED? N Is patient fasting? N Chloride 103 meq/L 98-107 [facility] ([facility]) {SOURCE: Random Void~NURSE COLLECTED? N Is patient fasting? N BUN 6 mg/dL 7-21 Below low normal [facility] ([facility]) {SOURCE: Random Void~NURSE COLLECTED? N Is patient fasting? N Creatinine 0.4 mg/dL 0.7-1.5 Below low normal [facility] ( [facility]) {SOURCE: Random Void~NURSE COLLECTED? N Is patient fasting? N BUN/Creat 15 8-27 [facility] ([facility]) {SOURCE: Random Void~NURSE COLLECTED? N Is patient fasting? N Total Protein 6.4 g/dL 6.3-8.2 [facility] ([facility]) {SOURCE: Random Void~NURSE COLLECTED? N Is patient fasting? N Globulin 1.8 GM/DL 2.4-3.2 Below low normal [facility] ( [facility]) {SOURCE: Random Void~NURSE COLLECTED? N Is patient fasting? N Albumin 4.6 g/dL 3.9-5.0 [facility] ([facility]) {SOURCE: Random Void~NURSE COLLECTED? N Is patient fasting? N A/G Ratio 2.6 0.8-2.0 Above high normal [facility] ([facility]) {SOURCE: Random Void~NURSE COLLECTED? N Is patient fasting? N Calcium 9.3 mg/dL 8.4-10.2 [facility] ([facility]) {SOURCE: Random Void~NURSE COLLECTED? N Is patient fasting? N Total Bili 0.8 mg/dL 0.2-1.3 [facility] ([facility]) {SOURCE: Random Void~NURSE COLLECTED? N Is patient fasting? N Sgot/Ast 12 U/L 5-40 [facility] ([facility]) {SOURCE: Random Void~NURSE COLLECTED? N Is patient fasting? N Alkaline Phos 79 U/L 38-126 [facility] ([facility]) {SOURCE: Random Void~NURSE COLLECTED? N Is patient fasting? N Anion Gap 9.0 mmol/L 8.0-16.0 [facility] ([facility]) {SOURCE: Random Void~NURSE COLLECTED? N Is patient fasting? N SGPT/Alt 8 U/L 7-56 [facility] ([facility]) {SOURCE: Random Void~NURSE COLLECTED? N Is patient fasting? N Age 39 yrs [facility] ([facility]) {SOURCE: Random Void~NURSE COLLECTED? N Is patient fasting? N Afr Amer GFR Laboratory test result [facility] ([facility]) {SOURCE: Random Void~NURSE COLLECTED? N Is patient fasting? N Non-Aa GFR Laboratory test result [facility] ([facility]) {SOURCE: Random Void~NURSE COLLECTED? N Is patient fasting? N ID Date Data Source [id number] 02/01/2020 02:11:00 PM EST [facility] ([facility]) Name Value Range Interpretation Code Description Data Alexandrea rce(s) Supporting Document(s) CBC W/Automated Diff Laboratory test result [facility] ([facility]) {SOURCE: Random Void~NURSE COLLECTED? N Is patient fasting? N RBC 5.30 10^6/uL 4.50-6.30 [facility] ([facility]) {SOURCE: Random Void~NURSE COLLECTED? N Is patient fasting? N WBC 9.8 10^3/uL 4.2-11.0 [facility] ([facility]) {SOURCE: Random Void~NURSE COLLECTED? N Is patient fasting? N Hemoglobin 16.5 g/dL 14.0-16.0 Above high normal [facility] ([facility]) {SOURCE: Random Void~NURSE COLLECTED? N Is patient fasting? N Hematocrit 48.3 % 41.0-51.0 [facility] ([facility]) {SOURCE: Random Void~NURSE COLLECTED? N Is patient fasting? N MCHC 34.2 g/dL 31.0-36.0 [facility] ([facility]) {SOURCE: Random Void~NURSE COLLECTED? N Is patient fasting? N MCV 91.1 fL 80.0-94.0 [facility] ([facility]) {SOURCE: Random Void~NURSE COLLECTED? N Is patient fasting? N MCH 31.1 pg 27.0-34.0 [facility] ([facility]) {SOURCE: Random Void~NURSE COLLECTED? N Is patient fasting? N RDW 13.3 % 11.5-14.8 [facility] ([facility]) {SOURCE: Random Void~NURSE COLLECTED? N Is patient fasting? N MPV 10.6 fL 7.4-10.4 Above high normal [facility] ([facility]) {SOURCE: Random Void~NURSE COLLECTED? N Is patient fasting? N Platelets 204 10^3/uL 150-450 [facility] ([facility]) {SOURCE: Random Void~NURSE COLLECTED? N Is patient fasting? N Neut 73.2 % 37.0-80.0 [facility] ([facility]) {SOURCE: Random Void~NURSE COLLECTED? N Is patient fasting? N Tate 5.3 % 3.0-8.0 [facility] ([facility]) {SOURCE: Random Void~NURSE COLLECTED? N Is patient fasting? N Lymph 19.1 % 25.0-40.0 Below low normal [facility] ( [facility]) {SOURCE: Random Void~NURSE COLLECTED? N Is patient fasting? N Eos 1.2 % 0.0-7.0 [facility] ([facility]) {SOURCE: Random Void~NURSE COLLECTED? N Is patient fasting? N Baso 0.9 % 0.0-2.0 [facility] ([facility]) {SOURCE: Random Void~NURSE COLLECTED? N Is patient fasting? N #Neut 7.18 10^3/uL 2.00-6.90 Above high normal [facility] ([facility]) {SOURCE: Random Void~NURSE COLLECTED? N Is patient fasting? N %NRBC 0.0 % 0.0-0.0 [facility] ([facility]) {SOURCE: Random Void~NURSE COLLECTED? N Is patient fasting? N %Ig 0.3 % 0.0-0.0 Above high normal [facility] ([facility]) {SOURCE: Random Void~NURSE COLLECTED? N Is patient fasting? N #Lymph 1.87 10^3/uL 0.60-3.40 [facility] ([facility]) {SOURCE: Random Void~NURSE COLLECTED? N Is patient fasting? N #Eos 0.12 10^3/uL 0.00-0.70 [facility] ([facility]) {SOURCE: Random Void~NURSE COLLECTED? N Is patient fasting? N #Tate 0.52 10^3/uL 0.00-0.90 [facility] ([facility]) {SOURCE: Random Void~NURSE COLLECTED? N Is patient fasting? N #Baso 0.09 10^3/uL 0.00-0.20 [facility] ([facility]) {SOURCE: Random Void~NURSE COLLECTED? N Is patient fasting? N #Ig 0.03 10^3/uL 0.00-0.10 [facility] ([facility]) {SOURCE: Random Void~NURSE COLLECTED? N Is patient fasting? N Manual Diff Laboratory test result [facility] ([facility]) {SOURCE: Random Void~NURSE COLLECTED? N Is patient fasting? N #NRBC 0.00 10^3/uL 0.00-0.00 [facility] ([facility]) {SOURCE: Random Void~NURSE COLLECTED? N Is patient fasting? N RBC Morph Laboratory test result [facility] ([facility]) {SOURCE: Random Void~NURSE COLLECTED? N Is patient fasting? N ID Date Data Source [id number] 02/05/2020 02:35:00 PM EST [facility] Name Value Range Interpretation Code Description Data Alexandrea rce(s) Supporting Document(s) CULTURE URINE [facility] _CULTURE URINE_$$[id number]$$[id number]$$[id number]$$[id number]$$[id number]$$[id number]$$[id number]$$[id number]$$[id number]$$ 184493$$[id number]$$987863$$159168$$957683$$187896$$934850$$380036$$475295$$833196$$ 806496$$264484$$060415$$645255$$600145$$194438$$[id number]$$[id number] -- Continued on next page --Patient: JAKOB Mcdonald Order: Page 2Culture: CULTURE URINE Status: Final ==== -- Continued on next page --Patient: JAKOB Mcdonald Order: Page 2Culture: CULTURE URINE Status: Prelim =====$$[id number]$$[id number] DATE/TIME: 02/05/2020 14:07Culture: CULTURE URINE Status: FinalUrine Culture,Comprehensive: P1No growth in 36 - 48 hours. Previous result entered on 02/04/2020 01:58 ET Specimen has been received and testing has been initiated.P1 Test performed by: [facility] Saad LAURA #: [id number] [address] [place] [id number] [facility] [address]Sehplyv Director : Dedrick Purdy MD NPI #:Bill Sorter : 02/04/[email or web address] REF 02/05/[email or web address] REF ID Date Data Source [id number] 02/04/2020 07:04:00 AM [facility] Name Value Range Interpretation Code Description Data Alexandrea rce(s) Supporting Document(s) Helicobacter pylori [Presence] in Stomach by urea breath test Ne gative Negative [facility] ID Date Data Source [id number] 02/01/2020 03:05:00 PM [facility] Name Value Range Interpretation Code Description Data Alexandrea rce(s) Supporting Document(s) COMPREHENSIVE METABOLIC PANEL [facility] [facility] COMPREHENSIVE METABOLIC PANEL Sodium [Moles/volume] in Serum or Plasma 142 mEq/L 134 - 153 [facility] Potassium [Moles/volume] in Serum or Plasma 3.9 mEq/L 3.6 - 5.0 [facility] Chloride [Moles/volume] in Serum or Plasma 103 mEq/L 98 - 107 [facility] Carbon dioxide, total [Moles/volume] in Serum or Plasma 30 MEQ/L 22 - 30 [facility] Glucose [Mass/volume] in Serum or Plasma 97 MG/DL 65 - 110 [facility] BUN 6 MG/DL 7 - [address] [facility] Creatinine [Mass/volume] in Serum or Plasma 0.4 MG/DL 0.7 - 1.5 L [facility] BUN/CREAT 15 8 - 27 [facility] Protein [Mass/volume] in Serum or Plasma 6.4 G/DL 6.3 - 8.2 [facility] Albumin [Mass/volume] in Serum or Plasma 4.6 G/DL 3.9 - 5.0 [facility] Globulin [Mass/volume] in Serum by calculation 1.8 GM/DL 2.4 - 3.2 L [facility] A/G RATIO 2.6 0.8 - 2.0 [facility] Calcium [Mass/volume] in Serum or Plasma 9.3 MG/DL 8.4 - 10.2 [facility] Bilirubin.total [Mass/volume] in Serum or Plasma 0.8 MG/DL 0.2 - 1.3 [facility] Alkaline phosphatase [Enzymatic activity/volume] in Serum or Plasma 79 U/L 38 - 126 [facility] Aspartate aminotransferase [Enzymatic activity/volume] in Serum or Plasma 12 U/L 5 - 40 [facility] Alanine aminotransferase [Enzymatic activity/volume] in Seru m or Plasma 8 U/L 7 - 56 [facility] Anion gap 3 in Serum or Plasma 9.0 mmol/L 8.0 - 16.0 [facility] AGE [address] [facility] NON-[facility] GFR >60 mL/min [facility] AFR AMER GFR >60 mL/min [facility] Male GFR In terprentation 20-49 yrs >60 mL/min Normal 50-59 yrs >56 mL/min Normal 60-69 yrs >49 mL/min Normal 70-79yrs >42 mL/min Normal 80 and above >35 mL/min Normal Female GFR Interpretation 20-39 yrs >60 mL/min Normal 40-49 yrs >58 mL/min Normal 50-59 yrs >51 mL/min Normal 60-69 yrs >45 mL/min Normal 70-79 yrs >39 mL/min Normal 80 and above >32 mL/min Normal ID Date Data Source [id number] 02/01/2020 02:38:00 PM EST [facility] Name Value Range Interpretation Code Description Data Alexandrea rce(s) Supporting Document(s) URINALYSIS [facility] URINALYSIS SOURCE R [facility] COLOR Yellow NORMAL: Yellow [facility] CLARITY Hazy NORMAL: Clear [facility] Specific gravity of Urine by Test strip 1.015 1.001 - 1.030 [facility] pH 7 5 - 9 [facility] Glucose [Mass/volume] in Urine by Test strip NORM NORMAL: Negat [facility] Bilirubin.total [Presence] in Urine by Test strip NEG NORMAL: Negative [facility] Ketones [Presence] in Urine by Test strip 5 NORMAL: Negative A [facility] Protein [Mass/volume] in Urine by Test strip NEG NORMAL: Negat [facility] Nitrite [Presence] in Urine by Test strip NEG NORMAL: Negative [facility] BLOOD NEG NORMAL: Negative [facility] Leukocyte esterase [Presence] in Urine by Test strip 25 SARAH L: Negative [facility] Urobilinogen [Mass/volume] in Urine by Test strip 4 less ginette n 1.0 mg/dL [facility] MICROSCOPIC See Below [facility] WBC 1 - 3 NORMAL: NONE SEEN [facility] Erythrocytes [#/volume] in Urine by Test strip 1 - 3 NORMAL: NON E SEEN [facility] Bacteria [Presence] in Urine sediment by Light microscopy 2+ MOD NORMAL: NONE SEEN A [facility] Amorphous sediment [Presence] in Urine sediment by Light william roscopy 3+ NORMAL: NONE SEEN [facility] ID Date Data Source [id number] 02/01/2020 02:32:00 PM EST [facility] Name Value Range Interpretation Code Description Data Alexandrea rce(s) Supporting Document(s) CBC W/AUTOMATED DIFF [facility] COMPLETE BLOOD COUNT Leukocytes [#/volume] in Blood by Automated count 9.8 10^3/uL 4.2 - 1 1.0 [facility] Erythrocytes [#/volume] in Blood by Automated count 5.30 10^6/uL 4. 50 - 6.30 [facility] Hemoglobin [Mass/volume] in Blood 16.5 g/dL 14.0 - 16.0 H [facility] Hematocrit [Volume Fraction] of Blood by Automated count 48.3 % 4 1.0 - 51.0 [facility] Erythrocyte mean corpuscular volume [Entitic volume] by Auto mated count 91.1 fL 80.0 - 94.0 [facility] Erythrocyte mean corpuscular hemoglobin [Entitic mass] by Automated count 31.1 pg 27.0 - 34.0 [facility] Erythrocyte mean corpuscular hemoglobin concentration [Mass/volume] by Automated count 34.2 g/dL 31.0 - 36.0 [facility] Erythrocyte distribution width [Ratio] by Automated count 13.3 % 11.5 - 14.8 [facility] Platelets [#/volume] in Blood by Automated count 204 10^3/uL 150 - 45 0 [facility] Platelet mean volume [Entitic volume] in Blood by Automated count 10.6 fL 7.4 - 10.4 H [facility] Neutrophils/100 leukocytes in Blood by Automated count 73.2 % 37. 0 - 80.0 [facility] Lymphocytes/100 leukocytes in Blood by Manual count 19.1 % 25.0 - 40.0 L [facility] Monocytes/100 leukocytes in Blood by Automated count 5.3 % 3.0 - 8.0 [facility] Eosinophils/100 leukocytes in Blood by Automated count 1.2 % 0.0 - 7.0 [facility] Basophils/100 leukocytes in Blood by Automated count 0.9 % 0.0 - 2.0 [facility] %IG 0.3 % 0.0 - 0.0 H [facility] %NRBC 0.0 % 0.0 - 0.0 [facility] Neutrophils [#/volume] in Blood by Automated count 7.18 10^3/uL 2.00 - 6.90 H [facility] Lymphocytes [#/volume] in Blood by Automated count 1.87 10^3/uL 0.60 - 3.40 [facility] Monocytes [#/volume] in Blood by Automated count 0.52 10^3/uL 0.00 - 0.90 [facility] Eosinophils [#/volume] in Blood by Automated count 0.12 10^3/uL 0.00 - 0.70 [facility] Basophils [#/volume] in Blood by Automated count 0.09 10^3/uL 0.00 - 0.20 [facility] #IG 0.03 10^3/uL 0.00 - 0.10 [facility] #NRBC 0.00 10^3/uL 0.00 - 0.00 [facility] MANUAL DIFF NOT INDICATED [facility] RBC MORPH NOT INDICATED [facility] ID Date Data Source [id number] 02/01/2020 09:14:00 AM EST [facility] ([facility]) Name Value Range Interpretation Code Description Data Alexandrea rce(s) Supporting Document(s) US Abd Limited Laboratory test result [facility] ([facility]) ID Date Data Source [id number] 02/01/2020 09:10:00 AM EST [facility] ([facility]) Name Value Range Interpretation Code Description Data Alexandrea rce(s) Supporting Document(s) Spine Cerv Comp-5 Or More View Laboratory test result [facility] ([facility]) Spine Thoracic Laboratory test result [facility] ([facility]) ID Date Data Source [id number] 02/01/2020 08:24:00 AM EST [facility] ([facility] Name Value Range Interpretation Code Description Data Alexandrea rce(s) Supporting Document(s) Albumin [Mass/volume] in Serum or Plasma 4.6 [facility] ([facility]) Alanine aminotransferase [Enzymatic activity/volume] in Serum or Pl asma 8 [facility] ([facility]) Chloride [Moles/volume] in Serum or Plasma 103 [facility] ([facility]) Calcium [Mass/volume] in Serum or Plasma 9.3 [facility] ([facility]) Carbon dioxide, total [Moles/volume] in Serum or Plasma 30 [facility] ([facility]) Potassium [Moles/volume] in Serum or Plasma 3.9 [facility] ([facility]) Alkaline phosphatase [Enzymatic activity/volume] in Serum or Plasma 7 9 [facility] ([facility]) Protein [Mass/volume] in Serum or Plasma 6.4 [facility] ([facility]) Urea nitrogen [Mass/volume] in Serum or Plasma 6 [facility] ([facility]) Sodium 142 [facility] Aspartate aminotransferase [Enzymatic activity/volume] in Serum or Plasma 12 [facility] ([facility]) Glucose 97 65-110 [facility] Creatinine For GFR 0.4 [facility] ([facility] ID Date Data Source [id number] 02/01/2020 08:24:00 AM EST [facility] ([facility] Name Value Range Interpretation Code Description Data Alexandrea rce(s) Supporting Document(s) Red Blood Count 5.30 4.50-6.30 [facility] ([facility] White Blood Count 9.8 4.2-11.0 [facility] ([facility]) Platelets 204 150-450 [facility] Hematocrit 48.3 41.0-51.0 [facility] ([facility]) Hemoglobin 16.5 14.0-16.0 [facility] ([facility]) ID Date Data Source [id number] 01/06/2020 03:55:00 PM EDT [facility] ([facility]) Name Value Range Interpretation Code Description Data Alexandrea rce(s) Supporting Document(s) Inhouse Visual Acuity Laboratory test result [facility] ([facility]) ID Date Data Source [id number] 04/13/2019 11:43:00 AM EST [facility] ([facility]) Name Value Range Interpretation Code Description Data Alexandrea rce(s) Supporting Document(s) Laboratory test finding (navigational concept) Laboratory test result [facility] ([facility]) {DIAGNOSIS: F32.9~{MEDICATIONS PRESCRIB ED/DECLARED: OXYCODONE, CYMBALTA~{PRESCRIPTION INFO:~{NC PDF Laboratory test result [facility] ([facility]) {DIAGNOSIS: F32.9~{MEDICATIONS PRESCRIB ED/DECLARED: OXYCODONE, CYMBALTA~{PRESCRIPTION INFO:~{NC ID Date Data Source [id number] 04/18/2019 08:13:00 AM [facility] Name Value Range Interpretation Code Description Data Alexandrea rce(s) Supporting Document(s) Drugs identified in Urine FINAL [facility] TOXASSURE SELECT 13 (MW) Test Result Flag UnitsDrug Present not Declared for Prescription Verification Carboxy-THC >345 UNEXPECTED ng/mg creat Carboxy-THC is a metabolite of tetrahydrocannabinol ( THC). Source of THC is most commonly illicit, but THC is also present in a scheduled prescription medication.Drug Absent but Declared for Prescription Verification Oxycodone Not Detected UNEXPECTED ng/mg creat Test Result Flag Units Ref Range Creatinine 290 mg/dL > =20 Declared Medications: The flagging and interpretation on this report are based on the following declared medications. Unexpected results may arise from inaccuracies in the declared medications. Note: The testing scope of this panel includes these medications: Oxycodone Note: The testing scope of this panel does not include following reported medications: Duloxetine (Cymbalta) Fo r clinical consultation, please call . Report . [facility] ID Date Data Source [id number] 03/27/2019 09:15:00 AM EST [facility] ([facility]) Name Value Range Interpretation Code Description Data Alexandrea rce(s) Supporting Document(s) CT Thorax W/Contrast Laboratory test result [facility] ([facility]) CT Abdomen And Pelvis W/Contrast Laboratory test result [facility] ([facility]) ID Date Data Source [id number] 03/26/2019 08:19:00 AM EST [facility] ([facility]) Name Value Range Interpretation Code Description Data Alexandrea rce(s) Supporting Document(s) Inhouse EKG Laboratory test result [facility] ([facility]) ID Date Data Source [id number] 03/26/2019 08:18:00 AM EST [facility] ([facility]) Name Value Range Interpretation Code Description Data Alexandrea rce(s) Supporting Document(s) Barbiturates Screen,Urine Laboratory test result [facility] ([facility]) {SOURCE: Random Void~NURSE COLLECTED? N Is patient fasting? N Amphetamines Screen,Urine Laboratory test result [facility] ([facility]) {SOURCE: Random Void~NURSE COLLECTED? N Is patient fasting? N Benzodiazepines Screen,Urine Laboratory test result [facility] ([facility]) {SOURCE: Random Void~NURSE COLLECTED? N Is patient fasting? N Cannabinoid Screen, Urine Laboratory test result [facility] ([facility]) {SOURCE: Random Void~NURSE COLLECTED? N Is patient fasting? N Cocaine (Metab.) Screen,Urine Laboratory test result [facility] ([facility]) {SOURCE: Random Void~NURSE COLLECTED? N Is patient fasting? N Opiate Screen, Urine Laboratory test result [facility] ([facility]) {SOURCE: Random Void~NURSE COLLECTED? N Is patient fasting? N Oxycodone/Oxymorphone,Urine Laboratory test result [facility] ([facility]) {SOURCE: Random Void~NURSE COLLECTED? N Is patient fasting? N Methadone Screen, Urine Laboratory test result [facility] ([facility]) {SOURCE: Random Void~NURSE COLLECTED? N Is patient fasting? N Phencyclidine Screen,Urine Laboratory test result [facility] ([facility]) {SOURCE: Random Void~NURSE COLLECTED? N Is patient fasting? N Meperidine Screen, Urine Laboratory test result [facility] ([facility]) {SOURCE: Random Void~NURSE COLLECTED? N Is patient fasting? N Propoxyphene Screen,Urine Laboratory test result [facility] ([facility]) {SOURCE: Random Void~NURSE COLLECTED? N Is patient fasting? N Fentanyl, Urine Laboratory test result [facility] ([facility]) {SOURCE: Random Void~NURSE COLLECTED? N Is patient fasting? N Tramadol Screen, Urine Laboratory test result [facility] {SOURCE: Random Void~NURSE COLLECTED? N Is patient fasting? N Creatinine, Urine 347.1 mg/dL 20.0-300.0 Above high normal [facility] ([facility]) {SOURCE: Random Void~NURSE COLLECTED? N Is patient fasting? N Please Note: Laboratory test result [facility] ([facility]) {SOURCE: Random Void~NURSE COLLECTED? N Is patient fasting? N Specific [place] 1.022 NA [facility]) {SOURCE: Random Void~NURSE COLLECTED? N Is patient fasting? N pH, Urine 5.6 NA 4.5-8.9 [facility] ([facility]) {SOURCE: Random Void~NURSE COLLECTED? N Is patient fasting? N Cannabinoid Laboratory test result Abnormal (applies to non-numeric results) [facility] ([facility]) {SOURCE: Random Void~NURSE COLLECTED? N Is patient fasting? N Carboxy THC (GC/MS) Laboratory test result [facility] ([facility]) {SOURCE: Random Void~NURSE COLLECTED? N Is patient fasting? N ID Date Data Source [id number] 03/26/2019 08:18:00 AM EST [facility]) Name Value Range Interpretation Code Description Data Alexandrea rce(s) Supporting Document(s) Thyroxine (T4) free [Mass/volume] in Serum or Plasma 1.24 ng/dL 0.93- 1.70 [facility] ([facility]) {SOURCE: Random Void~NURSE COLLECTED? N Is patient fasting? N Thyrotropin [Units/volume] in Serum or Plasma 0.55 uIU/mL 0.47-5.01 [facility] ([facility]) {SOURCE: Random Void~NURSE COLLECTED? N Is patient fasting? N ID Date Data Source [id number] 03/26/2019 08:18:00 AM EST [facility] ([facility]) Name Value Range Interpretation Code Description Data Alexandrea rce(s) Supporting Document(s) Urinalysis Laboratory test result [facility] ([facility]) {SOURCE: Random Void~NURSE COLLECTED? N Is patient fasting? N Source Laboratory test result [facility] ([facility]) {SOURCE: Random Void~NURSE COLLECTED? N Is patient fasting? N Color Laboratory test result [facility] ([facility]) {SOURCE: Random Void~NURSE COLLECTED? N Is patient fasting? N Clarity Laboratory test result [facility] ([facility]) {SOURCE: Random Void~NURSE COLLECTED? N Is patient fasting? N Spec [place] 1.030 1.001-1.030 [facility] ([facility]) {SOURCE: Random Void~NURSE COLLECTED? N Is patient fasting? N pH 5 5-9 [facility] ([facility]) {SOURCE: Random Void~NURSE COLLECTED? N Is patient fasting? N Bilirubin Laboratory test result [facility] ([facility]) {SOURCE: Random Void~NURSE COLLECTED? N Is patient fasting? N Glucose Laboratory test result [facility] ([facility]) {SOURCE: Random Void~NURSE COLLECTED? N Is patient fasting? N Nitrite Laboratory test result [facility] ([facility]) {SOURCE: Random Void~NURSE COLLECTED? N Is patient fasting? N Protein 15 [facility] ([facility]) {SOURCE: Random Void~NURSE COLLECTED? N Is patient fasting? N Ketone 5 Abnormal (applies to non-numeric res ults) [facility] ([facility]) {SOURCE: Random Void~NURSE COLLECTED? N Is patient fasting? N Blood Laboratory test result [facility] ([facility]) {SOURCE: Random Void~NURSE COLLECTED? N Is patient fasting? N Urobilinogen 1 [facility] ([facility]) {SOURCE: Random Void~NURSE COLLECTED? N Is patient fasting? N Leuk Est 25 [facility] ([facility]) {SOURCE: Random Void~NURSE COLLECTED? N Is patient fasting? N Microscopic Laboratory test result [facility] ([facility]) {SOURCE: Random Void~NURSE COLLECTED? N Is patient fasting? N Amorph Sed Laboratory test result [facility] ([facility]) {SOURCE: Random Void~NURSE COLLECTED? N Is patient fasting? N ID Date Data Source [id number] 03/26/2019 08:18:00 AM EST [facility] ([facility]) Name Value Range Interpretation Code Description Data Alexandrea rce(s) Supporting Document(s) Protime 12.8 s 11.0-15.5 [facility] ([facility]) {SOURCE: Random Void~NURSE COLLECTED? N Is patient fasting? N Inr 0.95 0.93-1.23 [facility] ([facility]) {SOURCE: Random Void~NURSE COLLECTED? N Is patient fasting? N PTT 33.5 s 24.8-36.7 [facility] ([facility]) {SOURCE: Random Void~NURSE COLLECTED? N Is patient fasting? N ID Date Data Source [id number] 03/26/2019 08:18:00 AM EST [facility] ([facility]) Name Value Range Interpretation Code Description Data Alexandrea rce(s) Supporting Document(s) Comprehensive Metabo Laboratory test result [facility] ([facility]) {SOURCE: Random Void~NURSE COLLECTED? N Is patient fasting? N Sodium 143 meq/L 134-153 [facility] ([facility]) {SOURCE: Random Void~NURSE COLLECTED? N Is patient fasting? N Chloride 104 meq/L 98-107 [facility] ([facility]) {SOURCE: Random Void~NURSE COLLECTED? N Is patient fasting? N Potassium 4.4 meq/L 3.6-5.0 [facility] ([facility]) {SOURCE: Random Void~NURSE COLLECTED? N Is patient fasting? N BUN 9 mg/dL 7-21 [facility] ([facility]) {SOURCE: Random Void~NURSE COLLECTED? N Is patient fasting? N Co2 30 meq/L 22-30 [facility] ([facility]) {SOURCE: Random Void~NURSE COLLECTED? N Is patient fasting? N Glucose 97 mg/dL 65-110 [facility] ([facility]) {SOURCE: Random Void~NURSE COLLECTED? N Is patient fasting? N Creatinine 0.9 mg/dL 0.7-1.5 [facility] ([facility]) {SOURCE: Random Void~NURSE COLLECTED? N Is patient fasting? N BUN/Creat 10 8-27 [facility] ([facility]) {SOURCE: Random Void~NURSE COLLECTED? N Is patient fasting? N Total Protein 7.2 g/dL 6.3-8.2 [facility] ([facility]) {SOURCE: Random Void~NURSE COLLECTED? N Is patient fasting? N Albumin 4.8 g/dL 3.9-5.0 [facility] ([facility]) {SOURCE: Random Void~NURSE COLLECTED? N Is patient fasting? N Globulin 2.4 GM/DL 2.4-3.2 [facility] ([facility]) {SOURCE: Random Void~NURSE COLLECTED? N Is patient fasting? N A/G Ratio 2.0 0.8-2.0 [facility] ([facility]) {SOURCE: Random Void~NURSE COLLECTED? N Is patient fasting? N Calcium 10.0 mg/dL 8.4-10.2 [facility] {SOURCE: Random Void~NURSE COLLECTED? N Is patient fasting? N Alkaline Phos 76 U/L 38-126 [facility] ([facility]) {SOURCE: Random Void~NURSE COLLECTED? N Is patient fasting? N Sgot/Ast 13 U/L 5-40 [facility] ([facility]) {SOURCE: Random Void~NURSE COLLECTED? N Is patient fasting? N Total Bili Laboratory test result 0.2-1.3 [facility] ([facility]) {SOURCE: Random Void~NURSE COLLECTED? N Is patient fasting? N SGPT/Alt 8 U/L 7-56 [facility]) {SOURCE: Random Void~NURSE COLLECTED? N Is patient fasting? N Anion Gap 9.0 mmol/L 8.0-16.0 [facility] ([facility]) {SOURCE: Random Void~NURSE COLLECTED? N Is patient fasting? N Age 38 yrs [facility] ([facility]) {SOURCE: Random Void~NURSE COLLECTED? N Is patient fasting? N Afr Amer GFR Laboratory test result [facility] ([facility]) {SOURCE: Random Void~NURSE COLLECTED? N Is patient fasting? N Non-Aa GFR Laboratory test result [facility] ([facility]) {SOURCE: Random Void~NURSE COLLECTED? N Is patient fasting? N ID Date Data Source [id number] 03/26/2019 08:18:00 AM EST [facility] ([facility]) Name Value Range Interpretation Code Description Data Alexandrea rce(s) Supporting Document(s) CBC W/Automated Diff Laboratory test result [facility] ([facility]) {SOURCE: Random Void~NURSE COLLECTED? N Is patient fasting? N RBC 5.64 10^6/uL 4.50-6.30 [facility] ([facility]) {SOURCE: Random Void~NURSE COLLECTED? N Is patient fasting? N WBC 8.9 10^3/uL 4.2-11.0 [facility] ([facility]) {SOURCE: Random Void~NURSE COLLECTED? N Is patient fasting? N Hematocrit 52.3 % 41.0-51.0 Above high normal [facility] ([facility]) {SOURCE: Random Void~NURSE COLLECTED? N Is patient fasting? N Hemoglobin 17.2 g/dL 14.0-16.0 Above high normal [facility] ([facility]) {SOURCE: Random Void~NURSE COLLECTED? N Is patient fasting? N MCH 30.5 pg 27.0-34.0 [facility] ([facility]) {SOURCE: Random Void~NURSE COLLECTED? N Is patient fasting? N MCV 92.7 fL 80.0-94.0 [facility] ([facility]) {SOURCE: Random Void~NURSE COLLECTED? N Is patient fasting? N MCHC 32.9 g/dL 31.0-36.0 [facility] ([facility]) {SOURCE: Random Void~NURSE COLLECTED? N Is patient fasting? N MPV 11.2 fL 7.4-10.4 Above high normal [facility] ([facility]) {SOURCE: Random Void~NURSE COLLECTED? N Is patient fasting? N Platelets 215 10^3/uL 150-450 [facility] ([facility]) {SOURCE: Random Void~NURSE COLLECTED? N Is patient fasting? N RDW 13.6 % 11.5-14.8 [facility] ([facility]) {SOURCE: Random Void~NURSE COLLECTED? N Is patient fasting? N Lymph 18.3 % 25.0-40.0 Below low normal [facility] ( [facility]) {SOURCE: Random Void~NURSE COLLECTED? N Is patient fasting? N Neut 71.9 % 37.0-80.0 [facility] ([facility]) {SOURCE: Random Void~NURSE COLLECTED? N Is patient fasting? N Baso 1.1 % 0.0-2.0 [facility] ([facility]) {SOURCE: Random Void~NURSE COLLECTED? N Is patient fasting? N Eos 1.9 % 0.0-7.0 [facility] ([facility]) {SOURCE: Random Void~NURSE COLLECTED? N Is patient fasting? N Tate 6.3 % 3.0-8.0 [facility] ([facility]) {SOURCE: Random Void~NURSE COLLECTED? N Is patient fasting? N %NRBC 0.0 % 0.0-0.0 [facility] ([facility]) {SOURCE: Random Void~NURSE COLLECTED? N Is patient fasting? N %Ig 0.5 % 0.0-0.0 Above high normal [facility] ([facility]) {SOURCE: Random Void~NURSE COLLECTED? N Is patient fasting? N #Lymph 1.62 10^3/uL 0.60-3.40 [facility] ([facility]) {SOURCE: Random Void~NURSE COLLECTED? N Is patient fasting? N #Tate 0.56 10^3/uL 0.00-0.90 [facility] ([facility]) {SOURCE: Random Void~NURSE COLLECTED? N Is patient fasting? N #Neut 6.36 10^3/uL 2.00-6.90 [facility] ([facility]) {SOURCE: Random Void~NURSE COLLECTED? N Is patient fasting? N #Ig 0.04 10^3/uL 0.00-0.10 [facility] ([facility]) {SOURCE: Random Void~NURSE COLLECTED? N Is patient fasting? N #Eos 0.17 10^3/uL 0.00-0.70 [facility] ([facility]) {SOURCE: Random Void~NURSE COLLECTED? N Is patient fasting? N #Baso 0.10 10^3/uL 0.00-0.20 [facility] Health) {SOURCE: Random Void~NURSE COLLECTED? N Is patient fasting? N #NRBC 0.00 10^3/uL 0.00-0.00 [facility] ([facility]) {SOURCE: Random Void~NURSE COLLECTED? N Is patient fasting? N Manual Diff Laboratory test result [facility] ([facility]) {SOURCE: Random Void~NURSE COLLECTED? N Is patient fasting? N RBC Morph Laboratory test result [facility] ([facility]) {SOURCE: Random Void~NURSE COLLECTED? N Is patient fasting? N ID Date Data Source [id number] 03/26/2019 08:18:00 AM EST [facility] ([facility]) Name Value Range Interpretation Code Description Data Alexandrea rce(s) Supporting Document(s) Lyme IgG/IgM Ab Laboratory test result 0.00-0.90 [facility] ([facility]) {SOURCE: Random Void~NURSE COLLECTED? N Is patient fasting? N Lyme Disease Ab, Quant,IgM Laboratory test result 0.00-0.79 [facility] ([facility]) {SOURCE: Random Void~NURSE COLLECTED? N Is patient fasting? N ID Date Data Source [id number] 03/26/2019 08:18:00 AM EST [facility] ([facility]) Name Value Range Interpretation Code Description Data [facility] rce(s) Supporting Document(s) Fibrosis Stage Laboratory test result [facility] ([facility]) {SOURCE: Random Void~NURSE COLLECTED? N Is patient fasting? N Fibrosis Score 0.08 NA 0.00-0.21 [facility] ([facility]) {SOURCE: Random Void~NURSE COLLECTED? N Is patient fasting? N Alpha 2-Macroglobulins,Qn 175 mg/dL 110-276 [facility] ([facility]) {SOURCE: Random Void~NURSE COLLECTED? N Is patient fasting? N Necroinflammat ActivityGrade Laboratory test result [facility] ([facility]) {SOURCE: Random Void~NURSE COLLECTED? N Is patient fasting? N Necroinflammat ActivityScore 0.01 NA 0.00-0.17 [facility] ([facility]) {SOURCE: Random Void~NURSE COLLECTED? N Is patient fasting? N Haptoglobin 228 mg/dL 17-317 [facility] ([facility]) {SOURCE: Random Void~NURSE COLLECTED? N Is patient fasting? N Apolipoprotein A-1 128 mg/dL 101-178 [facility] ([facility]) {SOURCE: Random Void~NURSE COLLECTED? N Is patient fasting? N GGT 21 IU/L 0-65 [facility] ([facility]) {SOURCE: Random Void~NURSE COLLECTED? N Is patient fasting? N Alt (SGPT) P5P 7 IU/L 0-55 [facility] ([facility]) {SOURCE: Random Void~NURSE COLLECTED? N Is patient fasting? N Bilirubin, Total 0.3 mg/dL 0.0-1.2 [facility] ([facility]) {SOURCE: Random Void~NURSE COLLECTED? N Is patient fasting? N Laboratory test finding (navigational concept) Laboratory test result [facility] ([facility]) {SOURCE: Random Void~NURSE COLLECTED? N Is patient fasting? N Laboratory test finding (navigational concept) Laboratory test result [facility] ([facility]) {SOURCE: Random Void~NURSE COLLECTED? N Is patient fasting? N Laboratory test finding (navigational concept) Laboratory test result [facility] ([facility]) {SOURCE: Random Void~NURSE COLLECTED? N Is patient fasting? N Laboratory test finding (navigational concept) Laboratory test result [facility] ([facility]) {SOURCE: Random Void~NURSE COLLECTED? N Is patient fasting? N Comment: Laboratory test result [facility] ([facility]) {SOURCE: Random Void~NURSE COLLECTED? N Is patient fasting? N ID Date Data Source [id number] 03/26/2019 08:18:00 AM EST [facility] ([facility]) Name Value Range Interpretation Code Description Data Alexandrea rce(s) Supporting Document(s) HIV Screen 4thGeneration wRfx Laboratory test result [facility] ([facility]) {SOURCE: Random Void~NURSE COLLECTED? N Is patient fasting? N ID Date Data Source [id number] 04/02/2019 07:24:00 AM [facility] Name Value Range Interpretation Code Description Data Alexandrea rce(s) Supporting Document(s) Amphetamines [Presence] in Urine by Screen method Negative ng/mL Cu fsih=0849 [facility] Barbiturates [Presence] in Urine by Screen method Negative ng/mL Cuto hp=281 [facility] Benzodiazepines [Presence] in Urine by Screen method Negative ng /mL Jvhrqb=363 [facility] Cannabinoids [Presence] in Urine by Screen method See Final Results ng/mL Cutoff=20 [facility] Benzoylecgonine [Presence] in Urine by Screen method Negative ng /mL Sjbkbb=777 [facility] Opiates [Presence] in Urine by Screen method Negative ng/mL Cutoff=30 0 [facility] Opiate test includes Codeine, Morphine, Hydromorphone, Hydrocodone. Oxycodone+Oxymorphone [Presence] in Urine by Screen method N egative ng/mL Zslrox=874 [facility] Test includes Oxycodone and Oxymorphone Phencyclidine [Presence] in Urine Negative ng/mL Cutoff=25 [facility] Methadone [Presence] in Urine by Screen method Negative ng/mL Cutoff= 300 [facility] Propoxyphene [Presence] in Urine by Screen method Negative ng/mL Cuto dg=351 [facility] Meperidine [Presence] in Urine Negative ng/mL Erqcla=476 [facility] This test was developed and its performa nce characteristicsdetermined by [facility]. It has not been cleared or approvedby the Food and Drug Administration. Fentanyl+Norfentanyl [Presence] in Urine by Screen method Ne gative pg/mL Dmqvzs=6938 [facility] Test includes Fentanyl and NorfentanylTh is test was developed and its performance characteristicsdetermined by [facility]. It has not been cleared or approvedby the Food and Drug Administration. Tramadol [Presence] in Urine by Screen method Negative ng/mL Cutoff=2 00 [facility] Creatinine [Mass/volume] in Urine 347.1 mg/dL 20.0-300.0 H [facility] Specific gravity of Urine 1.022 NA [facility] Laboratory comment [Text] in Report Narrative COMMENT [facility] Drug-test results should be interpreted in the context of clinicalinformation. Patient metabolic variables, specific drug chemistry, andspecimen characteristics can affect test outcome. Technicalconsultation is available if a test result is inconsistent with anexpected outcome. (email- [email or web address] or call [phone])Drug brands, if listed herein, are trademarks of their respectiveowners. pH of Urine 5.6 NA 4.5-8.9 [facility] ital Cannabinoids [Presence] in Urine by Confirmatory method Positive Cu toff=20 A [facility] Tetrahydrocannabinol [Mass/volume] in Urine by Confirmatory method >300 ng/mL Cutoff=10 [facility] ID Date Data Source [id number] 03/31/2019 06:28:00 AM EST [facility] Name Value Range Interpretation Code Description Data Alexandrea rce(s) Supporting Document(s) Fibrosis score 0.08 NA 0.00-0.21 [facility] ospital Fibrosis stage COMMENT [facility] ospital F0 - No fibrosis Necroinflammatory activity score 0.01 NA 0.00-0.17 [facility] Necroinflammatory activity grade A0-No activity [facility] Xnhea-9-Raaepcdgmpltf [Mass/volume] in Serum or Plasma 175 mg/dL 110 -276 [facility] Haptoglobin [Mass/volume] in Serum or Plasma 228 mg/dL 17-317 [facility] Please no te reference interval change Apolipoprotein A-I [Mass/volume] in Serum or Plasma 128 mg/dL 101-17 8 [facility] Bilirubin.total [Mass/volume] in Serum or Plasma 0.3 mg/dL 0.0-1.2 [facility] Gamma glutamyl transferase [Enzymatic activity/volume] in Serum or Plasma 21 IU/L 0-65 [facility] Alanine aminotransferase [Enzymatic acti vity/volume] in Serum or Plasma by With P-5'-P 7 IU/L 0-55 [facility] Interpretations: COMMENT [facility] Quantitative results of 6 biochemical te sts are analyzed usinga computational algorithm to provide a quantitative surrogatemarker (0.0-1.0) for liver fibrosis (METAVIR F0-F4) and fornecroinflammatory activity (METAVIR A0-A3). Fibrosis Scoring: COMMENT [facility] <0.21 = Stage F0 - No fibrosis0.21 - 0.27 = Stage F0 - F10.27 - 0.31 = Stage F1 - Portal fibrosis0.31 - 0.48 = Stage F1 - F20.48 - 0.58 = Stage F2 - Bridging fibrosis with few septa0.58 - 0.72 = Stage F3 - Bridging fibrosis with many septa0.72 - 0.74 = Stage F3 - F4 >0.74 = Stage F4 - Cirrhosis Necroinflamm ActivityScoring: COMMENT [facility] <0.17 = Grade A0 - No Activity0.17 - 0.29 = Grade A0 - A10.29 - 0.36 = Grade A1 - Minimal activity0.36 - 0.52 = Grade A1 - A20.52 - 0.60 = Grade A2 - Moderate activity0.60 - 0.62 = Grade A2 - A3 >0.62 = Grade A3 - Severe activity Service comment COMMENT [facility] The negative predictive value of a Fibro test score <0.31 (absence ofclinically significant fibrosis) was 85% when compared to liver biopsyin 1,270 HCV infected patients with a 38% prevalence of significantliver fibrosis (F2, 3 or 4). The positive predictive value of a Fibro-test score >0.48 (F2, 3, 4) was 61% in that same patient cohort. HCVFibroSURE is not recommended in patients with Gilbert Disease, acutehemolysis (e.g. HCV ribavirin therapy mediated hemolysis) acute hepa-titis of the liver, extra-hepatic cholestasis, transplant patients,and/or renal insufficiency patients. Any of these clinical situationsmay lead to inaccurate quantitative predictions of fibrosis andnecroinflammatory activity in the liver. Laboratory comment [Text] in Report Narrative WILL FOLLOW [facility] ID Date Data Source [id number] 03/29/2019 07:51:00 AM [facility] Name Value Range Interpretation Code Description Data Alexandrea rce(s) Supporting Document(s) Borrelia burgdorferi IgG+IgM Ab [Units/volume] in Serum <0.91 ISR 0. 00-0.90 [facility] Negative <0.91 Equivocal 0.91 - 1.09 Positive >1.09 Borrelia burgdorferi IgM Ab [Units/volume] in Serum by Immun oassay <0.80 index 0.00-0.79 [facility] Negative <0.80 Equivocal 0.80 - 1.19 Positive >1.19 IgM levels may peak at 3-6 weeks post infection, then gradually decline. ID Date Data Source [id number] 03/28/2019 06:11:00 PM [facility] Value Range Interpretation Code Description Data Alexandrea rce(s) Supporting Document(s) HIV 1+2 Ab+HIV1 p24 Ag [Presence] in Serum or Plasma b y Immunoassay Non Reactive Non Reactive [facility] ID Date Data Source [id number] 03/26/2019 01:11:00 PM [facility] Value Range Interpretation Code Description Data Alexandrea rce(s) Supporting Document(s) Prothrombin time (PT) 12.8 SECONDS 11.0 - 15.5 [facility] INR in Platelet poor plasma by Coagulation assay 0.95 0.93 - 1. 23 [facility] aPTT in Blood by Coagulation assay 33.5 SECONDS 24.8 - 36.7 [facility] \\BLDo\\INR INTERPRETATION\\BLDx\\ Therapeutic range for Coumadin and related oral anticoagulants. - International Normalized Ratio (INR): 2.0 - 3.0 for Venous Thrombosis, Pulmonary Embolus, Tissue heart valves, Acute NE Atrial Fibrillation, Valvular heart disease and recurrent Systemic Embolism. - International Normalized Ratio (INR): 2.5 - 3.5 for Mechanical Prosthetic valve. \\BLDo\\PTT INTERPRETATION\\BLDx\\ Critical results for patients not on therapy: >50 seconds Critical results for patients on therapy: >119 seconds Therapeutic range for patients on therapy: 58 - 90 seconds Coag caleb dies from line draws may not be accurate due to Heparin and other interferences. ID Date Data Source [id number] 03/26/2019 01:10:00 PM [facility] Value Range Interpretation Code Description Data Alexandrea rce(s) Supporting Document(s) Thyroxine (T4) free index in Serum or Plasma by calculation 1.24 NG/DL 0.93 - 1.70 [facility] ID Date Data Source [id number] 03/26/2019 01:09:00 PM [facility] Value Range Interpretation Code Description Data Alexandrea rce(s) Supporting Document(s) Thyrotropin [Units/volume] in Serum or Plasma by Detec tion limit <= 0.05 mIU/L 0.55 uIU/mL 0.47 - 5.01 [facility] ID Date Data Source [id number] 03/26/2019 01:05:00 PM EST [facility] Name Value Range Interpretation Code Description Data Alexandrea rce(s) Supporting Document(s) COMPREHENSIVE METABOLIC PANEL [facility] COMPREHENSIVE METABOLIC PANEL Sodium [Moles/volume] in Serum or Plasma 143 mEq/L 134 - 153 [facility] Potassium [Moles/volume] in Serum or Plasma 4.4 mEq/L 3.6 - 5.0 [facility] Chloride [Moles/volume] in Serum or Plasma 104 mEq/L 98 - 107 [facility] Carbon dioxide, total [Moles/volume] in Serum or Plasma 30 MEQ/L 22 - 30 [facility] Glucose [Mass/volume] in Serum or Plasma 97 MG/DL 65 - 110 [facility] BUN 9 MG/DL 7 - 21 [facility] al Creatinine [Mass/volume] in Serum or Plasma 0.9 MG/DL 0.7 - 1.5 [facility] BUN/CREAT 10 8 - 27 [facility] al Protein [Mass/volume] in Serum or Plasma 7.2 G/DL 6.3 - 8.2 [facility] Albumin [Mass/volume] in Serum or Plasma 4.8 G/DL 3.9 - 5.0 [facility] Globulin [Mass/volume] in Serum by calculation 2.4 GM/DL 2.4 - 3.2 [facility] A/G RATIO 2.0 0.8 - 2.0 [facility] Calcium [Mass/volume] in Serum or Plasma 10.0 MG/DL 8.4 - 10.2 [facility] Bilirubin.total [Mass/volume] in Serum or Plasma <0.7 MG/DL 0.2 - 1.3 [facility] Alkaline phosphatase [Enzymatic activity/volume] in Serum or Plasma 76 U/L 38 - 126 [facility] Aspartate aminotransferase [Enzymatic activity/volume] in Serum or Plasma 13 U/L 5 - 40 [facility] Alanine aminotransferase [Enzymatic activity/volume] in Seru m or Plasma 8 U/L 7 - 56 [facility] Anion gap 3 in Serum or Plasma 9.0 mmol/L 8.0 - 16.0 [facility] AGE 38 yrs [facility] al NON-AA GFR >60 mL/min [facility] ital AFR AMER GFR >60 mL/min [facility] Male GFR In terprentation 20-49 yrs >60 mL/min Normal 50-59 yrs >56 mL/min Normal 60-69 yrs >49 mL/min Normal 70-79yrs >42 mL/min Normal 80 and above >35 mL/min Normal Female GFR Interpretation 20-39 yrs >60 mL/min Normal 40-49 yrs >58 mL/min Normal 50-59 yrs >51 mL/min Normal 60-69 yrs >45 mL/min Normal 70-79 yrs >39 mL/min Normal 80 and above >32 mL/min Normal ID Date Data Source [id number] 03/26/2019 12:59:00 PM EST [facility] Name Value Range Interpretation Code Description Data Alexandrea rce(s) Supporting Document(s) [facility] SOURCE R [facility] COL[facility] yellow NORMAL: Yellow [facility] CLARITY cloudy NORMAL: Clear [facility] Specific gravity of Urine by Test strip 1.030 1.001 - 1.030 [facility] pH 5 5 - [facility] Glucose [Mass/volume] in Urine by Test strip NORM NORMAL: Negat [facility] Bilirubin.total [Presence] in Urine by Test strip NEG NORMAL: Negative [facility] Ketones [Presence] in Urine by Test strip 5 NORMAL: Negative A [facility] Protein [Mass/volume] in Urine by Test strip 15 NORMAL: Negat [facility] Nitrite [Presence] in Urine by Test strip NEG NORMAL: Negative [facility] BLOOD NEG NORMAL: Negative [facility] Leukocyte esterase [Presence] in Urine by Test strip 25 SARAH L: Negative [facility] Urobilinogen [Mass/volume] in Urine by Test strip 1 less ginette n 1.0 mg/dL [facility] MICROSCOPIC See Below [facility] Amorphous sediment [Presence] in Urine sediment by Light william roscopy 3+ NORMAL: NONE SEEN [facility] ID Date Data Source [id number] 03/26/2019 12:52:00 PM EST [facility] Name Value Range Interpretation Code Description Data Alexandrea rce(s) Supporting Document(s) CBC W/AUTOMATED DIFF [facility] COMPLETE BLOOD COUNT Leukocytes [#/volume] in Blood by Automated count 8.9 10^3/uL 4.2 - 1 1.0 [facility] Erythrocytes [#/volume] in Blood by Automated count 5.64 10^6/uL 4. 50 - 6.30 [facility] Hemoglobin [Mass/volume] in Blood 17.2 g/dL 14.0 - 16.0 H [facility] Hematocrit [Volume Fraction] of Blood by Automated count 52.3 % 4 1.0 - 51.0 H [facility] Erythrocyte mean corpuscular volume [Entitic volume] by Auto mated count 92.7 fL 80.0 - 94.0 [facility] Erythrocyte mean corpuscular hemoglobin [Entitic mass] by Automated count 30.5 pg 27.0 - 34.0 [facility] Erythrocyte mean corpuscular hemoglobin concentration [Mass/volume] by Automated count 32.9 g/dL 31.0 - 36.0 [facility] Erythrocyte distribution width [Ratio] by Automated count 13.6 % 11.5 - 14.8 [facility] Platelets [#/volume] in Blood by Automated count 215 10^3/uL 150 - 45 0 [facility] Platelet mean volume [Entitic volume] in Blood by Automated count 11.2 fL 7.4 - 10.4 H [facility] Neutrophils/100 leukocytes in Blood by Automated count 71.9 % 37. 0 - 80.0 [facility] Lymphocytes/100 leukocytes in Blood by Manual count 18.3 % 25.0 - 40.0 L [facility] Monocytes/100 leukocytes in Blood by Automated count 6.3 % 3.0 - 8.0 [facility] Eosinophils/100 leukocytes in Blood by Automated count 1.9 % 0.0 - 7.0 [facility] Basophils/100 leukocytes in Blood by Automated count 1.1 % 0.0 - 2.0 [facility] %IG 0.5 % 0.0 - 0.[address] [facility] %NRBC 0.0 % 0.0 - 0.0 [facility] al Neutrophils [#/volume] in Blood by Automated count 6.36 10^3/uL 2.00 - 6.90 [facility] Lymphocytes [#/volume] in Blood by Automated count 1.62 10^3/uL 0.60 - 3.40 [facility] Monocytes [#/volume] in Blood by Automated count 0.56 10^3/uL 0.00 - 0.90 [facility] Eosinophils [#/volume] in Blood by Automated count 0.17 10^3/uL 0.00 - 0.70 [facility] Basophils [#/volume] in Blood by Automated count 0.10 10^3/uL 0.00 - 0.20 [facility] #IG 0.04 10^3/uL 0.00 - 0.10 [facility] #NRBC 0.00 10^3/uL 0.00 - 0.00 [facility] MANUAL DIFF NOT INDICATED [facility] RBC MORPH NOT INDICATED [facility] spital ID Date Data Source [id number] 03/26/2019 08:14:00 AM EST [facility] ([facility]) Name Value Range Interpretation Code Description Data Alexandrea rce(s) Supporting Document(s) Chest Xray 2 Views <pending> [facility] ([facility]) Procedure Vital Signs ID Date Data Source UNK Name Value Range Interpretation Code Description Data Source(s) Body surface area Derived from formula 1.92 m2 1.92 m2 [facility] ([facility]) Body weight 74.390 kg 74.390 kg [facility] ([facility]) [place] body weight 166 [lb_av] 166 [lb_av] [facility] ([facility]) Body mass index (BMI) [Ratio] 23.5 kg/m2 23.5 k g/m2 [facility] ([facility]) Body weight 164.00 [lb_av] 164.00 [lb_av] [facility] ([facility]) Body height 70 [in_i] 70 [in_i] [facility] ([facility]) 5'10" Diastolic blood pressure 82 mm[Hg] 82 mm[Hg] [facility]) Systolic blood pressure 139 mm[Hg] 139 mm[Hg] Rigoberto CARTY[facility] ([facility]) Body surface area Derived from formula 1.94 m2 1.94 m2 [facility] ([facility]) Body mass index (BMI) [Ratio] 24.1 kg/m2 24.1 k g/m2 [facility] ([facility]) Body height 70 [in_i] 70 [in_i] [facility] ([facility]) 5'10" Body weight 76.205 kg 76.205 kg [facility] ([facility]) Body weight 168.00 [lb_av] 168.00 [lb_av] [facility] ([facility]) Oxygen saturation in Arterial blood by Pulse oximetry 97 % 97 % [facility] ([facility]) Respiratory rate 16 /min 16 /min [facility] ( [facility]) Body temperature 97.1 [degF] 97.1 [degF] [facility] ([facility]) Heart rate 88 /min 88 /min [facility] ([facility]) Diastolic blood pressure 70 mm[Hg] 70 mm[Hg] [facility] ([facility]) Systolic blood pressure 132 mm[Hg] 132 mm[Hg] [facility] ([facility]) Body surface area Derived from formula 1.91 m2 1.91 m2 [facility] Body mass index (BMI) [Ratio] 23.2 kg/m2 23.2 k g/m2 [facility] ([facility]) Body height 70 [in_i] 70 [in_i] [facility] ([facility]) 5'10" Body weight 73.483 kg 73.483 kg [facility] ([facility]) Body weight 162.00 [lb_av] 162.00 [lb_av] [facility] ([facility]) Oxygen saturation in Arterial blood by Pulse oximetry 96 % 96 % [facility] ([facility]) Respiratory rate 18 /min 18 /min [facility] ( [facility]) Body temperature 97.3 [degF] 97.3 [degF] [facility] ([facility]) Heart rate 78 /min 78 /min [facility] ([facility]) Diastolic blood pressure 80 mm[Hg] 80 mm[Hg] [facility] Systolic blood pressure 132 mm[Hg] 132 mm[Hg] [facility] ([facility]) Systolic blood pressure 132 mm[Hg] 132 mm[Hg] [facility] ([facility]) recheck after 15 min Diastolic blood pressure 80 mm[Hg] 80 mm[Hg] [facility] ([facility]) states due to pain Systolic blood pressure 156 mm[Hg] 156 mm[Hg] [facility] ([facility]) states due to pain Body surface area Derived from formula 1.91 m2 1.91 m2 [facility] ([facility]) Body mass index (BMI) [Ratio] 23.4 kg/m2 23.4 k g/m2 [facility] ([facility]) Body height 70 [in_i] 70 [in_i] [facility] ([facility]) 5'10" Body weight 73.937 kg 73.937 kg [facility] Body weight 163.00 [lb_av] 163.00 [lb_av] [facility] ([facility]) Oxygen saturation in Arterial blood by Pulse oximetry 98 % 98 % [facility] ([facility]) Respiratory rate 18 /min 18 /min [facility] ( [facility]) Body temperature 97.7 [degF] 97.7 [degF] [facility] ([facility]) Heart rate 100 /min 100 /min [facility] ([facility]) Diastolic blood pressure 89 mm[Hg] 89 mm[Hg] [facility] ([facility]) recheck after 15 min Body surface area Derived from formula 1.93 m2 1.93 m2 [facility] ([facility]) Body mass index (BMI) [Ratio] 23.9 kg/m2 23.9 k g/m2 [facility] ([facility]) Body height 70 [in_i] 70 [in_i] [facility] ([facility]) 5'10" Body weight 75.411 kg 75.411 kg [facility] ([facility]) Body weight 166.25 [lb_av] 166.25 [lb_av] [facility] ([facility]) Oxygen saturation in Arterial blood by Pulse oximetry 98 % 98 % [facility] ([facility]) Respiratory rate 16 /min 16 /min [facility] ( [facility]) Body temperature 98.2 [degF] 98.2 [degF] [facility] ([facility]) Heart rate 102 /min 102 /min [facility] ([facility]) Diastolic blood pressure 82 mm[Hg] 82 mm[Hg] [facility] ([facility]) Systolic blood pressure 144 mm[Hg] 144 mm[Hg] [facility] ([facility]) Body surface area Derived from formula 1.91 m2 1.91 m2 [facility] ([facility]) Body weight 73.540 kg 73.540 kg [facility] ([facility]) [place] body weight 166 [lb_av] 166 [lb_av] [facility] ([facility]) Body mass index (BMI) [Ratio] 23.3 kg/m2 23.3 k g/m2 [facility] ([facility]) Body weight 162.12 [lb_av] 162.12 [lb_av] MEDEN T ([facility]) Body height 70 [in_i] 70 [in_i] [facility] ([facility]) 5'10" Diastolic blood pressure 88 mm[Hg] 88 mm[Hg] [facility] ([facility]) Systolic blood pressure 150 mm[Hg] 150 mm[Hg] [facility] ([facility]) Body weight 75.014 kg 75.014 kg [facility] ([facility]) Body mass index (BMI) [Ratio] 23.7 kg/m2 23.7 k g/m2 [facility] ([facility]) Body weight 165.38 [lb_av] 165.38 [lb_av] MEDEN T ([facility]) Body height 70 [in_i] 70 [in_i] [facility] ([facility]) 5'10" Diastolic blood pressure 80 mm[Hg] 80 mm[Hg] [facility] ([facility]) Systolic blood pressure 110 mm[Hg] 110 mm[Hg] [facility] ([facility], ) Body weight 165 [lb_av] 165 [lb_av] BERNIE ([facility]) Systolic blood pressure 146 mm[Hg] 146 mm[Hg] A THENA ([facility]) Body mass index (BMI) [Ratio] 25.8 kg/m2 25.8 k g/m2 BERNIE ([facility]) Body height 67 [in_i] 67 [in_i] BERNIE ([facility]) Diastolic blood pressure 92 mm[Hg] 92 mm[Hg] BERNIE ([facility]) Body weight 72.122 kg 72.122 kg [facility] ([facility]) Body mass index (BMI) [Ratio] 22.8 kg/m2 22.8 k g/m2 [facility] ([facility]) Body weight 159.00 [lb_av] 159.00 [lb_av] MEDEN T ([facility]) Body height 70 [in_i] 70 [in_i] [facility] 5'10" Heart rate 90 /min 90 /min [facility] ([facility]) Diastolic blood pressure 86 mm[Hg] 86 mm[Hg] [facility] ([facility]) Systolic blood pressure 132 mm[Hg] 132 mm[Hg] [facility] ([facility]) Body mass index (BMI) [Ratio] 21.5 kg/m2 21.5 k g/m2 [facility] Body weight 150.00 [lb_av] 150.00 [lb_av] MEDEN T ([facility]) Body height 70 [in_i] 70 [in_i] [facility] 5'10" Respiratory rate 12 /min 12 /min MEDENT ( [facility]) Heart rate 72 /min 72 /min [facility] ([facility]) Diastolic blood pressure 68 mm[Hg] 68 mm[Hg] [facility] ([facility]) Systolic blood pressure 118 mm[Hg] 118 mm[Hg] [facility] Body surface area Derived from formula 1.86 m2 1.86 m2 MEDENT ([facility]) Body mass index (BMI) [Ratio] 21.8 kg/m2 21.8 k g/m2 [facility] ([facility]) Body height 70 [in_i] 70 [in_i] [facility] 5'10" Body weight 68.947 kg 68.947 kg [facility] ([facility]) Body weight 152.00 [lb_av] 152.00 [lb_av] MEDEN T ([facility]) Oxygen saturation in Arterial blood by Pulse oximetry 98 % 98 % [facility] Respiratory rate 12 /min 12 /min [facility] ( [facility]) Body temperature 97.8 [degF] 97.8 [degF] [facility] Heart rate 96 /min 96 /min [facility] ([facility]) Diastolic blood pressure 72 mm[Hg] 72 mm[Hg] [facility] ([facility]) Systolic blood pressure 130 mm[Hg] 130 mm[Hg] M [facility] ([facility]) Body surface area 1.86 m2 1.86 m2 [facility] ([facility]) Body weight 69.628 kg 69.628 kg [facility] ([facility], ) Body mass index (BMI) [Ratio] 22.0 kg/m2 22.0 k g/m2 [facility] ([facility], ) Body weight 153.50 [lb_av] 153.50 [lb_av] MEDEN T ([facility], ) Body height 70 [in_i] 70 [in_i] [facility], ) 5'10" Diastolic blood pressure 82 mm[Hg] 82 mm[Hg] [facility] ([facility], ) Systolic blood pressure 132 mm[Hg] 132 mm[Hg] [facility], [facility] Body weight 153.50 [lb_av] 153.50 [lb_av] MEDEN T ([facility], ) Diastolic blood pressure--sitting 70 mm[Hg] 70 mm[Hg] MEDENT ([facility]) adult cuff, Ra Systolic blood pressure--sitting 110 mm[Hg] 110 mm[Hg] [facility] ([facility]) adult cuff, Ra Heart rate 82 /min 82 /min [facility] ([facility]) Body mass index (BMI) [Ratio] 22.4 kg/m2 22.4 k g/m2 [facility] ([facility]) Body height 69 [in_i] 69 [in_i] [facility] 5'9" Body weight 152.00 [lb_av] 152.00 [lb_av] MEDEN T ([facility]) Patient Treatment Plan of Care Planned Activity Planned Date Details Description Data Source (s) methylprednisolone 4 mg tablets in a dose pack BERNIE ([facility]) Lisinopril 40 MG Oral Tablet BERNIE ([facility]) Levetiracetam 750 MG Oral Tablet BERNIE ([facility]) Hydroxyzine Hydrochloride 25 MG Oral Tablet BERNIE ([facility]) Acetaminophen 325 MG / Hydrocodone Bitartrate 5 MG Oral Tablet BERNIE ([facility]) fluticasone propionate 50 mcg/actuation nasal spray,suspension BERNIE ([facility]) Fluoxetine 10 MG Oral Capsule BERNIE ([facility]) duloxetine 30 MG Delayed Release Oral Capsule BERNIE ([facility]) Divalproex Sodium 500 MG Delayed Release Oral Tablet BERNIE ([facility]) Dicyclomine Hydrochloride 10 MG Oral Capsule BERNIE ([facility]) Ciprofloxacin 500 MG Oral Tablet BERNIE ([facility]) benzonatate 200 MG Oral Capsule BERNIE ([facility]) Amoxicillin 875 MG / Clavulanate 125 MG Oral Tablet BERNIE ([facility]) Amlodipine 5 MG Oral Tablet BERNIE ([facility]) Docusate Sodium 50 MG / sennosides, DETENTION 8.6 MG Oral Tablet BERNIE ([facility]) Ondansetron 8 MG Disintegrating Oral Tablet BERNIE ([facility]) Omeprazole 40 MG Delayed Release Oral Capsule BERNIE ([facility]) Neomycin Sulfate 500 MG Oral Tablet BERNIE ([facility]) 12 HR Guaifenesin 600 MG Extended Release Oral Tablet BERNIE ([facility]) Metronidazole 500 MG Oral Tablet BERNIE ([facility])
--- NOTE | 2020-05-05 18:53 | REP ---
INDICATION: injury. COMPARISON: Comparison right hand radiographs September 17, 2009.. TECHNIQUE: Four views. FINDINGS: Four views of the right hand demonstrate mild soft tissue swelling dorsally over the metacarpals.. No fracture or subluxation is seen. No opaque foreign body noted. IMPRESSION: Mild soft tissue swelling. No fracture or subluxation seen.. <Electronically signed by Mitchell Jimenez > 05/05/20 [id number]
--- OUTSIDE RECORDS SUMMARY | 2020-05-05 20:07 | CCD ---
Author Author [facility] Address Unknown Phone Unavailable Care Team Providers Care Driver Trainee Name Role Phone SPIKE GALE Unavailable Unavailable [...] Jesu Chery MD Unavailable Unavailable Ferenchak, Jesu Chrey MD Unavailable Unavailable Ferenchak, Jesu Chery MD [...] REINDL, SAMANTHA WILLSON Unavailable Unavailable REINDL, SAMANTHA WILLOSN Unavailable Unavailable REINDL, SAMANTHA WILLSON Unavailable Unavailable [...] Gloria WILLSON Unavailable Unavailable Sarmadumpurarossi F Gloria WLILSON Unavailable Unavailable Reinaldonumpurarossi F Gloria WILLSON Unavailable Unavailable Reinaldonumpurarsosi F Gloria WILLSON Unavailable Unavailable Reinaldonumpurarossi F [...] F Gloria MD Unavailable Unavailable Kunnumpurath, F Glroia MD Unavailable Unavailable Kunnumpurath, F Gloria MD [...] Unavailable Unavailable Virginia Lew MD Unavailable Unavailable Virginai Lew MD Unavailable Unavailable Virginia Lew MD [...] O Samah MD Unavailable Unavailable Oksana Espinoza RAILROAD CAR CLEANING SUPERVISOR RAILROAD CAR CLEANING SUPERVISOR Unavailable Unavailable BRYDEN, A NATALIO DO Unavailable [...] is protected by Article 27-F of the [facility] Public Health law. If you continue you may have access to information: Regarding HIV / AIDS; Provided by facilities licensed or operated by the [facility] Office of Mental Health; or Provided by the [facility] Office for People With Developmental Disabilities. If such information is present, then the following [facility] mandated warning applies: This information has been [...] law may result in a fine or fpc sentence or both. A general authorization for the release of medical or other information is NOT sufficient authorization for further disc losure. Allergies and Adverse Reactions Type Description Substance Reaction Status Data Source(s ) No Known Allergies No Known Allergies [facility] Family History Family Member Name Family Member Gender Family Member Status Date o f Status Description Data Source(s) Unknown Male Problem [facility] ([facility]) Unknown Male Problem MEDENT ([facility] ) Encounters Encounter Providers Location Date Indications Data Source(s ) Outpatient Attender: SAMANTHA Us/[place]/Gera/Brandon cam 04/26/2020 02:30:00 PM EST MEDENT ([facility] Outpatient Attender: JESSIE MCCLAIN MDConsultant: Vik odell MD 04/11/2020 12:59:00 PM [facility] - 04/11/2020 01:59:00 PM [facility] Outpatient Attender: JESSIE MCCLAIN MDConsultant: Vik odell MD 04/01/2020 02:14:07 PM [facility] - 04/04/2020 01:18:00 PM [facility] Patient discharged. Outpatient Attender: JESSIE MCCLAIN MDConsultant: Vik odell MD 03/30/2020 07:52:00 AM [facility] - 03/30/2020 07:52:00 AM [facility] Outpatient Attender: JESSIE MCCLAIN MD Family Practice 03/30/2020 0 7:00:00 AM EST MEDENT ([facility]) Outpatient Attender: JESSIE MCCLAIN MDConsultant: Vik odell MD 03/23/2020 09:58:00 AM EST - 03/23/2020 10:58:00 AM [facility] Outpatient Attender: JESSIE MCCLAIN MDConsultant: Vik odell MD 03/15/2020 02:20:36 PM EST - 03/16/2020 12:11:00 PM [facility] Patient discharged. Outpatient Attender: JESSIE MCCLAIN MDConsultant: Vik odell MD 03/01/2020 02:08:48 PM EST - 03/02/2020 01:14:00 PM [facility] Patient discharged. Outpatient Attender: JESSIE MCCLAIN MDConsultant: Vik odell MD 02/18/2020 10:28:10 AM EST - 02/19/2020 02:19:00 PM [facility] Patient discharged. Outpatient Attender: JESSIE MCCLAIN MDConsultant: Vik odell MD 02/10/2020 10:37:00 AM EST - 02/10/2020 11:37:00 AM [facility] Patient discharged. Outpatient Attender: JESSIE MCCLAIN MDConsultant: Vik odell MD 02/08/2020 09:03:00 AM EST - 02/08/2020 09:03:00 AM [facility] Outpatient Attender: JESSIE MCCLAIN MD Family Practice 02/08/2020 0 8:20:00 AM EST MEDENT ([facility]) Outpatient Attender: JESSIE MCCLAIN MDConsultant: Vik odell MD 02/01/2020 08:06:00 AM EST - 02/01/2020 08:06:00 AM [facility] Outpatient Attender: JESSIE MCCLAIN MD Family Practice 02/01/2020 0 7:20:00 AM EST MEDENT ([facility]) Outpatient Attender: Gloria Rowland MD Family Practice 1 02:40:00 PM EDT MEDENT ([facility] Outpatient Attender: Gloria Bañuelosumpurarossi MDConsultant: Vik Vyas MD 01/06/2020 02:12:00 PM EDT - 01/06/2020 02:12:00 PM EDT [facility] Outpatient Attender: NATALIO TAYLOR DO [place]era/Cosme ndl 11/26/2019 11:30:00 AM EDT MEDENT [facility] Outpatient Attender: NATALIO TAYLOR DO [place]era/Cosme nd 10/20/2019 08:50:00 AM EDT MEDENT ([facility]) Outpatient Attender: CHAZ Vincent nder: BRAD Perdomoerrer: Jaziel Mcdonald MDConsultant: Vik Vyas MD 08/25/2019 02:22:00 PM EDT - 08/25/2019 02:22:00 PM EDT [facility] Outpatient Attender: BRAD Piedra simon: Jaziel Mcdonald MDConsultant: Vik Vyas MD 08/25/2019 12:05:00 PM EDT - 08/25/2019 12:05 :00 PM EDT [facility] Outpatient Attender: BRAD MOTA [facility] 08/24 11:40:00 AM EDT [facility] Attender: CHAZ Zaman rrer: Jaziel Mcdonald MDConsultant: Vik Vyas MD 08/03/2019 10:52:00 AM EDT - 08/03/2019 10:52 :00 AM EDT [facility] Outpatient Attender: BRAD Piedra simon: Jaziel Mcdonald MDConsultant: Vik Vyas MD 07/29/2019 09:24:00 AM EDT - 07/29/2019 09:24 :00 AM EDT [facility] Outpatient Attender: BRAD MOTA [facility] 07/28 09:20:00 AM EDT MED[facility] ([facility] Outpatient Attender: CHAZ Zaman rrer: Jaziel Mcdonald MDConsultant: Vik Vyas MD 07/28/2019 10:08:00 AM EDT - 07/28/2019 10:08 :00 AM EDT [facility] Outpatient Attender: MARIBETH ALVARADO 07/23/2019 09:52:00 A M EDT [facility] Outpatient Attender: CHAZ Zaman rrer: Jaziel Mcdonald MDConsultant: Vik Vyas MD 07/14/2019 10:23:00 AM EDT - 07/14/2019 10:23 :00 AM EDT [facility] Outpatient Attender: CHAZ Zaman rrer: Jaziel Mcdonald MDConsultant: Vik Vyas MD 07/08/2019 10:03:00 AM EDT - 07/08/2019 10:03 :00 AM EDT [facility] Outpatient Attender: BRAD Piedra simon: Jaziel Mcdonald MDConsultant: Vik Vyas MD 07/01/2019 08:24:00 AM EDT - 07/01/2019 08:24 :00 AM EDT [facility] Outpatient Attender: BRAD ABAD ME Family Practice 06/30 08:20:00 AM [facility] Outpatient Attender: CHAZ Zaman rrer: Jaziel Mcdonald MDConsultant: Vik Vyas MD 06/30/2019 02:07:00 PM EDT - 06/30/2019 02:07 :00 PM EDT [facility] Elian Oliveira MD: [id number] [address], [facility] [place] [address], Ph. Attender: Elian Oliveira MD [place] - [facility] - Main Office 06/22/2019 12:00:00 AM EDT BERNIE ([facility]) Outpatient Attender: CHAZ Mcculloughultant: Vik pearl MD 06/18/2019 01:20:00 PM EDT - 06/18/2019 01:20:00 PM EDT [facility] Outpatient Attender: CHAZ Zaman rrer: Jaziel Mcdonald MDConsultant: Vik Vyas MD 05/07/2019 09:58:00 AM EST - 05/07/2019 09:58 :00 AM [facility] Outpatient Attender: BRAD ABAD PAConsultant: Vik sahu MD 04/13/2019 11:11:00 AM [facility] - 04/13/2019 11:11:00 AM [facility] Outpatient Attender: CHAZ KASPERonsultant: Vik pearl MD 04/09/2019 10:58:00 AM [facility] - 04/09/2019 10:58:00 AM [facility] Outpatient Attender: Enoc Lew MD Main office [facility] 04/06/2019 10:30:00 AM EST MEDENT ([facility], ) Outpatient Referrer: Nori Ralph MD 04/03/2019 06:07:00 AM EST [facility] Outpatient Attender: CHAZ Zaman rrer: Jaziel Mcdonald MDConsultant: Vik Vyas MD 03/30/2019 08:55:00 AM [facility] - 03/30/2019 08:55 :00 AM [facility] Outpatient Referrer: Nori Ralph MD 03/27/2019 10:56:00 AM EST [facility] Outpatient Attender: JESSIE MCCLAIN MDConsultant: Vik odell MD 03/26/2019 07:56:00 AM [facility] - 03/26/2019 07:56:00 AM [facility] Outpatient Attender: JESSIE MCCLAIN MD Family Practice 03/26/2019 0 7:00:00 AM EST MEDENT ([facility]) Outpatient Attender: Binta MOTA Main Office 03/13/2019 07:45:0 0 AM EST MED[facility] ([facility]) Outpatient Attender: MARIBETH ALVARADO 03/11/2019 09:01:05 P M EST [facility] Outpatient Attender: CHAZ Zaman rrer: Jaziel Mcdonald MDConsultant: Vik Vyas MD 03/09/2019 08:48:00 AM EST - 03/09/2019 08:48 :00 AM [facility] Outpatient Attender: CHAZ Austyn rrer: Jaziel Mcdonald MDConsultant: Vik Vyas MD 02/24/2019 09:44:00 AM EST - 02/24/2019 09:44 :00 AM [facility] Outpatient Attender: CHAZ KHANMabel rrer: Jaziel Mcdonald MDConsultant: Vik Vyas MD 02/05/2019 04:27:00 PM EST - 02/05/2019 04:27 :00 PM [facility] Medications Medication Brand Name Start Date Product Form Dose Route Admi nistrative Instructions Pharmacy Instructions Status Indications Reaction Description Data Source(s) No Active Medications 04/26/2020 12:00:00 AM EST completed MEDENT ([facility], ) POLYETHYLENE GLYCOL 3350 105 MG/ML / Pot assium Chloride 0.89070 MEQ/ML / Sodium Bicarbonate 0.017 MEQ/ML / Sodium Chloride 0.0479 MEQ/ML Oral Solution [TriLyte] Trilyte 04/26/2020 12:00:00 AM EST active MEDENT ([facility], ) Dicyclomine Hydrochloride 10 MG Oral Capsule Dicyclomine HCL 04/26/2020 12:00:00 AM EST ORAL active MEDENT ([facility], ) Magnesium Hydroxide 80 MG/ML Oral Suspension Milk Of Magnesi a 04/26/2020 12:00:00 AM EST ORAL active M EDENT ([facility], ) POLYETHYLENE GLYCOL 3350 142 MG/ML Oral Solution [Miralax] M iralax 04/26/2020 12:00:00 AM EST active M EDENT ([facility], ) 40 mg 02/03/2020 12:00:00 AM EST capsule,delayed release (DR/EC) 60 TAKE ONE CAPSULE BY MOUTH TWICE A DAY TAKE ONE CAPSULE BY MOUTH TWICE A DAY SOLD: 02/05/2020 [facility] Omeprazole 40 MG Delayed Release Oral Capsule Omeprazole 02/02/2020 12:00:00 AM EST ORAL active MED[facility] ([facility]) 220 mg 01/26/2020 12:00:00 AM EST tablet 120 TAKE TWO TABLETS BY MOUTH TWICE A DAY NEEDED FOR PAIN TAKE TWO TABLETS BY MOUTH TWICE A DAY NEEDED FOR PAIN SOLD: 01/29/2020 [facility] Naproxen sodium 220 MG Oral Tablet Naproxen Sodium 01/26/2020 12:00 :00 AM EST ORAL active MEDENT ([facility]) Naproxen sodium 550 MG Oral Tablet Naproxen Sodium 01/22/2020 12:00 :00 AM EST ORAL completed [facility]) No Active Medications 01/06/2020 12:00:00 AM EDT completed MEDENT ([facility]) buspirone hydrochloride 10 MG Oral Tablet BUSPIRONE HCL 08/26/2019 12:00:00 AM EDT tablet 60 TAKE ONE TABLET BY MOUTH TWI CE A DAY TAKE ONE TABLET BY MOUTH TWICE A DAY SOLD: 08/31/2019 [facility] buspirone hydrochloride 10 MG Oral Tablet Buspirone HCL 07/29/2019 12:00:00 AM EDT ORAL completed MEDENT ([facility]) buspirone hydrochloride 10 MG Oral Tablet BUSPIRONE HCL 07/29/2019 12:00:00 AM EDT tablet 60 TAKE ONE TABLET BY MOUTH TWI CE A DAY TAKE ONE TABLET BY MOUTH TWICE A DAY SOLD: 07/30/2019 [facility] buspirone hydrochloride 5 MG Oral Tablet Buspirone HCL 07/01/2019 12:00:00 AM EDT ORAL completed MED[facility] ([facility]) buspirone hydrochloride 5 MG Oral Tablet [...] 04/13/2019 12:00:00 AM EST ORAL completed [facility] ([facility]) Fluoxetine 10 MG Oral Capsule Fluoxetine HCL 04/13/2019 12:00:[address] ORAL completed MEDENT ([facility]) 25 mg 04/13/2019 12:00:00 AM EST tablet [...] 12:00 :00 AM EST ORAL completed MEDENT ([facility], ) Neomycin Sulfate 500 MG Oral Tablet Neomycin Sulfate 04/08/2019 12:00:00 AM EST ORAL completed MEDENT ([facility], ) 500 mg 04/06/2019 12:00:00 AM EST [...] Sodium 04/06/2019 12:00:00 AM EST active MEDENT ([facility]) Paper Tape 1"X12yd 01/30/2019 12:00:00 AM EST completed MEDENT ([facility], ) Gauze Sponge 01/30/2019 12:00:00 AM EST compl eted MEDENT ([facility], ) 2 mg 01/06/2019 12:00:00 AM EDT tablet 90 TAKE 1/2 TO 1 TABLET UP TO THREE TIMES A DAY NEEDED FOR BACK PAIN. DO NOT DRIVE OR OPERATE HEAVY MACHINERY AFTER TAKING TAKE 1/2 TO 1 TABLET UP TO THREE TIMES A DAY NEEDED FOR BACK PAIN. DO NOT DRIVE OR OPERATE HEAVY MACHINERY AFTER TAKING SOLD: 04/06/2019 [facility] 2 mg 01/06/2019 12:00:00 AM EDT [...] Extended Release Oral Tablet [facility]IE ([facility]) Fluoxetine 10 MG Oral Capsule fluoxetine 10 mg capsule fluox etine 10 mg capsule completed Fluoxetine 10 MG Oral Capsule [facility] ([facility]) Acetaminophen 325 MG / Hydrocodone Teresita trate 5 MG Oral Tablet hydrocodone 5 mg- acetaminophen 325 mg tablet hydrocodone 5 mg-acetaminophen 325 mg tablet completed Acetaminophen 325 MG / Hydrocodone Bitartrate 5 MG Oral Tablet [facility] ([facility]) Amlodipine 5 MG Oral Tablet amlodipine 5 mg tablet amlodipine 5 mg ta blet completed Amlodipine 5 MG Oral Tablet [facility] ([facility]) Ciprofloxacin 500 MG Oral Tablet ciprofloxacin 500 mg tablet ciprofloxacin 500 mg tablet completed Ciprofloxaci n 500 MG Oral Tablet [facility] ([facility]) Amoxicillin 875 MG / Clavulanate 125 MG Oral Tablet amoxicillin 875 mg-potassium clavulanate 125 mg tablet amoxicillin 875 mg-potassium clavulanate 125 mg tablet completed Amoxici llin 875 MG / Clavulanate 125 MG Oral Tablet [facility] ([facility]) Hydroxyzine Hydrochloride 25 MG Oral Tablet hydroxyzin e HCl 25 mg tablet hydroxyzine HCl 25 mg tablet completed Hydroxyzine Hydrochloride 25 MG Oral Tablet [facility] ([facility]) duloxetine 30 MG Delayed Release Oral Ca psule duloxetine 30 mg capsule,delayed release duloxetine 30 mg capsule,delayed release completed duloxetine 30 MG Delayed Release Oral Capsule [facility] ([facility]) Levetiracetam 750 MG Oral Tablet levetiracetam 750 mg tablet levetiracetam 750 mg tablet completed Levetiraceta m 750 MG Oral Tablet [facility] ([facility]) fluticasone propionate 50 mcg/actuation nasal spray,suspension [id number] completed Fluticasone propionate 0.05 MG/ACTUAT Metered Dose Nasal [place] [facility] ([facility]) Lisinopril 40 MG Oral Tablet lisinopril 40 mg tablet lisinopril 40 mg tablet completed Lisinopril 40 MG Oral Tablet [facility] ([facility]) methylprednisolone 4 mg tablets in a dose pack 155660 completed methylprednisolone 4 mg tablets in a dose pack [facility] ([facility]) Ondansetron 8 MG Disintegrating Oral Tab let ondansetron 8 mg disintegrating tablet ondansetron 8 mg disintegrating tablet completed Ondansetron 8 MG Disintegrating Oral Tablet [facility] ([facility]) Divalproex Sodium 500 MG Delayed Release Oral Tablet divalproex 500 mg tablet,delayed release divalproex 500 mg tablet,delayed release completed Divalproex Sodium 500 MG Delayed Release Oral Tablet [facility] ([facility]) Dicyclomine Hydrochloride 10 MG Oral Capsule dicyclomi ne 10 mg capsule dicyclomine 10 mg capsule completed Dicyclomine Hydrochloride 10 MG Oral Capsule [facility] ([facility]) Docusate Sodium 50 MG / sennosides, FPC 8.6 MG Oral Tablet Stool Softener- Laxative 8.6 mg-50 mg tablet Stool Softener-Laxative 8.6 mg-50 mg tablet completed Docusate Sodium 50 M G / sennosides, FPC 8.6 MG Oral Tablet [facility]IE ([facility]) benzonatate 200 MG Oral Capsule benzonatate 200 mg cap geraldine benzonatate 200 mg capsule completed benzonatate 20 0 MG Oral Capsule [facility] ([facility]) Omeprazole 40 MG Delayed Release Oral Ca psule omeprazole 40 mg capsule,delayed release omeprazole 40 mg capsule,delayed release completed Omeprazole 40 MG Delayed Release Oral Capsule [facility] ([facility]) Neomycin Sulfate 500 MG Oral Tablet neomycin 500 mg ta blet neomycin 500 mg tablet completed Neomycin Sulfat e 500 MG Oral Tablet [facility] ([facility]) Metronidazole 500 MG Oral Tablet metronidazole 500 mg tablet metronidazole 500 mg tablet completed Metronidazol e 500 MG Oral Tablet [facility] ([facility]) Insurance Providers Payer name Policy type / Coverage type Policy ID Covered alliance party ID Covered alliance party's relationship to urbano Policy Urbano Plan Information SHAD [id number] SP [id number] SHAD [place]ARE [place] [id number] 18 [id number] SHAD CARE [id number] 18 [id number] SHAD [place]ARE [place] [id number] 18 [id number] SHAD [place]ARE [place] XIX [place]PHYSIC[place] [id number] 18 [id number] [place] CARE [place] [id number] S [id number] Managed Care Shad P [id number] S [id number] Medicaid S [id number] SHAD I [id number] Self [id number] [facility] I [id number] Self [id number] [place] - [place] Hmo Health Maintenance Organization (HMO) [id number] Self [id number] Shad - Medicaid [facility] Health Maintenance Organization (HMO) [id number] Self [id number] [place] Medigap Part B [id number] Self [id number] [place] Care [place] [id number] Self [id number] [facility] Medigap Part B [id number] Self [id number] [facility] Health Maintenance Organization (O) [id number] Self [id number] [place] Medig[place] Part B [id number] Self [id number] Shad Care [place] Medicaid [id number] Self [id number] Managed Care - Community Plan [facility] P [id number] S [id number] UN COMMUNITY PLAN [facility] [id number] SP [id number] Medicaid S [id number] S [id number] Managed Care - Community Plan [facility] P [id number] S [id number] [facility] O [id number] S [id number] UN COMMUNITY PLAN [facility] [id number] SP [id number] MEDICAID [id number] SP [id number] [facility] COMMUNITY PLAN [facility] [id number] SP [id number] [facility](MCAID) O [id number] S [id number] Managed Care - Community Plan [facility] P [id number] S [id number] [place] Medigap Part B [id number] Self [id number] [facility] Health Maintenance Organization (O) [id number] Self [id number] 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 [id number] SP [id number] 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 [id number] SP [id number] OTHER WORKERS COMPENSATION [id number] SP [id number] O UNAVAILABLE UNAVAILA BLE MEDICAID M [id number] Self [id number] EXCELLUS H [id number] Self [id number] [place] Medig[place] Part [place] [id number] Self [id number] [place] Medigap Part [place] [id number] Self [id number] [facility] Care [place] [facility] Commercial [id number] Self [id number] [facility] Health Care Commercial [id number] Self [id number] [facility] HEALTH CARE [id number] SP [id number] MEDICAID M [id number] S [id number] Medicaid [place] Medicaid [id number] Self [id number] Health Maintenance Organization (HMO) [id number] Self [id number] Medicaid [place] Medicaid [id number] Self [id number] [place] [id number] Self [id number] [place] [id number] Self [id number] [place] Medigap Part B [id number] Self [id number] Health Care Commercial [id number] Self [id number] Medicaid P [id number] S [id number] Medicaid [place] Medigap Part B Self MVP Health Care Commercial Self [facility] P [id number] S [id number] Medicaid S [id number] S [id number] P HEALTH CARE O [id number] S [id number] [facility] P [id number] S [id number] [facility] PHY [id number] SP [id number] [place] [place] [id number] SP [id number] [employer] [place] [id number] SP [id number] [place]BS [place] PPO 302/307 [id number] SP [id number] [employer] BCYO P [id number] S VYS [id number] Medicaid S [id number] S [id number] [place] PHY [id number] SP [id number] BCBS [place] PPO 302/307 [id number] SP [id number] [employer] BCYO P [id number] S [id number] Managed Care - Community Plan [facility] P UNAVAILABLE S UNAVAILABLE Medicaid S UNAVAILABLE S UNAVAILA BLE [facility] [id number] Problems, Conditions, and Diagnoses Code Display Name Description Problem Type Effective Dates Data Source(s) Borderline personality disorder Borderline perso nality disorder Problem 07/28/2019 12:00:00 AM EDT MED[facility] ([facility]) Major depression, single episode Major depression, sin gle episode Problem 03/30/2019 12:00:00 AM EST [facility] ([facility]) [id number] Cannabis abuse Cannabis abuse Problem 03/30/2019 12:00: 00 AM EST [facility] ([facility]) [id number] Anxiety state Anxiety state Problem 03/30/2019 12:00:00 AM EST [facility] ([facility]) [id number] Tobacco user Tobacco user Problem 03/13/2019 12:00:00 A M EST [facility] ([facility]) [id number] Essential hypertension Essential hypertension Problem 03/13/2019 12:00:00 AM EST [facility] ([facility]) 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, thoracic region Spondylosis without myelopathy or radiculopathy, thoracic region Diagnosis 04/11/2020 12:59:00 PM [facility] F99848 Other cervical disc degeneration at C5-C 6 level Other cervical disc degeneration at C5-C6 level Diagnosis 04/11/2020 12:59:00 PM [facility] M549 Dorsalgia, unspecified Dorsalgia, unspecified Diagnosi s 04/11/2020 12:59:00 PM [facility] R99 Ill-defined and unknown cause of mortali ty Ill-defined and unknown cause of mortality Diagnosis 04/04/2020 01:18:00 PM [facility] R72007 Nicotine dependence, cigarettes, uncompl icated Nicotine dependence, cigarettes, uncomplicated Diagnosis 03/30/2020 07:52:00 AM [facility] R634 Abnormal weight loss Abnormal weight loss Diagnosis 03/30/2020 07:52:00 AM [facility] R918 Other nonspecific abnormal finding of melchor ng field Other nonspecific abnormal finding of lung field Diagnosis 03/23/2020 09:58:00 AM [facility] N209 Urinary calculus, unspecified Urinary calculus, unspec ified Diagnosis 02/10/2020 10:37:00 AM [facility] F329 Major depressive disorder, single episod e, unspecified Major depressive disorder, single episode, unspecified Diagnosis 02/08/2020 09:03:00 AM [facility] F603 Borderline personality disorder Borderline personality disorder Diagnosis 02/08/2020 09:03:00 AM [facility] R109 Unspecified abdominal pain Unspecified abdominal pain Diagnosis 02/08/2020 09:03:00 AM [facility] G4089 Other seizures Other seizures Diagnosis 02/01/2020 08:06: 00 AM [facility] Q19163 Epigastric abdominal tenderness Epigastric abdom inal tenderness Diagnosis 02/01/2020 08:06:00 AM [facility] F419 Anxiety disorder, unspecified Anxiety disorder, unspec ified Diagnosis 01/06/2020 02:12:00 PM EDT [facility] H538 Other visual disturbances Other visual disturbances Di agnosis 01/06/2020 02:12:00 PM EDT [facility] F1290 Cannabis use, unspecified, uncomplicated Cannabis use, unspecified, uncomplicated Diagnosis 08/25/2019 12:05:00 PM EDT [facility] G4737 Central sleep apnea in conditions classi fied elsewhere Central sleep apnea in conditions classified elsewhere Diagnosis 03/26/2019 07:56:00 AM [facility] [facility] Gastro-esophageal reflux disease without esophagitis Gastro-esophageal reflux disease without esophagitis Diagnosis 03/26/2019 07:56:00 AM [facility] [id number] Encounter for other preprocedural examin ation Encounter for other preprocedural examination Diagnosis 03/26/2019 07:56:00 AM [facility] Surgeries/Procedures Procedure Description Date Indications Data Source(s) Implantable Loop Recorder System, Review And Report 01/11/2020 12:00:00 AM EDT [facility] [place] Brief Emotional/Behav Assessment W/ Scoring Doc Per Standard Inst 01/06/2020 12:00:00 AM EDT [facility]) Admin Patient Focused Health Risk Assessment Instrument 01/06/2020 12:00:00 AM EDT [facility]) Visual Screening Test Of Visual Acuity, Quantitative, Bilate ral 01/06/2020 12:00:00 AM EDT [facility]) Implantable Loop Recorder System, Review And Report 12/10/2019 12:00:00 AM EDT [facility] ([facility] [place]) Implantable Loop Recorder System, Review And Report 11/09/2019 12:00:00 AM EDT [facility] ([facility]) Implantable Loop Recorder System, Review And Report 10/07/2019 12:00:00 AM EDT [facility] ([facility]) Closure Colostomy W/ Resection 04/22/2019 12:00:00 AM EST [facility] ([facility], ) Closure Colostomy W/ Resection 04/22/2019 12:00:00 AM EST [facility] ([facility], ) Electrocardiogram Complete 03/26/2019 12:00:00 AM EST [facility] ([facility]) ECG ROUTINE ECG W/LEAST 12 LDS W/I&R 03/13/2019 12:00: 00 AM EST [facility] ([facility]) Results ID Date Data Source [id number] 04/13/2020 09:27:00 AM EST [facility] [address] [place] [address] PHONE: [phone] FAX: [phone] Name .................. : JAKOB Mcdonald Acct Number.................. : [id number] ROOM. ................. : Number ................... : [id number] Stay type ............. : O/P Discharge Date......... ... : 04/11/20 Admit Date ......... : 04/11/20 Admit Phys .................... : SARAHI RAMSAY Date of ....... : 1980 Family Phys ................... : SILVANA Phone .................. : [phone] Age ................................ : 39 Film# .................. .:[id number] Sex ................................. : M Unsigned transcriptions are preliminary reports and do not represent a medical or legal document CT CERV SPINE W/O JOSUE [id number] COMPLETE:04/11/20 14:25 [facility] 2939 (SPINE PROC REASON: dorsalgia CT CERVICAL [...] Dictation Date: ADDENDUM: Page 1 of 2 [place] [address] PHONE: [phone] FAX: [phone] Name .................. : JAKOB WOODS Harry Acct Number.................. : [id number] ROOM. ................. : MR Number ................... : [id number] Stay type ............. : O/P Discharge Date......... ... : 04/11/20 Admit Date ......... : 04/11/20 Admit Phys .................... : SARAHI RAMSAY Date of ....... : 1980 Family Phys ................... : SILVANA Phone .................. : [phone] Age ................................ : 39 Film# .................. .:[id number] Sex ................................. : M Unsigned transcriptions are preliminary reports and do not represent a medical or legal document CT CERV SPINE W/O CONTRAS [id number] COMPLETE:04/11/20 14:25 [facility] 2939 (SPINE PROC REASON: dorsalgia The report [...] rce(s) Supporting Document(s) ID Date Data Source [id number] 04/12/2020 09:16:00 AM EST [facility] [address] [place] [address] PHONE: [phone] FAX: [phone] Name .................. : JAKOB Mcdonald Acct Number.................. : [id number] ROOM. ................. : MR Number ................... : [id number] Stay type ............. : O/P Discharge Date......... ... : 04/11/20 Admit Date ......... : 04/11/20 Admit Phys .................... : MCCLAIN HARD Date of ....... : 1980 Family Phys ................... : [employer] Phone .................. : [phone] Age ................................ : 39 Film# .................. .:[id number] Sex ................................. : M Unsigned transcriptions are preliminary reports and do not represent a medical or legal document CT THORACIC SP W/O CONTR [id number] COMPLETE:04/11/20 14:25 [facility] 2940 (SPINE PROC REASON: DORSALGIA CT THORACIC [...] 04/11/20 14:38, Dictation Date: Copy for: [facility] REC Page 1 of 1 Name Value Range Interpretation Code Description Data Alexandrea rce(s) Supporting Document(s) ID Date Data Source [id number] 03/25/2020 11:04:00 AM EST [facility] [address] [place] [address] PHONE: [phone] FAX: [phone] Name .................. : JAKOB Mcdonald Acct Number.................. : [id number] ROOM. ................. : MR Number ................... : [id number] Stay type ............. : O/P Discharge Date......... ... : 03/23/20 Admit Date ......... : 03/23/20 Admit Phys .................... : MCCLAIN HARD Date of ....... : 1980 Family Phys ................... : SILVANA Phone .................. : [phone] Age ................................ : 39 Film# .................. .:[id number] Sex ................................. : M Unsigned transcriptions are preliminary reports and do not represent a medical or legal document CT THORAX W/O CONTRAST [id number] COMPLETE:03/23/20 10:02 1557 (REASON FOR CHEST: ABN [...] By Peggy Jimenez MD , 03/25/20 11:04, [facility] Transcribe Initials: SSR, Transcribe Date: 03/23/20 13:51, Dictation Date: Copy for: [address] [place] [address] REC Page 1 of 1 Name Value Range Interpretation Code Description Data Alexandrea rce(s) Supporting Document(s) ID Date Data Source [id number] 02/15/2020 09:55:00 AM EST [facility] [address] [place] [address] PHONE: [phone] FAX: [phone] Name .................. : JAKOB Mcdonald Acct Number.................. : [id number] ROOM. ................. : MR Number ................... : [id number] Stay type ............. : O/P Discharge Date......... ... : 02/10/20 Admit Date ......... : 02/10/20 Admit Phys .................... : MCCLAIN HARD Date of ....... : 1980 Family Phys ................... : [employer] Phone .................. : [phone] Age ................................ : 39 Film# .................. .:[id number] Sex ................................. : M Unsigned transcriptions are preliminary reports and do not represent a medical or legal document CT ABD & PELV W/O ORAL W/O IV [id number] COMPLETE:02/10/20 12:13 [place] 64160 (REASON FOR ABDOMEN: ABNORMAL WEIGHT LOSS CT [...] imperative reconstructive techniques. Page 1 of [address] [place] [address] PHONE: [phone] FAX: [phone] Name .................. : JAKOB Mcdonald Acct Number.................. : [id number] ROOM. ................. : Number ................... : [id number] Stay type ............. : O/P Discharge Date......... ... : 02/10/20 Admit Date ......... : 02/10/20 [facility] ....... : 1980 Family Phys ................... : SILVANA Phone .................. : [phone] Age ................................ : 39 Film# .................. .:[id number] Sex ................................. : M Unsigned transcriptions are preliminary reports and do not represent a medical or legal document CT ABD & PELV W/O ORAL W/O IV [id number] COMPLETE:02/10/20 12:13 [place] [address]237 (REASON FOR ABDOMEN: ABNORMAL WEIGHT LOSS CT dose: 617 mGycm Electronically Reviewed and Signed By BERLIN SAEED MD , 02/15/20 09:55, [facility] Transcribe Initials: DZ , Transcribe Date: 02/10/20 22:55, Dictation Date: Copy for: [address] [place] [address] REC Page 2 of 2 Name Value Range Interpretation Code Description Data Alexandrea rce(s) Supporting Document(s) ID Date Data Source [id number] 02/15/2020 09:54:00 AM EST [facility] [address] [place] [address] PHONE: [phone] FAX: [phone] Name .................. : JAKOB Mcdonald Acct Number.................. : [id number] ROOM. ................. : Number ................... : [id number] Stay type ............. : O/P Discharge Date......... ... : 02/10/20 Admit Date ......... : 02/10/20 Admit Phys .................... : MCCLAIN HARD Date of ....... : 1980 Family Phys ................... : SILVANA Phone .................. : [phone] Age ................................ : 39 Film# .................. .:[id number] Sex ................................. : M Unsigned transcriptions are preliminary reports and do not represent a medical or legal document CHEST 2 VIEWS [id number] COMPLETE:02/10/20 12:13 [place] [address]4865 (REASON FOR CHEST: NICOTINE DEPENDENCE CHEST X-RAY: 2-VIEWS IMPRESSION: Nicotine dependence. FINDINGS: Loops recorder identified over the left ventricle. 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 The heart and mediastinum are within normal limits with no signs of any acute disease. IMPRESSION: No acute disease identified. Electronically Reviewed and Signed By BERLIN SAEED MD , 02/15/20 09:54, [facility] Transcribe Initials: NATALIA , Transcribe Date: 02/10/20 22:43, Dictation Date: Copy for: [address] [place] [address] REC Page 1 of 1 Name Value Range Interpretation Code Description Data Alexandrea rce(s) Supporting Document(s) ID Date Data Source [id number] 02/08/2020 12:25:00 PM EST [facility] ([facility]) Name Value Range Interpretation Code Description Data Alexandrea rce(s) Supporting Document(s) CT Abd & Pelv W/O Oral W/O IV Laboratory test result [facility] ([facility]) Chest Xray 2 Views Laboratory test result [facility] ([facility]) ID Date Data Source [id number] 02/08/2020 09:52:00 AM EST [facility] ([facility]) Name Value Range Interpretation Code Description Data Alexandrea rce(s) Supporting Document(s) Amphetamines Screen,Urine Laboratory test result [facility] ([facility]) Barbiturates Screen,Urine Laboratory test result [facility] ([facility]) Benzodiazepines Screen,Urine Laboratory test result [facility] ([facility]) Cannabinoid Screen, Urine Laboratory test result [facility] ([facility]) See Final Results Cocaine (Metab.) Screen,Urine Laboratory test result [facility] ([facility]) Oxycodone/Oxymorphone,Urine Laboratory test result [facility] ([facility]) Test includes Oxycodone and Oxymorphone Opiate Screen, Urine Laboratory test result [facility] ([facility]) Opiate test includes Codeine, Morphine, Hydromorphone, Hydrocodone. Phencyclidine Screen,Urine Laboratory test result [facility] ([facility]) Methadone Screen, Urine Laboratory test result [facility] ([facility]) Propoxyphene Screen,Urine Laboratory test result [facility] ([facility]) Fentanyl, Urine Laboratory test result [facility] ([facility]) Test includes Fentanyl and Norfentanyl This test was developed and its performance characteristics determined by [facility]. It has not been cleared or approved by the Food and Drug Administration. Tramadol Screen, Urine Laboratory test result [facility] ([facility]) Meperidine Screen, Urine Laboratory test result [facility] ([facility]) This test was developed and its performa nce characteristics determined by [facility]. It has not been cleared or approved by the Food and Drug Administration. Creatinine, Urine 210.7 mg/dL 20.0-300.0 [facility] ([facility]) Please Note: Laboratory test result [facility] ([facility]) Drug-test results should be interpreted in the context of clinical information. Patient metabolic variables, specific drug chemistry, and specimen characteristics can affect test outcome. Technical consultation is available if a test result is inconsistent with an expected outcome. (email-[email or web address] or call toll-free [phone]) Drug brands, if listed herein, are trademarks of their respective owners. Specific [place] 1.017 NA [facility] ([facility]) Cannabinoid Laboratory test result Abnormal (applies to non-numeric results) [facility] ([facility]) pH, Urine 7.2 NA 4.5-8.9 [facility] ([facility]) Carboxy THC (GC/MS) Laboratory test result [facility] ([facility]) ID Date Data Source [id number] 02/08/2020 09:52:00 AM EST [facility] ([facility]) Name Value Range Interpretation Code Description Data Alexandrea rce(s) Supporting Document(s) HIV Screen 4thGeneration wRfx Laboratory test result [facility] ([facility]) ID Date Data Source [id number] 02/08/2020 09:52:00 AM EST [facility] ([facility]) Name Value Range Interpretation Code Description Data Alexandrea rce(s) Supporting Document(s) Fibrosis Score 0.09 NA 0.00-0.21 [facility] ([facility]) Necroinflammat ActivityScore 0.02 NA 0.00-0.17 [facility] ([facility]) Fibrosis Stage Laboratory test result [facility] ([facility]) F0 - No fibrosis Alpha 2-Macroglobulins,Qn 184 mg/dL 110-276 [facility] ([facility]) Necroinflammat ActivityGrade Laboratory test result [facility] ([facility]) Haptoglobin 221 mg/dL 23-355 [facility] ([facility]) Apolipoprotein A-1 125 mg/dL 101-178 [facility] ([facility]) Bilirubin, Total 0.3 mg/dL 0.0-1.2 [facility] ([facility]) GGT 19 IU/L 0-65 [facility] ([facility]) Alt (SGPT) P5P 9 IU/L 0-55 [facility] ([facility]) Laboratory test finding (navigational concept) Laboratory test result [facility] ([facility]) Quantitative results of 6 biochemical te sts are analyzed using a computational algorithm to provide a quantitative surrogate marker (0.0-1.0) for liver fibrosis (METAVIR F0-F4) and for necroinflammatory activity (METAVIR A0-A3). Laboratory test finding (navigational concept) Laboratory test result [facility] ([facility]) <content><0.21 = Stage F0 - No [...] finding (navigational concept) Laboratory test result [facility] ([facility]) <content><0.17 = Grade A0 - No [...] test finding (navigational concept) Laboratory test result [facility] <content>The negative predictive value o f [...] liver.</content>
<content></content> Comment: Laboratory test result [facility] ([facility]) ID Date Data Source [id number] 02/08/2020 09:52:00 AM EST [facility] ([facility]) Name Value Range Interpretation Code Description Data Alexandrea rce(s) Supporting Document(s) Hemoglobin A1c/Hemoglobin.total in Blood 5.7 % 4.4-6.1 [facility] ([facility]) {A1] {HB] Prostate specific Ag [Mass/volume] in Serum or Plasma 1.35 ng/mL 0.00 -4.00 [facility] ([facility]) \\BLDo\\PSA INTERPRETATION\\BLDx\\ The PSA assay should [...] be used interchangeably. ID Date Data Source [id number] 02/08/2020 09:52:00 AM EST [facility] Name Value Range Interpretation Code Description Data Alexandrea rce(s) Supporting Document(s) Hemoglobin A1c/Hemoglobin.total in Blood Laboratory test result [facility] ([facility]) ID Date Data Source [id number] 02/09/2020 01:13:00 PM [facility] Name Value Range Interpretation Code Description Data Alexandrea rce(s) Supporting Document(s) Hemoglobin A1c/Hemoglobin.total in Blood 5.7 % 4.4 - 6.1 [facility] {A1]{HB] ID Date Data Source [id number] 02/08/2020 01:55:00 PM [facility] Name Value Range Interpretation Code Description Data Alexandrea rce(s) Supporting Document(s) Prostate specific Ag [Mass/volume] in Serum or Plasma 1.35 ng/mL 0.00 - 4.00 [facility] \\BLDo\\PSA INTERPRETA TION\\BLDx\\ The PSA assay [...] be used interchangeably. ID Date Data Source [id number] 02/13/2020 12:42:00 PM EST [facility] Name Value Range Interpretation Code Description Data Alexandrea e(s) Supporting Document(s) Amphetamines [Presence] in Urine by Screen method Negative ng/mL Cu xksn=0312 [facility] Barbiturates [Presence] in Urine by Screen method Negative ng/mL Cuto du=394 [facility] Benzodiazepines [Presence] in Urine by Screen method Negative ng /mL Liycyk=305 [facility] Cannabinoids [Presence] in Urine by Screen method See Final Results ng/mL Cutoff=20 [facility] Benzoylecgonine [Presence] in Urine by Screen method Negative ng /mL Woextd=361 [facility] Opiates [Presence] in Urine by Screen method Negative ng/mL Cutoff=30 0 [facility] Opiate test includes Codeine, Morphine, Hydromorphone, Hydrocodone. Oxycodone+Oxymorphone [Presence] in Urine by Screen method N egative ng/mL Plzcxk=550 [facility] Test includes Oxycodone and Oxymorphone Phencyclidine [Presence] in Urine Negative ng/mL Cutoff=25 [facility] Methadone [Presence] in Urine by Screen method Negative ng/mL Cutoff= 300 [facility] Propoxyphene [Presence] in Urine by Screen method Negative ng/mL Cuto ww=801 [facility] Meperidine [Presence] in Urine Negative ng/mL Zigzdh=580 [facility] This test was developed and its performa nce characteristicsdetermined by [facility]. It has not been cleared or approvedby the Food and Drug Administration. Fentanyl [Mass/volume] in Urine Negative pg/mL Wojkfi=3696 [facility] Test includes Fentanyl and NorfentanylTh is test was developed and its performance characteristicsdetermined by [facility]. It has not been cleared or approvedby the Food and Drug Administration. Tramadol [Presence] in Urine by Screen method Negative ng/mL Cutoff=2 00 [facility] Creatinine [Mass/volume] in Urine 210.7 mg/dL 20.0-300.0 [facility] Specific gravity of Urine 1.017 NA [facility] Laboratory comment [Text] in Report Narrative COMMENT [facility] Drug-test results should be interpreted in the context of clinicalinformation. Patient metabolic variables, specific drug chemistry, andspecimen characteristics can affect test outcome. Technicalconsultation is available if a test result is inconsistent with anexpected outcome. (email- [email or web address] or call [phone])Drug brands, if listed herein, are trademarks of their respectiveowners. pH of Urine 7.2 NA 4.5-8.9 [facility] ital Cannabinoids [Presence] in Urine by Confirmatory method Positive Cu toff=20 A [facility] Tetrahydrocannabinol [Mass/volume] in Urine by Confirmatory method >300 ng/mL Cutoff=10 [facility] ID Date Data Source [id number] 02/11/2020 06:34:00 AM EST [facility] Name Value Range Interpretation Code Description Data Alexandrea rce(s) Supporting Document(s) HIV 1+2 Ab+HIV1 p24 Ag [Presence] in Serum or Plasma b y Immunoassay Non Reactive Non Reactive [facility] ID Date Data Source [id number] 02/11/2020 06:34:00 AM [facility] Name Value Range Interpretation Code Description Data Alexandrea rce(s) Supporting Document(s) Fibrosis score 0.09 NA 0.00-0.21 [facility] Fibrosis stage COMMENT [facility] F0 - No fibrosis Necroinflammatory activity score 0.02 NA 0.00-0.17 [facility] Necroinflammatory activity grade A0-No activity [facility] Oxphr-4-Vcthwkcmcdjwp [Mass/volume] in Serum or Plasma 184 mg/dL 110 -276 [facility] Haptoglobin [Mass/volume] in Serum or Plasma 221 mg/dL 23-355 [facility] Apolipoprotein A-I [Mass/volume] in Serum or Plasma 125 mg/dL 101-17 8 [facility] Bilirubin.total [Mass/volume] in Serum or Plasma 0.3 mg/dL 0.0-1.2 [facility] Gamma glutamyl transferase [Enzymatic activity/volume] in Serum or Plasma 19 IU/L 0-65 [facility] Alanine aminotransferase [Enzymatic acti vity/volume] in Serum or Plasma by With P-5'-P 9 IU/L 0-55 [facility] Interpretations: COMMENT [facility] Quantitative results of 6 biochemical te sts are analyzed usinga computational algorithm to provide a quantitative surrogatemarker (0.0-1.0) for liver fibrosis (METAVIR F0-F4) and fornecroinflammatory activity (METAVIR A0-A3). Fibrosis Scoring: COMMENT [facility] <0.21 = Stage F0 - No fibrosis0.21 [...] Stage F4 - Cirrhosis Necroinflamm ActivityScoring: COMMENT [facility] <0.17 = Grade A0 - No Activity0.17 - 0.29 = Grade A0 - A10.29 - 0.36 = Grade A1 - Minimal activity0.36 - 0.52 = Grade A1 - A20.52 - 0.60 = Grade A2 - Moderate activity0.60 - 0.62 = Grade A2 - A3 >0.62 = Grade A3 - Severe activity Service comment COMMENT [facility] The negative predictive value of a [...] comment [Text] in Report Narrative WILL FOLLOW [facility] ID Date Data Source [id number] 02/08/2020 08:24:00 AM EST [facility] Name Value Range Interpretation Code Description Data Alexandrea rce(s) Supporting Document(s) Hemoglobin A1c/Hemoglobin.total in Blood 5.7 [facility] ([facility]) ID Date Data Source [id number] 02/02/2020 03:59:00 [place] [address] PHONE: [phone] FAX: [phone] Name .................. : JAKOB Mcdonald Acct Number.................. : [id number] ROOM. ................. : Number ................... : [id number] Stay type ............. : CLINIC Discharge Date......... ... : 02/01/20 Admit Date ......... : 02/01/20 Admit Phys .................... : SARAHI RAMSAY Date of ....... : 1980 Family Phys ................... : SILVANA Phone .................. : [phone] Age ................................ : 39 Film# .................. .:[id number] Sex ................................. : M Unsigned transcriptions are preliminary reports and do not represent a medical or legal document SPINE THORACIC [id number] COMPLETE:02/01/20 15:25 [facility] [address]13 (SPINE PROC REASON: dorsalgia THORACIC SPINE SERIES: [...] rce(s) Supporting Document(s) ID Date Data Source [id number] 02/02/2020 03:59:00 [place] [address] PHONE: [phone] FAX: [phone] Name .................. : JAKOB Mcdonald Acct Number.................. : [id number] ROOM. ................. : Number ................... : [id number] Stay type ............. : CLINIC Discharge Date......... ... : 02/01/20 Admit Date ......... : 02/01/20 Admit Phys .................... : SARAHI RAMSAY Date of ....... : 1980 Family Phys ................... : SILVANA Phone .................. : [phone] Age ................................ : 39 Film# .................. .:[id number] Sex ................................. : M Unsigned transcriptions are preliminary reports and do not represent a medical or legal document SPINE CERV COMP-5 OR MORE VIE [id number] COMPLETE:02/01/20 15:25 [facility] [address]168 (SPINE PROC REASON: dorsalgia C ERVICAL SPINE [...] rce(s) Supporting Document(s) ID Date Data Source [id number] 02/02/2020 03:46:00 PM EST [facility] [address] [place] [address] PHONE: [phone] FAX: [phone] Name .................. : JAKOB Mcdonald Acct Number.................. : [id number] ROOM. ................. : MR Number ................... : [id number] Stay type ............. : CLINIC Discharge Date......... ... : 02/01/20 Admit Date ......... : 02/01/20 Admit Phys .................... : MCCLAIN HARD Date of ....... : 1980 Family Phys ................... : [employer] Phone .................. : [phone] Age ................................ : 39 Film# .................. .:[id number] Sex ................................. : M Unsigned transcriptions are preliminary reports and do not represent a medical or legal document US ABD LIMITED [id number] COMPLETE:02/01/20 14:59 [facility] [id number] AUTH #: [id number] EXPIRES: 05/01/20 SCHEDULED FOR : 1 04/02/19 [...] rce(s) Supporting Document(s) ID Date Data Source [id number] 02/01/2020 02:11:00 PM EST [facility] ([facility]) Name Value Range Interpretation Code Description Data Alexandrea rce(s) Supporting Document(s) Culture Urine Laboratory test result [facility] ([facility]) {SOURCE: Random Void~NURSE COLLECTED? N Is patient fasting? N ID Date Data Source [id number] 02/01/2020 02:11:00 PM EST [facility] ([facility]) Name Value Range Interpretation Code Description Data Alexandrea rce(s) Supporting Document(s) Urinalysis Laboratory test result [facility] ([facility]) {SOURCE: Random Void~NURSE COLLECTED? N Is patient fasting? N Clarity Laboratory test result [facility] ([facility]) {SOURCE: Random Void~NURSE COLLECTED? N Is patient fasting? N Source Laboratory test result [facility] ([facility]) {SOURCE: Random Void~NURSE COLLECTED? N Is patient fasting? N Color Laboratory test result [facility] ([facility]) {SOURCE: Random Void~NURSE COLLECTED? N Is patient fasting? N Glucose Laboratory test result [facility] ([facility]) {SOURCE: Random Void~NURSE COLLECTED? N Is patient fasting? N Spec [place] 1.015 1.001-1.030 [facility] ([facility]) {SOURCE: Random Void~NURSE COLLECTED? N Is patient fasting? N pH 7 5-9 [facility] ([facility]) {SOURCE: Random Void~NURSE COLLECTED? N Is patient fasting? N Ketone 5 Abnormal (applies to non-numeric res ults) [facility] ([facility]) {SOURCE: Random Void~NURSE COLLECTED? N Is patient fasting? N Bilirubin Laboratory test result [facility] ([facility]) {SOURCE: Random Void~NURSE COLLECTED? N Is patient fasting? N Nitrite Laboratory test result [facility] ([facility]) {SOURCE: Random Void~NURSE COLLECTED? N Is patient fasting? N Protein Laboratory test result [facility] ([facility]) {SOURCE: Random Void~NURSE COLLECTED? N Is patient fasting? N Blood Laboratory test result [facility] ([facility]) {SOURCE: Random Void~NURSE COLLECTED? N Is patient fasting? N Urobilinogen 4 [facility] ([facility]) {SOURCE: Random Void~NURSE COLLECTED? N Is patient fasting? N Microscopic Laboratory test result [facility] ([facility]) {SOURCE: Random Void~NURSE COLLECTED? N Is patient fasting? N Leuk Est 25 [facility] ([facility]) {SOURCE: Random Void~NURSE COLLECTED? N Is patient fasting? N RBC Laboratory test result [facility] ([facility]) {SOURCE: Random Void~NURSE COLLECTED? N Is patient fasting? N Bacteria Laboratory test result Abnormal (applies to non -numeric results) [facility] ([facility]) {SOURCE: Random Void~NURSE COLLECTED? N Is patient fasting? N WBC Laboratory test result [facility] ([facility]) {SOURCE: Random Void~NURSE COLLECTED? N Is patient fasting? N Amorph Sed Laboratory test result [facility] ([facility]) {SOURCE: Random Void~NURSE COLLECTED? N Is patient fasting? N ID Date Data Source [id number] 02/01/2020 02:11:00 PM EST [facility] ([facility]) Name Value Range Interpretation Code Description Data Alexandrea rce(s) Supporting Document(s) Helicobacter pylori [Presence] in Stomach by urea torin th test Laboratory test result [facility] ([facility]) {SOURCE: Random Void~NURSE COLLECTED? N Is patient fasting? N ID Date Data Source [id number] 02/01/2020 02:11:00 PM EST [facility] ([facility]) Name Value Range Interpretation Code Description Data Alexandrea rce(s) Supporting Document(s) Comprehensive Metabo Laboratory test result [facility] ([facility]) {SOURCE: Random Void~NURSE COLLECTED? N Is patient fasting? N Potassium 3.9 meq/L 3.6-5.0 [facility] ([facility]) {SOURCE: Random Void~NURSE COLLECTED? N Is patient fasting? N Sodium 142 meq/L 134-153 [facility] ([facility]) {SOURCE: Random Void~NURSE COLLECTED? N Is patient fasting? N Co2 30 meq/L 22-30 [facility] ([facility]) {SOURCE: Random Void~NURSE COLLECTED? N Is patient fasting? N Glucose 97 mg/dL 65-110 [facility] ([facility]) {SOURCE: Random Void~NURSE COLLECTED? N Is patient fasting? N Chloride 103 meq/L 98-107 [facility] ([facility]) {SOURCE: Random Void~NURSE COLLECTED? N Is patient fasting? N BUN 6 mg/dL 7-21 Below low normal [facility] ([facility]) {SOURCE: Random Void~NURSE COLLECTED? N Is patient fasting? N Creatinine 0.4 mg/dL 0.7-1.5 Below low normal [facility] ( [facility]) {SOURCE: Random Void~NURSE COLLECTED? N Is patient fasting? N BUN/Creat 15 8-27 [facility] ([facility]) {SOURCE: Random Void~NURSE COLLECTED? N Is patient fasting? N Total Protein 6.4 g/dL 6.3-8.2 [facility] ([facility]) {SOURCE: Random Void~NURSE COLLECTED? N Is patient fasting? N Globulin 1.8 GM/DL 2.4-3.2 Below low normal [facility] ( [facility]) {SOURCE: Random Void~NURSE COLLECTED? N Is patient fasting? N Albumin 4.6 g/dL 3.9-5.0 [facility] ([facility]) {SOURCE: Random Void~NURSE COLLECTED? N Is patient fasting? N A/G Ratio 2.6 0.8-2.0 Above high normal [facility] ([facility]) {SOURCE: Random Void~NURSE COLLECTED? N Is patient fasting? N Calcium 9.3 mg/dL 8.4-10.2 [facility] ([facility]) {SOURCE: Random Void~NURSE COLLECTED? N Is patient fasting? N Total Bili 0.8 mg/dL 0.2-1.3 [facility] ([facility]) {SOURCE: Random Void~NURSE COLLECTED? N Is patient fasting? N Sgot/Ast 12 U/L 5-40 [facility] ([facility]) {SOURCE: Random Void~NURSE COLLECTED? N Is patient fasting? N Alkaline Phos 79 U/L 38-126 [facility] ([facility]) {SOURCE: Random Void~NURSE COLLECTED? N Is patient fasting? N Anion Gap 9.0 mmol/L 8.0-16.0 [facility] ([facility]) {SOURCE: Random Void~NURSE COLLECTED? N Is patient fasting? N SGPT/Alt 8 U/L 7-56 [facility] ([facility]) {SOURCE: Random Void~NURSE COLLECTED? N Is patient fasting? N Age 39 yrs [facility] ([facility]) {SOURCE: Random Void~NURSE COLLECTED? N Is patient fasting? N Afr Amer GFR Laboratory test result [facility] ([facility]) {SOURCE: Random Void~NURSE COLLECTED? N Is patient fasting? N Non-Aa GFR Laboratory test result [facility] ([facility]) {SOURCE: Random Void~NURSE COLLECTED? N Is patient fasting? N ID Date Data Source [id number] 02/01/2020 02:11:00 PM EST [facility] ([facility]) Name Value Range Interpretation Code Description Data Alexandrea rce(s) Supporting Document(s) CBC W/Automated Diff Laboratory test result [facility] ([facility]) {SOURCE: Random Void~NURSE COLLECTED? N Is patient fasting? N RBC 5.30 10^6/uL 4.50-6.30 [facility] ([facility]) {SOURCE: Random Void~NURSE COLLECTED? N Is patient fasting? N WBC 9.8 10^3/uL 4.2-11.0 [facility] ([facility]) {SOURCE: Random Void~NURSE COLLECTED? N Is patient fasting? N Hemoglobin 16.5 g/dL 14.0-16.0 Above high normal [facility] ([facility]) {SOURCE: Random Void~NURSE COLLECTED? N Is patient fasting? N Hematocrit 48.3 % 41.0-51.0 [facility] ([facility]) {SOURCE: Random Void~NURSE COLLECTED? N Is patient fasting? N MCHC 34.2 g/dL 31.0-36.0 [facility] ([facility]) {SOURCE: Random Void~NURSE COLLECTED? N Is patient fasting? N MCV 91.1 fL 80.0-94.0 [facility] ([facility]) {SOURCE: Random Void~NURSE COLLECTED? N Is patient fasting? N MCH 31.1 pg 27.0-34.0 [facility] ([facility]) {SOURCE: Random Void~NURSE COLLECTED? N Is patient fasting? N RDW 13.3 % 11.5-14.8 [facility] ([facility]) {SOURCE: Random Void~NURSE COLLECTED? N Is patient fasting? N MPV 10.6 fL 7.4-10.4 Above high normal [facility] ([facility]) {SOURCE: Random Void~NURSE COLLECTED? N Is patient fasting? N Platelets 204 10^3/uL 150-450 [facility] ([facility]) {SOURCE: Random Void~NURSE COLLECTED? N Is patient fasting? N Neut 73.2 % 37.0-80.0 [facility] ([facility]) {SOURCE: Random Void~NURSE COLLECTED? N Is patient fasting? N Pima 5.3 % 3.0-8.0 [facility] ([facility]) {SOURCE: Random Void~NURSE COLLECTED? N Is patient fasting? N Lymph 19.1 % 25.0-40.0 Below low normal [facility] ( [facility]) {SOURCE: Random Void~NURSE COLLECTED? N Is patient fasting? N Eos 1.2 % 0.0-7.0 [facility] ([facility]) {SOURCE: Random Void~NURSE COLLECTED? N Is patient fasting? N Baso 0.9 % 0.0-2.0 [facility] ([facility]) {SOURCE: Random Void~NURSE COLLECTED? N Is patient fasting? N #Neut 7.18 10^3/uL 2.00-6.90 Above high normal [facility] ([facility]) {SOURCE: Random Void~NURSE COLLECTED? N Is patient fasting? N %NRBC 0.0 % 0.0-0.0 [facility] ([facility]) {SOURCE: Random Void~NURSE COLLECTED? N Is patient fasting? N %Ig 0.3 % 0.0-0.0 Above high normal [facility] ([facility] {SOURCE: Random Void~NURSE COLLECTED? N Is patient fasting? N #Lymph 1.87 10^3/uL 0.60-3.40 [facility] ([facility]) {SOURCE: Random Void~NURSE COLLECTED? N Is patient fasting? N #Eos 0.12 10^3/uL 0.00-0.70 [facility] ([facility]) {SOURCE: Random Void~NURSE COLLECTED? N Is patient fasting? N #Pima 0.52 10^3/uL 0.00-0.90 [facility] ([facility]) {SOURCE: Random Void~NURSE COLLECTED? N Is patient fasting? N #Baso 0.09 10^3/uL 0.00-0.20 [facility] ([facility]) {SOURCE: Random Void~NURSE COLLECTED? N Is patient fasting? N #Ig 0.03 10^3/uL 0.00-0.10 [facility] ([facility]) {SOURCE: Random Void~NURSE COLLECTED? N Is patient fasting? N Manual Diff Laboratory test result [facility] ([facility]) {SOURCE: Random Void~NURSE COLLECTED? N Is patient fasting? N #NRBC 0.00 10^3/uL 0.00-0.00 [facility] ([facility]) {SOURCE: Random Void~NURSE COLLECTED? N Is patient fasting? N RBC Morph Laboratory test result [facility] ([facility]) {SOURCE: Random Void~NURSE COLLECTED? N Is patient fasting? N ID Date Data Source [id number] 02/05/2020 02:35:00 PM EST [facility] Name Value Range Interpretation Code Description Data Alexandrea rce(s) Supporting Document(s) CULTURE URINE [facility] _CULTURE URINE_$$[id number]$$[id number]$$[id number]$$[id number]$$[id number]$$[id number]$$[id number]$$541102$$[id number]$$ 156016$$885374$$683581$$669794$$664809$$973782$$660427$$576719$$332500$$258947$$ 806964$$578987$$607799$$563854$$296802$$676524$$[id number]$$[id number] -- Continued on next page --Patient: JAKOB Mcdonald Order: Page 2Culture: CULTURE URINE Status: Final ==== -- Continued on next page --Patient: JAKOB Mcdonald Order: Page 2Culture: CULTURE URINE Status: Prelim =====$$[id number]$$[id number] DATE/TIME: 02/05/2020 14:07Culture: CULTURE URINE Status: FinalUrine Culture,Comprehensive: P1No growth in 36 - 48 hours. Previous result entered on 02/04/2020 01:58 ET Specimen has been received and testing has been initiated.P1 Test performed by: [facility] Saad LAURA #: [id number] [address] [place] [address] [id number] [facility] [id number] Director : Dedrick Purdy MD NPI #:Soil Analyst : 02/04/[email or web address] REF 02/05/[email or web address] REF ID Date Data Source [id number] 02/04/2020 07:04:00 AM [facility] Name Value Range Interpretation Code Description Data Alexandrea rce(s) Supporting Document(s) Helicobacter pylori [Presence] in Stomach by urea breath test Ne gative Negative [facility] ID Date Data Source [id number] 02/01/2020 03:05:00 PM [facility] Name Value Range Interpretation Code Description Data Alexandrea rce(s) Supporting Document(s) COMPREHENSIVE METABOLIC PANEL [facility] COMPREHENSIVE METABOLIC PANEL Sodium [Moles/volume] in Serum or Plasma 142 mEq/L 134 - 153 [facility] Potassium [Moles/volume] in Serum or Plasma 3.9 mEq/L 3.6 - 5.0 [facility] Chloride [Moles/volume] in Serum or Plasma 103 mEq/L 98 - 107 [facility] Carbon dioxide, total [Moles/volume] in Serum or Plasma 30 MEQ/L 22 - 30 [facility] Glucose [Mass/volume] in Serum or Plasma 97 MG/DL 65 - 110 [facility] BUN 6 MG/DL 7 - 21 [facility] Creatinine [Mass/volume] in Serum or Plasma 0.4 MG/DL 0.7 - 1.5 L [facility] BUN/CREAT 15 8 - 27 [facility] al Protein [Mass/volume] in Serum or Plasma 6.4 G/DL 6.3 - 8.2 [facility] Albumin [Mass/volume] in Serum or Plasma 4.6 G/DL 3.9 - 5.0 [facility] Globulin [Mass/volume] in Serum by calculation 1.8 GM/DL 2.4 - 3.2 L [facility] A/G RATIO 2.6 0.8 - 2.0 H [facility] Calcium [Mass/volume] in Serum or Plasma 9.3 MG/DL 8.4 - 10.2 [facility] Bilirubin.total [Mass/volume] in Serum or Plasma 0.8 MG/DL 0.2 - 1.3 [facility] Alkaline phosphatase [Enzymatic activity/volume] in Serum or Plasma 79 U/L 38 - 126 [facility] Aspartate aminotransferase [Enzymatic activity/volume] in Serum or Plasma 12 U/L 5 - 40 [facility] Alanine aminotransferase [Enzymatic activity/volume] in Seru m or Plasma 8 U/L 7 - 56 [facility] Anion gap 3 in Serum or Plasma 9.0 mmol/L 8.0 - 16.0 [facility]GE 39 y[facility] NON-[facility] GFR >60 mL/min [facility] ital AFR AMER GFR >60 mL/min [facility] Male GFR In terprentation 20-49 [...] >32 mL/min Normal ID Date Data Source [id number] 02/01/2020 02:38:00 PM EST [facility] Name Value Range Interpretation Code Description Data Alexandrea rce(s) Supporting Document(s) URINALYSIS [facility] URINALYSIS SOURCE R [facility] COLOR Yellow NORMAL: Yellow [facility] CLARITY Hazy NORMAL: Clear [facility] Specific gravity of Urine by Test strip 1.015 1.001 - 1.030 [facility] pH 7 5 - 9 [facility] al Glucose [Mass/volume] in Urine by Test strip NORM NORMAL: Negat [facility] Bilirubin.total [Presence] in Urine by Test strip NEG NORMAL: Negative [facility] Ketones [Presence] in Urine by Test strip 5 NORMAL: Negative A [facility] Protein [Mass/volume] in Urine by Test strip NEG NORMAL: Negat [facility] Nitrite [Presence] in Urine by Test strip NEG NORMAL: Negative [facility] BLOOD NEG NORMAL: Negative [facility] Leukocyte esterase [Presence] in Urine by Test strip 25 SARAH L: Negative [facility] Urobilinogen [Mass/volume] in Urine by Test strip 4 less ginette n 1.0 mg/dL [facility] MICROSCOPIC See Below [facility] ital WBC 1 - 3 NORMAL: NONE SEEN [facility] Erythrocytes [#/volume] in Urine by Test strip 1 - 3 NORMAL: NON E SEEN [facility] Bacteria [Presence] in Urine sediment by Light microscopy 2+ MOD NORMAL: NONE SEEN A [facility] Amorphous sediment [Presence] in Urine sediment by Light william roscopy 3+ NORMAL: NONE SEEN [facility] ID Date Data Source [id number] 02/01/2020 02:32:00 PM EST [facility] Name Value Range Interpretation Code Description Data Alexandrea rce(s) Supporting Document(s) CBC W/AUTOMATED DIFF [facility] COMPLETE BLOOD COUNT Leukocytes [#/volume] in Blood by Automated count 9.8 10^3/uL 4.2 - 1 1.0 [facility] Erythrocytes [#/volume] in Blood by Automated count 5.30 10^6/uL 4. 50 - 6.30 [facility] Hemoglobin [Mass/volume] in Blood 16.5 g/dL 14.0 - 16.0 H [facility] Hematocrit [Volume Fraction] of Blood by Automated count 48.3 % 4 1.0 - 51.0 [facility] Erythrocyte mean corpuscular volume [Entitic volume] by Auto mated count 91.1 fL 80.0 - 94.0 [facility] Erythrocyte mean corpuscular hemoglobin [Entitic mass] by Automated count 31.1 pg 27.0 - 34.0 [facility] Erythrocyte mean corpuscular hemoglobin concentration [Mass/volume] by Automated count 34.2 g/dL 31.0 - 36.0 [facility] Erythrocyte distribution width [Ratio] by Automated count 13.3 % 11.5 - 14.8 [facility] Platelets [#/volume] in Blood by Automated count 204 10^3/uL 150 - 45 0 [facility] Platelet mean volume [Entitic volume] in Blood by Automated count 10.6 fL 7.4 - 10.4 H [facility] Neutrophils/100 leukocytes in Blood by Automated count 73.2 % 37. 0 - 80.0 [facility] Lymphocytes/100 leukocytes in Blood by Manual count 19.1 % 25.0 - 40.0 L [facility] Monocytes/100 leukocytes in Blood by Automated count 5.3 % 3.0 - 8.0 [facility] Eosinophils/100 leukocytes in Blood by Automated count 1.2 % 0.0 - 7.0 [facility] Basophils/100 leukocytes in Blood by Automated count 0.9 % 0.0 - 2.0 [facility] %IG 0.3 % 0.0 - 0.0 H [facility] %NRBC 0.0 % 0.0 - 0.0 [facility] al Neutrophils [#/volume] in Blood by Automated count 7.18 10^3/uL 2.00 - 6.90 H [facility] Lymphocytes [#/volume] in Blood by Automated count 1.87 10^3/uL 0.60 - 3.40 [facility] Monocytes [#/volume] in Blood by Automated count 0.52 10^3/uL 0.00 - 0.90 [facility] Eosinophils [#/volume] in Blood by Automated count 0.12 10^3/uL 0.00 - 0.70 [facility] Basophils [#/volume] in Blood by Automated count 0.09 10^3/uL 0.00 - 0.20 [facility] #IG 0.03 10^3/uL 0.00 - 0.10 [facility] #NRBC 0.00 10^3/uL 0.00 - 0.00 [facility] MANUAL DIFF NOT INDICATED [facility] RBC MORPH NOT INDICATED [facility] ID Date Data Source [id number] 02/01/2020 09:14:00 AM EST [facility] ([facility]) Name Value Range Interpretation Code Description Data Alexandrea rce(s) Supporting Document(s) US Abd Limited Laboratory test result [facility] ([facility]) ID Date Data Source [id number] 02/01/2020 09:10:00 AM EST [facility] ([facility]) Name Value Range Interpretation Code Description Data Alexandrea rce(s) Supporting Document(s) Spine Cerv Comp-5 Or More View Laboratory test result [facility] ([facility]) Spine Thoracic Laboratory test result [facility] ([facility]) ID Date Data Source [id number] 02/01/2020 08:24:00 AM EST [facility] ([facility]) Name Value Range Interpretation Code Description Data Alexandrea rce(s) Supporting Document(s) Albumin [Mass/volume] in Serum or Plasma 4.6 [facility] ([facility]) Alanine aminotransferase [Enzymatic activity/volume] in Serum or Pl asma 8 [facility] ([facility]) Chloride [Moles/volume] in Serum or Plasma 103 [facility] ([facility]) Calcium [Mass/volume] in Serum or Plasma 9.3 [facility] ([facility]) Carbon dioxide, total [Moles/volume] in Serum or Plasma 30 [facility] ([facility]) Potassium [Moles/volume] in Serum or Plasma 3.9 [facility] ([facility]) Alkaline phosphatase [Enzymatic activity/volume] in Serum or Plasma 7 9 [facility] ([facility]) Protein [Mass/volume] in Serum or Plasma 6.4 [facility] ([facility]) Urea nitrogen [Mass/volume] in Serum or Plasma 6 [facility] ([facility]) Sodium 142 [facility] Aspartate aminotransferase [Enzymatic activity/volume] in Serum or Plasma 12 [facility] ([facility]) Glucose 97 65-110 [facility] Creatinine For GFR 0.4 [facility] ([facility]) ID Date Data Source [id number] 02/01/2020 08:24:00 AM EST [facility] ([facility] Name Value Range Interpretation Code Description Data Alexandrea rce(s) Supporting Document(s) Red Blood Count 5.30 4.50-6.30 [facility] ([facility]) White Blood Count 9.8 4.2-11.0 [facility] ([facility]) Platelets 204 150-450 [facility] ([facility] Hematocrit 48.3 41.0-51.0 [facility] ([facility]) Hemoglobin 16.5 14.0-16.0 [facility] ([facility]) ID Date Data Source [id number] 01/06/2020 03:55:00 PM EDT [facility] ([facility]) Name Value Range Interpretation Code Description Data Alexandrea rce(s) Supporting Document(s) Inhouse Visual Acuity Laboratory test result [facility] ([facility]) ID Date Data Source [id number] 04/13/2019 11:43:00 AM EST [facility] ([facility]) Name Value Range Interpretation Code Description Data Alexandrea rce(s) Supporting Document(s) Laboratory test finding (navigational concept) Laboratory test result [facility] ([facility]) {DIAGNOSIS: F32.9~{MEDICATIONS PRESCRIB ED/DECLARED: OXYCODONE, CYMBALTA~{PRESCRIPTION INFO:~{SC PDF Laboratory test result [facility] ([facility]) {DIAGNOSIS: F32.9~{MEDICATIONS PRESCRIB ED/DECLARED: OXYCODONE, CYMBALTA~{PRESCRIPTION INFO:~{SC ID Date Data Source [id number] 04/18/2019 08:13:00 AM [facility] Name Value Range Interpretation Code Description Data Alexandrea rce(s) Supporting Document(s) Drugs identified in Urine FINAL [facility] TOXASSURE SELECT 13 (MW) Test Result Flag [...] clinical consultation, please call . Report . [facility] ID Date Data Source [id number] 03/27/2019 09:15:00 AM EST [facility] ([facility]) Name Value Range Interpretation Code Description Data Alexandrea rce(s) Supporting Document(s) CT Thorax W/Contrast Laboratory test result [facility] ([facility]) CT Abdomen And Pelvis W/Contrast Laboratory test result [facility] ([facility]) ID Date Data Source [id number] 03/26/2019 08:19:00 AM EST [facility] ([facility]) Name Value Range Interpretation Code Description Data Alexandrea rce(s) Supporting Document(s) Inhouse EKG Laboratory test result [facility] ([facility]) ID Date Data Source [id number] 03/26/2019 08:18:00 AM EST [facility] ([facility]) Name Value Range Interpretation Code Description Data Alexandrea rce(s) Supporting Document(s) Barbiturates Screen,Urine Laboratory test result [facility] ([facility]) {SOURCE: Random Void~NURSE COLLECTED? N Is patient fasting? N Amphetamines Screen,Urine Laboratory test result [facility] ([facility]) {SOURCE: Random Void~NURSE COLLECTED? N Is patient fasting? N Benzodiazepines Screen,Urine Laboratory test result [facility] ([facility]) {SOURCE: Random Void~NURSE COLLECTED? N Is patient fasting? N Cannabinoid Screen, Urine Laboratory test result [facility] ([facility]) {SOURCE: Random Void~NURSE COLLECTED? N Is patient fasting? N Cocaine (Metab.) Screen,Urine Laboratory test result [facility] ([facility]) {SOURCE: Random Void~NURSE COLLECTED? N Is patient fasting? N Opiate Screen, Urine Laboratory test result [facility] ([facility]) {SOURCE: Random Void~NURSE COLLECTED? N Is patient fasting? N Oxycodone/Oxymorphone,Urine Laboratory test result [facility] ([facility]) {SOURCE: Random Void~NURSE COLLECTED? N Is patient fasting? N Methadone Screen, Urine Laboratory test result [facility] ([facility]) {SOURCE: Random Void~NURSE COLLECTED? N Is patient fasting? N Phencyclidine Screen,Urine Laboratory test result [facility] ([facility]) {SOURCE: Random Void~NURSE COLLECTED? N Is patient fasting? N Meperidine Screen, Urine Laboratory test result [facility] ([facility]) {SOURCE: Random Void~NURSE COLLECTED? N Is patient fasting? N Propoxyphene Screen,Urine Laboratory test result [facility] ([facility]) {SOURCE: Random Void~NURSE COLLECTED? N Is patient fasting? N Fentanyl, Urine Laboratory test result [facility] ([facility]) {SOURCE: Random Void~NURSE COLLECTED? N Is patient fasting? N Tramadol Screen, Urine [facility] {SOURCE: Random Void~NURSE COLLECTED? N Is patient fasting? N Creatinine, Urine 347.1 mg/dL 20.0-300.0 Above high normal [facility] {SOURCE: Random Void~NURSE COLLECTED? N Is patient fasting? N Please Note: Laboratory test result [facility] ([facility]) {SOURCE: Random Void~NURSE COLLECTED? N Is patient fasting? N Specific [place] 1.022 NA [facility] {SOURCE: Random Void~NURSE COLLECTED? N Is patient fasting? N pH, Urine 5.6 NA 4.5-8.9 [facility] {SOURCE: Random Void~NURSE COLLECTED? N Is patient fasting? N Cannabinoid Laboratory test result Abnormal (applies to non-numeric results) [facility] [facility] ([facility]) {SOURCE: Random Void~NURSE COLLECTED? N Is patient fasting? N Carboxy THC (GC/MS) [facility] {SOURCE: Random Void~NURSE COLLECTED? N Is patient fasting? N ID Date Data Source [id number] 03/26/2019 08:18:00 AM EST [facility] ([facility]) Name Value Range Interpretation Code Description Data Alexandrea rce(s) Supporting Document(s) Thyroxine (T4) free [Mass/volume] in Serum or Plasma 1.24 ng/dL 0.93- 1.70 [facility] ([facility]) {SOURCE: Random Void~NURSE COLLECTED? N Is patient fasting? N Thyrotropin [Units/volume] in Serum or Plasma 0.55 uIU/mL 0.47-5.01 [facility] ([facility]) {SOURCE: Random Void~NURSE COLLECTED? N Is patient fasting? N ID Date Data Source [id number] 03/26/2019 08:18:00 AM EST [facility] ([facility]) Name Value Range Interpretation Code Description Data Alexandrea rce(s) Supporting Document(s) Urinalysis Laboratory test [facility]) {SOURCE: Random Void~NURSE COLLECTED? N Is patient fasting? N Source Laboratory test result [facility] ([facility]) {SOURCE: Random Void~NURSE COLLECTED? N Is patient fasting? N Color Laboratory test result [facility] ([facility]) {SOURCE: Random Void~NURSE COLLECTED? N Is patient fasting? N Clarity Laboratory test result [facility] ([facility]) {SOURCE: Random Void~NURSE COLLECTED? N Is patient fasting? N Spec [place] 1.030 1.001-1.030 [facility] ([facility]) {SOURCE: Random Void~NURSE COLLECTED? N Is patient fasting? N pH 5 5-9 [facility] ([facility]) {SOURCE: Random Void~NURSE COLLECTED? N Is patient fasting? N Bilirubin Laboratory test result [facility] ([facility]) {SOURCE: Random Void~NURSE COLLECTED? N Is patient fasting? N Glucose Laboratory test result [facility] ([facility]) {SOURCE: Random Void~NURSE COLLECTED? N Is patient fasting? N Nitrite Laboratory test result [facility] ([facility]) {SOURCE: Random Void~NURSE COLLECTED? N Is patient fasting? N Protein 15 [facility] ([facility]) {SOURCE: Random Void~NURSE COLLECTED? N Is patient fasting? N Ketone 5 Abnormal (applies to non-numeric res ults) [facility] ([facility]) {SOURCE: Random Void~NURSE COLLECTED? N Is patient fasting? N Blood Laboratory test result [facility] ([facility]) {SOURCE: Random Void~NURSE COLLECTED? N Is patient fasting? N Urobilinogen 1 [facility] ([facility]) {SOURCE: Random Void~NURSE COLLECTED? N Is patient fasting? N Leuk Est 25 [facility] ([facility]) {SOURCE: Random Void~NURSE COLLECTED? N Is patient fasting? N Microscopic Laboratory test result [facility] ([facility]) {SOURCE: Random Void~NURSE COLLECTED? N Is patient fasting? N Amorph Sed Laboratory test result [facility] ([facility]) {SOURCE: Random Void~NURSE COLLECTED? N Is patient fasting? N ID Date Data Source [id number] 03/26/2019 08:18:00 AM EST [facility] ([facility]) Name Value Range Interpretation Code Description Data Alexandrea rce(s) Supporting Document(s) Protime 12.8 s 11.0-15.5 [facility] ([facility]) {SOURCE: Random Void~NURSE COLLECTED? N Is patient fasting? N Inr 0.95 0.93-1.23 [facility] ([facility]) {SOURCE: Random Void~NURSE COLLECTED? N Is patient fasting? N PTT 33.5 s 24.8-36.7 [facility] ([facility]) {SOURCE: Random Void~NURSE COLLECTED? N Is patient fasting? N ID Date Data Source [id number] 03/26/2019 08:18:00 AM EST [facility] ([facility]) Name Value Range Interpretation Code Description Data Alexandrea rce(s) Supporting Document(s) Comprehensive Metabo Laboratory test result [facility] ([facility]) {SOURCE: Random Void~NURSE COLLECTED? N Is patient fasting? N Sodium 143 meq/L 134-153 [facility] ([facility]) {SOURCE: Random Void~NURSE COLLECTED? N Is patient fasting? N Chloride 104 meq/L 98-107 [facility] ([facility]) {SOURCE: Random Void~NURSE COLLECTED? N Is patient fasting? N Potassium 4.4 meq/L 3.6-5.0 [facility] ([facility]) {SOURCE: Random Void~NURSE COLLECTED? N Is patient fasting? N BUN 9 mg/dL 7-21 [facility] ([facility]) {SOURCE: Random Void~NURSE COLLECTED? N Is patient fasting? N Co2 30 meq/L 22-30 [facility] ([facility]) {SOURCE: Random Void~NURSE COLLECTED? N Is patient fasting? N Glucose 97 mg/dL 65-110 [facility] ([facility]) {SOURCE: Random Void~NURSE COLLECTED? N Is patient fasting? N Creatinine 0.9 mg/dL 0.7-1.5 [facility] ([facility]) {SOURCE: Random Void~NURSE COLLECTED? N Is patient fasting? N BUN/Creat 10 8-27 [facility] ([facility]) {SOURCE: Random Void~NURSE COLLECTED? N Is patient fasting? N Total Protein 7.2 g/dL 6.3-8.2 [facility] ([facility]) {SOURCE: Random Void~NURSE COLLECTED? N Is patient fasting? N Albumin 4.8 g/dL 3.9-5.0 [facility] ([facility]) {SOURCE: Random Void~NURSE COLLECTED? N Is patient fasting? N Globulin 2.4 GM/DL 2.4-3.2 [facility] ([facility]) {SOURCE: Random Void~NURSE COLLECTED? N Is patient fasting? N A/G Ratio 2.0 0.8-2.0 [facility] ([facility]) {SOURCE: Random Void~NURSE COLLECTED? N Is patient fasting? N Calcium 10.0 mg/dL 8.4-10.2 [facility] {SOURCE: Random Void~NURSE COLLECTED? N Is patient fasting? N Alkaline Phos 76 U/L 38-126 [facility] ([facility]) {SOURCE: Random Void~NURSE COLLECTED? N Is patient fasting? N Sgot/Ast 13 U/L 5-40 [facility] ([facility]) {SOURCE: Random Void~NURSE COLLECTED? N Is patient fasting? N Total Bili Laboratory test result 0.2-1.3 [facility] ([facility]) {SOURCE: Random Void~NURSE COLLECTED? N Is patient fasting? N SGPT/Alt 8 U/L 7-56 [facility] {SOURCE: Random Void~NURSE COLLECTED? N Is patient fasting? N Anion Gap 9.0 mmol/L 8.0-16.0 [facility] ([facility]) {SOURCE: Random Void~NURSE COLLECTED? N Is patient fasting? N Age 38 yrs [facility] ([facility]) {SOURCE: Random Void~NURSE COLLECTED? N Is patient fasting? N Afr Amer GFR Laboratory test result [facility] ([facility]) {SOURCE: Random Void~NURSE COLLECTED? N Is patient fasting? N Non-Aa GFR Laboratory test result [facility] ([facility]) {SOURCE: Random Void~NURSE COLLECTED? N Is patient fasting? N ID Date Data Source [id number] 03/26/2019 08:18:00 AM EST [facility] ([facility]) Name Value Range Interpretation Code Description Data Alexandrea rce(s) Supporting Document(s) CBC W/Automated Diff Laboratory test result [facility] ([facility]) {SOURCE: Random Void~NURSE COLLECTED? N Is patient fasting? N RBC 5.64 10^6/uL 4.50-6.30 [facility] ([facility]) {SOURCE: Random Void~NURSE COLLECTED? N Is patient fasting? N WBC 8.9 10^3/uL 4.2-11.0 [facility] ([facility]) {SOURCE: Random Void~NURSE COLLECTED? N Is patient fasting? N Hematocrit 52.3 % 41.0-51.0 Above high normal [facility] ([facility]) {SOURCE: Random Void~NURSE COLLECTED? N Is patient fasting? N Hemoglobin 17.2 g/dL 14.0-16.0 Above high normal [facility] ([facility]) {SOURCE: Random Void~NURSE COLLECTED? N Is patient fasting? N MCH 30.5 pg 27.0-34.0 [facility] ([facility]) {SOURCE: Random Void~NURSE COLLECTED? N Is patient fasting? N MCV 92.7 fL 80.0-94.0 [facility] ([facility]) {SOURCE: Random Void~NURSE COLLECTED? N Is patient fasting? N MCHC 32.9 g/dL 31.0-36.0 [facility] ([facility]) {SOURCE: Random Void~NURSE COLLECTED? N Is patient fasting? N MPV 11.2 fL 7.4-10.4 Above high normal [facility] ([facility]) {SOURCE: Random Void~NURSE COLLECTED? N Is patient fasting? N Platelets 215 10^3/uL 150-450 [facility] ([facility]) {SOURCE: Random Void~NURSE COLLECTED? N Is patient fasting? N RDW 13.6 % 11.5-14.8 [facility] ([facility]) {SOURCE: Random Void~NURSE COLLECTED? N Is patient fasting? N Lymph 18.3 % 25.0-40.0 Below low normal [facility] ( [facility]) {SOURCE: Random Void~NURSE COLLECTED? N Is patient fasting? N Neut 71.9 % 37.0-80.0 [facility] ([facility]) {SOURCE: Random Void~NURSE COLLECTED? N Is patient fasting? N Baso 1.1 % 0.0-2.0 [facility] ([facility]) {SOURCE: Random Void~NURSE COLLECTED? N Is patient fasting? N Eos 1.9 % 0.0-7.0 [facility] ([facility]) {SOURCE: Random Void~NURSE COLLECTED? N Is patient fasting? N Pima 6.3 % 3.0-8.0 [facility] ([facility]) {SOURCE: Random Void~NURSE COLLECTED? N Is patient fasting? N %NRBC 0.0 % 0.0-0.0 [facility] ([facility]) {SOURCE: Random Void~NURSE COLLECTED? N Is patient fasting? N %Ig 0.5 % 0.0-0.0 Above high normal [facility] ([facility] {SOURCE: Random Void~NURSE COLLECTED? N Is patient fasting? N #Lymph 1.62 10^3/uL 0.60-3.40 [facility] ([facility]) {SOURCE: Random Void~NURSE COLLECTED? N Is patient fasting? N #Pima 0.56 10^3/uL 0.00-0.90 [facility] ([facility]) {SOURCE: Random Void~NURSE COLLECTED? N Is patient fasting? N #Neut 6.36 10^3/uL 2.00-6.90 [facility] ([facility]) {SOURCE: Random Void~NURSE COLLECTED? N Is patient fasting? N #Ig 0.04 10^3/uL 0.00-0.10 [facility] ([facility]) {SOURCE: Random Void~NURSE COLLECTED? N Is patient fasting? N #Eos 0.17 10^3/uL 0.00-0.70 [facility] ([facility]) {SOURCE: Random Void~NURSE COLLECTED? N Is patient fasting? N #Baso 0.10 10^3/uL 0.00-0.20 [facility] ([facility]) {SOURCE: Random Void~NURSE COLLECTED? N Is patient fasting? N #NRBC 0.00 10^3/uL 0.00-0.00 [facility] ([facility]) {SOURCE: Random Void~NURSE COLLECTED? N Is patient fasting? N Manual Diff Laboratory test result [facility] ([facility]) {SOURCE: Random Void~NURSE COLLECTED? N Is patient fasting? N RBC Morph [facility] {SOURCE: Random Void~NURSE COLLECTED? N Is patient fasting? N ID Date Data Source [id number] 03/26/2019 08:18:00 AM EST [facility] ([facility]) Name Value Range Interpretation Code Description Data Alexandrea rce(s) Supporting Document(s) Lyme IgG/IgM Ab Laboratory test result 0.00-0.90 [facility] ([facility]) {SOURCE: Random Void~NURSE COLLECTED? N Is patient fasting? N Lyme Disease Ab, Quant,IgM Laboratory test result 0.00-0.79 [facility] ([facility]) {SOURCE: Random Void~NURSE COLLECTED? N Is patient fasting? N ID Date Data Source [id number] 03/26/2019 08:18:00 AM EST [facility]) Name Value Range Interpretation Code Description Data [facility] rce(s) Supporting Document(s) Fibrosis Stage Laboratory test result [facility] ([facility]) {SOURCE: Random Void~NURSE COLLECTED? N Is patient fasting? N Fibrosis Score 0.08 NA 0.00-0.21 [facility] ([facility]) {SOURCE: Random Void~NURSE COLLECTED? N Is patient fasting? N Alpha 2-Macroglobulins,Qn 175 mg/dL 110-276 [facility] ([facility]) {SOURCE: Random Void~NURSE COLLECTED? N Is patient fasting? N Necroinflammat ActivityGrade Laboratory test result [facility] ([facility]) {SOURCE: Random Void~NURSE COLLECTED? N Is patient fasting? N Necroinflammat ActivityScore 0.01 NA 0.00-0.17 [facility] ([facility]) {SOURCE: Random Void~NURSE COLLECTED? N Is patient fasting? N Haptoglobin 228 mg/dL 17-317 [facility] {SOURCE: Random Void~NURSE COLLECTED? N Is patient fasting? N Apolipoprotein A-1 128 mg/dL 101-178 [facility] ([facility]) {SOURCE: Random Void~NURSE COLLECTED? N Is patient fasting? N GGT 21 IU/L 0-65 [facility] ([facility]) {SOURCE: Random Void~NURSE COLLECTED? N Is patient fasting? N Alt (SGPT) P5P 7 IU/L 0-55 [facility] ([facility]) {SOURCE: Random Void~NURSE COLLECTED? N Is patient fasting? N Bilirubin, Total 0.3 mg/dL 0.0-1.2 [facility] ([facility]) {SOURCE: Random Void~NURSE COLLECTED? N Is patient fasting? N Laboratory test finding (navigational concept) Laboratory test result [facility] ([facility]) {SOURCE: Random Void~NURSE COLLECTED? N Is patient fasting? N Laboratory test finding (navigational concept) Laboratory test result [facility] ([facility]) {SOURCE: Random Void~NURSE COLLECTED? N Is patient fasting? N Laboratory test finding (navigational concept) Laboratory test result [facility] ([facility]) {SOURCE: Random Void~NURSE COLLECTED? N Is patient fasting? N Laboratory test finding (navigational concept) Laboratory test result [facility] ([facility]) {SOURCE: Random Void~NURSE COLLECTED? N Is patient fasting? N Comment: Laboratory test result [facility] ([facility]) {SOURCE: Random Void~NURSE COLLECTED? N Is patient fasting? N ID Date Data Source [id number] 03/26/2019 08:18:00 AM EST [facility] ([facility]) Name Value Range Interpretation Code Description Data Alexandrea rce(s) Supporting Document(s) HIV Screen 4thGeneration wRfx Laboratory test result [facility] ([facility]) {SOURCE: Random Void~NURSE COLLECTED? N Is patient fasting? N ID Date Data Source [id number] 04/02/2019 07:24:00 AM [facility] Name Value Range Interpretation Code Description Data Alexandrea rce(s) Supporting Document(s) Amphetamines [Presence] in Urine by Screen method Negative ng/mL Cu kbfm=2249 [facility] Barbiturates [Presence] in Urine by Screen method Negative ng/mL Cuto rv=712 [facility] Benzodiazepines [Presence] in Urine by Screen method Negative ng /mL Lxacnr=011 [facility] Cannabinoids [Presence] in Urine by Screen method See Final Results ng/mL Cutoff=20 [facility] Benzoylecgonine [Presence] in Urine by Screen method Negative ng /mL Izwdpk=866 [facility] Opiates [Presence] in Urine by Screen method Negative ng/mL Cutoff=30 0 [facility] Opiate test includes Codeine, Morphine, Hydromorphone, Hydrocodone. Oxycodone+Oxymorphone [Presence] in Urine by Screen method N egative ng/mL Ggclzs=001 [facility] Test includes Oxycodone and Oxymorphone Phencyclidine [Presence] in Urine Negative ng/mL Cutoff=25 [facility] Methadone [Presence] in Urine by Screen method Negative ng/mL Cutoff= 300 [facility] Propoxyphene [Presence] in Urine by Screen method Negative ng/mL Cuto hi=969 [facility] Meperidine [Presence] in Urine Negative ng/mL Hzgyne=812 [facility] This test was developed and its performa nce characteristicsdetermined by [employer]. It has not been cleared or approvedby the Food and Drug Administration. Fentanyl+Norfentanyl [Presence] in Urine by Screen method Ne gative pg/mL Izbkln=6963 [facility] Test includes Fentanyl and NorfentanylTh is test was developed and its performance characteristicsdetermined by [employer]. It has not been cleared or approvedby the Food and Drug Administration. Tramadol [Presence] in Urine by Screen method Negative ng/mL Cutoff=2 00 [facility] Creatinine [Mass/volume] in Urine 347.1 mg/dL 20.0-300.0 H [facility] Specific gravity of Urine 1.022 NA [facility] Laboratory comment [Text] in Report Narrative COMMENT [facility] Drug-test results should be interpreted in the context of clinicalinformation. Patient metabolic variables, specific drug chemistry, andspecimen characteristics can affect test outcome. Technicalconsultation is available if a test result is inconsistent with anexpected outcome. (email- [email or web address] or call [email or web address])Drug brands, if listed herein, are trademarks of their respectiveowners. pH of Urine 5.6 NA 4.5-8.9 [facility] ital Cannabinoids [Presence] in Urine by Confirmatory method Positive Cu toff=20 A [facility] Tetrahydrocannabinol [Mass/volume] in Urine by Confirmatory method >300 ng/mL Cutoff=10 [facility] ID Date Data Source [id number] 03/31/2019 06:28:00 AM EST [facility] Name Value Range Interpretation Code Description Data Alexandrea rce(s) Supporting Document(s) Fibrosis score 0.08 NA 0.00-0.21 [facility] Fibrosis stage COMMENT [facility] F0 - No fibrosis Necroinflammatory activity score 0.01 NA 0.00-0.17 [facility] Necroinflammatory activity grade A0-No activity [facility] Lfaar-7-Ukltdurxbsiom [Mass/volume] in Serum or Plasma 175 mg/dL 110 -276 [facility] Haptoglobin [Mass/volume] in Serum or Plasma 228 mg/dL 17-317 [facility] Please no te reference interval change Apolipoprotein A-I [Mass/volume] in Serum or Plasma 128 mg/dL 101-17 8 [facility] Bilirubin.total [Mass/volume] in Serum or Plasma 0.3 mg/dL 0.0-1.2 [facility] Gamma glutamyl transferase [Enzymatic activity/volume] in Serum or Plasma 21 IU/L 0-65 [facility] Alanine aminotransferase [Enzymatic acti vity/volume] in Serum or Plasma by With P-5'-P 7 IU/L 0-55 [facility] Interpretations: COMMENT [facility] Quantitative results of 6 biochemical te sts are analyzed usinga computational algorithm to provide a quantitative surrogatemarker (0.0-1.0) for liver fibrosis (METAVIR F0-F4) and fornecroinflammatory activity (METAVIR A0-A3). Fibrosis Scoring: COMMENT [facility] <0.21 = Stage F0 - No fibrosis0.21 [...] Stage F4 - Cirrhosis Necroinflamm ActivityScoring: COMMENT [facility] <0.17 = Grade A0 - No Activity0.17 - 0.29 = Grade A0 - A10.29 - 0.36 = Grade A1 - Minimal activity0.36 - 0.52 = Grade A1 - A20.52 - 0.60 = Grade A2 - Moderate activity0.60 - 0.62 = Grade A2 - A3 >0.62 = Grade A3 - Severe activity Service comment COMMENT [facility] The negative predictive value of a [...] comment [Text] in Report Narrative WILL FOLLOW [facility] ID Date Data Source [id number] 03/29/2019 07:51:00 AM [facility] Name Value Range Interpretation Code Description Data Alexandrea rce(s) Supporting Document(s) Borrelia burgdorferi IgG+IgM Ab [Units/volume] in Serum <0.91 ISR 0. 00-0.90 [facility] Negative <0.91 Equivocal 0.91 - 1.09 Positive >1.09 Borrelia burgdorferi IgM Ab [Units/volume] in Serum by Immun oassay <0.80 index 0.00-0.79 [facility] Negative <0.80 Equivocal 0.80 - 1.19 Positive >1.19 IgM levels may peak at 3-6 weeks post infection, then gradually decline. ID Date Data Source [id number] 03/28/2019 06:11:00 PM [facility] Value Range Interpretation Code Description Data Alexandrea rce(s) Supporting Document(s) HIV 1+2 Ab+HIV1 p24 Ag [Presence] in Serum or Plasma b y Immunoassay Non Reactive Non Reactive [facility] ID Date Data Source [id number] 03/26/2019 01:11:00 PM [facility] Value Range Interpretation Code Description Data Alexandrea rce(s) Supporting Document(s) Prothrombin time (PT) 12.8 SECONDS 11.0 - 15.5 [facility] INR in Platelet poor plasma by Coagulation assay 0.95 0.93 - 1. 23 [facility] aPTT in Blood by Coagulation assay 33.5 SECONDS 24.8 - 36.7 [facility] \\BLDo\\INR INTERPRETATION\\BLDx\\ Therapeutic range for Coumadin and related oral anticoagulants. - International Normalized Ratio (INR): 2.0 - 3.0 for Venous Thrombosis, Pulmonary Embolus, Tissue heart valves, Acute IA Atrial Fibrillation, Valvular heart disease and recurrent [...] and other interferences. ID Date Data Source [id number] 03/26/2019 01:10:00 PM [facility] Value Range Interpretation Code Description Data Alexandrea rce(s) Supporting Document(s) Thyroxine (T4) free index in Serum or Plasma by calculation 1.24 NG/DL 0.93 - 1.70 [facility] ID Date Data Source [id number] 03/26/2019 01:09:00 PM [facility] Value Range Interpretation Code Description Data Alexandrea rce(s) Supporting Document(s) Thyrotropin [Units/volume] in Serum or Plasma by Detec tion limit <= 0.05 mIU/L 0.55 uIU/mL 0.47 - 5.01 [facility] ID Date Data Source [id number] 03/26/2019 01:05:00 PM EST [facility] Name Value Range Interpretation Code Description Data Alexandrea rce(s) Supporting Document(s) COMPREHENSIVE METABOLIC PANEL [facility] COMPREHENSIVE METABOLIC PANEL Sodium [Moles/volume] in Serum or Plasma 143 mEq/L 134 - 153 [facility] Potassium [Moles/volume] in Serum or Plasma 4.4 mEq/L 3.6 - 5.0 [facility] Chloride [Moles/volume] in Serum or Plasma 104 mEq/L 98 - 107 [facility] Carbon dioxide, total [Moles/volume] in Serum or Plasma 30 MEQ/L 22 - 30 [facility] Glucose [Mass/volume] in Serum or Plasma 97 MG/DL 65 - 110 [facility] BUN 9 MG/DL 7 - 21 [facility] al Creatinine [Mass/volume] in Serum or Plasma 0.9 MG/DL 0.7 - 1.5 [facility] BUN/CREAT 10 8 - 27 [facility] al Protein [Mass/volume] in Serum or Plasma 7.2 G/DL 6.3 - 8.2 [facility] Albumin [Mass/volume] in Serum or Plasma 4.8 G/DL 3.9 - 5.0 [facility] Globulin [Mass/volume] in Serum by calculation 2.4 GM/DL 2.4 - 3.2 [facility] A/G RATIO 2.0 0.8 - 2.0 [facility] Calcium [Mass/volume] in Serum or Plasma 10.0 MG/DL 8.4 - 10.2 [facility] Bilirubin.total [Mass/volume] in Serum or Plasma <0.7 MG/DL 0.2 - 1.3 [facility] Alkaline phosphatase [Enzymatic activity/volume] in Serum or Plasma 76 U/L 38 - 126 [facility] Aspartate aminotransferase [Enzymatic activity/volume] in Serum or Plasma 13 U/L 5 - 40 [facility] Alanine aminotransferase [Enzymatic activity/volume] in Seru m or Plasma 8 U/L 7 - 56 [facility] Anion gap 3 in Serum or Plasma 9.0 mmol/L 8.0 - 16.0 [facility] AGE 38 yrs [facility] al NON-AA GFR >60 mL/min [facility] ital AFR AMER GFR >60 mL/min [facility] Male GFR In terprentation 20-49 [...] >32 mL/min Normal ID Date Data Source [id number] 03/26/2019 12:59:00 PM EST [facility] Name Value Range Interpretation Code Description Data Alexandrea rce(s) Supporting Document(s) [facility] COL[facility] yellow NORMAL: Yellow [facility] CLARITY cloudy NORMAL: Clear [facility] Specific gravity of Urine by Test strip 1.030 1.001 - 1.030 [facility] pH 5 5 - 9 [facility] Glucose [Mass/volume] in Urine by Test strip NORM NORMAL: Negat [facility] Bilirubin.total [Presence] in Urine by Test strip NEG NORMAL: Negative [facility] Ketones [Presence] in Urine by Test strip 5 NORMAL: Negative A [facility] Protein [Mass/volume] in Urine by Test strip 15 NORMAL: Negat [facility] Nitrite [Presence] in Urine by Test strip NEG NORMAL: Negative [facility] BLOOD NEG NORMAL: Negative [facility] Leukocyte esterase [Presence] in Urine by Test strip 25 SARAH L: Negative [facility] Urobilinogen [Mass/volume] in Urine by Test strip 1 less ginette n 1.0 mg/dL [facility] MICROSCOPIC See Below [facility] ital Amorphous sediment [Presence] in Urine sediment by Light william roscopy 3+ NORMAL: NONE SEEN [facility] ID Date Data Source [id number] 03/26/2019 12:52:00 PM EST [facility] Name Value Range Interpretation Code Description Data Alexandrea rce(s) Supporting Document(s) CBC W/AUTOMATED DIFF [facility] COMPLETE BLOOD COUNT Leukocytes [#/volume] in Blood by Automated count 8.9 10^3/uL 4.2 - 1 1.0 [facility] Erythrocytes [#/volume] in Blood by Automated count 5.64 10^6/uL 4. 50 - 6.30 [facility] Hemoglobin [Mass/volume] in Blood 17.2 g/dL 14.0 - 16.0 H [facility] Hematocrit [Volume Fraction] of Blood by Automated count 52.3 % 4 1.0 - 51.0 H [facility] Erythrocyte mean corpuscular volume [Entitic volume] by Auto mated count 92.7 fL 80.0 - 94.0 [facility] Erythrocyte mean corpuscular hemoglobin [Entitic mass] by Automated count 30.5 pg 27.0 - 34.0 [facility] Erythrocyte mean corpuscular hemoglobin concentration [Mass/volume] by Automated count 32.9 g/dL 31.0 - 36.0 [facility] Erythrocyte distribution width [Ratio] by Automated count 13.6 % 11.5 - 14.8 [facility] Platelets [#/volume] in Blood by Automated count 215 10^3/uL 150 - 45 0 [facility] Platelet mean volume [Entitic volume] in Blood by Automated count 11.2 fL 7.4 - 10.4 H [facility] Neutrophils/100 leukocytes in Blood by Automated count 71.9 % 37. 0 - 80.0 [facility] Lymphocytes/100 leukocytes in Blood by Manual count 18.3 % 25.0 - 40.0 L [facility] Monocytes/100 leukocytes in Blood by Automated count 6.3 % 3.0 - 8.0 [facility] Eosinophils/100 leukocytes in Blood by Automated count 1.9 % 0.0 - 7.0 [facility] Basophils/100 leukocytes in Blood by Automated count 1.1 % 0.0 - 2.0 [facility] %IG 0.5 % 0.0 - 0.0 [facility] % 0.0 - 0.0 [facility] al Neutrophils [#/volume] in Blood by Automated count 6.36 10^3/uL 2.00 - 6.90 [facility] Lymphocytes [#/volume] in Blood by Automated count 1.62 10^3/uL 0.60 - 3.40 [facility] Monocytes [#/volume] in Blood by Automated count 0.56 10^3/uL 0.00 - 0.90 [facility] Eosinophils [#/volume] in Blood by Automated count 0.17 10^3/uL 0.00 - 0.70 [facility] Basophils [#/volume] in Blood by Automated count 0.10 10^3/uL 0.00 - 0.20 [facility] #IG 0.04 10^3/uL 0.00 - 0.10 [facility] #NRBC 0.00 10^3/uL 0.00 - 0.00 [facility] MANUAL DIFF NOT INDICATED [facility] RBC MORPH NOT INDICATED [facility] spital ID Date Data Source [id number] 03/26/2019 08:14:00 AM EST [facility] Name Value Range Interpretation Code Description Data Alexandrea rce(s) Supporting Document(s) Chest Xray 2 Views <pending> [facility] ([facility]) Procedure Vital Signs ID Date Data Source UNK Name Value Range Interpretation Code Description Data Source(s) Body surface area Derived from formula 1.92 m2 1.92 m2 [facility] ([facility]) Body weight 74.390 kg 74.390 kg [facility] ([facility]) [place] body weight 166 [lb_av] 166 [lb_av] [facility] ([facility]) Body mass index (BMI) [Ratio] 23.5 kg/m2 23.5 k g/m2 [facility] ([facility]) Body weight 164.00 [lb_av] 164.00 [lb_av] [facility] ([facility]) Body height 70 [in_i] 70 [in_i] [facility] ([facility]) 5'10" Diastolic blood pressure 82 mm[Hg] 82 mm[Hg] [facility]) Systolic blood pressure 139 mm[Hg] 139 mm[Hg] Rigoberto [facility]ART[facility] ([facility]) Body surface area Derived from formula 1.94 m2 1.94 m2 [facility] ([facility]) Body mass index (BMI) [Ratio] 24.1 kg/m2 24.1 k g/m2 [facility] ([facility]) Body height 70 [in_i] 70 [in_i] [facility] ([facility]) 5'10" Body weight 76.205 kg 76.205 kg [facility] ([facility]) Body weight 168.00 [lb_av] 168.00 [lb_av] [facility] ([facility]) Oxygen saturation in Arterial blood by Pulse oximetry 97 % 97 % [facility] ([facility]) Respiratory rate 16 /min 16 /min [facility] ( [facility]) Body temperature 97.1 [degF] 97.1 [degF] [facility] ([facility]) Heart rate 88 /min 88 /min [facility] ([facility]) Diastolic blood pressure 70 mm[Hg] 70 mm[Hg] [facility] ([facility]) Systolic blood pressure 132 mm[Hg] 132 mm[Hg] M [facility] ([facility]) Body surface area Derived from formula 1.91 m2 1.91 m2 [facility] Body mass index (BMI) [Ratio] 23.2 kg/m2 23.2 k g/m2 [facility] ([facility]) Body height 70 [in_i] 70 [in_i] [facility] ([facility]) 5'10" Body weight 73.483 kg 73.483 kg [facility] ([facility]) Body weight 162.00 [lb_av] 162.00 [lb_av] [facility] ([facility]) Oxygen saturation in Arterial blood by Pulse oximetry 96 % 96 % [facility] ([facility]) Respiratory rate 18 /min 18 /min [facility] ( [facility]) Body temperature 97.3 [degF] 97.3 [degF] [facility] ([facility]) Heart rate 78 /min 78 /min [facility] ([facility]) Diastolic blood pressure 80 mm[Hg] 80 mm[Hg] [facility] Systolic blood pressure 132 mm[Hg] 132 mm[Hg] [facility] ([facility]) Systolic blood pressure 132 mm[Hg] 132 mm[Hg] [facility] ([facility]) recheck after 15 min Diastolic blood pressure 80 mm[Hg] 80 mm[Hg] [facility] ([facility]) states due to pain Systolic blood pressure 156 mm[Hg] 156 mm[Hg] M [facility] ([facility]) states due to pain Body surface area Derived from formula 1.91 m2 1.91 m2 [facility] ([facility]) Body mass index (BMI) [Ratio] 23.4 kg/m2 23.4 k g/m2 [facility] ([facility]) Body height 70 [in_i] 70 [in_i] [facility] ([facility]) 5'10" Body weight 73.937 kg 73.937 kg [facility] Body weight 163.00 [lb_av] 163.00 [lb_av] [facility] ([facility]) Oxygen saturation in Arterial blood by Pulse oximetry 98 % 98 % [facility] ([facility]) Respiratory rate 18 /min 18 /min [facility] ( [facility]) Body temperature 97.7 [degF] 97.7 [degF] [facility] ([facility]) Heart rate 100 /min 100 /min [facility] ([facility]) Diastolic blood pressure 89 mm[Hg] 89 mm[Hg] [facility] ([facility]) recheck after 15 min Body surface area Derived from formula 1.93 m2 1.93 m2 [facility] ([facility]) Body mass index (BMI) [Ratio] 23.9 kg/m2 23.9 k g/m2 [facility] ([facility]) Body height 70 [in_i] 70 [in_i] [facility] 5'10" Body weight 75.411 kg 75.411 kg [facility] ([facility]) Body weight 166.25 [lb_av] 166.25 [lb_av] [facility] ([facility]) Oxygen saturation in Arterial blood by Pulse oximetry 98 % 98 % [facility] ([facility]) Respiratory rate 16 /min 16 /min [facility] ( [facility]) Body temperature 98.2 [degF] 98.2 [degF] [facility] ([facility]) Heart rate 102 /min 102 /min [facility] ([facility]) Diastolic blood pressure 82 mm[Hg] 82 mm[Hg] [facility] ([facility]) Systolic blood pressure 144 mm[Hg] 144 mm[Hg] [facility] ([facility]) Body surface area Derived from formula 1.91 m2 1.91 m2 [facility] ([facility]) Body weight 73.540 kg 73.540 kg [facility] ([facility]) [place] body weight 166 [lb_av] 166 [lb_av] [facility] ([facility]) Body mass index (BMI) [Ratio] 23.3 kg/m2 23.3 k g/m2 [facility] ([facility]) Body weight 162.12 [lb_av] 162.12 [lb_av] [facility] ([facility]) Body height 70 [in_i] 70 [in_i] [facility] ([facility]) 5'10" Diastolic blood pressure 88 mm[Hg] 88 mm[Hg] [facility] ([facility]) Systolic blood pressure 150 mm[Hg] 150 mm[Hg] [facility] ([facility]) Body weight 75.014 kg 75.014 kg [facility] ([facility]) Body mass index (BMI) [Ratio] 23.7 kg/m2 23.7 k g/m2 [facility] ([facility]) Body weight 165.38 [lb_av] 165.38 [lb_av] [facility] ([facility]) Body height 70 [in_i] 70 [in_i] [facility] ([facility]) 5'10" Diastolic blood pressure 80 mm[Hg] 80 mm[Hg] [facility] ([facility]) Systolic blood pressure 110 mm[Hg] 110 mm[Hg] [facility] ([facility], ) Body weight 165 [lb_av] 165 [lb_av] [facility] ([facility]) Systolic blood pressure 146 mm[Hg] 146 mm[Hg] A [facility] ([facility]) Body mass index (BMI) [Ratio] 25.8 kg/m2 25.8 k g/m2 [facility] ([facility]) Body height 67 [in_i] 67 [in_i] [facility] ([facility]) Diastolic blood pressure 92 mm[Hg] 92 mm[Hg] [facility] ([facility]) Body weight 72.122 kg 72.122 kg [facility] ([facility]) Body mass index (BMI) [Ratio] 22.8 kg/m2 22.8 k g/m2 [facility] ([facility]) Body weight 159.00 [lb_av] 159.00 [lb_av] [facility] ([facility]) Body height 70 [in_i] 70 [in_i] [facility] 5'10" Heart rate 90 /min 90 /min [facility] ([facility]) Diastolic blood pressure 86 mm[Hg] 86 mm[Hg] [facility] ([facility]) Systolic blood pressure 132 mm[Hg] 132 mm[Hg] [facility] ([facility]) Body mass index (BMI) [Ratio] 21.5 kg/m2 21.5 k g/m2 [facility] Body weight 150.00 [lb_av] 150.00 [lb_av] [facility] ([facility]) Body height 70 [in_i] 70 [in_i] [facility] 5'10" Respiratory rate 12 /min 12 /min [facility] ( [facility]) Heart rate 72 /min 72 /min [facility] ([facility]) Diastolic blood pressure 68 mm[Hg] 68 mm[Hg] [facility] ([facility]) Systolic blood pressure 118 mm[Hg] 118 mm[Hg] [facility] Body surface area Derived from formula 1.86 m2 1.86 m2 [facility] ([facility]) Body mass index (BMI) [Ratio] 21.8 kg/m2 21.8 k g/m2 [facility] ([facility]) Body height 70 [in_i] 70 [in_i] [facility] 5'10" Body weight 68.947 kg 68.947 kg [facility] ([facility]) Body weight 152.00 [lb_av] 152.00 [lb_av] [facility] ([facility]) Oxygen saturation in Arterial blood by Pulse oximetry 98 % 98 % [facility] Respiratory rate 12 /min 12 /min [facility] ( [facility]) Body temperature 97.8 [degF] 97.8 [degF] [facility] Heart rate 96 /min 96 /min [facility] ([facility]) Diastolic blood pressure 72 mm[Hg] 72 mm[Hg] [facility] ([facility]) Systolic blood pressure 130 mm[Hg] 130 mm[Hg] [facility] ([facility]) Body surface area 1.86 m2 1.86 m2 [facility] ([facility]) Body weight 69.628 kg 69.628 kg [facility] ([facility], ) Body mass index (BMI) [Ratio] 22.0 kg/m2 22.0 k g/m2 [facility] ([facility], ) Body weight 153.50 [lb_av] 153.50 [lb_av] [facility] ([facility], ) Body height 70 [in_i] 70 [in_i] [facility] 5'10" Diastolic blood pressure 82 mm[Hg] 82 mm[Hg] [facility] ([facility], ) Systolic blood pressure 132 mm[Hg] 132 mm[Hg] [facility] Body weight 153.50 [lb_av] 153.50 [lb_av] [facility] ([facility], ) Diastolic blood pressure--sitting 70 mm[Hg] 70 mm[Hg] [facility] ([facility]) adult cuff, Ra Systolic blood pressure--sitting 110 mm[Hg] 110 mm[Hg] [facility] ([facility]) adult cuff, Ra Heart rate 82 /min 82 /min [facility] ([facility]) Body mass index (BMI) [Ratio] 22.4 kg/m2 22.4 k g/m2 [facility] ([facility]) Body height 69 [in_i] 69 [in_i] [facility] 5'9" Body weight 152.00 [lb_av] 152.00 [lb_av] [facility] ([facility]) Patient Treatment Plan of Care Planned Activity Planned Date Details Description Data Source (s) methylprednisolone 4 mg tablets in a dose pack [facility] ([facility]) Lisinopril 40 MG Oral Tablet [facility] ([facility]) Levetiracetam 750 MG Oral Tablet [facility] ([facility]) Hydroxyzine Hydrochloride 25 MG Oral Tablet [facility] ([facility]) Acetaminophen 325 MG / Hydrocodone Bitartrate 5 MG Oral Tablet [facility] ([facility]) fluticasone propionate 50 mcg/actuation nasal spray,suspension [facility] ([facility]) Fluoxetine 10 MG Oral Capsule [facility] ([facility]) duloxetine 30 MG Delayed Release Oral Capsule [facility] ([facility]) Divalproex Sodium 500 MG Delayed Release Oral Tablet [facility] ([facility]) Dicyclomine Hydrochloride 10 MG Oral Capsule [facility] ([facility]) Ciprofloxacin 500 MG Oral Tablet [facility] ([facility]) benzonatate 200 MG Oral Capsule [facility] ([facility]) Amoxicillin 875 MG / Clavulanate 125 MG Oral Tablet [facility] ([facility]) Amlodipine 5 MG Oral Tablet [facility] ([facility]) Docusate Sodium 50 MG / sennosides, FPC 8.6 MG Oral Tablet [facility] ([facility]) Ondansetron 8 MG Disintegrating Oral Tablet [facility] ([facility]) Omeprazole 40 MG Delayed Release Oral Capsule [facility] ([facility]) Neomycin Sulfate 500 MG Oral Tablet [facility] ([facility]) 12 HR Guaifenesin 600 MG Extended Release Oral Tablet [facility] ([facility]) Metronidazole 500 MG Oral Tablet [facility] ([facility])
[2020-05-05] MEDS ORDERED: IBUPROFEN 600MG TAB PO ONE (20:30)
[2020-05-05 20:39] VITALS: BP 132/77
== END 2020-05-05 20:41 | disposition home or self-care (01) ==
LOC: M ED 18:24
DX: S60.221A Contusion of right hand, initial encounter (principal); W22.8XXA Striking against or struck by other objects, initial encounter; Y92.099 Unspecified place in other non-institutional residence as the place of occurrence of the external cause; Y93.9 Activity, unspecified; Y99.9 Unspecified external cause status; R25.9 Unspecified abnormal involuntary movements; G40.909 Epilepsy, unspecified, not intractable, without status epilepticus; Z88.5 Allergy status to narcotic agent; Z88.8 Allergy status to other drugs, medicaments and biological substances

== ENCOUNTER 2020-11-14 06:35 | Emergency (ER) | payer OTHER ==
[~2020-11-14] VITALS: Ht 167.6 cm; Wt 71.2 kg
[~2020-11-14 06:35] MED LIST changes: +MILKSUS3; +OMEP40CA4 PO; -OMEP40CA97 PO; +POLY510P14
[2020-11-14 06:36] VITALS: BP 140/83
[2020-11-14] MEDS ORDERED: NAPR-837 PO (07:26)
[2020-11-14] MEDS ORDERED: CYCL-707 PO (07:26)
== END 2020-11-14 07:36 | disposition home or self-care (01) ==
LOC: M ED 06:35
DX: S46.811A Strain of other muscles, fascia and tendons at shoulder and upper arm level, right arm, initial encounter (principal); M62.838 Other muscle spasm; X58.XXXA Exposure to other specified factors, initial encounter; Y92.9 Unspecified place or not applicable; Y93.9 Activity, unspecified; Y99.9 Unspecified external cause status; F17.200 Nicotine dependence, unspecified, uncomplicated; Z88.5 Allergy status to narcotic agent; Z88.8 Allergy status to other drugs, medicaments and biological substances

== ENCOUNTER 2020-12-01 08:13 | Emergency (ER) | payer OTHER ==
[~2020-12-01] VITALS: Ht 170.2 cm; Wt 72.2 kg
[~2020-12-01 08:13] MED LIST changes: +CYCL-707 PO; +NAPR-837 PO
[2020-12-01] MEDS ORDERED: INDO50CA91 PO (09:33)
[2020-12-01 09:44] VITALS: BP 140/81
== END 2020-12-01 09:45 | disposition home or self-care (01) ==
LOC: M ED 08:13
DX: M25.511 Pain in right shoulder (principal); F17.200 Nicotine dependence, unspecified, uncomplicated; Z88.5 Allergy status to narcotic agent; Z88.8 Allergy status to other drugs, medicaments and biological substances

== ENCOUNTER → 2020-12-05 | Outpatient (CLI) | payer OTHER ==
[~2020-12-05] MED LIST changes: +DOXY-350 PO; -FLUO10CA16 PO; +FLUO10CA18 PO; +GOOD200C PO; +INDO50CA91 PO; -OMEP-221; +OMEP40CA5; +PROV108A INH
== END ==
LOC: M SOG 08:30
PROVIDERS: ATTEND Orthopaedic Surgery Sports Medicine
DX: M50.122 Cervical disc disorder at C5-C6 level with radiculopathy (principal); M75.41 Impingement syndrome of right shoulder; M19.011 Primary osteoarthritis, right shoulder

== ENCOUNTER → 2021-02-07 | Outpatient (CLI) | payer OTHER ==
[~2021-02-07] MED LIST changes: -DOXY-350 PO; +FLUO10CA16 PO; -FLUO10CA18 PO; -GOOD200C PO; +OMEP-221; -OMEP40CA5; -PROV108A INH
--- NOTE | 2021-02-07 16:45 | REP ---
INDICATION: RADICULOPATHY W/ PAIN AND TINGLING DOWN ARM. COMPARISON: None. TECHNIQUE: Coronal oblique T1 and fat suppressed T2. Sagittal oblique fat suppressed T2. Axial [id number] and T2 FLASH. FINDINGS: There is moderate to severe hypertrophic degenerative change involving the acromioclavicular joint. The acromion process is type 2. There is patchy and linear T2 hyper signal seen throughout the supraspinatus tendon. There is coracohumeral and coracoacromial ligamentous thickening. There is no evidence of supraspinatus musculotendinous retraction or significant atrophy. The signal within the subscapularis, infraspinatus, and teres minor tendons is within normal limits. The biceps tendon resides within the bicipital groove. There is no glenohumeral joint effusion. There is a tiny amount of fluid the subcoracoid recess. IMPRESSION: 1. AC joint DJD with ligamentous thickening and type 2 acromion process consistent with the clinical diagnosis of impingement syndrome. 2. There is supraspinatus tendinitis/tendinosis. 3. Other findings as described above. <Electronically signed by Umer Hicks > 02/07/21 [id number]
--- NOTE | 2021-02-07 21:23 | REPVR ---
PROCEDURE INFORMATION: Exam: MR Cervical Spine Without Contrast Exam date and time: 02/07/2021 3:51 PM Age: 40 years old Clinical indication: Neck pain; Additional info: Radiculopathy w/ pain and tingling down arm TECHNIQUE: Imaging protocol: Multiplanar magnetic resonance images of the cervical spine without contrast. COMPARISON: CR SPINE CERVICAL W/AP/FLEX/EXT 12/05/2020 8:32 AM FINDINGS: Cervical vertebral body heights are intact. The dens is intact. No abnormal marrow signal. No cord compression, expansion, or abnormal cord signal. Visualized structures of the posterior fossa are unremarkable. Soft tissues are unremarkable. C2-C3: No significant canal or foraminal narrowing. C3-C4: No significant canal or foraminal narrowing. C4-C5: Central disc extrusion superimposed over broad-based disc bulge causes focal moderate canal stenosis with indentation on on the anterior aspect of the spinal cord. Mild bilateral foraminal narrowing. C5-C6: Posterior disc protrusion and uncovertebral spurring cause mild canal narrowing and moderate bilateral foraminal narrowing. C6-C7: Posterior disc protrusion and uncovertebral spurring cause mild canal narrowing and mild bilateral foraminal narrowing. C7-T1: No significant canal or foraminal narrowing. IMPRESSION: Multilevel spondylotic changes from C4 through C7, most pronounced at C4-C5 with a prominent central disc extrusion, as detailed above. Recommend surgical consultation. Electronically signed by: Uri Salmeron On 02/07/2021 21:22:49 PM
== END ==
LOC: M PLAIMG 14:19
PROVIDERS: ATTEND Orthopaedic Surgery Sports Medicine
DX: M54.12 Radiculopathy, cervical region (principal); M75.41 Impingement syndrome of right shoulder

== ENCOUNTER 2021-03-09 13:31 | Observation (INO) | payer OTHER ==
[~2021-03-09] VITALS: Ht 172.7 cm; Wt 74.7 kg
[~2021-03-09 13:31] MED LIST changes: -FLUO10CA16 PO; +FLUO10CA18 PO; -OMEP-221; +OMEP40CA5
[2021-03-09] MEDS ORDERED: METHOCARBAMOL 1,000 MG/10 ML VIAL (J2800) IV ONE (16:05)
[2021-03-09 17:03] LABS: BASO # 0.1 10^3/uL (0.0-0.2); EOS # 0.2 10^3/uL (0.0-0.5); EOS % 2.1 % (0.0-3.0); HEMATOCRIT 51.2 % (42.0-52.0); HEMOGLOBIN 16.7 g/dl (13.5-17.5); LYMPH # 2.5 10^3/uL (1.5-5.0); LYMPH % 21.1 % (24.0-44.0); MEAN CORPUSCULAR HEMOGLOBIN 30.6 pg (27.0-33.0); MEAN CORPUSCULAR HGB CONC 32.6 g/dl (32.0-36.5); MEAN CORPUSCULAR VOLUME 93.8 fl (80.0-96.0); MONO # 0.9 10^3/uL (0.0-0.8); NEUTROPHILS # 7.8 10^3/uL (1.5-8.5); NEUTROPHILS % 66.9 % (36.0-66.0); PLATELET COUNT, AUTOMATED 223 10^3/uL (150-450); RED BLOOD COUNT 5.46 10^6/uL (4.30-6.10); WHITE BLOOD COUNT 11.7 10^3/uL (4.0-10.0)
[2021-03-09 17:22] LABS: INR 1.08; PROTHROMBIN TIME 14.4 SECONDS (12.7-14.5)
[2021-03-09 17:23] LABS: PARTIAL THROMBOPLASTIN TIME 34.3 SECONDS (25.9-37.0)
[2021-03-09 17:29] LABS: BLOOD UREA NITROGEN 11 MG/DL (7-18); CARBON DIOXIDE LEVEL 28 MEQ/L (21-32); CHLORIDE LEVEL 107 MEQ/L (98-107); CREATININE FOR GFR 0.88 MG/DL (0.70-1.30); GLOMERULAR FILTRATION RATE > 60.0 (>60); GLUCOSE, FASTING 88 MG/DL (70-100); POTASSIUM SERUM 4.2 MEQ/L (3.5-5.1); SODIUM LEVEL 141 MEQ/L (136-145)
[2021-03-09 18:21] LABS: RSV AMPLIFICATION NEGATIVE (NEGATIVE)
[2021-03-09 21:31] VITALS: BP 165/76
[2021-03-10] MEDS ORDERED: NS 1,000 ML IV SCH (00:01)
== END 2021-03-09 22:28 | disposition left against medical advice (07) ==
LOC: M ED 13:31 → M ED INP 20:59
PROVIDERS: ADMIT Internal Medicine; ATTEND Internal Medicine
DX: M50.221 Other cervical disc displacement at C4-C5 level (principal); Z53.20 Procedure and treatment not carried out because of patient's decision for unspecified reasons; F17.218 Nicotine dependence, cigarettes, with other nicotine-induced disorders; F12.10 Cannabis abuse, uncomplicated; Z88.5 Allergy status to narcotic agent; Z88.8 Allergy status to other drugs, medicaments and biological substances
CPT/HCPCS: 72125; 72141; 80048; 85025; 85610; 85730; 87631; 96374; 99284; J2800

== ENCOUNTER 2021-03-14 06:26 | Inpatient (IN) | payer OTHER ==
[~2021-03-14] VITALS: Ht 180.3 cm; Wt 73.7 kg
[~2021-03-14 06:26] MED LIST changes: +FLUO10CA16 PO; -FLUO10CA18 PO; +OMEP-221; -OMEP40CA5
[2021-03-14 07:30] VITALS: BP 154/92
--- NOTE | 2021-03-14 07:48 | HPEPDOC ---
[facility] Medical History & Physical Date of Admission Mar 14, 2021 Date of Service: Mar 14, 2021 History and Physical CHIEF COMPLAINT: "I have pain in my back, and sent by Dr. Prajapati" HISTORY OF PRESENT ILLNESS: 40-year-old male was sent to the hospital by the orthopedic team for decompression of cervical spine. 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 However, over the years progressively got worse. Approximately 2 years weeks ago he was seen by orthopedic team for increasing weakness bilaterally, numbness and tingling radiating from shoulders into his fingertips (most prominent over the ulnar region). He is planned to have surgery on 03/15 and hospitalist team was consulted for clearance. PAST MEDICAL HISTORY: Hypertension, not on any antihypertensive medications Seizures, not on any antiepileptics PAST SURGICAL HISTORY: Colectomy from diverticulitis, with reversal in 2019 SOCIAL HISTORY: Smokes 1/2 pack a day, daily marijuana smoker, denies drinking FAMILY HISTORY: Father: Kidney/bladder cancer Mother: Fibromyalgia ALLERGIES: Please see below. REVIEW OF SYSTEMS: 10 point review of system was negative except for what is noted in the HPI HOME MEDICATIONS: Please see below. PHYSICAL EXAMINATION: VITAL SIGNS: Please see below General: Lying in bed, no acute distress Head/Neck/Throat: Trachea midline, mucous membranes moist Eyes: Sclera anicteric, PERRLA Thorax: Normal respiratory effort on room air, lungs clear to auscultation bilaterally, no wheezes/rales/rhonchi Cardiovascular: Normal rate, regular rhythm, normal S1, S2; no S3, S4, rubs/gallops/murmurs Abdomen: Bowel sounds present, soft/nontender/nondistended Genitourinary: No CVA tenderness, no Loyd in place Musculoskeletal: Moving all extremities, no edema Skin: Warm, dry Neurologic: AAOx3. Strength in the upper and lower extremities 5/5, sensation to gross touch is intact. LABORATORY DATA: See below. IMAGING: MRI from 03/09/2021 IMPRESSION: 1. Small prevertebral hematoma as described above. 2. Straightened cervical lordosis. Findings consistent with muscular spasm. 3. Large posterior disc protrusion in the midline at C4-C5 extending both craniad and caudad to the disc space. Disc herniation is resulting in mild to moderate cord impingement. There is mild to moderate bilateral foraminal stenosis. 4. There is a right paracentral disc protrusion at C5-C6 resulting in mild to moderate mid and right kale cord impingement. There is moderate narrowing of the neural foraminal canal on the left and severe narrowing on the right. MICROBIOLOGY: Please see below. ASSESSMENT/PLAN: 40-year-old male with history of hypertension and possibly seizure disorder sent to the hospital by his orthopedics team for a decompressive surgery of his cervical spine. #C4 -C5 disc herniation with moderate cord compression/C5-C6 disc protrusion with mild to moderate right hemicord impingement -Plan for OR for decompression on 03/15. He is medically cleared. #HTN -Not on any medications. Reports that he lost weight and did not need to be on antihypertensives. Stable BP. #Seizure -Not on any antiepileptics. Patient reports he has never had seizure for several years. #History of syncope -No episodes of syncope for over 2 years. He has a loop recorder in place. Primary [employer] office was called (Dr. And to gant/Dr. Ambrose) and chart was reviewed. There was no record of arrhythmias. He was discharged from the practice. #DVT prophylaxis -Heparin subcu Allergies Coded Allergies: oxycodone (Verified Allergy, Intermediate, HIVES WITHOUT ITCHING, 03/09/21) duloxetine (Verified Adverse Reaction, Intermediate, anxiety, severe depression, 03/09/21) levetiracetam (Verified Adverse Reaction, Intermediate, causes rage and anger issues, 03/09/21) A-FIB/CHADSVASC A-FIB History Current/History of A-Fib/PAF?: No LAMONT MENG M.D. Mar 14, 2021 07:48
[2021-03-14 08:00] VITALS: BP 154/92
[2021-03-14 08:49] LABS: BASO # 0.1 10^3/uL (0.0-0.2); BASO % 0.9 % (0.0-1.0); EOS # 0.1 10^3/uL (0.0-0.5); EOS % 1.4 % (0.0-3.0); HEMOGLOBIN 15.4 g/dl (13.5-17.5); LYMPH # 1.2 10^3/uL (1.5-5.0); LYMPH % 11.6 % (24.0-44.0); MEAN CORPUSCULAR HEMOGLOBIN 30.2 pg (27.0-33.0); MEAN CORPUSCULAR HGB CONC 32.1 g/dl (32.0-36.5); MEAN CORPUSCULAR VOLUME 94.1 fl (80.0-96.0); MONO # 0.6 10^3/uL (0.0-0.8); MONO % 5.5 % (2.0-8.0); NEUTROPHILS # 8.2 10^3/uL (1.5-8.5); PLATELET COUNT, AUTOMATED 210 10^3/uL (150-450); WHITE BLOOD COUNT 10.3 10^3/uL (4.0-10.0)
[2021-03-14 09:16] LABS: ALBUMIN 3.7 GM/DL (3.2-5.2); ALT/SGPT 14 U/L (12-78); BILIRUBIN,TOTAL 0.7 MG/DL (0.2-1.0); BLOOD UREA NITROGEN 9 MG/DL (7-18); CALCIUM LEVEL 8.9 MG/DL (8.5-10.1); CARBON DIOXIDE LEVEL 30 MEQ/L (21-32); CHLORIDE LEVEL 108 MEQ/L (98-107); CREATININE FOR GFR 0.86 MG/DL (0.70-1.30); GLOMERULAR FILTRATION RATE > 60.0 (>60); GLUCOSE, FASTING 89 MG/DL (70-100); MAGNESIUM LEVEL 2.2 MG/DL (1.8-2.4); PHOSPHORUS LEVEL 3.3 MG/DL (2.5-4.9); POTASSIUM SERUM 4.4 MEQ/L (3.5-5.1); SODIUM LEVEL 143 MEQ/L (136-145); TOTAL PROTEIN 6.7 GM/DL (6.4-8.2)
[2021-03-14] MEDS ORDERED: HOME MED LIST COMPLETE! XX SCH (09:40)
[2021-03-14] MEDS ORDERED: KETOROLAC 30 MG/ML 1ML VIAL IV ONE (11:25)
[2021-03-14] MEDS: GABAPENTIN 100 MG CAP PO SCH ×3 (11:40→20:26)
[2021-03-14] MEDS: HEPARIN SOD (PORCINE) 5000UNITS/ML 1ML VIAL/SYRINGE SQ SCH ×2 (13:10→20:30)
[2021-03-14 14:00] VITALS: BP 140/84
[2021-03-14 15:34] LABS: INR 1.07; PROTHROMBIN TIME 14.3 SECONDS (12.7-14.5)
[2021-03-14 15:35] LABS: PARTIAL THROMBOPLASTIN TIME 34.9 SECONDS (25.9-37.0)
--- NOTE | 2021-03-14 15:37 | CR.PDOC ---
General Date of Consultation: Mar 14, 2021 Attending Physician: FRANSICO RIOS MD Consultation REASON FOR CONSULTATION/CHIEF COMPLAINT: [Patient admitted for C4-5 disc protrusion and moderate cord impingement C5-6 disc protrusion and moderate hemicord impingement. Patient increasing pain and symptoms.]. HISTORY OF PRESENT ILLNESS: [Patient initially seen in my office for right upper extremity pain and paresthesias. Worse pain in his right triceps area. MRI showed large C4-5 disc protrusion with cord impingement and C5-C6 disc protrusion with moderate hemicord impingement. He was sent to obtain preoperative clearance. Return to my clinic urgently with increasing pain now on the left side. Increasing paresthesias on the left arm. Was sent to the emergency room on 03/09/2021. Underwent a repeat MRI of the C-spine. Clinically he showed no signs of myelopathy but increasing pain more on the left side. After lengthy discussion plan was to admit him and have the surgery done on the . Patient unfortunately thought he was only being admitted for observation, he had family to attend to at home and signed out AMA. Call my office and we have spent last couple days trying to have him admitted for surgery. His pain is moderate to severe. Bilateral paresthesias. His pain is now worse on the left side with pain along his triceps area. Paresthesias along the ulnar sides of his hands. He describes subjective weakness.]. ALLERGIES: Please see below. HOME MEDICATIONS: Please see below. PAST MEDICAL HISTORY: 1. [Hypertension]. 2. [Epilepsy]. PAST SURGICAL HISTORY: 1. [Diverticulitis and bowel resection] 2. FAMILY HISTORY: Mother fibromyalgia SOCIAL HISTORY: Children: [[address] Tobacco use:[Smoker, marijuana] Imaging telephone: Telephone conversation with Vrad. Dr. Duron. 03/14/2021 at 3:35 PM discussed the findings on MRI. Discussed the description of prevertebral hematoma. Compared to CT done previously. No soft tissue swelling. I have no clinical or historical reason for bleeding in the neck. Prevertebral hematoma could be also be fat. REVIEW OF SYSTEMS: CONSTITUTIONAL: [Denies any fever chills night sweats]. HEENT: [Neck pain]. CARDIOVASCULAR: [Vital signs stable]. RESPIRATORY: [Breathing comfortably on room air]. GENITOURINARY: [Denies]. MUSCULOSKELETAL: [Bilateral upper extremity paresthesias, increased burning left upper extremity triceps area]. GASTROINTESTINAL: [Diverticulitis with bowel resection]. SKIN: [Normal]. NEUROLOGICAL: [Symmetrical reflexes, good static balance, subjective upper extremity weakness]. PSYCHIATRIC: [Cooperative]. ENDOCRINE: [Denies]. HEMATOLOGIC/LYMPHATIC: [Denies]. ALLERGIC/IMMUNOLOGIC: [As per chart]. PHYSICAL EXAMINATION: VITAL SIGNS: Please see below. GENERAL APPEARANCE: [Patient sitting comfortably in the room. Easily able to stand during examination]. HEENT: [Complaining of neck pain. Full range of motion good head control]. RESPIRATORY: [Breathing comfortably on room air]. CARDIOVASCULAR: [Vital signs stable, denies any chest pain.]. ABDOMEN: [Soft nontender]. EXTREMITIES: [Moves all 4 extremities well On upper extremity testing grade 5 power throughout. Complains of paresthesias with burning left triceps. Numbness and tingling bilateral hands ulnar-sided fingers. Good static balance]. NEUROLOGICAL: [No myelopathic signs]. PSYCHIATRIC: [Alert, cooperative]. LABORATORY DATA: Please see below. ASSESSMENT/PLAN: 1. [40-year-old male. Increasing lumbar extremity pain and paresthesias. Progressive subjective weakness of the upper extremities. MRI showing cord impingement and disc herniations C4-5 C5-6. So far medically stable and amenable to anterior cervical decompression and fusion C4-5 C5-6.]. 2. [Plan is to have the surgery performed tomorrow morning. Patient is n.p.o. at midnight. Have ordered coagulation studies. Type and screen. We have spent lengthy time going through the consent. He understands the risk and benefits at length. Nerve, vessel damage, esophageal injury, carotid artery injury, stroke, infection, nonunion, malunion, failed hardware, paralysis, recurrent laryngeal nerve injury, swallowing difficulties, aspiration risk with pneumonia, voice changes, he understands there is no guarantee of success. Patient today this afternoon is signed informed consent to proceed with the C4-5 C5-6 anterior cervical decompression and fusion. Discussed use of bone graft allograft. Patient has agreed to stop smoking]. Vital Signs/I&O Vital Signs Date Time Temp Pulse Resp B/P (MAP) Pulse Ox O2 Delivery O2 Flow Rate FiO2 03/14/21 14:00 97.9 60 16 140/84 (102) 98 Room Air Laboratory Data Labs 24H Laboratory Tests 2 03/14/21 08:23: Immature Granulocyte % (Auto) 0.6, Neutrophils (%) (Auto) 80.0H, Lymphocytes (%) (Auto) 11.6L, Monocytes (%) (Auto) 5.5, Eosinophils (%) (Auto) 1.4, Basophils (%) (Auto) 0.9, Neutrophils # (Auto) 8.2, Lymphocytes # (Auto) 1.2L, Monocytes # (Auto) 0.6, Eosinophils # (Auto) 0.1, Basophils # (Auto) 0.1, Nucleated Red Blood Cells % (auto) 0.0, Anion Gap 5L, Glomerular Filtration Rate > 60.0, Calcium Level 8.9, Phosphorus Level 3.3, Magnesium Level 2.2, Total Bilirubin 0.7, Aspartate Amino Transf (AST/SGOT) 10, Alanine Aminotransferase (ALT/SGPT) 14, Alkaline Phosphatase 86, Total Protein 6.7, Albumin 3.7, Albumin/Globulin Ratio 1.2 03/14/21 09:43: Coronavirus (COVID-19)(PCR) NEGATIVE 03/14/21 15:00: CBC/BMP Laboratory Tests 03/14/21 08:23 Allergies Coded Allergies: oxycodone (Verified Allergy, Intermediate, HIVES WITHOUT ITCHING, 03/09/21) duloxetine (Verified Adverse Reaction, Intermediate, anxiety, severe depression, 03/09/21) levetiracetam (Verified Adverse Reaction, Intermediate, causes rage and anger issues, 03/09/21) Home Medications No Active Prescriptions or Reported Meds FRANSICO RIOS MD Mar 14, 2021 15:37
--- NOTE | 2021-03-14 18:36 | ECGEPIP ---
[facility] Test Date: 2021-03-14 Pat Name: PEGGY ROBERT Department: Room: [place] [address] Gender: Male Pbx Supervisor: JESSIE : [id number] Requested By: LAMONT Burch Order Number: [id number] Reading MD: Gaurav Bell Measurements Intervals [place] Rate: 62 P: 59 MS: 116 QRS: 35 QRSD: 86 T: 32 QT: 394 QTc: 399 Interpretive Statements Normal sinus rhythm Incomplete right bundle branch block No significant change from prior tracing of December 01, 2018 Electronically Signed on 03-14-2021 18:36:29 EST by Gaurav Bell
[2021-03-14 22:00] VITALS: BP 145/80
[2021-03-15] MEDS ORDERED: UNRESOLVED CLARIFICATION ENTRY XX SCH (00:01)
[2021-03-15] MEDS: HEPARIN SOD (PORCINE) 5000UNITS/ML 1ML VIAL/SYRINGE SQ SCH ×2 (05:07→15:22)
[2021-03-15 06:00] VITALS: BP 127/96
[2021-03-15 06:25] LABS: HEMATOCRIT 50.6 % (42.0-52.0); HEMOGLOBIN 16.5 g/dl (13.5-17.5); MEAN CORPUSCULAR HEMOGLOBIN 30.7 pg (27.0-33.0); MEAN CORPUSCULAR HGB CONC 32.6 g/dl (32.0-36.5); MEAN CORPUSCULAR VOLUME 94.1 fl (80.0-96.0); PLATELET COUNT, AUTOMATED 231 10^3/uL (150-450); RED BLOOD COUNT 5.38 10^6/uL (4.30-6.10)
[2021-03-15 06:48] LABS: BLOOD UREA NITROGEN 10 MG/DL (7-18); CALCIUM LEVEL 9.2 MG/DL (8.5-10.1); CARBON DIOXIDE LEVEL 29 MEQ/L (21-32); CHLORIDE LEVEL 106 MEQ/L (98-107); CREATININE FOR GFR 0.83 MG/DL (0.70-1.30); GLOMERULAR FILTRATION RATE > 60.0 (>60); GLUCOSE, FASTING 97 MG/DL (70-100); MAGNESIUM LEVEL 2.3 MG/DL (1.8-2.4); PHOSPHORUS LEVEL 3.2 MG/DL (2.5-4.9); POTASSIUM SERUM 4.3 MEQ/L (3.5-5.1); SODIUM LEVEL 142 MEQ/L (136-145)
[2021-03-15] MEDS ORDERED: BUPIVACAINE LIPOSOME/PF 1.3% 20ML VIAL (13.3MG/ML)(EXPAREL)(C9290 PER1MG) As Ordered ONE (07:11)
[2021-03-15] MEDS ORDERED: BUPIVACAINE HCL 0.5% 10ML VIAL As Ordered ONE (07:11)
[2021-03-15] MEDS ORDERED: TRANEXAMIC ACID 100 MG/ML 10ML VIAL As Ordered ONE (07:11)
[2021-03-15] MEDS ORDERED: THROMBIN SOLN 20,000 UNITS KIT As Ordered ONE (07:11)
[2021-03-15] MEDS ORDERED: BUPIVACAINE/EPIN 0.5% 30 ML VIAL As Ordered ONE (07:25)
[2021-03-15] MEDS ORDERED: VANCOMYCIN 500MG/10ML VIAL As Ordered ONE (08:23)
[2021-03-15] MEDS ORDERED: ROCURONIUM BROMIDE 50 MG/5 ML VIAL As Ordered ONE (08:32)
[2021-03-15] MEDS ORDERED: REMIFENTANIL 1MG 3ML VIAL As Ordered ONE ×2 (08:32→11:32)
[2021-03-15] MEDS ORDERED: MIDAZOLAM INJ 2MG/2ML VIAL (J2250 PER 1MG) As Ordered ONE (08:32)
[2021-03-15] MEDS ORDERED: propofoL 200 MG/20 ML VIAL As Ordered ONE (08:32)
[2021-03-15] MEDS ORDERED: LIDOCAINE 2% 100MG/5ML SDV (FOR ANES.) As Ordered ONE (08:32)
[2021-03-15] MEDS ORDERED: propofoL 500 MG/50 ML VIAL As Ordered ONE ×5 (08:32→12:11)
[2021-03-15] MEDS ORDERED: SUCCINYLCHOLINE 100 MG/5 ML SYRINGE (J0330) As Ordered ONE (08:32)
[2021-03-15] MEDS ORDERED: dexameTHASONE 4 MG/ML 1ML VIAL (J1100 PER 1MG) As Ordered ONE (08:32)
[2021-03-15] MEDS ORDERED: fentaNYL 250 MCG/5 ML INJECTION (J3010) As Ordered ONE (08:32)
[2021-03-15] MEDS ORDERED: ONDANSETRON 4MG/2ML VIAL As Ordered ONE (08:32)
[2021-03-15] MEDS: GABAPENTIN 100 MG CAP PO SCH ×2 (09:00→15:22)
[2021-03-15] MEDS ORDERED: ACETAMINOPHEN 1000MG 100ML IV BTL (OFIRMEV) (J0131 PER 10MG) As Ordered ONE (12:28)
--- NOTE | 2021-03-15 12:31 | IPNPDOC ---
Text Note Date of Service The patient was seen on 03/15/21. VS,Fishbone, I+O VS, Fishbone, I+O Laboratory Tests 03/15/21 05:58 Vital Signs Date Time Temp Pulse Resp B/P (MAP) Pulse Ox O2 Delivery O2 Flow Rate FiO2 03/15/21 06:00 98.2 80 18 127/96 (106) 98 Room Air I&O- Last 24 Hours up to 6 AM 03/15/21 06:00 Intake Total 360 ml Balance 360 ml LAMONT MENG M.D. Mar 15, 2021 12:31
--- NOTE | 2021-03-15 13:06 | ROOPDOC ---
[facility] Report Of Operation Report of Operation DATE OF PROCEDURE: 03/15/21 PREPROCEDURE DIAGNOSES: [C4-5 disc protrusion and cord compression, C5-C6 disc protrusion]. POSTPROCEDURE DIAGNOSES: [C4-5 disc protrusion and cord compression, C5-C6 disc protrusion]. PROCEDURE PERFORMED: [Anterior cervical decompression and fusion with Mary Kay titanium C interbody cages with cancellous bone chips at levels C4-5 and C5-6 with a anterior cervical plate spanning C4-C6.]. SURGEON: [Fransico Bloom MD ALIGNMENT SPECIALIST: [Majo]MD ANESTHESIA: [General anesthesia]. ESTIMATED BLOOD LOSS: Approximately [50 cc] mL. COMPLICATIONS: [No complication]. REMARKS: . FINDINGS: [C4-5 large central disc protrusion with cord impingement with disc extending superior and inferior to the endplates behind the vertebral bodies. C5-6 right-sided paracentral disc protrusion] SPECIMENS REMOVED: [C4-5 disc C5-6 disc] PROCEDURE NOTE: . DESCRIPTION OF PROCEDURE: [Patient was met in the holding area. H&P reviewed. Consent was confirmed. The right side of his neck was marked. Patient was given a preoperative dose of vancomycin. Taken into the operative room here at [facility]. Patient's procedure was confirmed and identified with patient. He was then placed supine on the Alexis flat top. He was given a general anesthetic in usual manner and NG tube. Patient was connected to the neuro monitoring. A well-padded bolster was placed between his scapula. His neck was then extended onto a donut. The arms were then pulled more inferiorly using hockey tape over the shoulders. All bony prominences well-padded. Bear hugger was placed to lower half of his body. Surgical timeout was performed]. Patient was then prepped and draped usual manner. He was lateral fluoroscopy and radiopaque needle to identify the level to make our incision. Ojeda Villafuerte approach. Left-sided 2 inch incision along the skin crease at the level of C5. Infiltrated the skin with Marcaine epinephrine. Deepened incision down to the platysma. Divided the platysma in line with the incision. Identified the interval between the border of the sternocleidomastoids and the trachea and esophagus. Bluntly dissected down. Intimately palpating for the carotid pulse. Maintaining our blunt dissection down to the vertebra medial to the carotid pulse. Retracted the trachea and esophagus to the left side. Once down to the prevertebral fascia. Identified longus coli and bluntly remove the pretracheal fascia of the vertebral bodies. Placed in the self-retaining retractor. Use a spinal needle into the vertebral bodies and fluoroscopy to identify the levels. Identified C5 and C6. Restarted at C4-5. Placed to Maben pins into the bodies of C4 and C5. And showed correct placement using fluoroscopy. Made sure to retract the esophagus to the right side. Identified the C5 5 disc space. With retractors and Maben pins in place. Performed our annulotomy. Performed our discectomy using Kerrisons and curettes. Worked a way incrementally down to the posterior aspect of the vertebral body. Identified the rent in the posterior long to ligament. With a complete discectomy down to good bone. We then performed performed dissection of the possible long to ligament. We use blunt probing with our nerve hook to remove the large disc that was impinging on the cord and to remove as much distally behind the vertebral bodies. Use #1 Kerrison to take down the posterior lip of the vertebral body. Obvious indentation of the dura. Remove the disc carefully behind the vertebral bodies. Continuously monitoring with neuro monitoring. Once we thought we had a good this preparation. We used a trial to size a disc to receive a titanium C 5 x 12 x 40 mm cage. The back to cage was cancellous bone graft with blood from the vertebral bodies to encourage fusion. We thought we had a good placement of the cage with fluoroscopic guidance. We now moved our attention to the level below. Moved all Maben pins at C4 down to C6. Reposition our retractor. Identified the C5-6 disc space. Again performed an annulotomy and discectomy. We performed a complete discectomy d. The saw a small rent in the proximal along the ligament. Once we thought we had a good decompression. We again size it to receive a 5 x 12 x 40 mm cage. We inserted the cage under fluoroscopic guidance. Impact the titanium C cage with cancellous chips with bone marrow aspirate. And we inserted the cage under fluoroscopic guidance. We now proceeded to secure with a anterior cervical plate. We measured to receive a 34 mm anterior cervical locking plate with 6 screws. Position of plate under fluoroscopic guidance in the middle of the longus coli. We secured the plate using 6 locking screws. Final x-rays and saw the plate was midline with good fixation to the vertebral bodies. We then irrigated wound copious amounts of saline. We put one gram of TXA in the wound while we took final x- rays. We then placed a 6 mmflat JESSICA drain into the wound. We closed the wound with interrupted 2-0 Vicryl for skin with 3-0 Monocryl. Steri-Strips to help with closure. Sterile dressing to the wound. Patient was awakened from anesthesia. Placed into a c-collar. And taken to recovery in a stable manner. During the procedure were there are no abnormal findings on neuro monitoring. Patient was stable postop .moving all four extremities. No voice changes FRANSICO RIOS MD Mar 15, 2021 13:05
[2021-03-15] MEDS ORDERED: ONDANSETRON 4MG/2ML VIAL IV PRN (13:15)
[2021-03-15] MEDS ORDERED: LR 1,000 ML IV SCH ×2 (13:15→14:25)
[2021-03-15] MEDS ORDERED: fentaNYL 100 MCG/2 ML INJECTION (J3010) IV PRN (13:15)
[2021-03-15] MEDS ORDERED: NORCO, ANEXSIA 5/325MG TABLET (HYDROcodone/ACETAMINOPHEN) PO PRN (13:15)
[2021-03-15] MEDS: HYDROMORPHONE HCL 0.5 MG/ 0.5 ML SYRINGE (J1170 PER 1) IV PRN ×2 (13:16→13:21)
[2021-03-15 14:00] VITALS: BP 133/75
--- NOTE | 2021-03-15 14:04 | REP ---
INDICATION: HERNIATED DISK, CERVICAL DISC DISORDER AT C4-5 LEVEL. COMPARISON: None. TECHNIQUE: Nine fluoroscopic spot views were obtained during anterior cervical discectomy. 17.7 seconds of fluoroscopy time was provided for the exam. FINDINGS: There is bone graft material seen at the C4-5 and C5-6 levels. There is an anterior internal fixation plate affixing C4, C5, and C6 with 6 internally fixing screws. None of the screws breach the endplates or posterior vertebral body cortices. The alignment appears near anatomical. IMPRESSION: Status post anterior cervical discectomy as described above. <Electronically signed by Umer Hicks > 03/15/21 [id number]
[2021-03-15] MEDS ORDERED: ACETAMINOPHEN TAB 650MG DOSE (2X325MG) PO PRN (14:20)
[2021-03-15] MEDS ORDERED: MORPHINE SULFATE ORAL SOLN 10 MG/5 ML UD PO PRN (14:25)
[2021-03-15 14:30] VITALS: BP 129/74
[2021-03-15] MEDS ORDERED: MORPHINE 4 MG/ML 1ML VIAL/SYRINGE (J2270) IV PRN (14:55)
[2021-03-15] MEDS ORDERED: PERCOCET 5MG/325MG TAB PO PRN (15:00)
[2021-03-15 15:30] VITALS: BP 130/77
--- NOTE | 2021-03-15 16:22 | IPNPDOC ---
Text Note Date of Service The patient was seen on 03/15/21. NOTE Pt post op ACDF 4-5 5-6 . No pain and full power upper extremities. Drinking well and walking on colbert. He states no way he will stay in hospital. Wants to sign AMA. Explained life threatening hematoma and airway loss leading to . Drain in situ and the is small amount of blood. Will also no receive post op Abx. Main concern is airway compromise. He understands and refuses to stay for post op monitoring. He has signed out AMA. Despite my best efforts to convince to stay and understand risk of neurological and airway compromise / . Advised if neck swelling, difficulty breathing , increased blood in drain to go to the ER. All I can do is offer a to see him in office tomorrow. witnessed by Nurse Cameron. VS,Dereck, I+O VS, Dereck, I+O Laboratory Tests 03/15/21 05:58 Vital Signs Date Time Temp Pulse Resp B/P (MAP) Pulse Ox O2 Delivery O2 Flow Rate FiO2 03/15/21 15:32 18 03/15/21 15:30 97.1 52 130/77 (94) 97 Room Air 03/15/21 14:30 1.0 I&O- Last 24 Hours up to 6 AM 03/15/21 05:59 Intake Total 360 ml Balance 360 ml FRANSICO RIOS MD Mar 15, 2021 16:22
--- NOTE | 2021-03-15 17:32 | DS.PDOC ---
Discharge Summary General Date of Admission Mar 14, 2021 at 07:14 Date of Discharge 03/15/21 Discharge Summary DISCHARGE DIAGNOSES: C4 -C5 disc herniation with moderate cord compression/C5-C6 disc protrusion with mild to moderate right hemicord impingement. COMPLICATIONS/CHIEF COMPLAINT: Herniated Disk, Cervical Disc Disorder At C4- 5.... HOSPITAL COURSE: Mr. Wilder is a 40-year-old male was sent to the hospital by the orthopedic team for decompression of cervical spine. An outpatient MRI noted C4 -C5 disc herniation with moderate cord compression/C5-C6 disc protrusion with mild to moderate right hemicord impingement. He was taken to the OR by his orthopedic/spinal surgeon for an anterior cervical decompression and fusion with Stover titanium C interbody cages with cancellous bone chips at levels C4-5 and C5-6 with a anterior cervical plate spanning C4-C6. Subsequently, after his surgery he wanted to leave AGAINST MEDICAL ADVICE despite surgery and medicine team best efforts to explain to him why monitoring would be required following his surgery. He understood all risks including a life-threatening hematoma, airway loss, possible permanent disability and . He was asked to follow-up with surgery team as soon as possible DISCHARGE MEDICATIONS: Please see below. ALLERGIES: Please see below. PHYSICAL EXAMINATION ON DISCHARGE: VITAL SIGNS: Please see below. General: Lying in bed, no acute distress Head/Neck/Throat: Trachea midline, mucous membranes moist Eyes: Sclera anicteric, erythema or discharge appreciated bilaterally Thorax: Normal respiratory effort on room air, lungs clear to auscultation bilaterally, no wheezes/rales/rhonchi Cardiovascular: Normal rate, regular rhythm, normal S1, S2; no S3, S4, rubs/gallops/murmurs Abdomen: Bowel sounds present, soft/nontender/nondistended Genitourinary: No CVA tenderness, no Loyd in place Musculoskeletal: Cervical collar in place Skin: Warm, dry Neurologic: AAOx3, speech fluent and goal-directed, no focal deficits, grossly intact LABORATORY DATA: Please see below. IMAGING: Please see imaging section PROGNOSIS: Guarded DISPOSITION: 07 Against Medical Advice. DISCHARGE INSTRUCTIONS: Follow-up with surgery team status post DISCHARGE CONDITION: Guarded. TIME SPENT ON DISCHARGE: 30 minutes. Vital Signs/I&Os Vital Signs Date Time Temp Pulse Resp B/P (MAP) Pulse Ox O2 Delivery O2 Flow Rate FiO2 03/15/21 15:32 18 03/15/21 15:30 97.1 52 130/77 (94) 97 Room Air 03/15/21 14:30 1.0 I&O- Last 24 Hours up to 6 AM 03/15/21 06:00 Intake Total 360 ml Balance 360 ml Laboratory Data Labs 24H Laboratory Tests 2 03/15/21 05:58: Nucleated Red Blood Cells % (auto) 0.0, Anion Gap 7L, Glomerular Filtration Rate > 60.0, Calcium Level 9.2, Phosphorus Level 3.2, Magnesium Level 2.3 CBC/BMP Laboratory Tests 03/15/21 05:58 Discharge Medications No Active Prescriptions or Reported Meds Allergies Coded Allergies: oxycodone (Verified Allergy, Intermediate, HIVES WITHOUT ITCHING, 03/09/21) duloxetine (Verified Adverse Reaction, Intermediate, anxiety, severe depression, 03/09/21) levetiracetam (Verified Adverse Reaction, Intermediate, causes rage and anger issues, 03/09/21) LAMONT MENG M.D. Mar 15, 2021 17:32
[2021-03-15] MEDS ORDERED: CelecoXIB (CeleBREX) 100 MG CAP PO SCH (21:00)
== END 2021-03-15 16:30 | disposition left against medical advice (07) | DRG 321 ==
LOC: M MS5PR 07:14
PROVIDERS: ADMIT Internal Medicine; ATTEND Internal Medicine
PROC: 0RB30ZZ Excision of Cervical Vertebral Disc, Open Approach (ICD-10-PCS; 2021-03-15)
PROC: 0RG2071 Fusion of 2 or more Cervical Vertebral Joints with Autologous Tissue Substitute, Posterior Approach, Posterior Column, Open Approach (ICD-10-PCS; principal; 2021-03-15 07:30)
DX: M50.221 Other cervical disc displacement at C4-C5 level (principal); I10 Essential (primary) hypertension; G40.909 Epilepsy, unspecified, not intractable, without status epilepticus; F17.210 Nicotine dependence, cigarettes, uncomplicated; F12.10 Cannabis abuse, uncomplicated; Z88.5 Allergy status to narcotic agent; Z88.8 Allergy status to other drugs, medicaments and biological substances; Z20.822 Contact with and (suspected) exposure to COVID-19; M50.222 Other cervical disc displacement at C5-C6 level

== ENCOUNTER → 2021-03-16 | Outpatient (CLI) | payer OTHER ==
--- NOTE | 2021-03-16 09:48 | REP ---
INDICATION: SURGICAL AFTERCARE. COMPARISON: 12/05/2020 a pre operative exam TECHNIQUE: AP and lateral views FINDINGS: Since the last examination an anterior cervical discectomy was performed. Bone graft material is seen at C4-5 and C5-6. The anterior internal fixation plate is affixed by 6 affixing screws. None of the screws breach the endplates or posterior cortices. The alignment is near anatomic IMPRESSION: Status post anterior cervical discectomy as described above. <Electronically signed by Umer Hicks > 03/16/21 [id number]
== END ==
LOC: M SOG 09:33
PROVIDERS: ATTEND Orthopaedic Surgery
DX: Z47.89 Encounter for other orthopedic aftercare (principal); Z96.89 Presence of other specified functional implants

== ENCOUNTER 2021-03-23 12:24 | Emergency (ER) | payer OTHER ==
[~2021-03-23] VITALS: Ht 167.6 cm; Wt 74.8 kg
[~2021-03-23 12:24] MED LIST changes: -FLUO10CA16 PO; +FLUO10CA18 PO
[2021-03-23] MEDS ORDERED: GOOD200C PO (12:35)
[2021-03-23 13:15] LABS: BASO # 0.1 10^3/uL (0.0-0.2); EOS # 0.2 10^3/uL (0.0-0.5); EOS % 1.7 % (0.0-3.0); HEMATOCRIT 48.4 % (42.0-52.0); LYMPH # 1.8 10^3/uL (1.5-5.0); LYMPH % 15.8 % (24.0-44.0); MEAN CORPUSCULAR HEMOGLOBIN 30.7 pg (27.0-33.0); MEAN CORPUSCULAR HGB CONC 33.1 g/dl (32.0-36.5); MEAN CORPUSCULAR VOLUME 92.9 fl (80.0-96.0); MONO # 0.8 10^3/uL (0.0-0.8); MONO % 7.4 % (2.0-8.0); NEUTROPHILS # 8.4 10^3/uL (1.5-8.5); NEUTROPHILS % 73.4 % (36.0-66.0); PLATELET COUNT, AUTOMATED 228 10^3/uL (150-450); RED BLOOD COUNT 5.21 10^6/uL (4.30-6.10); WHITE BLOOD COUNT 11.4 10^3/uL (4.0-10.0)
[2021-03-23 13:41] LABS: CK-MB VALUE MASS < 1.0 NG/ML (<3.6); CPK CREATINE PHOSPHOKINASE 57 U/L (39-308); MB/CK RELATIVE INDEX 1.75 (< OR =4)
[2021-03-23 13:46] LABS: ALBUMIN 3.5 GM/DL (3.2-5.2); ALT/SGPT 12 U/L (12-78); BILIRUBIN,DIRECT 0.2 MG/DL (0.0-0.2); BILIRUBIN,TOTAL 0.7 MG/DL (0.2-1.0); BLOOD UREA NITROGEN 8 MG/DL (7-18); CALCIUM LEVEL 8.8 MG/DL (8.5-10.1); CARBON DIOXIDE LEVEL 27 MEQ/L (21-32); CHLORIDE LEVEL 106 MEQ/L (98-107); GLOMERULAR FILTRATION RATE > 60.0 (>60); GLUCOSE, FASTING 94 MG/DL (70-100); SODIUM LEVEL 142 MEQ/L (136-145); TOTAL PROTEIN 6.8 GM/DL (6.4-8.2)
[2021-03-23 13:47] LABS: NT-PRO BNP 20 PG/ML (<125); THYROID STIMULATING HORMONE 0.849 uIU/ML (0.358-3.740)
[2021-03-23] MEDS ORDERED: ISOVUE-370 76% 100ML VIAL As Ordered ONE (14:27)
[2021-03-23] MEDS ORDERED: predniSONE 20 MG TAB PO ONE (16:10)
[2021-03-23] MEDS ORDERED: COMBIVENT RESPIMAT 100-20MCG INHALER 4GM INH ONE (16:10)
[2021-03-23] MEDS ORDERED: PROV108A INH (16:11)
[2021-03-23] MEDS ORDERED: PRED20TA PO (16:11)
[2021-03-23] MEDS ORDERED: DOXYCYCLINE HYCLATE 100MG TABLET PO ONE (16:15)
[2021-03-23] MEDS ORDERED: DOXY-350 PO (16:26)
[2021-03-23 16:30] VITALS: BP 132/71
== END 2021-03-23 16:44 | disposition home or self-care (01) ==
LOC: M ED 12:24
DX: J40 Bronchitis, not specified as acute or chronic (principal); J95.89 Other postprocedural complications and disorders of respiratory system, not elsewhere classified; I10 Essential (primary) hypertension; R56.9 Unspecified convulsions; Z88.5 Allergy status to narcotic agent; Z88.8 Allergy status to other drugs, medicaments and biological substances; F12.20 Cannabis dependence, uncomplicated; F17.210 Nicotine dependence, cigarettes, uncomplicated
CPT/HCPCS: 36415; 71045; 71275; 80048; 80076; 81001; 82550; 82553; 83605; 83880; 84443; 85025; 87040; 87798; 93005; 93041; 94640; 94664; 94760; 99285; J7512; Q9967

== ENCOUNTER 2021-08-22 17:54 | Emergency (ER) | payer OTHER ==
[~2021-08-22] VITALS: Ht 175.3 cm; Wt 68.2 kg
[~2021-08-22 17:54] MED LIST changes: +DOXY-350 PO; +GOOD200C PO; -OMEP-221; +OMEP40CA5; +PROV108A INH
[2021-08-22 17:55] VITALS: BP 143/79
== END 2021-08-22 20:04 | disposition left against medical advice (07) ==
LOC: M ED 17:54
DX: Z53.21 Procedure and treatment not carried out due to patient leaving prior to being seen by health care provider (principal)

== ENCOUNTER 2022-09-16 11:40 | Emergency (ER) | payer OTHER ==
[~2022-09-16] VITALS: Ht 172.7 cm; Wt 73.4 kg
[~2022-09-16 11:40] MED LIST changes: +ALBU6.7H6 INH; -DOXY-350 PO; +DOXY-444 PO; -PROV108A INH
[2022-09-16 12:24] LABS: BASO # 0.1 10^3/uL (0.0-0.2); BASO % 1.6 % (0.0-1.0); EOS # 0.1 10^3/uL (0.0-0.5); EOS % 1.3 % (0.0-3.0); HEMATOCRIT 50.1 % (42.0-52.0); HEMOGLOBIN 16.7 g/dl (13.5-17.5); LYMPH # 1.6 10^3/uL (1.5-5.0); LYMPH % 23.3 % (24.0-44.0); MEAN CORPUSCULAR HEMOGLOBIN 31.2 pg (27.0-33.0); MEAN CORPUSCULAR HGB CONC 33.3 g/dl (32.0-36.5); MEAN CORPUSCULAR VOLUME 93.6 fl (80.0-96.0); MONO # 0.5 10^3/uL (0.0-0.8); MONO % 7.8 % (2.0-8.0); NEUTROPHILS # 4.5 10^3/uL (1.5-8.5); NEUTROPHILS % 65.3 % (36.0-66.0); PLATELET COUNT, AUTOMATED 221 10^3/uL (150-450); RED BLOOD COUNT 5.35 10^6/uL (4.30-6.10); WHITE BLOOD COUNT 6.9 10^3/uL (4.0-10.0)
[2022-09-16 12:36] LABS: INR 1.02; PARTIAL THROMBOPLASTIN TIME 29.3 SECONDS (24.8-34.2); PROTHROMBIN TIME 13.6 SECONDS (12.5-14.5)
[2022-09-16 12:43] LABS: CK-MB VALUE MASS < 1.0 NG/ML (<3.6); LIPASE 21 U/L (12-53)
[2022-09-16 12:45] LABS: ALBUMIN 3.8 G/DL (3.2-5.2); ALKALINE PHOSPHATASE 80 U/L (46-116); ALT/SGPT < 9 U/L (7.0-40); AST/SGOT 10 U/L (<34); BILIRUBIN,DIRECT 0.3 MG/DL (<0.4); BILIRUBIN,TOTAL 0.9 MG/DL (0.3-1.2); TOTAL PROTEIN 6.3 G/DL (5.7-8.2)
[2022-09-16 12:47] LABS: FREE T4 1.29 NG/DL (0.89-1.76); THYROID STIMULATING HORMONE 0.495 uIU/ML (0.55-4.78)
[2022-09-16] MEDS ORDERED: ISOVUE-370 76% 100ML VIAL As Ordered ONE (12:49)
[2022-09-16 12:54] LABS: CPK CREATINE PHOSPHOKINASE 77 U/L (46-171); MB/CK RELATIVE INDEX 1.29 (< OR =4)
[2022-09-16 13:31] LABS: RSV AMPLIFICATION NEGATIVE (NEGATIVE)
[2022-09-16 13:42] LABS: CK-MB VALUE MASS < 1.0 NG/ML (<3.6)
[2022-09-16 13:47] LABS: CPK CREATINE PHOSPHOKINASE 62 U/L (46-171); MB/CK RELATIVE INDEX 1.61 (< OR =4)
[2022-09-16 15:45] VITALS: BP 139/81; TEMP 98.2; O2SAT 98
== END 2022-09-16 16:04 | disposition home or self-care (01) ==
LOC: M ED 11:40
DX: R07.9 Chest pain, unspecified (principal); R91.8 Other nonspecific abnormal finding of lung field; N13.1 Hydronephrosis with ureteral stricture, not elsewhere classified; K57.30 Diverticulosis of large intestine without perforation or abscess without bleeding; F41.9 Anxiety disorder, unspecified; F17.200 Nicotine dependence, unspecified, uncomplicated; Z88.5 Allergy status to narcotic agent; Z88.8 Allergy status to other drugs, medicaments and biological substances
CPT/HCPCS: 71045; 71275; 74176; 80047; 80076; 81001; 82550; 82553; 83690; 84439; 84443; 85025; 85610; 85730; 87086; 87631; 93005; 93041; 94760; 99285; Q9967

== ENCOUNTER 2022-09-19 01:45 | Emergency (ER) | payer OTHER ==
[~2022-09-19] VITALS: Ht 175.3 cm; Wt 72.6 kg
[2022-09-19 01:46] VITALS: BP 167/85; TEMP 98.8; O2SAT 100
[2022-09-19 02:57] LABS: BASO # 0.1 10^3/uL (0.0-0.2); BASO % 0.9 % (0.0-1.0); EOS # 0.1 10^3/uL (0.0-0.5); EOS % 1.3 % (0.0-3.0); HEMATOCRIT 49.1 % (42.0-52.0); HEMOGLOBIN 16.6 g/dl (13.5-17.5); LYMPH # 1.8 10^3/uL (1.5-5.0); LYMPH % 16.4 % (24.0-44.0); MEAN CORPUSCULAR HGB CONC 33.8 g/dl (32.0-36.5); MEAN CORPUSCULAR VOLUME 91.8 fl (80.0-96.0); MONO % 9.6 % (2.0-8.0); NEUTROPHILS # 7.7 10^3/uL (1.5-8.5); NEUTROPHILS % 71.2 % (36.0-66.0); PLATELET COUNT, AUTOMATED 213 10^3/uL (150-450); RED BLOOD COUNT 5.35 10^6/uL (4.30-6.10); WHITE BLOOD COUNT 10.8 10^3/uL (4.0-10.0)
[2022-09-19 03:05] LABS: AMORPHOUS SEDIMENT SMALL (NEGATIVE); APPEARANCE, URINE CLOUDY (CLEAR); BACTERIA, URINE AUTO NEGATIVE (NEGATIVE); BILIRUBIN, URINE AUTO 1+ (NEGATIVE); BLOOD, URINE BLOOD NEGATIVE (NEGATIVE); CALCIUM OXALATE CRYSTALS SMALL; COLOR, URINE AMBER (YELLOW); GLUCOSE, URINE (UA) AUTO NEGATIVE (NEGATIVE); KETONE, URINE AUTO NEGATIVE (NEGATIVE); LEUKOCYTE ESTERASE, URINE AUTO NEGATIVE (NEGATIVE); MUCUS, URINE SMALL (NEGATIVE); NITRITE, URINE AUTO NEGATIVE (NEGATIVE); PROTEIN, URINE AUTO 1+ mg/dL (NEGATIVE); RBC, URINE AUTO 7 /HPF (0-3); SPECIFIC GRAVITY URINE AUTO 1.023 (1.002-1.035); SQUAMOUS EPITHELIAL CELL UR AU 0 /HPF (0-6); WBC, URINE AUTO 3 /HPF (0-3)
[2022-09-19 03:19] LABS: ALKALINE PHOSPHATASE 82 U/L (46-116); ALT/SGPT 15 U/L (7.0-40); AST/SGOT 10 U/L (<34); BILIRUBIN,TOTAL 1.3 MG/DL (0.3-1.2); BLOOD UREA NITROGEN 8 MG/DL (9-23); CALCIUM LEVEL 9.1 MG/DL (8.5-10.1); CARBON DIOXIDE LEVEL 26 MMOL/L (20-31); CHLORIDE LEVEL 108 MMOL/L (98-107); CREATININE FOR GFR 0.95 MG/DL (0.70-1.30); GLOMERULAR FILTRATION RATE > 60.0 (>60); GLUCOSE, FASTING 103 MG/DL (60-100); POTASSIUM SERUM 3.7 MMOL/L (3.5-5.1); SODIUM LEVEL 142 MMOL/L (136-145); TOTAL PROTEIN 6.6 G/DL (5.7-8.2)
== END 2022-09-19 04:29 | disposition left against medical advice (07) ==
LOC: M ED 01:45
DX: Z53.21 Procedure and treatment not carried out due to patient leaving prior to being seen by health care provider (principal)

== ENCOUNTER → 2022-10-12 | Outpatient (REF) | payer OTHER ==
[2022-10-12 13:57] LABS: APPEARANCE, URINE CLEAR (CLEAR); BACTERIA, URINE AUTO NEGATIVE (NEGATIVE); BILIRUBIN, URINE AUTO NEGATIVE (NEGATIVE); BLOOD, URINE BLOOD 2+ (NEGATIVE); COLOR, URINE YELLOW (YELLOW); GLUCOSE, URINE (UA) AUTO NEGATIVE (NEGATIVE); KETONE, URINE AUTO NEGATIVE (NEGATIVE); LEUKOCYTE ESTERASE, URINE AUTO NEGATIVE (NEGATIVE); MUCUS, URINE SMALL (NEGATIVE); NITRITE, URINE AUTO NEGATIVE (NEGATIVE); PROTEIN, URINE AUTO 1+ mg/dL (NEGATIVE); RBC, URINE AUTO 35 /HPF (0-3); SPECIFIC GRAVITY URINE AUTO 1.012 (1.002-1.035); SQUAMOUS EPITHELIAL CELL UR AU 0 /HPF (0-6); WBC, URINE AUTO 2 /HPF (0-3)
== END ==
LOC: M SMT 12:49
PROVIDERS: ATTEND Urology
DX: R31.0 Gross hematuria (principal)

== ENCOUNTER → 2022-12-05 | Outpatient (CLI) | payer OTHER ==
[2022-12-05 08:34] LABS: HEMATOCRIT 52.7 % (42.0-52.0); HEMOGLOBIN 17.6 g/dl (13.5-17.5); MEAN CORPUSCULAR HEMOGLOBIN 31.4 pg (27.0-33.0); MEAN CORPUSCULAR HGB CONC 33.4 g/dl (32.0-36.5); MEAN CORPUSCULAR VOLUME 93.9 fl (80.0-96.0); PLATELET COUNT, AUTOMATED 227 10^3/uL (150-450); RED BLOOD COUNT 5.61 10^6/uL (4.30-6.10)
== END ==
LOC: M LAB 07:58
PROVIDERS: ATTEND Urology
DX: R31.0 Gross hematuria (principal)

== ENCOUNTER → 2023-01-16 | Outpatient (CLI) | payer OTHER ==
[~2023-01-16] MED LIST changes: +HYDR-3713 PO; +OXYB5TAB11 PO; +PYRI1TAB5 PO
== END ==
LOC: M RAD 08:38
PROVIDERS: ATTEND Urology
DX: Z96.0 Presence of urogenital implants (principal); N20.0 Calculus of kidney

== ENCOUNTER → 2023-03-07 | Outpatient (CLI) | payer OTHER | LOC: M RAD 12:27 | PROVIDERS: ATTEND Urology | DX: R60.0 Localized edema (principal) ==

== ENCOUNTER → 2023-03-22 | Outpatient (CLI) | payer OTHER ==
[2023-03-22 11:40] LABS: HEMATOCRIT 50.2 % (42.0-52.0); HEMOGLOBIN 16.7 g/dl (13.5-17.5); MEAN CORPUSCULAR HEMOGLOBIN 30.5 pg (27.0-33.0); MEAN CORPUSCULAR HGB CONC 33.3 g/dl (32.0-36.5); MEAN CORPUSCULAR VOLUME 91.6 fl (80.0-96.0); PLATELET COUNT, AUTOMATED 251 10^3/uL (150-450); RED BLOOD COUNT 5.48 10^6/uL (4.30-6.10); WHITE BLOOD COUNT 9.6 10^3/uL (4.0-10.0)
[2023-03-22 12:05] LABS: ALBUMIN 3.7 G/DL (3.2-5.2); ALKALINE PHOSPHATASE 78 U/L (46-116); ALT/SGPT 13 U/L (7.0-40); AST/SGOT 9 U/L (<34); BILIRUBIN,TOTAL 0.5 MG/DL (0.3-1.2); BLOOD UREA NITROGEN 10 MG/DL (9-23); CALCIUM LEVEL 8.7 MG/DL (8.5-10.1); CARBON DIOXIDE LEVEL 29 MMOL/L (20-31); CHLORIDE LEVEL 109 MMOL/L (98-107); CREATININE FOR GFR 0.83 MG/DL (0.70-1.30); GLOMERULAR FILTRATION RATE > 60.0 (>60); GLUCOSE, FASTING 92 MG/DL (60-100); POTASSIUM SERUM 4.2 MMOL/L (3.5-5.1); SODIUM LEVEL 144 MMOL/L (136-145); TOTAL PROTEIN 6.6 G/DL (5.7-8.2)
== END ==
LOC: M LAB 11:10
PROVIDERS: ATTEND Urology
DX: N20.0 Calculus of kidney (principal)

== ENCOUNTER 2023-03-28 06:33 | Day surgery (SDC) | payer OTHER ==
[~2023-03-28] VITALS: Ht 175.3 cm; Wt 82.7 kg
[2023-03-28] MEDS ORDERED: propofoL 200 MG/20 ML VIAL As Ordered ONE (07:21)
[2023-03-28] MEDS ORDERED: KETOROLAC 60MG 2ML VIAL As Ordered ONE (07:21)
[2023-03-28] MEDS ORDERED: LIDOCAINE 2% 100MG/5ML SDV (FOR ANES.) As Ordered ONE (07:21)
[2023-03-28] MEDS ORDERED: MIDAZOLAM INJ 2MG/2ML VIAL As Ordered ONE (07:22)
[2023-03-28] MEDS ORDERED: fentaNYL 100 MCG/2 ML INJECTION As Ordered ONE (07:22)
[2023-03-28] MEDS ORDERED: LR 1,000 ML IV SCH (07:45)
[2023-03-28] MEDS: ceFAZolin SOD 2 GM in IV 1 EA IV ONE (08:17)
[2023-03-28 09:27] VITALS: BP 140/78; TEMP 98.2; O2SAT 100
== END 2023-03-28 09:32 | disposition home or self-care (01) ==
LOC: M SDC 06:33
PROVIDERS: ATTEND Urology
DX: N20.0 Calculus of kidney (principal); G40.802 Other epilepsy, not intractable, without status epilepticus; G47.30 Sleep apnea, unspecified; F17.210 Nicotine dependence, cigarettes, uncomplicated; Z87.19 Personal history of other diseases of the digestive system; Z90.49 Acquired absence of other specified parts of digestive tract; Z88.5 Allergy status to narcotic agent; Z88.8 Allergy status to other drugs, medicaments and biological substances; F60.3 Borderline personality disorder
CPT/HCPCS: 50590; 74018; J0690; J1885; J2250; J3010

== ENCOUNTER → 2023-04-09 | Outpatient (CLI) | payer OTHER | LOC: M RAD 11:51 | PROVIDERS: ATTEND Urology | DX: N20.0 Calculus of kidney (principal) ==